=== PATIENT | male | born 1950 | race Caucasian/White ===

== ENCOUNTER 2016-04-26 08:17 | Inpatient (IN) | payer OTHER, MEDICARE ==
[~2016-04-26] VITALS: Ht 177.8 cm; Wt 61.5 kg
[~2016-04-26 08:17] MED LIST: AMOXIL500 MG PO; BACTRIM DS 8001 TAB PO; BYSTOLIC5 M1 PO; COUMADIN 2 MG TA2 MG PO; COUMADIN 3 MG TA3 MG PO; OXYCODONE HCL15 M1 PO; OXYCONTIN20 MG PO; TIZANIDINE4 MG PO
--- NOTE | 2016-04-26 08:23 | NUR ---
PT STATES HE HAS MESH IN HIS ABD THAT WAS PUT IN 2004 AND HE THINKS IT POPPED IN HIS LLQ. PT CALLED HIS PCP AND HE COULDN'T GET IN. PT STATES HE HAS BEEN ON PAIN MANAGEMENT FOR YEARS PT PALE AT TRIAGE.
--- NOTE | 2016-04-26 08:30 | NUR ---
PT BROUGHT TO ROOM UNABLE TO OBTAIN 02 SAT IN TRIAGE
--- NOTE | 2016-04-26 08:47 | NUR ---
PT WHEELED TO ROOM 7, TRANSFERRED TO [facility]. PLACED ON 2L 02 VIA OR, STATES HE FEELS A LITTLE SOB, SAT 100% AT THIS TIME. PT REPORT FEELING A POP TO HIS LOWER ABDOMEN. STATES THAT HE HAS A MESH IN PLACE FROM A SURGERY YEARS AGO. ALSO C/O LT LEG PAIN. DR MITCHELL IN ROOM TO [facility].
[2016-04-26 09:23] LABS: WHITE BLOOD CELL COUNT 7.6 /CUMM (4.8-10.8)
--- NOTE | 2016-04-26 09:29 | NUR ---
IV EST. NS INFUSING, MEDICATED WITH MORPHINE (SEE MAR)
--- NOTE | 2016-04-26 09:45 | NUR ---
CRITICAL TEST RESULTS [id number] Blanca ROSENBERG 65 M TESTS AND RESULTS: HEMATOCRIT 12.7 / HEMOGLOBIN 3.9 Results received and read back by: SOSA SMITH Results received date and time: 04/26/16 0946 The following provider was notified of the results, and read the results back: DR MITCHELL Notified date and time: 04/26/16 at 0946
[2016-04-26 09:47] LABS: RED BLOOD CELL CT 1.98 /CUMM (4.70-6.10)
[2016-04-26 09:48] LABS: HEMATOCRIT 12.7 % (42-52); MEAN CORPUSCULAR HGB 19.8 PG (27.0-31.0); MEAN CORPUSCULAR HGB CONC 30.8 G/DL (33.0-37.0); MEAN CORPUSCULAR VOLUME 64.2 FL (80.0-94.0)
[2016-04-26 09:49] LABS: ABSOLUTE BASOPHIL COUNT 0 /CUMM (0.0-0.2); ABSOLUTE EOSINOPHIL COUNT 0 /CUMM (0.0-0.7); ABSOLUTE GRANULOCYTE CT 6.6 /CUMM (1.4-6.5); ABSOLUTE LYMPH COUNT 0.5 /CUMM (1.2-3.4); ABSOLUTE MONOCYTE COUNT 0.6 /CUMM (0.10-0.60); BASOPHIL % 0 % (0.0-2.0); EOSINOPHIL % 0.1 % (0-5); GRANULOCYTE % 85.9 % (42.2-75.2); MEAN PLATELET VOLUME 10.6 FL (7.4-10.4); PLATELET COUNT 222 /CUMM (130-400); RBC DISTRIBUTION WIDTH 22.9 % (11.5-14.5)
--- NOTE | 2016-04-26 10:15 | NUR ---
PT TO AND FROM CAT.
--- NOTE | 2016-04-26 10:40 | CT SCAN REPORT ---
EXAMINATION: CT ABDOMEN AND PELVIS WITHOUT CONTRAST CLINICAL INFORMATION: Incarcerated hernia. Abdominal pain. COMPARISON: None. TECHNIQUE: Contiguous axial thin section helical images of the abdomen and pelvis were performed without oral or IV contrast. The data set was reformatted in the coronal and sagittal planes and reviewed on an independent workstation. DLP: 262 mGy-cm. FINDINGS: There is patchy opacification within the posterior basal segments of both lower lobes. The visualized portions of the heart are unremarkable. The liver is of normal size and attenuation without focal lesions nor intrahepatic biliary ductal dilation. A normal gallbladder is identified. There is no wall thickening or discernible pericholecystic fluid. The spleen, pancreas, adrenal glands are unremarkable. Both kidneys are of normal size and attenuation without hydronephrosis or nephrolithiasis. There is free fluid overlying the liver which is of low attenuation. There is also free fluid overlying the spleen which is of moderate attenuation. There is neither mesenteric nor retroperitoneal lymphadenopathy. There is a fat-containing anterior abdominal wall hernia. There is sigmoid diverticulosis without adjacent fat stranding or colonic wall thickening. Otherwise, unremarkable unopacified loops of small and large bowel are identified. There is a moderate amount of pelvic free fluid which is of intermediate attenuation. The urinary bladder is unremarkable. There is neither pelvic nor inguinal lymphadenopathy. Bone windows: There is destruction of the proximal right femur with a few flecks of residual bone identified. IMPRESSION: Moderate amount of abdominal and pelvic free fluid. Some of the fluid is of intermediate attenuation. This is nonspecific, but could be indicative of old degrading blood, debris or infection. Patchy bibasilar airspace disease. Diverticulosis without discrete evidence of diverticulitis. 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
--- NOTE | 2016-04-26 11:10 | ED GI/GU/ABDOMINAL COMPLAINT ---
History of Present Illness General Chief Complaint: Abdominal Pain/Flank Pain Stated Complaint: ABD PAIN Source: patient, old records, Epic Exam Limitations: no limitations Vital Signs & Intake/Output Vital Signs & Intake/Output Vital Signs Date Time Temp Pulse Resp B/P Pulse O2 O2 Flow FiO2 Ox Delivery Rate 04/26 1158 98.2 80 18 104/52 99 Room Air 04/26 0824 98.4 102 18 98/61 Allergies Coded Allergies: MDX - Gentamicin (GENTAMICIN) (SYSTEMIC RX 09/12/14) Reconcile Medications Amoxicillin (Amoxil) 500 MG CAP 1 TAB PO TID INFECTION Nebivolol (Bystolic) 5 MG TABLET 1 TAB PO DAILY BP (Reported) Oxycodone Cr (OxyContin) 20 MG TAB.ER.12H 1 TAB PO TID PAIN (Reported) OXYCODONE HCL (Oxycodone HCl) 15 MG TABLET 1 TAB PO TID PRN PAIN (Reported) Sulfamethoxazole/Trimethopri (Bactrim Ds 800 MG-160 MG) 1 TAB TAB 1 TAB PO BID INFECTION Sulfamethoxazole/Trimethopri (Bactrim Ds 800 MG-160 MG) 1 TAB TAB 1 TAB PO BID INFECTION TIZANIDINE HCL (Tizanidine) 4 MG TABLET 1 TAB PO QPM MUSCLE RELAXER (Reported ) Warfarin Sodium (Coumadin) 3 MG TABLET 1 TAB PO DAILY BLOOD (Reported) Warfarin Sodium (Coumadin) 2 MG TABLET 1 TAB PO DAILY HEART (Reported) Triage Note: PT STATES HE HAS MESH IN HIS ABD THAT WAS PUT IN 2004 AND HE THINKS IT POPPED IN HIS LLQ. PT CALLED HIS PCP AND HE COULDN'T GET IN. Triage Nurses Notes Reviewed? yes Onset: 2 weeks Duration: week(s):, constant, continues in ED, getting worse Timing: recent history Quality/Severity: sharpness, severe Location: periumbilical Radiation: no radiation Activities at Onset: physical activity Prior Abdominal Problems: none Past Sexual History: Unobtainable at this time Modifying Factors: Worsens With: movement, palpation. Associated Symptoms: abdominal pain, weakness HPI: Several months prior to admission patient complains of progressive weakness mid abdominal pain described as aching constant nonradiating mild in severity. 2 weeks prior to admission while getting out from commode he felt a tearing sensation in the side of his abdomen is become severe sharp constant nonradiating. He denies fever chills nausea vomiting diarrhea chest pain cough shortness of breath headache dysuria rash bleeding. Refuses rectal exam. Past History Travel History Traveled to [place] past 21 day No Medical History Any Pertinent Medical History? see below for history Cardiovascular: hypertension, AORTIC VALVUE REPLACMENT Surgical History Surgical History: appendectomy, hernia repair-incisional, right leg amputation Psychosocial History What is your primary language Grenadian Tobacco Use: Current Daily Use Daily Tobacco Use Amount/Type: => 5 Cigarettes daily ETOH Use: denies use Illicit Drug Use: marijuana Family History Hx Contributory? No Review of Systems Review of Systems Constitutional: Reports: see HPI, weakness. EENTM: Reports: no symptoms. Respiratory: Reports: no symptoms. Cardiovascular: Reports: no symptoms. GI: Reports: see HPI, abdominal pain. Genitourinary: Reports: no symptoms. Musculoskeletal: Reports: no symptoms. Skin: Reports: no symptoms. Neurological/Psychological: Reports: no symptoms. Hematologic/Endocrine: Reports: no symptoms. Immunologic/Allergic: Reports: no symptoms. All Other Systems: Reviewed and Negative Physical Exam Physical Exam General Appearance: well developed/nourished, alert, awake, anxious, moderate distress, thin Head: atraumatic, normal appearance Eyes: Bilateral: PERRL, EOMI, other (pale conjunctiva). Ears, Nose, Throat, Mouth: hearing grossly normal, moist mucous membrane Neck: normal inspection, supple, full range of motion, normal alignment Respiratory: normal breath sounds, chest non-tender, no respiratory distress, quiet respiration, lungs clear Cardiovascular: regular rate/rhythm, murmur, normal peripheral pulses, norml femoral pulses equa Peripheral Pulses: 4+ carotid (R), 4+ carotid (L) Gastrointestinal: normal bowel sounds, soft, guarding, tenderness (midline scar) Male Genitals: normal genitalia Back: normal inspection, normal range of motion Extremities: normal range of motion, no ligament instability Neurologic/Psych: no motor/sensory deficits, awake, alert, oriented x 3, normal mood/affect, 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 No Severe Sepsis Present: No Septic Shock Present: No Progress Differential Diagnosis: biliary colic, cholecystitis, gastritis, ischemic bowel, pancreatitis, PUD/GERD Plan of Care: Orders Procedure Date/time Status Regular Diet 04/27 D Active Patient Data 04/26 1228 Active OXYGEN SETUP (GEN) 04/26 1127 Active Saline Lock 04/26 1127 Active Admit to inpatient 04/26 1127 Active Vital Signs 04/26 1127 Active Activity/Ambulation 04/26 1127 Active Code Status 04/26 1127 Active PROTHROMBIN TIME 04/26 1105 Complete BLOOD CULTURE 04/26 1055 Active CBC WITHOUT DIFFERENTIAL 04/26 1055 Complete TYPE & SCREEN (NOT X-MATCH) 04/26 1055 Complete LIPASE 04/26 0857 Complete COMPREHENSIVE METABOLIC PANEL 04/26 0857 Complete CBC WITHOUT DIFFERENTIAL 04/26 0857 Complete Laboratory Tests 04/26/16 1136: PT > 103.0 *H, INR > 10.0 *H, CBC w Diff NO MAN DIFF REQ, RBC 1.67 L, MCV 64.2 L, MCH 19.5 L, RDW 23.1 H, MPV 9.3, Gran % 80.3 H, Lymphocytes % 13.5 L, Monocytes % 6.1, Eosinophils % 0.1, Basophils % 0 L, Absolute Granulocytes 5.2, Absolute Lymphocytes 0.9 L, Absolute Monocytes 0.4, Absolute Eosinophils 0, Absolute Basophils 0, PUBS MCHC 30.4 L 04/26/16 0903: Anion Gap 14, Estimated GFR 30 L, BUN/Creatinine Ratio 9.1, Glucose 149 H, Calcium 8.3 L, Total Bilirubin 0.4, AST 33, ALT 21, Alkaline Phosphatase 97, Total Protein 6.4, Albumin 3.3 L, Globulin 3.1, Albumin/Globulin Ratio 1.1, Lipase 17 L, CBC w Diff MAN DIFF ORDERED, RBC 1.98 L, MCV 64.2 L, MCH 19.8 L , RDW 22.9 H, MPV 10.6 H, Gran % 85.9 H, Lymphocytes % 6.5 L, Monocytes % 7.5, Eosinophils % 0.1, Basophils % 0 L, Absolute Granulocytes 6.6 H, Absolute Lymphocytes 0.5 L, Absolute Monocytes 0.6, Absolute Eosinophils 0, Absolute Basophils 0, Hypochromic-Microcytic 4+, Poikilocytosis 2+, Anisocytosis 3+, Microcytic Cells 4+, Ovalocytes 1+, PUBS MCHC 30.8 L Microbiology 04/26 1149 BLOOD: Blood Culture - RECD 04/26 1136 BLOOD: Blood Culture - RECD Diagnostic Imaging: Viewed by Me: CT Scan. Discussed w/RAD: CT Scan. Radiology Impression: Moderate amount of abdominal and pelvic free fluid. Some of the fluid is of intermediate attenuation. This is nonspecific, but could be indicative of old degrading blood, debris or infection. Patchy bibasilar airspace disease. Diverticulosis without discrete evidence of diverticulitis. 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 Initial ED EKG: none Comments: 12/28 hgb/hct 8/24. bun/cr 7/0.[address] Victoria, no surgical intervention at this time. Will follow. Departure Departure Disposition: STILL A PATIENT Condition: Fair Clinical Impression Primary Impression: Symptomatic anemia Secondary Impressions: Acute renal failure Qualifiers: Acute renal failure type: unspecified Qualified Code: N17.9 - Acute kidney failure, unspecified Intra abdominal hemorrhage Pneumonia Warfarin-induced coagulopathy Referrals: CONSTANTINO BANERJEE,JESSICA Gordon (PCP/Family) Departure Forms: Customer Survey General Discharge Information Admission Note Spoke With: SILVIA BANERJEE,ANTONINO Nathan Documentation of Exam: Documentation of any treatments & extenuating circumstances including Concerns Regarding Discharge (functional status, medication knowledge or non-compliance, living conditions, etc.) that warrant an admission rather than observation: ICU monitoring serial lab exam vitamin K transfusion packed red blood cells surgical evaluation IR consultation medication adjustment continuing care discharge planning Critical Care Note Critical Care Note Critical Care Time: 30-74 min (40)
--- NOTE | 2016-04-26 11:58 | NUR ---
REPORT RECIEVED FROM SOHAIL SWAN. DR MITCHELL AT BEDSIDE TO DISCUSS PLAN OF CARE. LABS SENT BY [facility]. ABX INFUSING NOW.
--- NOTE | 2016-04-26 11:59 | NUR ---
LAB AT BEDSIDE FOR ABO CONFIRMATION
[2016-04-26 12:01] LABS: ABSOLUTE BASOPHIL COUNT 0 /CUMM (0.0-0.2); ABSOLUTE EOSINOPHIL COUNT 0 /CUMM (0.0-0.7); ABSOLUTE GRANULOCYTE CT 5.2 /CUMM (1.4-6.5); ABSOLUTE LYMPH COUNT 0.9 /CUMM (1.2-3.4); ABSOLUTE MONOCYTE COUNT 0.4 /CUMM (0.10-0.60); BASOPHIL % 0 % (0.0-2.0); EOSINOPHIL % 0.1 % (0-5); GRANULOCYTE % 80.3 % (42.2-75.2); MEAN CORPUSCULAR HGB 19.5 PG (27.0-31.0); MEAN CORPUSCULAR HGB CONC 30.4 G/DL (33.0-37.0); MEAN CORPUSCULAR VOLUME 64.2 FL (80.0-94.0); MEAN PLATELET VOLUME 9.3 FL (7.4-10.4); PLATELET COUNT 138 /CUMM (130-400); RBC DISTRIBUTION WIDTH 23.1 % (11.5-14.5); RED BLOOD CELL CT 1.67 /CUMM (4.70-6.10); WHITE BLOOD CELL COUNT 6.5 /CUMM (4.8-10.8)
[2016-04-26 12:07] LABS: HEMATOCRIT 10.7 % (42-52)
--- NOTE | 2016-04-26 12:07 | NUR ---
CRITICAL TEST RESULTS [id number] Blanca ROSENBERG 65 M TESTS AND RESULTS: HGB 3.3 HCT 10.7 Results received and read back by: KRISTIAN SUAZO Results received date and time: 04/26/16 1208 The following provider was notified of the results, and read the results back: DR. MITCHELL Notified date and time: 04/26/16 at 1208
[2016-04-26 12:17] LABS: PT > 103.0 SEC (9.4-12.5)
--- NOTE | 2016-04-26 12:21 | NUR ---
CRITICAL TEST RESULTS [id number] Blanca ROSENBERG 65 M TESTS AND RESULTS: INR >10 Results received and read back by: AMNA BELLE Results received date and time: 04/26/16 1221 The following provider was notified of the results, and read the results back: DR MITCHELL Notified date and time: 04/26/16 at 1221
[2016-04-26] MEDS ORDERED: LEXAPRO10 M1 PO (12:53)
--- NOTE | 2016-04-26 12:53 | History & Physical ---
See Addendum General Information and HPI MD Statement: I have seen and personally examined Blanca ROSENBERG and documented this H&P. The patient is a 65 year old M who presented with a patient stated chief complaint of [Weakness/ abdominal pain]. Source of Information: patient, old records Exam Limitations: no limitations History of Present Illness: is a 65 yo man with PMHx. of HTN, CABG at [address] aortic valve on coumadin, multiple right LE surgeries ends up with AKA at 2015 2/2 osteomyelitis, HCV never been medicated, hx. of MRSA, abdominal hernia repair with MESH presented to ED with a c/o of generalized body weakness and abdominal pain. Since he has abdominal pain, with alternating diarrhea and constipation his stool sometimes black and sometimes brown, no BRBPR. Over the last 2.5 weeks his symptoms becomes more sever, he dosen't have energy to do any thing, he feels weak, with decrease PO intake He had an appointment last week with his pcp but he couldn't make it because of inclement weather, over the last 3 days his abdominal pain becomes sever generalized, mostely in the LLQ, associated with alot of gas, alot of cold and hot sweat, heart racing and SOB. While he attempts to move out of the commode he felt tears sensation in the left lower quadrant. His INR checked 2 days ago was 5.1, so, he stopped his coumadin. No antibiotic recently, he stopped taking antibiotic in early march (Bactrim). no change in medication, but he didn't eat that much. Patient denies nausea/ vomiting, LOC, and there is no change in urinary habits. He is on chronic pain medication 2/2 degenarative spine and generalized body pain. Patient stopped drinking alcohol 1 and a half year ago, before that he was heavy drinker, drink>3 drink a day, he denies hospitalization for alcohol detox before. He denies NSAIDs used. 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 Allergies/Medications Allergies: Coded Allergies: gentamicin (SYSTEMIC REACTION 04/26/16) Home Med list Escitalopram Oxalate (Lexapro) 10 MG TABLET 1 TAB PO DAILY MENTAL HEALTH ( Reported) Nebivolol (Bystolic) 5 MG TABLET 1 TAB PO DAILY BP (Reported) Oxycodone HCl 15 MG TABLET 1 TAB PO Q4-6HP PRN PAIN (Reported) Oxycodone HCl (Oxycontin) 30 MG TAB.ER.12H 1 TAB PO TID CHRONIC PAIN ( Reported) TIZANIDINE HCL (Tizanidine) 4 MG TABLET 1 TAB PO QPM MUSCLE RELAXER (Reported ) Tizanidine HCl 4 MG TABLET 1 TAB PO TID PAIN (Reported) Warfarin Sodium (Coumadin) 2 MG TABLET 1 TAB PO DAILY HEART (Reported) Warfarin Sodium (Coumadin) 2 MG TABLET 1 TAB PO AD HEART VALVE (Reported) Past History Travel History Traveled to [place] past 21 day No Medical History Cardiovascular: hypertension, AORTIC VALVUE REPLACMENT, CABG Respiratory: NONE Hepatic: hepatitis C Renal: NONE Psychiatric: anxiety Endocrine: NONE History of MRSA: Yes Active MRSA Infection: No Surgical History Surgical History: appendectomy, hernia repair-incisional, right leg amputation Past Family/Social History Family History Relations & Conditions if any MOTHER Relation not specified for: *No pertinent family history Psychosocial History Smoking Status: Current Everyday Smoker ETOH Use: denies use Illicit Drug Use: marijuana Sexual History Past Sexual History Unobtainable at this time Review of Systems Review of Systems Constitutional: Reports: weakness. EENTM: Reports: no symptoms. Cardiovascular: Reports: palpitations. Respiratory: Reports: short of breath. GI: Reports: abdominal pain, constipation, diarrhea, melena. Genitourinary: Reports: no symptoms. Musculoskeletal: Reports: no symptoms. Skin: Reports: see HPI (Pale). Neurological/Psychological: Reports: anxiety. Hematologic/Endocrine: Reports: see HPI. Exam & Diagnostic Data Last 24 Hrs of Vital Signs/I&O Vital Signs Date Time Temp Pulse Resp B/P Pulse O2 O2 Flow FiO2 Ox Delivery Rate 04/26 1414 99.8 84 18 94/51 95 Room Air 04/26 1256 86 18 97/46 100 Nasal 2.0L Cannula 04/26 1158 98.2 80 18 104/52 99 Room Air 04/26 0824 98.4 102 18 98/61 Intake & Output 04/26 1600 04/26 0800 04/26 0000 Intake Total Output Total Balance Patient 150 lb Weight Physical Exam General Appearance Alert, Oriented X3, Cooperative, Moderate Distress Skin Pallor HEENT Atraumatic, PERRLA, EOMI, Dry moucous membrane Neck Supple, No JVD, +2 Carotid Pulse wo Bruit Cardiovascular Normal S1, Normal S2, Tachycardic Lungs Clear to Auscultation, Normal Air Movement Abdomen Normal Bowel Sounds, Tens, generalized tenderness Extremities No Edema, Normal Pulses Vascular Normal Pulses Last 24 Hrs of Labs/Ronan: Laboratory Tests 04/26/16 1136: PT > 103.0 *H, INR > 10.0 *H, CBC w Diff NO MAN DIFF REQ, RBC 1.67 L, MCV 64.2 L, MCH 19.5 L, RDW 23.1 H, MPV 9.3, Gran % 80.3 H, Lymphocytes % 13.5 L, Monocytes % 6.1, Eosinophils % 0.1, Basophils % 0 L, Absolute Granulocytes 5.2, Absolute Lymphocytes 0.9 L, Absolute Monocytes 0.4, Absolute Eosinophils 0, Absolute Basophils 0, PUBS MCHC 30.4 L 04/26/16 0903: Anion Gap 14, Estimated GFR 30 L, BUN/Creatinine Ratio 9.1, Glucose 149 H, Calcium 8.3 L, Total Bilirubin 0.4, AST 33, ALT 21, Alkaline Phosphatase 97, Troponin I Pending, Total Protein 6.4, Albumin 3.3 L, Globulin 3.1, Albumin/ Globulin Ratio 1.1, Lipase 17 L, CBC w Diff MAN DIFF ORDERED, RBC 1.98 L, MCV 64.2 L, MCH 19.8 L, RDW 22.9 H, MPV 10.6 H, Gran % 85.9 H, Lymphocytes % 6.5 L, Monocytes % 7.5, Eosinophils % 0.1, Basophils % 0 L, Absolute Granulocytes 6.6 H, Absolute Lymphocytes 0.5 L, Absolute Monocytes 0.6, Absolute Eosinophils 0, Absolute Basophils 0, Hypochromic-Microcytic 4+, Poikilocytosis 2+, Anisocytosis 3+, Microcytic Cells 4+, Ovalocytes 1+, PUBS MCHC 30.8 L Microbiology 04/26 1452 UPPER RESP: Surveillance Culture - ORD 04/26 1452 GI: Surveillance Culture - ORD 04/26 1149 BLOOD: Blood Culture - RECD 04/26 1136 BLOOD: Blood Culture - RECD Diagnostic Data Other Results Abdomen/ pelvis CT: Moderate amount of abdominal and pelvic free fluid. Some of the fluid is of intermediate attenuation. This is nonspecific, but could be indicative of old degrading blood, debris or infection. Patchy bibasilar airspace disease. Diverticulosis without discrete evidence of diverticulitis. 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 Assessment/Plan Assessment: 65-year-old man with past medical history of hypertension, CABG status post [facility] [place] aortic valve on Coumadin presented to emergency department with abdominal pain and generalized weakness, who found to have high INR more than 10 and very low H&H 3.9/12.7. Admitted to ICU for acute blood loss anemia. At ED patient received 1 bolus of normal saline, 10 mg subcutaneous vitamin K, 1 dose of IV Flagyl and ceftriaxone, and 1 dose of 6 mg IV morphine. Assessment: 1# supratherapeutic INR: Patient is s/p [facility] [place] aortic valve, now with supratherapeutic INR which could be secondary to decrease oral intake and history of antibiotic use (Bactrim) which was last administer at early March, he is also using SSRI which is known to cause elevation in INR. Patient also has Hx. of HCV never treated he was a heavy drinker before he quit, hemoglopinopathies 2/2 chronic liver disease is unlikely as his liver on CT-Abdomen is of normal size, not cirrhotic. 2# acute blood loss anemia Wide differential diagnosis it could be related to upper GI bleed, mesentric vessels rupture. He reports on and off black stool, it also could be related to ulcer, liver cirrhosis, esophageal varices but liver appears normal on CT-scan. Case discussed in depth with Dr. Nix (GI specialist), who recommend at least 4 units of blood, the goal of hemoglobin is 8 given that the patient has a history of CABG currently he has positive troponin, he may not be a candidate for endoscopy at the moment, unless he has active bleeding, for now we need to rule out hemoperitoneum, paracentesis if has enough fluid to be taped. 3# LEONA: Which most likely related to acute blood loss, decrease perfusion and dehydration, his baseline is 0.7 4#Positive Troponin: Patient with acute blood loss, sever anemia, positive troponin most likely secondary to demand ischemia 5# history of MRSA Plan: * ICU admission * CBC and INR every 6 hour * Vitals Q2 hour * 2 units FFP for now, will assess the need throughout the day * 4 units of packed RBCs for now and we will assess the need for more with the frequent lab * Aim Hgb at 8 * IV protonix * Serial EKG, troponin * GI consult * Cardiology consult * Surgical consult * Gauiac all stool * Iron study, folate, B12 added to the lab * Consider diagnostic paracentesis * Nothing by mouth for possible endoscopy at a.m. * Will continue pain management with his home regimen * Will hold Lexapro, Bystolic, Tizanidine and Coumadin Full code. DVT ppx: ALPS As Ranked By This Provider Problem List: 1. Warfarin-induced coagulopathy 2. Symptomatic anemia 3. Acute renal failure Qualifiers Acute renal failure type: unspecified Qualified Code: N17.9 - Acute kidney failure, unspecified Core Measures/Miscellaneous Acute Coronary Syndrome ACS Diagnosis: No Cerebrovascular Accident CVA/TIA Diagnosis: No Congestive Heart Failure CHF Diagnosis: No Venous Thromboembolism VTE Risk Factors: Acute medical illness, Age > 40 VTE Prophylaxis Ordered Inpt: Mechanical (ALPS/TEDS) No Mech VTE prophylaxis d/t: No contraindications No VTE Pharm Prophylaxis d/t: Active bleeding VTE Diagnosis: No VTE Type: NONE VTE Confirmed by (Test): NONE Severe Sepsis Severe Sepsis Present: No Septic Shock Septic Shock Present: No Miscellaneous Documentation Attending Case Discussed With: SILVIA BANERJEE,ANTONINO Nathan Primary Care Physician: JESSICA MEEKS MD Patient sees these Specialists - Level of Patient Care: Critical Care (CRI)
[2016-04-26] MEDS ORDERED: COUMADIN2 M1 PO (12:54)
[2016-04-26] MEDS ORDERED: TIZANIDINE HCL4 M1 PO (12:54)
[2016-04-26] MEDS ORDERED: OXYCONTIN30 M1 PO (12:54)
--- NOTE | 2016-04-26 13:09 | NUR ---
BED ASSIGNMENT 109-01
--- NOTE | 2016-04-26 13:10 | NUR ---
MEDICINE TEAM AND SURGICAL PA AT BEDSIDE. PT MAKING MULTIPLE REQUESTS FOR PAIN MEDS, MEDICAL TEAM AWARE, PT MADE AWARE THAT HOSPITALIST TEAM DOES NOT WANT TO ORDER MEDS PRIOR TO SEEING THE PT.
--- NOTE | 2016-04-26 13:54 | NUR ---
MEDICATED WITH PO OXYCONTIN. PT VERY UPSET THAT OXYCONTIN WAS PROVIDED IN 3X10MG TABS STATING "THOSE THINGS DON'T WORK, I NEED THE 30S.) PT INFORMED 30MG TABS ARE NOT AVAILABLE IN ER. BLOOD BANK CALLED STATING PRBCS ARE READY. NO CONSENT IN CHART, PT STATES HE DID NOT SIGN A CONSENT FOR BLOOD. NO HOUSE STAFF ORDER IN.
--- NOTE | 2016-04-26 14:11 | Admission Certification ---
Admission Certification Certification Statement - As attending physician, I certify that at the time of - admission, based on clinical presentation, severity of - symptoms, need for further diagnostic testing and - therapeutic interventions, and risk of adverse outcomes - without in-hospital treatment, in my clinical assessment, - this patient requires an acute hospital stay for a minimum - of two nights or longer. I have also considered psychsocial - factors such as support system, advanced age, financial - issues, cognitive issues, and failed out-patient treatments, - past re-admission history, safety of patient, and lack of - compliance as applicable. Specific rationale supporting this admission is: LEONA and Acute blood loss anemia with supratherapeutic INR.
--- NOTE | 2016-04-26 14:30 | NUR ---
RECEIVED FROM ER; A&OX3, VERY PALE MAN. BP 100/50, HR 89, 02 SAT 99% ON RA. LUNGS C/DI'D ALL LOBES. RIGHT LEG AMPUTATION NOTED, +PP'S TO LEFT FOOT. NO C/O PAIN, .5CM ROUND SCAB TO BUTTOCKS NOTED; PT. ON ICU BED; WEIGHT 138.2 WITH ALPS MOTOR ON. HAS OWN WHEELCHAIR, CELL PHONE WITH HIM, GLASSES ON FACE, PER PT. LEFT HIS FULL SET OF UPPER AND LOWER DENTURES AT HOME. PER PT. SMOKES 1PPD X MANY YEARS. DOES NOT DRINK ALCOHOL ANYMORE, HASNT FOR A LONG TIME, DOES HAVE A MEDICAL MARIJUANA CARD, SMOKES HIS MEDICAL MARIJUANA "ONCE IN A WHILE". PT. TO RECEIVE 2 U'S FFP, 2 U'S PRBC'S, THEN HAVE LABS DRAWN AND THEN 2 MORE U'S PRBC'S.
[2016-04-26 14:35] VITALS: BP 100/50
--- NOTE | 2016-04-26 16:42 | PN- Att Addend ---
Attending MD Review Statement Attending Statement Attending MD Statement: examined this patient, discuss w/resident/PA/[employer]GAN [employer]SEMBLER, agreed w/resident/PA/ORGAN ASSEMBLER, reviewed EMR data (avail) Attending Assessment/Plan: Laboratory Tests 04/26/16 1136: PT > 103.0 *H, INR > 10.0 *H, CBC w Diff NO MAN DIFF REQ, RBC 1.67 L, MCV 64.2 L, MCH 19.5 L, RDW 23.1 H, MPV 9.3, Gran % 80.3 H, Lymphocytes % 13.5 L, Monocytes % 6.1, Eosinophils % 0.1, Basophils % 0 L, Absolute Granulocytes 5.2, Absolute Lymphocytes 0.9 L, Absolute Monocytes 0.4, Absolute Eosinophils 0, Absolute Basophils 0, PUBS MCHC 30.4 L 04/26/16 0903: Anion Gap 14, Estimated GFR 30 L, BUN/Creatinine Ratio 9.1, Glucose 149 H, Calcium 8.3 L, Iron Pending, TIBC 369, Ferritin Pending, Total Bilirubin 0.4, AST 33, ALT 21, Alkaline Phosphatase 97, Troponin I 0.53 *H, Total Protein 6.4, Albumin 3.3 L, Globulin 3.1, Albumin/Globulin Ratio 1.1, Lipase 17 L, Vitamin B12 Pending, Folate Pending, CBC w Diff MAN DIFF ORDERED, RBC 1.98 L, MCV 64.2 L, MCH 19.8 L, RDW 22.9 H, MPV 10.6 H, Gran % 85.9 H, Lymphocytes % 6.5 L, Monocytes % 7.5, Eosinophils % 0.1, Basophils % 0 L, Absolute Granulocytes 6.6 H, Absolute Lymphocytes 0.5 L, Absolute Monocytes 0.6, Absolute Eosinophils 0, Absolute Basophils 0, Hypochromic-Microcytic 4+, Poikilocytosis 2+, Anisocytosis 3+, Microcytic Cells 4+, Ovalocytes 1+, PUBS MCHC 30.8 L Vital Signs Date Time Temp Pulse Resp B/P Pulse O2 O2 Flow FiO2 Ox Delivery Rate 04/26 1435 97 Nasal 2.0L Cannula 04/26 1435 99.6 89 20 100/50 99 Nasal 2.0L Cannula 04/26 1414 99.8 84 18 94/51 95 Room Air 04/26 1256 86 18 97/46 100 Nasal 2.0L Cannula 04/26 1158 98.2 80 18 104/52 99 Room Air 04/26 0824 98.4 102 18 98/61 Pt admitted with abdominal pain for few weeks. Pt has PMH of AVR on anticoagulation, HCV untreated, Recent Amputation on rt leg at hip joint for osteomyelitis post which he was on abx, last course was in beginning of Mar 2016 according to the patient. Pt on admission found to be severly anemic with pallor on exam and also found to have high INR of >10 A/p- Sub-Acute blood loss anemia requiring blood transfusion with hb of 3.9 at admission, repeat one is 3.3 with high INR, given 10mg sc vit k in er, will give 2 U of FFP and 2 U of PRBC and recheck INR and h/h. will start on protonix drip, Surgery consulted given the abdominal pain and findings of indeterminate fluid on ct abdomen. Will admit to ICU for close monitoring. D/w pt the care plan. Will get GI consult . Coagulopathy with INR>10, - vit K, FFP and recheck INR Iron def anemia- low mcv , will get iron studies.
--- NOTE | 2016-04-26 18:22 | Cons- General Surgery ---
General Information and HPI Consulting Request Date of Consult: 04/26/16 Requested By: SILVIA BANERJEE,ANTONINO Nathan History of Present Illness: CC: Weakness HPI: 65-year-old nondiabetic smoker, with a complicated medical history including a [employer] valve on Coumadin which incidentally he just stopped taking for a few days because the INR was measured to high, multiple abdominal ventral incisional hernia repairs stemming from initially an appendectomy, and multiple right leg and dictations culminating in a disarticulation and involving osteomyelitis and debridements, I reviewed is not been at this institution for a few years as an inpatient but he comes in overall with some generalized weakness and he was planning to see his primary but because of the weather couldn't come in and also he recalls feeling a popping in his left groin and along with his history of hernia but he was having another hernia. He does take chronic pain meds and has had abdominal pain nonspecific on and off in general but no particular constant abdominal pain now. He denies chest pain or shortness of breath or fevers or sweats he has noted that the past few weeks his had a few very dark bowel movements maybe even a few drops of blood. He denies any changes in his bowel habits weight or appetite otherwise no nausea. I've reviewed the [facility]. No history of GERD, PUD, bleeding problems, heart disease or issues with anesthesia. Allergies/Medications Allergies: Coded Allergies: gentamicin (SYSTEMIC REACTION 04/26/16) Home Med List: Escitalopram Oxalate (Lexapro) 10 MG TABLET 1 TAB PO DAILY MENTAL HEALTH ( Reported) Nebivolol (Bystolic) 5 MG TABLET 1 TAB PO DAILY BP (Reported) Oxycodone HCl 15 MG TABLET 1 TAB PO Q4-6HP PRN PAIN (Reported) Oxycodone HCl (Oxycontin) 30 MG TAB.ER.12H 1 TAB PO TID CHRONIC PAIN ( Reported) TIZANIDINE HCL (Tizanidine) 4 MG TABLET 1 TAB PO QPM MUSCLE RELAXER (Reported ) Tizanidine HCl 4 MG TABLET 1 TAB PO TID PAIN (Reported) Warfarin Sodium (Coumadin) 2 MG TABLET 1 TAB PO DAILY HEART (Reported) Warfarin Sodium (Coumadin) 2 MG TABLET 1 TAB PO AD HEART VALVE (Reported) Current Medications: I reviewed Current Medications Sig/Jean Pierre Start time Last Medication Dose Route Stop Time Status Admin Ceftriaxone Sodium 0 .STK-MED ONE 04/26 1140 DC .ROUTE Ceftriaxone Sodium 1,000 MG ONCE ONE 04/26 1115 DC 04/26 IV 04/26 1116 1150 Influenza Virus 0.5 ML ONCE ONE 04/26 1545 DC Vaccine IM 04/26 1546 Metronidazole 500 MG ONCE ONE 04/26 1115 DC 04/26 N/A 1 UNIT IV 04/26 1214 1158 Morphine Sulfate 0 .STK-MED ONE 04/26 0929 DC .ROUTE Morphine Sulfate 6 MG ONCE ONE 04/26 0900 DC 04/26 IV 04/26 0901 0929 Nicotine 21 MG ONCE ONE 04/26 1300 DC 04/26 TOP 04/26 1301 1305 Nicotine 0 .STK-MED ONE 04/26 1259 DC TOP Oxycodone HCl 15 MG Q4P PRN 04/26 1400 AC 04/26 PO 1757 Oxycodone HCl 0 .STK-MED ONE 04/26 1352 DC PO Oxycodone HCl 30 MG Q8 04/26 1345 AC 04/26 PO 1353 Pantoprazole Sodium 40 MG BID 04/26 2200 CAN IV Pantoprazole Sodium 40 MG Q5H 04/26 1745 AC 04/26 Sodium Chloride 100 ML IV 1755 Pantoprazole Sodium 0 .STK-MED ONE 04/26 1415 DC IV Pantoprazole Sodium 40 MG DAILY 04/26 1410 DC 04/26 IV 1421 Patient Medication 1 UNIT ONE NR 04/26 1430 DC Teaching ED 04/26 1500 Phytonadione 10 MG ONCE ONE 04/26 1230 DC 04/26 SC 04/26 1231 1251 Phytonadione 0 .STK-MED ONE 04/26 1224 DC .ROUTE Sodium Chloride 1,000 ML Q13H 04/26 1410 DC IV Sodium Chloride 1,000 ML BOLUS ONE 04/26 0900 DC 04/26 IV 04/26 0959 0925 Past History Medical History Blood Transfusion Hx: No Cardiovascular: hypertension, AORTIC VALVUE REPLACMENT CABG Respiratory: NONE Hepatic: hepatitis C Renal: NONE Musculoskeletal: RIGHT FEMUR OSTEOMYELITIS TOTAL R HIP DISARTICULATI MUSCLE FLAP RECONSTRUCTIO Psychiatric: anxiety Endocrine: NONE Blood Disorders: anemia, BLOOD TRANSFUSIONS Surgical History Pertinent Surgical History: appendectomy, hernia repair-incisional, right leg amputation Family History Relations & Conditions If Any: MOTHER Relation not specified for: *No pertinent family history Psychosocial History Where Do You Live? Home Smoking Status: Current Everyday Smoker ETOH Use: denies use Illicit Drug Use: marijuana Review of Systems Review of Systems: Constitutional: No fever, sweats or weight loss ENMT: No sore throat Cardiovascular: No chest pain, palpitations or swelling Respiratory: No shortness of breath, cough, or sputum or dyspnea on exertion GI: No GERD or bleeding per rectum : No dysuria or hematuria Musculoskeletal: As stated above, bone or joint pain Skin / Breast: No jaundice, rashes or itching Psychiatric: No history of drug abuse no depression or anxiety, there is a history of excess alcohol use Hematologic / lymphatic system: No problems with excessive bleeding, bruising, or blood clots Exam & Diagnostic Data Vital Signs and I&O I reviewed Vital Signs Date Time Temp Pulse Resp B/P Pulse O2 O2 Flow FiO2 Ox Delivery Rate 04/26 1435 97 Nasal 2.0L Cannula 04/26 1435 99.6 89 20 100/50 99 Nasal 2.0L Cannula 04/26 1414 99.8 84 18 94/51 95 Room Air 04/26 1256 86 18 97/46 100 Nasal 2.0L Cannula 04/26 1158 98.2 80 18 104/52 99 Room Air 04/26 0824 98.4 102 18 98/61 I reviewed Intake & Output 04/26 1600 04/26 0800 04/26 0000 04/25 1600 04/25 0800 04/25 0000 Intake Total 30 Output Total Balance 30 Intake, IV 0 Intake, Oral 30 Number 0 Bowel Movements Patient 138 lb Weight Physical Exam: Constitutional: Frustrated, no acute distress, conversant Eyes: sclera anicteric ENMT: ears and nose atraumatic, moist mucous membranes, poor dentition, no lip lesions Neck: Supple, trachea is midline, no cervical or supraclavicular adenopathy and no palpable thyromegaly Cardiovascular: S1, S2, no murmurs, no peripheral edema Respiratory: clear to auscultation with normal respiratory effort and no intercostal retractions GI: abdomen soft, nontender, nondistended, no palpable hepatosplenomegaly No obvious inguinal hernias, examined supine no obvious incarcerated ventral incisional hernia Extremities / lymphatics: symmetrically warm, free range of motion no peripheral edema, no cervical, supraclavicular, axillary, or inguinal adenopathy Musculoskeletal: gait and station not applicable, no digital cyanosis, otherwise upper extremity good muscle strength and tone, mild atrophy, motor grossly 5 out of 5 throughout Skin: no jaundice, no rashes warm, nondiaphoretic, no areas of erythema or induration Psychiatric: mood and affect are appropriate and alert and oriented to person place and time Last 24 Hours of Labs: I reviewed Laboratory Tests 04/26 04/26 1136 0903 Chemistry Sodium (137 - 145 mmol/L) 136 L Potassium (3.5 - 5.1 mmol/L) 4.9 Chloride (98 - 107 mmol/L) 104 Carbon Dioxide (22 - 30 mmol/L) 18 L Anion Gap (5 - 16) 14 BUN (9 - 20 mg/dL) 20 Creatinine (0.7 - 1.2 mg/dL) 2.2 H Estimated GFR (>60 ml/min) 30 L BUN/Creatinine Ratio (7 - 25 %) 9.1 Glucose (65 - 99 mg/dL) 149 H Calcium (8.4 - 10.2 mg/dL) 8.3 L Iron (49 - 181 ug/dL) 14 L TIBC (261 - 462 ug/dL) 369 Ferritin (17.9 - 464 ng/mL) 7.6 L Total Bilirubin (0.2 - 1.3 mg/dL) 0.4 AST (17 - 59 U/L) 33 ALT (21 - 72 U/L) 21 Alkaline Phosphatase (< 127 U/L) 97 Troponin I (<0.11 ng/ml) 0.53 *H Total Protein (6.3 - 8.2 g/dL) 6.4 Albumin (3.5 - 5.0 g/dL) 3.3 L Globulin (1.9 - 4.2 gm/dL) 3.1 Albumin/Globulin Ratio (1.1 - 2.2 %) 1.1 Lipase (23 - 300 U/L) 17 L Vitamin B12 (239 - 931 pg/mL) 562 Folate (2.76 - 20.0 ng/mL) 7.3 Coagulation PT (9.4 - 12.5 SEC) > 103.0 *H INR (0.90 - 1.17) > 10.0 *H Hematology CBC w Diff NO MAN DIFF REQ MAN DIFF ORDERED WBC (4.8 - 10.8 /CUMM) 6.5 7.6 RBC (4.70 - 6.10 /CUMM) 1.67 L 1.98 L Hgb (14.0 - 18.0 G/DL) 3.3 *L 3.9 *L Hct (42 - 52 %) 10.7 *L 12.7 *L MCV (80.0 - 94.0 FL) 64.2 L 64.2 L MCH (27.0 - 31.0 PG) 19.5 L 19.8 L RDW (11.5 - 14.5 %) 23.1 H 22.9 H Plt Count (130 - 400 /CUMM) 138 222 MPV (7.4 - 10.4 FL) 9.3 10.6 H Gran % (42.2 - 75.2 %) 80.3 H 85.9 H Lymphocytes % (20.5 - 51.1 %) 13.5 L 6.5 L Monocytes % (1.7 - 9.3 %) 6.1 7.5 Eosinophils % (0 - 5 %) 0.1 0.1 Basophils % (0.0 - 2.0 %) 0 L 0 L Absolute Granulocytes (1.4 - 6.5 /CUMM) 5.2 6.6 H Absolute Lymphocytes (1.2 - 3.4 /CUMM) 0.9 L 0.5 L Absolute Monocytes (0.10 - 0.60 /CUMM) 0.4 0.6 Absolute Eosinophils (0.0 - 0.7 /CUMM) 0 0 Absolute Basophils (0.0 - 0.2 /CUMM) 0 0 Hypochromic-Microcytic 4+ Poikilocytosis 2+ Anisocytosis 3+ Microcytic Cells 4+ Ovalocytes 1+ PUBS MCHC (33.0 - 37.0 G/DL) 30.4 L 30.8 L Assessment/Plan Assessment/Plan To be completed, the source seems to be GI, no bowel obstruction no acute general surgical indications. I reviewed today's CT scan on PACS myself there is some dependent free fluid no obvious bowel obstruction. Impression is profound anemia but hemodynamically stable he's been bleeding gradually he needs workup, i.e. scope and possible peritoneal fluid analysis, I feel this amount of fluid in his abdomen on imaging is not enough to explain that degree of a drop seen on the CBC, it was 13 last May, and the elevated INR is playing a role too. No acute surgery indicated, I would advance diet. Problem List: 1. Symptomatic anemia 2. Dehydration Consult Acknowledgment - Thank you for your consult request.
[2016-04-26 20:41] LABS: PT 25.9 SEC (9.4-12.5)
[2016-04-26 20:45] LABS: ABSOLUTE BASOPHIL COUNT 0 /CUMM (0.0-0.2); ABSOLUTE EOSINOPHIL COUNT 0 /CUMM (0.0-0.7); ABSOLUTE GRANULOCYTE CT 1.7 /CUMM (1.4-6.5); BASOPHIL % 0 % (0.0-2.0)
[2016-04-26 20:47] LABS: ABSOLUTE LYMPH COUNT 1.8 /CUMM (1.2-3.4); ABSOLUTE MONOCYTE COUNT 0.4 /CUMM (0.10-0.60); EOSINOPHIL % 0.2 % (0-5); GRANULOCYTE % 43.8 % (42.2-75.2); MEAN CORPUSCULAR HGB CONC 31.7 G/DL (33.0-37.0); PLATELET COUNT 103 /CUMM (130-400); RBC DISTRIBUTION WIDTH 26.5 % (11.5-14.5); RED BLOOD CELL CT 1.86 /CUMM (4.70-6.10); WHITE BLOOD CELL COUNT 3.8 /CUMM (4.8-10.8)
[2016-04-26 20:56] LABS: HEMATOCRIT 13.3 % (42-52); MEAN CORPUSCULAR HGB 22.6 PG (27.0-31.0); MEAN CORPUSCULAR VOLUME 71.5 FL (80.0-94.0)
--- NOTE | 2016-04-26 21:06 | Cons- Cardiology ---
General Information and HPI Consulting Request Date of Consult: 04/26/16 Requested By: ANTONINO VEGA MD Reason for Consult: CAD, mechanical aortic valve History of Present Illness: The patient is a 65-year-old male with history of CAD, status post CABG in 1994, mechanical aortic valve replacement, right AKA secondary to osteomyelitis who presented with abdominal discomfort and generalized weakness. The abdominal pain has been occurring for the past month with alternating diarrhea and constipation. His stools are sometimes black, and at times he notes pink blood in his stools. He is on warfarin for his mechanical aortic valve, and he monitors his INR at home. 2 days prior to admission his INR was 5.0 at home, and he stopped taking warfarin at that time. He has had poor PO intake. He complains of recent weakness. He notes shortness of breath which is increased with activity. He also notes that for the past few months he has been having intermittent chest tightness. No syncope. No orthopnea. Allergies/Medications Allergies: Coded Allergies: gentamicin (SYSTEMIC REACTION 04/26/16) Home Med List: Escitalopram Oxalate (Lexapro) 10 MG TABLET 1 TAB PO DAILY MENTAL HEALTH ( Reported) Nebivolol (Bystolic) 5 MG TABLET 1 TAB PO DAILY BP (Reported) Oxycodone HCl 15 MG TABLET 1 TAB PO Q4-6HP PRN PAIN (Reported) Oxycodone HCl (Oxycontin) 30 MG TAB.ER.12H 1 TAB PO TID CHRONIC PAIN ( Reported) TIZANIDINE HCL (Tizanidine) 4 MG TABLET 1 TAB PO QPM MUSCLE RELAXER (Reported ) Tizanidine HCl 4 MG TABLET 1 TAB PO TID PAIN (Reported) Warfarin Sodium (Coumadin) 2 MG TABLET 1 TAB PO DAILY HEART (Reported) Warfarin Sodium (Coumadin) 2 MG TABLET 1 TAB PO AD HEART VALVE (Reported) Current Medications: Current Medications Sig/Jean Pierre Start time Last Medication Dose Route Stop Time Status Admin Ceftriaxone Sodium 0 .STK-MED ONE 04/26 1140 DC .ROUTE Ceftriaxone Sodium 1,000 MG ONCE ONE 04/26 1115 DC 04/26 IV 04/26 1116 1150 Influenza Virus 0.5 ML ONCE ONE 04/26 1545 DC Vaccine IM 04/26 1546 Metronidazole 500 MG ONCE ONE 04/26 1115 DC 04/26 N/A 1 UNIT IV 04/26 1214 1158 Morphine Sulfate 0 .STK-MED ONE 04/26 0929 DC .ROUTE Morphine Sulfate 6 MG ONCE ONE 04/26 0900 DC 04/26 IV 04/26 0901 0929 Nicotine 21 MG ONCE ONE 04/26 1300 DC 04/26 TOP 04/26 1301 1305 Nicotine 0 .STK-MED ONE 04/26 1259 DC TOP Oxycodone HCl 15 MG Q4P PRN 04/26 1400 AC 04/26 PO 1757 Oxycodone HCl 0 .STK-MED ONE 04/26 1352 DC PO Oxycodone HCl 30 MG Q8 04/26 1345 AC 04/26 PO 1353 Pantoprazole Sodium 40 MG BID 04/26 2200 CAN IV Pantoprazole Sodium 40 MG Q5H 04/26 1745 AC 04/26 Sodium Chloride 100 ML IV 1755 Pantoprazole Sodium 0 .STK-MED ONE 04/26 1415 DC IV Pantoprazole Sodium 40 MG DAILY 04/26 1410 DC 04/26 IV 1421 Patient Medication 1 UNIT ONE NR 04/26 1430 DC Teaching ED 04/26 1500 Phytonadione 10 MG ONCE ONE 04/26 1230 DC 04/26 SC 04/26 1231 1251 Phytonadione 0 .STK-MED ONE 04/26 1224 DC .ROUTE Sodium Chloride 1,000 ML Q13H 04/26 1410 DC IV Sodium Chloride 1,000 ML BOLUS ONE 04/26 0900 DC 04/26 IV 04/26 0959 0925 Review of Systems Review of Systems: No rash. No tremor. No orthopnea. No syncope. No hemoptysis. No hematemesis. All other systems were reviewed, and were noted to be negative. Past History Travel History Traveled to [place] past 21 day No Medical History Blood Transfusion Hx: No Cardiovascular: hypertension, AORTIC VALVUE REPLACMENT CABG Respiratory: NONE Hepatic: hepatitis C Renal: NONE Musculoskeletal: RIGHT FEMUR OSTEOMYELITIS TOTAL R HIP DISARTICULATI MUSCLE FLAP RECONSTRUCTIO Psychiatric: anxiety Endocrine: NONE Blood Disorders: anemia, BLOOD TRANSFUSIONS Surgical History Surgical History: appendectomy, hernia repair-incisional, right leg amputation Family History Relations & Conditions If Any: MOTHER Relation not specified for: *No pertinent family history Psychosocial History Where Do You Live? Home Smoking Status: Current Everyday Smoker ETOH Use: denies use Illicit Drug Use: marijuana Exam & Diagnostic Data Vital Signs and I&O Vital Signs Date Time Temp Pulse Resp B/P Pulse O2 O2 Flow FiO2 Ox Delivery Rate 04/26 1435 97 Nasal 2.0L Cannula 04/26 1435 99.6 89 20 100/50 99 Nasal 2.0L Cannula 04/26 1414 99.8 84 18 94/51 95 Room Air 04/26 1256 86 18 97/46 100 Nasal 2.0L Cannula 04/26 1158 98.2 80 18 104/52 99 Room Air 04/26 0824 98.4 102 18 98/61 Intake & Output 04/26 1600 04/26 0800 04/26 0000 04/25 1600 04/25 0000 Intake Total 30 Output Total Balance 30 Intake, IV 0 Intake, Oral 30 Number 0 Bowel Movements Patient 138 lb Weight Physical Exam: Gen: The patient is in no acute distress HEENT: Normal nose, ears, and oropharynx. Pupils equal bilaterally. Conjunctiva normal. Neck: Supple with no JVD, no masses, and no thyromegaly Lungs: Clear to auscultation with normal respiratory effort Heart: RRR, S1, S2, mechanical heart valve sounds. No peripheral edema, 2+ pulses in the lower extremities bilaterally Abdomen: Soft, nontender, no masses. No hepatomegaly. No splenomegaly Extremities: Right AKA. No clubbing or cyanosis. Normal muscle strength. Skin: Normal skin turgor with no skin ulcers or lesions noted. Neuro: Cranial nerves intact. Sensation intact Psych: Alert and oriented 3 with appropriate affect Labs/Ronan Results: Laboratory Tests 04/26 1600 Chemistry Troponin I Pending Coagulation PT (9.4 - 12.5 SEC) 25.9 H Cancelled INR (0.90 - 1.17) 2.49 H Cancelled Hematology CBC w Diff MAN DIFF ORDERED Cancelled WBC (4.8 - 10.8 /CUMM) Pending Cancelled RBC (4.70 - 6.10 /CUMM) Pending Cancelled Hgb (14.0 - 18.0 G/DL) Pending Cancelled Hct (42 - 52 %) Pending Cancelled MCV (80.0 - 94.0 FL) Pending Cancelled MCH (27.0 - 31.0 PG) Pending Cancelled RDW (11.5 - 14.5 %) Pending Cancelled Plt Count (130 - 400 /CUMM) Pending Cancelled MPV (7.4 - 10.4 FL) Pending Cancelled Gran % (42.2 - 75.2 %) Pending Lymphocytes % (20.5 - 51.1 %) Pending Monocytes % (1.7 - 9.3 %) Pending Eosinophils % (0 - 5 %) Pending Basophils % (0.0 - 2.0 %) Pending Absolute Granulocytes (1.4 - 6.5 /CUMM) Pending Segmented Neutrophils (42.2 - 75.2 %) Pending Absolute Lymphocytes (1.2 - 3.4 /CUMM) Pending Absolute Monocytes (0.10 - 0.60 /CUMM) Pending Absolute Eosinophils (0.0 - 0.7 /CUMM) Pending Absolute Basophils (0.0 - 0.2 /CUMM) Pending PUBS MCHC (33.0 - 37.0 G/DL) Pending Cancelled 04/26 04/26 1535 1136 Chemistry Troponin I Cancelled Coagulation PT (9.4 - 12.5 SEC) > 103.0 *H INR (0.90 - 1.17) > 10.0 *H Hematology CBC w Diff NO MAN DIFF REQ WBC (4.8 - 10.8 /CUMM) 6.5 RBC (4.70 - 6.10 /CUMM) 1.67 L Hgb (14.0 - 18.0 G/DL) 3.3 *L Hct (42 - 52 %) 10.7 *L MCV (80.0 - 94.0 FL) 64.2 L MCH (27.0 - 31.0 PG) 19.5 L RDW (11.5 - 14.5 %) 23.1 H Plt Count (130 - 400 /CUMM) 138 MPV (7.4 - 10.4 FL) 9.3 Gran % (42.2 - 75.2 %) 80.3 H Lymphocytes % (20.5 - 51.1 %) 13.5 L Monocytes % (1.7 - 9.3 %) 6.1 Eosinophils % (0 - 5 %) 0.1 Basophils % (0.0 - 2.0 %) 0 L Absolute Granulocytes (1.4 - 6.5 /CUMM) 5.2 Absolute Lymphocytes (1.2 - 3.4 /CUMM) 0.9 L Absolute Monocytes (0.10 - 0.60 /CUMM) 0.4 Absolute Eosinophils (0.0 - 0.7 /CUMM) 0 Absolute Basophils (0.0 - 0.2 /CUMM) 0 PUBS MCHC (33.0 - 37.0 G/DL) 30.4 L 04/26 0903 Chemistry Sodium (137 - 145 mmol/L) 136 L Potassium (3.5 - 5.1 mmol/L) 4.9 Chloride (98 - 107 mmol/L) 104 Carbon Dioxide (22 - 30 mmol/L) 18 L Anion Gap (5 - 16) 14 BUN (9 - 20 mg/dL) 20 Creatinine (0.7 - 1.2 mg/dL) 2.2 H Estimated GFR (>60 ml/min) 30 L BUN/Creatinine Ratio (7 - 25 %) 9.1 Glucose (65 - 99 mg/dL) 149 H Calcium (8.4 - 10.2 mg/dL) 8.3 L Iron (49 - 181 ug/dL) 14 L TIBC (261 - 462 ug/dL) 369 Ferritin (17.9 - 464 ng/mL) 7.6 L Total Bilirubin (0.2 - 1.3 mg/dL) 0.4 AST (17 - 59 U/L) 33 ALT (21 - 72 U/L) 21 Alkaline Phosphatase (< 127 U/L) 97 Troponin I (<0.11 ng/ml) 0.53 *H Total Protein (6.3 - 8.2 g/dL) 6.4 Albumin (3.5 - 5.0 g/dL) 3.3 L Globulin (1.9 - 4.2 gm/dL) 3.1 Albumin/Globulin Ratio (1.1 - 2.2 %) 1.1 Lipase (23 - 300 U/L) 17 L Vitamin B12 (239 - 931 pg/mL) 562 Folate (2.76 - 20.0 ng/mL) 7.3 Hematology CBC w Diff MAN DIFF ORDERED WBC (4.8 - 10.8 /CUMM) 7.6 RBC (4.70 - 6.10 /CUMM) 1.98 L Hgb (14.0 - 18.0 G/DL) 3.9 *L Hct (42 - 52 %) 12.7 *L MCV (80.0 - 94.0 FL) 64.2 L MCH (27.0 - 31.0 PG) 19.8 L RDW (11.5 - 14.5 %) 22.9 H Plt Count (130 - 400 /CUMM) 222 MPV (7.4 - 10.4 FL) 10.6 H Gran % (42.2 - 75.2 %) 85.9 H Lymphocytes % (20.5 - 51.1 %) 6.5 L Monocytes % (1.7 - 9.3 %) 7.5 Eosinophils % (0 - 5 %) 0.1 Basophils % (0.0 - 2.0 %) 0 L Absolute Granulocytes (1.4 - 6.5 /CUMM) 6.6 H Absolute Lymphocytes (1.2 - 3.4 /CUMM) 0.5 L Absolute Monocytes (0.10 - 0.60 /CUMM) 0.6 Absolute Eosinophils (0.0 - 0.7 /CUMM) 0 Absolute Basophils (0.0 - 0.2 /CUMM) 0 Hypochromic-Microcytic 4+ Poikilocytosis 2+ Anisocytosis 3+ Microcytic Cells 4+ Ovalocytes 1+ PUBS MCHC (33.0 - 37.0 G/DL) 30.8 L Diagnostic Data EKG Results EKG not in chart Other Results CT scan of the abdomen and pelvis: Moderate amount of abdominal and pelvic free fluid. Some of the fluid is of intermediate attenuation. This is nonspecific, but could be indicative of old degrading blood, debris or infection. Patchy bibasilar airspace disease. Diverticulosis without discrete evidence of diverticulitis. 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 Assessment/Plan Assessment/Plan Assessment: 1. CAD, status post CABG 2. Mechanical aortic valve 3. Anticoagulated on warfarin with INR greater than 10 4. Acute kidney injury 5. Severe anemia, likely secondary to occult blood loss 6. Mild troponin elevation, likely secondary to demand ischemia precipitated by severe anemia. No evidence of acute coronary syndrome at this time. Plan: * Hold Coumadin for elevated INR * Vitamin K and FFP already been given for reversal of elevated INR * Once INR decreases to less than 2.5, IV heparin should be started per protocol * EKG. This does not appear to have been done in ER Consult Acknowledgment - Thank you for your consult request.
[2016-04-26 21:20] LABS: MEAN PLATELET VOLUME 10.4 FL (7.4-10.4)
[2016-04-27] VITALS: BP 106/68
--- NOTE | 2016-04-27 00:43 | NUR ---
PT AWAKE AND ORIENTED. RECEIVING 4TH UNIT OF PC; COMPLETED WITH NO ADVERSE REACTION. NSR 70'S, MANUAL BP 106/68. O2 OSS, SATURATION 97%, LUNGS SOUND CLEAR. NPO AFTER MN, PT REMINDED THAT HE IS FOR ENDOSCOPY TOMORROW. ABDOMEN SOFT, NORMOACTIVE BS. PROTONIX GTT INFUSING AT 20ML/H=8MG.
[2016-04-27 01:53] LABS: MEAN CORPUSCULAR HGB 24.5 PG (27.0-31.0); MEAN CORPUSCULAR HGB CONC 32.5 G/DL (33.0-37.0); MEAN PLATELET VOLUME 9.9 FL (7.4-10.4); PLATELET COUNT 108 /CUMM (130-400); RBC DISTRIBUTION WIDTH 24.9 % (11.5-14.5); WHITE BLOOD CELL COUNT 4.6 /CUMM (4.8-10.8)
[2016-04-27 01:59] LABS: PT 19.9 SEC (9.4-12.5)
[2016-04-27 02:01] LABS: RED BLOOD CELL CT 2.53 /CUMM (4.70-6.10)
[2016-04-27 02:02] LABS: MEAN CORPUSCULAR VOLUME 75.3 FL (80.0-94.0)
--- NOTE | 2016-04-27 02:34 | NUR ---
HGB/HCT 6.2/19. UNIT OF PC STARTED ORDERED. MONITORED FOR ADVERSE REACTION. NO BM NOR VOMITTING NOTED.
--- NOTE | 2016-04-27 07:51 | Cons- Gastroenterology ---
General Information and HPI Consulting Request Date of Consult: 04/27/16 (MD Federico/GASTROENTEROLOGY) Requested By: SILVIA BANERJEE,ANTONINO Nathan Reason for Consult: Anemia Abdominal pain Ascites Hepatitis C Source of Information: patient Exam Limitations: poor historian History of Present Illness: 65-year-old male with history of hepatitis C diagnosed in the , never treated. He was undergoing evaluation at [facility] for this recently. He is not known to be cirrhotic; he does not recall having had a liver biopsy or fibrosis scan. He has a long-standing alcohol abuse history, but stopped 2 years ago. He does not usually have heartburn, indigestion, nausea, or diarrhea /constipation; there is no history of GI bleed including prior blood per rectum and melena; he is anticoagulated because of a prosthetic aortic valve. He does not use aspirin or NSAIDs. He had a colonoscopy more than 10 years ago and states that it was normal. He has never had an EGD. He has chronic pain, in many parts of his body including back and joints, as well as abdomen, for which he takes narcotics. He is status post multiple abdominal surgeries, for, among other entities,, complicated appendicitis, and hernias/mesh insertions. The patient has lost weight recently because of decreased oral intake which he attributed to depression. 3 weeks ago the patient felt and heard a pop in his lower abdomen, and developed severe abdominal pain, which became diffuse. This has persisted. He has noticed since yesterday that his abdomen is also more distended. He presented to the emergency room with this pain, was found to be markedly anemic. He has not noted any swelling in his leg or elsewhere. He denies nausea, vomiting/ hematemesis. He had the passage of several pink tinged bowel movements recently. He also had one day of black stool a few weeks ago; it has been a normal brown since. There has been no fever, chills, sweats, dysuria, hematuria, syncope, chest pain ; there has been some shortness of breath on exertion, and weakness. Allergies/Medications Allergies: Coded Allergies: gentamicin (SYSTEMIC REACTION 04/26/16) Home Med List: Escitalopram Oxalate (Lexapro) 10 MG TABLET 1 TAB PO DAILY MENTAL HEALTH ( Reported) Nebivolol (Bystolic) 5 MG TABLET 1 TAB PO DAILY BP (Reported) Oxycodone HCl 15 MG TABLET 1 TAB PO Q4-6HP PRN PAIN (Reported) Oxycodone HCl (Oxycontin) 30 MG TAB.ER.12H 1 TAB PO TID CHRONIC PAIN ( Reported) TIZANIDINE HCL (Tizanidine) 4 MG TABLET 1 TAB PO QPM MUSCLE RELAXER (Reported ) Tizanidine HCl 4 MG TABLET 1 TAB PO TID PAIN (Reported) Warfarin Sodium (Coumadin) 2 MG TABLET 1 TAB PO DAILY HEART (Reported) Warfarin Sodium (Coumadin) 2 MG TABLET 1 TAB PO AD HEART VALVE (Reported) Current Medications: Current Medications Sig/Jean Pierre Start time Last Medication Dose Route Stop Time Status Admin Ceftriaxone Sodium 0 .STK-MED ONE 04/26 1140 DC .ROUTE Ceftriaxone Sodium 1,000 MG ONCE ONE 04/26 1115 DC 04/26 IV 04/26 1116 1150 Heparin Sodium 25,000 UNIT Q24H 04/26 2145 DC (Porcine) IV Sodium Chloride 500 ML Influenza Virus 0.5 ML ONCE ONE 04/26 1545 DC Vaccine IM 04/26 1546 Metronidazole 500 MG ONCE ONE 04/26 1115 DC 04/26 N/A 1 UNIT IV 04/26 1214 1158 Morphine Sulfate 0 .STK-MED ONE 04/26 0929 DC .ROUTE Morphine Sulfate 6 MG ONCE ONE 04/26 0900 DC 04/26 IV 04/26 0901 0929 Nicotine 21 MG ONCE ONE 04/26 1300 DC 04/26 TOP 04/26 1301 1305 Nicotine 0 .STK-MED ONE 04/26 1259 DC TOP Oxycodone HCl 15 MG Q4P PRN 04/26 1400 04/27 PO 0159 Oxycodone HCl 0 .STK-MED ONE 04/26 1352 DC PO Oxycodone HCl 30 MG Q8 04/26 1345 AC 04/27 PO 0610 Pantoprazole Sodium 40 MG BID 04/26 2200 CAN IV Pantoprazole Sodium 40 MG Q5H 04/26 1745 AC 04/27 Sodium Chloride 100 ML IV 0339 Pantoprazole Sodium 0 .STK-MED ONE 04/26 1415 DC IV Pantoprazole Sodium 40 MG DAILY 04/26 1410 DC 04/26 IV 1421 Patient Medication 1 UNIT ONE NR 04/26 1430 DC Teaching ED 04/26 1500 Phytonadione 10 MG ONCE ONE 04/26 1230 DC 04/26 VA 04/26 1231 1251 Phytonadione 0 .STK-MED ONE 04/26 1224 DC .ROUTE Sodium Chloride 1,000 ML Q13H 04/26 1410 DC IV Sodium Chloride 1,000 ML BOLUS ONE 04/26 0900 DC 04/26 IV 04/26 0913 0937 Past History Travel History Traveled to [place] past 21 day No Medical History Blood Transfusion Hx: No Cardiovascular: hypertension, AORTIC VALVUE REPLACMENT CABG Respiratory: NONE Hepatic: hepatitis C Renal: NONE Musculoskeletal: RIGHT FEMUR OSTEOMYELITIS TOTAL R HIP DISARTICULATI MUSCLE FLAP RECONSTRUCTIO Psychiatric: anxiety Endocrine: NONE Blood Disorders: anemia, BLOOD TRANSFUSIONS Surgical History Surgical History: appendectomy, hernia repair-incisional, right leg amputation Family History Relations & Conditions If Any: MOTHER Relation not specified for: *No pertinent family history Psychosocial History Where Do You Live? Home Smoking Status: Current Everyday Smoker ETOH Use: denies use Illicit Drug Use: marijuana Review of Systems Review of Systems Constitutional: Reports: malaise, weakness (weight loss). Denies: chills, fever. EENTM: Reports: blurred vision. Denies: icterus, epistaxis. Cardiovascular: Denies: chest pain, edema, palpitations, syncope. Respiratory: Reports: short of breath. Denies: cough. GI: Reports: see HPI. Genitourinary: Denies: dysuria, hematuria. Musculoskeletal: Reports: back pain, joint pain, muscle pain. Denies: neck pain. Skin: Denies: jaundice, lesions, rash. Neurological/Psychological: Reports: depressed, emotional problems. Denies: confusion, dementia, headache, numbness, tremors, tonic-clonic seizures. Hematologic/Endocrine: Denies: bruising, bleeding. Immunologic/Allergic: Denies: splenectomy. Exam & Diagnostic Data Vital Signs and I&O Vital Signs Date Time Temp Pulse Resp B/P Pulse O2 O2 Flow FiO2 Ox Delivery Rate 04/27 0400 95 Room Air 04/27 0000 97 Room Air 04/27 0000 98.7 77 22 106/68 97 Room Air 04/26 2000 94 Nasal 2.0L Cannula 04/26 1435 97 Nasal 2.0L Cannula 04/26 1435 99.6 89 20 100/50 99 Nasal 2.0L Cannula 04/26 1414 99.8 84 18 94/51 95 Room Air 04/26 1256 86 18 97/46 100 Nasal 2.0L Cannula 04/26 1158 98.2 80 18 104/52 99 Room Air 04/26 0824 98.4 102 18 98/61 Intake & Output 04/27 040 Intake Total 1651 30 Output Total 200 Balance 1451 30 Intake, Blood 1547 Product Intake, IV 104 0 Intake, Oral 30 Number 0 Bowel Movements Output, Urine 200 Patient 138 lb Weight Physical Exam: Malnourished white male, no apparent distress. Alert and oriented with normal cognition. No asterixis. Skin warm and dry with multiple tattoos, no rash/ lesion, no jaundice, normal turgor. No spider telangiectasias, palmar erythema or gynecomastia. Bitemporal wasting. Sclerae are anicteric. Oropharynx dry without lesion, normal-sized tongue; neck supple, no thyromegaly or neck mass, no adenopathy. Heart regular rhythm with 1/6 systolic murmur. Lungs clear bilaterally. Abdomen is distended but not tense, with normal bowel sounds; midline scar, large central/ventral hernia, diffuse tenderness to mild palpation , no apparent hepatosplenomegaly. Status post resection right leg; left lower extremity without cyanosis or edema, and with good pulses. Results Pertinent Lab Results: Laboratory Tests 04/27 04/26 04/26 0129 2300 2220 Chemistry Troponin I (<0.11 ng/ml) 0.63 *H Coagulation PT (9.4 - 12.5 SEC) 19.9 H INR (0.90 - 1.17) 1.91 H Hematology CBC w Diff MAN DIFF ORDERED Cancelled WBC (4.8 - 10.8 /CUMM) 4.6 L Cancelled RBC (4.70 - 6.10 /CUMM) 2.53 L Cancelled Hgb (14.0 - 18.0 G/DL) 6.2 *L Cancelled Hct (42 - 52 %) 19.0 *L Cancelled MCV (80.0 - 94.0 FL) 75.3 L Cancelled MCH (27.0 - 31.0 PG) 24.5 L Cancelled RDW (11.5 - 14.5 %) 24.9 H Cancelled Plt Count (130 - 400 /CUMM) 108 L Cancelled MPV (7.4 - 10.4 FL) 9.9 Cancelled Segmented Neutrophils (42.2 - 75.2 %) 79 H Lymphocytes (20.5 - 51.1 %) 14 L Monocytes (1.7 - 9.3 %) 6 Basophils (0.0 - 2.0 %) 1 Platelet Estimate (ADEQUATE) ADEQUATE Polychromasia 1+ Hypochromic-Microcytic 2+ Poikilocytosis 2+ Anisocytosis 1+ Microcytic Cells 1+ Target Cells FEW Ovalocytes 1+ Elliptocytes FEW PUBS MCHC (33.0 - 37.0 G/DL) 32.5 L Cancelled Other Body Source Fld Total RBCs Counted (%) 100 Urines Ur Random Creatinine (mg/dL) 249.0 Ur Random Sodium (30 - 90 mmol/L) 43 Ur Random Potassium (mmol/L) 48.4 Fraction Sodium Excret (<1% %) 0.3 04/26 1831 Chemistry Troponin I (<0.11 ng/ml) 0.81 *H Coagulation PT (9.4 - 12.5 SEC) 25.9 H INR (0.90 - 1.17) 2.49 H Hematology CBC w Diff MAN DIFF ORDERED WBC (4.8 - 10.8 /CUMM) 3.8 L RBC (4.70 - 6.10 /CUMM) 1.86 L Hgb (14.0 - 18.0 G/DL) 4.2 *L Hct (42 - 52 %) 13.3 *L MCV (80.0 - 94.0 FL) 71.5 L MCH (27.0 - 31.0 PG) 22.6 L RDW (11.5 - 14.5 %) 26.5 H Plt Count (130 - 400 /CUMM) 103 L MPV (7.4 - 10.4 FL) 10.4 Gran % (42.2 - 75.2 %) 43.8 Lymphocytes % (20.5 - 51.1 %) 46.7 Monocytes % (1.7 - 9.3 %) 9.3 Eosinophils % (0 - 5 %) 0.2 Basophils % (0.0 - 2.0 %) 0 L Absolute Granulocytes (1.4 - 6.5 /CUMM) 1.7 Segmented Neutrophils (42.2 - 75.2 %) 74 Absolute Lymphocytes (1.2 - 3.4 /CUMM) 1.8 Lymphocytes (20.5 - 51.1 %) 25 Monocytes (1.7 - 9.3 %) 1 L Absolute Monocytes (0.10 - 0.60 /CUMM) 0.4 Absolute Eosinophils (0.0 - 0.7 /CUMM) 0 Absolute Basophils (0.0 - 0.2 /CUMM) 0 Nucleated RBCs (0.0 - 0.0 /100WBC) 2 H Platelet Estimate (ADEQUATE) DECREASED Hypochromic-Microcytic 3+ Poikilocytosis 1+ Target Cells 1+ Stomatocytes 1+ Elliptocytes RARE Schistocytes RARE PUBS MCHC (33.0 - 37.0 G/DL) 31.7 L Urines Ur Random Creatinine Cancelled 04/26 04/26 04/26 1600 1535 1136 Chemistry Troponin I Cancelled Coagulation PT (9.4 - 12.5 SEC) Cancelled > 103.0 *H INR (0.90 - 1.17) Cancelled > 10.0 *H Hematology CBC w Diff Cancelled NO MAN DIFF REQ WBC (4.8 - 10.8 /CUMM) Cancelled 6.5 RBC (4.70 - 6.10 /CUMM) Cancelled 1.67 L Hgb (14.0 - 18.0 G/DL) Cancelled 3.3 *L Hct (42 - 52 %) Cancelled 10.7 *L MCV (80.0 - 94.0 FL) Cancelled 64.2 L MCH (27.0 - 31.0 PG) Cancelled 19.5 L RDW (11.5 - 14.5 %) Cancelled 23.1 H Plt Count (130 - 400 /CUMM) Cancelled 138 MPV (7.4 - 10.4 FL) Cancelled 9.3 Gran % (42.2 - 75.2 %) 80.3 H Lymphocytes % (20.5 - 51.1 %) 13.5 L Monocytes % (1.7 - 9.3 %) 6.1 Eosinophils % (0 - 5 %) 0.1 Basophils % (0.0 - 2.0 %) 0 L Absolute Granulocytes (1.4 - 6.5 /CUMM) 5.2 Absolute Lymphocytes (1.2 - 3.4 /CUMM) 0.9 L Absolute Monocytes (0.10 - 0.60 /CUMM) 0.4 Absolute Eosinophils (0.0 - 0.7 /CUMM) 0 Absolute Basophils (0.0 - 0.2 /CUMM) 0 PUBS MCHC (33.0 - 37.0 G/DL) Cancelled 30.4 L 04/26 0903 Chemistry Sodium (137 - 145 mmol/L) 136 L Potassium (3.5 - 5.1 mmol/L) 4.9 Chloride (98 - 107 mmol/L) 104 Carbon Dioxide (22 - 30 mmol/L) 18 L Anion Gap (5 - 16) 14 BUN (9 - 20 mg/dL) 20 Creatinine (0.7 - 1.2 mg/dL) 2.2 H Estimated GFR (>60 ml/min) 30 L BUN/Creatinine Ratio (7 - 25 %) 9.1 Glucose (65 - 99 mg/dL) 149 H Calcium (8.4 - 10.2 mg/dL) 8.3 L Iron (49 - 181 ug/dL) 14 L TIBC (261 - 462 ug/dL) 369 Ferritin (17.9 - 464 ng/mL) 7.6 L Total Bilirubin (0.2 - 1.3 mg/dL) 0.4 AST (17 - 59 U/L) 33 ALT (21 - 72 U/L) 21 Alkaline Phosphatase (< 127 U/L) 97 Troponin I (<0.11 ng/ml) 0.53 *H Total Protein (6.3 - 8.2 g/dL) 6.4 Albumin (3.5 - 5.0 g/dL) 3.3 L Globulin (1.9 - 4.2 gm/dL) 3.1 Albumin/Globulin Ratio (1.1 - 2.2 %) 1.1 Lipase (23 - 300 U/L) 17 L Vitamin B12 (239 - 931 pg/mL) 562 Folate (2.76 - 20.0 ng/mL) 7.3 Hematology CBC w Diff MAN DIFF ORDERED WBC (4.8 - 10.8 /CUMM) 7.6 RBC (4.70 - 6.10 /CUMM) 1.98 L Hgb (14.0 - 18.0 G/DL) 3.9 *L Hct (42 - 52 %) 12.7 *L MCV (80.0 - 94.0 FL) 64.2 L MCH (27.0 - 31.0 PG) 19.8 L RDW (11.5 - 14.5 %) 22.9 H Plt Count (130 - 400 /CUMM) 222 MPV (7.4 - 10.4 FL) 10.6 H Gran % (42.2 - 75.2 %) 85.9 H Lymphocytes % (20.5 - 51.1 %) 6.5 L Monocytes % (1.7 - 9.3 %) 7.5 Eosinophils % (0 - 5 %) 0.1 Basophils % (0.0 - 2.0 %) 0 L Absolute Granulocytes (1.4 - 6.5 /CUMM) 6.6 H Absolute Lymphocytes (1.2 - 3.4 /CUMM) 0.5 L Absolute Monocytes (0.10 - 0.60 /CUMM) 0.6 Absolute Eosinophils (0.0 - 0.7 /CUMM) 0 Absolute Basophils (0.0 - 0.2 /CUMM) 0 Hypochromic-Microcytic 4+ Poikilocytosis 2+ Anisocytosis 3+ Microcytic Cells 4+ Ovalocytes 1+ PUBS MCHC (33.0 - 37.0 G/DL) 30.8 L Imaging/Other Studies: CT scan of the abdomen and pelvis, without IV/oral contrast: * The liver is of normal size and attenuation without focal lesions nor intrahepatic biliary ductal dilation. A normal gallbladder is identified. There is no wall thickening or discernible pericholecystic fluid. * The spleen, pancreas, adrenal glands are unremarkable. * There is free fluid overlying the liver which is of low attenuation. There is also free fluid overlying the spleen which is of moderate attenuation. There is neither mesenteric nor retroperitoneal lymphadenopathy. There is a fat-containing anterior abdominal wall hernia. * There is sigmoid diverticulosis without adjacent fat stranding or colonic wall thickening. Otherwise, unremarkable unopacified loops of small and large bowel are identified. There is a moderate amount of pelvic free fluid which is of intermediate attenuation. The urinary bladder is unremarkable. There is neither pelvic nor inguinal lymphadenopathy. IMPRESSION: * Moderate amount of abdominal and pelvic free fluid. Some of the fluid is of intermediate attenuation. This is nonspecific, but could be indicative of old degrading blood, debris or infection. * Patchy bibasilar airspace disease. * Diverticulosis without discrete evidence of diverticulitis. 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 Assessment/Plan Assessment/Recommendations: 1. Marked anemia. Given stability of vital signs, and relative lack of symptoms on admission, this is likely acute on chronic. There is no overt GI bleeding, although there may have been melena and mild hematochezia recently. This is the setting of over anticoagulation; this is being reversed with FFP and vitamin K. He is receiving his sixth unit of PRBCs. Given the description of ascites on CT, should rule out hemoperitoneum. 2. Hepatitis C. Although there is no established diagnosis of cirrhosis, the patient is a long-standing alcohol abuser as well, has thrombocytopenia, and now ascites. There is no evident encephalopathy; azotemia has corrected with colloid, making hepatorenal syndrome unlikely. 3. Abdominal pain. The patient some degree of chronic pain secondary to abdominal wall/hernias. The recent exacerbation may indeed be muscular/hernia, but must rule out spontaneous bacterial peritonitis, hemoperitoneum. Appreciate surgery evaluation. Recommendations * Nothing by mouth, gentle/maintenance IV fluids * Complete 6th unit packed red blood cells, and check hematocrit. Maintain hemoglobin/hematocrit at greater than 7/21. Check CBC twice daily. * No further FFP. Hold on intravenous heparin for now, pending procedures. Afterwards, IV heparin as per cardiology. * Monitor INR * IV PPI * Diagnostic paracentesis needs to be performed this morning. Sent for cell count, culture, protein, albumin. Discussed with Dr. Tom of interventional radiology. * Probable EGD later today, pending above. * Obtain records from [facility] infectious disease specialist who was evaluating the patient for hepatitis C. Copies To: CONSTANTINO BANERJEE,JESSICA Lieberman. Consult Acknowledgment - Thank you for your consult request.
[2016-04-27 08:00] VITALS: BP 128/72
--- NOTE | 2016-04-27 09:25 | Cons- CRCU ---
General Information and HPI Consulting Request Date of Consult: 04/27/16 Reason for Consult: low H/H Source of Information: patient, old records Exam Limitations: no limitations History of Present Illness: This is a 65-year-old male with past medical history of hypertension, CABG in [address] 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 Since February 2016 the endorses abdominal pain, alternating with diarrhea and constipation. He states his stool has been either tarry black, or brown, but denies any bright red blood per rectum. Over the past 2 weeks he states he has felt more lethargic than usual, he endorses weakness and decreased by mouth intake. Three days prior to admission his abdominal pain was mostly in the left lower quadrant and had increased in severity. He also noticed hot sweats, palpitations, shortness of breath, and increased gas. His INR 2 days ago was 5.1 so he stopped Coumadin. Denies any sick contacts, nausea, vomiting, LOC, dysuria, or any other change in routine. Of note, patient has history of alcoholism, he stopped drinking a year and a half ago. Denies NSAID use. Allergies/Medications Allergies: Coded Allergies: gentamicin (SYSTEMIC REACTION 04/26/16) Home Med List: Escitalopram Oxalate (Lexapro) 10 MG TABLET 1 TAB PO DAILY MENTAL HEALTH ( Reported) Nebivolol (Bystolic) 5 MG TABLET 1 TAB PO DAILY BP (Reported) Oxycodone HCl 15 MG TABLET 1 TAB PO Q4-6HP PRN PAIN (Reported) Oxycodone HCl (Oxycontin) 30 MG TAB.ER.12H 1 TAB PO TID CHRONIC PAIN ( Reported) TIZANIDINE HCL (Tizanidine) 4 MG TABLET 1 TAB PO QPM MUSCLE RELAXER (Reported ) Tizanidine HCl 4 MG TABLET 1 TAB PO TID PAIN (Reported) Warfarin Sodium (Coumadin) 2 MG TABLET 1 TAB PO DAILY HEART (Reported) Warfarin Sodium (Coumadin) 2 MG TABLET 1 TAB PO AD HEART VALVE (Reported) Current Medications: Current Medications Sig/Jean Pierre Start time Last Medication Dose Route Stop Time Status Admin Ceftriaxone Sodium 0 .STK-MED ONE 04/26 1140 DC .ROUTE Ceftriaxone Sodium 1,000 MG ONCE ONE 04/26 1115 DC 04/26 IV 04/26 1116 1150 Heparin Sodium 25,000 UNIT Q24H 04/26 2145 DC (Porcine) IV Sodium Chloride 500 ML Influenza Virus 0.5 ML ONCE ONE 04/26 1545 DC Vaccine IM 04/26 1546 Metronidazole 500 MG ONCE ONE 04/26 1115 DC 04/26 N/A 1 UNIT IV 04/26 1214 1158 Morphine Sulfate 0 .STK-MED ONE 04/26 0929 DC .ROUTE Morphine Sulfate 6 MG ONCE ONE 04/26 0900 DC 04/26 IV 04/26 0901 0929 Nicotine 0 .STK-MED ONE 04/27 0845 UNVr TOP 04/27 0846 Nicotine 21 MG ONCE ONE 04/26 1300 DC 04/26 TOP 04/26 1301 1305 Nicotine 0 .STK-MED ONE 04/26 1259 DC TOP Oxycodone HCl 15 MG Q4P PRN 04/26 1400 AC 04/27 PO 0756 Oxycodone HCl 0 .STK-MED ONE 04/26 1352 DC PO Oxycodone HCl 30 MG Q8 04/26 1345 AC 04/27 PO 0610 Pantoprazole Sodium 40 MG BID 04/26 2200 CAN IV Pantoprazole Sodium 40 MG Q5H 04/26 1745 AC 04/27 Sodium Chloride 100 ML IV 0339 Pantoprazole Sodium 0 .STK-MED ONE 04/26 1415 DC IV Pantoprazole Sodium 40 MG DAILY 04/26 1410 DC 04/26 IV 1421 Patient Medication 1 UNIT ONE NR 04/26 1430 DC Teaching ED 04/26 1500 Phytonadione 10 MG ONCE ONE 04/26 1230 DC 04/26 SC 04/26 1231 1251 Phytonadione 0 .STK-MED ONE 04/26 1224 DC .ROUTE Sodium Chloride 1,000 ML Q13H 04/26 1410 DC IV Sodium Chloride 1,000 ML BOLUS ONE 04/26 0900 DC 04/26 IV 04/26 0959 0925 Review of Systems Review of Systems Constitutional: Reports: malaise, weakness, unexplained weight loss. Denies: chills, diaphoresis, fever. EENTM: Reports: no symptoms. Cardiovascular: Denies: chest pain, palpitations. Respiratory: Denies: cough, short of breath. GI: Reports: abdominal pain, bloating, constipation, diarrhea, distention, melena, nausea, changes in stool. Denies: bowel incontinence, bloody stool, vomiting. Genitourinary: Reports: no symptoms. Musculoskeletal: Reports: joint swelling, muscle pain, muscle stiffness. Skin: Reports: no symptoms. Past History Travel History Traveled to [place] past 21 day No Medical History Blood Transfusion Hx: No Cardiovascular: hypertension, AORTIC VALVUE REPLACMENT CABG Respiratory: NONE Hepatic: hepatitis C Renal: NONE Musculoskeletal: RIGHT FEMUR OSTEOMYELITIS TOTAL R HIP DISARTICULATI MUSCLE FLAP RECONSTRUCTIO Psychiatric: anxiety Endocrine: NONE Blood Disorders: anemia, BLOOD TRANSFUSIONS Surgical History Surgical History: appendectomy, hernia repair-incisional, right leg amputation Family History Relations & Conditions If Any: MOTHER Relation not specified for: *No pertinent family history Psychosocial History Where Do You Live? Home Smoking Status: Current Everyday Smoker ETOH Use: denies use Illicit Drug Use: marijuana Exam & Diagnostic Data Last 24 Hrs of Vital Signs/I&O Vital Signs Date Time Temp Pulse Resp B/P Pulse O2 O2 Flow FiO2 Ox Delivery Rate 04/27 0400 95 Room Air 04/27 0000 97 Room Air 04/27 0000 98.7 77 22 106/68 97 Room Air 04/26 2000 94 Nasal 2.0L Cannula 04/26 1435 97 Nasal 2.0L Cannula 04/26 1435 99.6 89 20 100/50 99 Nasal 2.0L Cannula 04/26 1414 99.8 84 18 94/51 95 Room Air 04/26 1256 86 18 97/46 100 Nasal 2.0L Cannula 04/26 1158 98.2 80 18 104/52 99 Room Air Intake & Output 04/27 1600 04/27 0800 04/27 0000 Intake Total 1651 Output Total 200 Balance 1451 Intake, Blood 1547 Product Intake, IV 104 Output, Urine 200 Physical Exam General Appearance: no apparent distress, alert, awake, anxious, thin Head: atraumatic, normal appearance Eyes: Bilateral: normal appearance, PERRL, EOMI. Ears, Nose, Throat: normal ENT inspection Neck: supple Respiratory: normal breath sounds, chest non-tender, no respiratory distress Cardiovascular: regular rate/rhythm, murmur Gastrointestinal: normal bowel sounds, distention, tenderness Last 48 Hrs of Labs/Ronan: Laboratory Tests 04/27/16 0129: Lactate Dehydrogenase 479, Troponin I 0.63 *H, Albumin 2.8 L, PT 19.9 H, INR 1.91 H, CBC w Diff MAN DIFF ORDERED, RBC 2.53 L, MCV 75.3 L, MCH 24.5 L, RDW 24.9 H, MPV 9.9, Segmented Neutrophils 79 H, Lymphocytes 14 L, Monocytes 6, Basophils 1, Platelet Estimate ADEQUATE, Polychromasia 1+, Hypochromic- Microcytic 2+, Poikilocytosis 2+, Anisocytosis 1+, Microcytic Cells 1+, Target Cells FEW, Ovalocytes 1+, Elliptocytes FEW, PUBS MCHC 32.5 L, Fld Total RBCs Counted 100 04/26/16 2300: CBC w Diff Cancelled, WBC Cancelled, RBC Cancelled, Hgb Cancelled, Hct Cancelled , MCV Cancelled, MCH Cancelled, RDW Cancelled, Plt Count Cancelled, MPV Cancelled, PUBS MCHC Cancelled 04/26/16 2220: Ur Random Creatinine 249.0, Ur Random Sodium 43, Ur Random Potassium 48.4, Fraction Sodium Excret 0.3 04/26/16 2000: Troponin I 0.81 *H, PT 25.9 H, INR 2.49 H, CBC w Diff MAN DIFF ORDERED, RBC 1.86 L, MCV 71.5 L, MCH 22.6 L, RDW 26.5 H, MPV 10.4, Gran % 43.8, Lymphocytes % 46.7, Monocytes % 9.3, Eosinophils % 0.2, Basophils % 0 L, Absolute Granulocytes 1.7, Segmented Neutrophils 74, Absolute Lymphocytes 1.8, Lymphocytes 25, Monocytes 1 L, Absolute Monocytes 0.4, Absolute Eosinophils 0, Absolute Basophils 0, Nucleated RBCs 2 H, Platelet Estimate DECREASED, Hypochromic-Microcytic 3+, Poikilocytosis 1+, Target Cells 1+, Stomatocytes 1+, Elliptocytes RARE, Schistocytes RARE, PUBS MCHC 31.7 L 04/26/16 1831: Ur Random Creatinine Cancelled 04/26/16 1600: PT Cancelled, INR Cancelled, CBC w Diff Cancelled, WBC Cancelled, RBC Cancelled, Hgb Cancelled, Hct Cancelled, MCV Cancelled, MCH Cancelled, RDW Cancelled, Plt Count Cancelled, MPV Cancelled, PUBS MCHC Cancelled 04/26/16 1535: Troponin I Cancelled 04/26/16 1136: PT > 103.0 *H, INR > 10.0 *H, CBC w Diff NO MAN DIFF REQ, RBC 1.67 L, MCV 64.2 L, MCH 19.5 L, RDW 23.1 H, MPV 9.3, Gran % 80.3 H, Lymphocytes % 13.5 L, Monocytes % 6.1, Eosinophils % 0.1, Basophils % 0 L, Absolute Granulocytes 5.2, Absolute Lymphocytes 0.9 L, Absolute Monocytes 0.4, Absolute Eosinophils 0, Absolute Basophils 0, PUBS MCHC 30.4 L 04/26/16 0903: Anion Gap 14, Estimated GFR 30 L, BUN/Creatinine Ratio 9.1, Glucose 149 H, Calcium 8.3 L, Iron 14 L, TIBC 369, Ferritin 7.6 L, Total Bilirubin 0.4, AST 33, ALT 21, Alkaline Phosphatase 97, Troponin I 0.53 *H, Total Protein 6.4, Albumin 3.3 L, Globulin 3.1, Albumin/Globulin Ratio 1.1, Lipase 17 L, Vitamin B12 562, Folate 7.3, CBC w Diff MAN DIFF ORDERED, RBC 1.98 L, MCV 64.2 L, MCH 19.8 L, RDW 22.9 H, MPV 10.6 H, Gran % 85.9 H, Lymphocytes % 6.5 L, Monocytes % 7.5, Eosinophils % 0.1, Basophils % 0 L, Absolute Granulocytes 6.6 H, Absolute Lymphocytes 0.5 L, Absolute Monocytes 0.6, Absolute Eosinophils 0, Absolute Basophils 0, Hypochromic-Microcytic 4+, Poikilocytosis 2+, Anisocytosis 3+, Microcytic Cells 4+, Ovalocytes 1+, PUBS MCHC 30.8 L Assessment/Plan Consult Acknowledgment - Thank you for your consult request.
[2016-04-27 09:27] LABS: ABSOLUTE BASOPHIL COUNT 0 /CUMM (0.0-0.2); ABSOLUTE EOSINOPHIL COUNT 0 /CUMM (0.0-0.7); BASOPHIL % 0 % (0.0-2.0); MEAN CORPUSCULAR HGB 25.2 PG (27.0-31.0)
[2016-04-27 09:31] LABS: ABSOLUTE GRANULOCYTE CT 4.5 /CUMM (1.4-6.5); ABSOLUTE LYMPH COUNT 0.6 /CUMM (1.2-3.4); ABSOLUTE MONOCYTE COUNT 0.4 /CUMM (0.10-0.60); EOSINOPHIL % 0.1 % (0-5); GRANULOCYTE % 80.6 % (42.2-75.2); MEAN CORPUSCULAR HGB CONC 31.9 G/DL (33.0-37.0); MEAN PLATELET VOLUME 9.8 FL (7.4-10.4); PLATELET COUNT 92 /CUMM (130-400); RBC DISTRIBUTION WIDTH 23.8 % (11.5-14.5)
[2016-04-27 09:32] LABS: HEMATOCRIT 25.5 % (42-52); RED BLOOD CELL CT 3.23 /CUMM (4.70-6.10)
[2016-04-27 09:33] LABS: PT 15.5 SEC (9.4-12.5)
--- NOTE | 2016-04-27 10:00 | ULTRASOUND REPORT ---
EXAMINATION: US ABDOMEN LIMITED CLINICAL INFORMATION: Evaluate fluid seen on the CT scan.. COMPARISON: CT abdomen and pelvis dated 04/26/2016 TECHNIQUE: Real-time imaging of the right upper quadrant abdominal viscera. FINDINGS: Evaluation of the 4 quadrants demonstrates small amount of ascites. Slightly complex fluid suspected in the perisplenic region. It is however less well visualized compared to the CT scan. Small left pleural effusion.. IMPRESSION: Small amount of free fluid noted in all 4 quadrants. Subtle complex hypoechoic fluid noted in the perisplenic region. It was however better visualized on the prior CT scan. Trace left pleural effusion.
[2016-04-27 10:04] LABS: WHITE BLOOD CELL COUNT 5.5 /CUMM (4.8-10.8)
--- NOTE | 2016-04-27 10:21 | PN- Resident CRCU ---
Subjective HPI/CRCU Issues: Patient in ICU for: Acute blood loss anemia, elevated troponins, acute renal failure. Saw patient at bedside this a.m. He denied any chest pain, shortness of breath, or abdominal pain. He stated he was passing gas since about 3 AM this morning. He also started having increased urine output around that time. This a.m. he states he feels less fatigued. Initially he was resistant to Dr. Nix this plan of paracentesis and EGD. But after considering the alternative he says he is now on board. Blood pressure has gradually increased since admission in the 90s systolic he is now at 103/90s, Satting well on room air, no respiratory difficulty, heart rate in 70s to 80s. This a.m. when I was in room, patient had his final unit of blood running. Is currently nothing by mouth, and pending abdominal ultrasound and paracentesis later this afternoon. Objective Vital Signs & I&O Last 8 Hrs of Vitals and I&O: Intake & Output 04/27 1600 Intake Total Output Total Balance Patient 61.462 kg Weight Exam General Appearance: well developed/nourished, no apparent distress, alert, awake , anxious Head: atraumatic, conjunctival pallor Ears, Nose, Throat: pale and dry mucous membranes Neck: normal inspection, supple Respiratory: normal breath sounds, chest non-tender Cardiovascular: regular rate/rhythm, murmur Gastrointestinal: soft, some distension noted. Extremities: normal inspection, right AKA. IV Drips IV Drips: pRBC Nutrition Nutrition: NPO Current Medications: Current Medications Sig/Jean Pierre Start time Last Medication Dose Route Stop Time Status Admin Escitalopram Oxalate 10 MG DAILY 04/27 1247 AC PO Heparin Sodium 25,000 UNIT Q24H 04/26 2145 DC (Porcine) IV Sodium Chloride 500 ML Heparin Sodium/ 25,000 UNIT Q24H 04/27 1015 AC Dextrose IV Dextrose/Water 500 ML Influenza Virus 0.5 ML ONCE ONE 04/26 1545 DC Vaccine IM 04/26 1546 Nicotine 21 MG ONCE ONE 04/27 0845 DC 04/27 TOP 04/27 0846 1019 Oxycodone HCl 15 MG Q4P PRN 04/26 1400 AC 04/27 PO 1211 Oxycodone HCl 0 .STK-MED ONE 04/26 1352 DC PO Oxycodone HCl 30 MG Q8 04/26 1345 AC 04/27 PO 0610 Pantoprazole Sodium 40 MG BID 04/26 2200 CAN IV Pantoprazole Sodium 40 MG Q5H 04/26 1745 AC 04/27 Sodium Chloride 100 ML IV 0845 Pantoprazole Sodium 0 .STK-MED ONE 04/26 1415 DC IV Pantoprazole Sodium 40 MG DAILY 04/26 1410 DC 04/26 IV 1421 Patient Medication 1 UNIT ONE NR 04/26 1430 DC Teaching ED 04/26 1500 Sodium Chloride 1,000 ML Q13H 04/26 1410 DC IV Impression/Plan Impression/Problem List Impression: This is a 65-year-old male with past medical history of hypertension, CABG with [facility] [place] Ao valve on Coumadin, who presented to the ED with CC abdominal pain, generalized weakness. He was subsequently found to have supratherapeutic INR and profound anemia. Patient was admitted to ICU for further management and treatment. IMPRESSION: Moderate amount of abdominal and pelvic free fluid. Some of the fluid is of intermediate attenuation. This is nonspecific, but could be indicative of old degrading blood, debris or infection. Patchy bibasilar airspace disease. Diverticulosis without discrete evidence of diverticulitis. 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 PLAN: 1. Acute blood loss anemia: Patient came in with hemoglobin 3.9, hematocrit 12.7. He states that he has had episodes of black tarry stools at home; no bright red blood per rectum noted, no hematemesis and no other overt signs of bleeding. However, he has received over 6 units of PRBC in the hospital, and his subsequent hemoglobin came up to 6.[address] scan of the abdomen showed normal liver, pancreas, spleen, however, there is free fluid overlying the liver and free fluid of the spleen. In addition, there is a moderate amount of pelvic free fluid noted. Primary workup now includes evaluating source of bleed for patient as his hemoglobin has not responded adequately to PRBC transfusion. There is question whether he is having intra-abdominal bleeding. Anemia workup shows: Iron 14, TIBC 369, ferritin 7.6 * Nothing by mouth * Continue IV fluids * Complete 6 unit PRBC * Hold heparin for now * No FFP * Protonix drip * Complete ultrasound of the abdomen * Possible diagnostic paracentesis with workup. * Possible EGD tomorrow * We'll obtain records from [facility] 2. 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 Three days ago INR was at 5.0 and he had stopped taking Coumadin at that time. Vitamin K and FFP given on admission. Initially, plan was to start patient on IV heparin once INR drops below 2.5. However, despite INR at 2.49 this a.m. heparin has not been started as patient continues to bleed. There is concern for intra-abdominal bleed. Will resume heparin if the stat US does not show evidence of abdominal bleed. * Continue to hold Coumadin * IV heparin per protocol per cardiology 3. Positive troponin: Patient given troponin 0.53, subsequent therapeutic 0.81 and then back to 0.63 this AM. Likely represent demand picture. Patient does have known CAD and is status post CABG. We will continue to monitor him on telemetry. * Patient currently not any of his cardiac medication; HOLD Bystolic 5 mg. 4. Acute renal failure: Patient came in with creatinine of 2.2---> 1.2. His baseline seems to be .7. Urine work up shows FeNa .3, possibly suggesting intrinsic renal pathology in addition to pre-renal etiology given low H/H and poor PO intake. Possible superimposed ATN with pre-renal etiology. * Hydrate and monitor 5. Smoking: Patient has prolonged history of cigarette use. * Nicotine patch 6. Chronic pain: Patient has chronic pain secondary to back and his right lower extremity amputation. * OxyContin 30 mg by mouth every 8 * Roxicodone 15 mg every 4 when necessary 7. Depression: Con't SSRI FULL CODE Mechanical DVT ppx NPO Problem List: 1. Acute renal failure 2. Pneumonia 3. Intra abdominal hemorrhage 4. Warfarin-induced coagulopathy 5. Symptomatic anemia Pain Ratin Tomorrow's Labs & Rationales: icu cbc Plan DVT/Prophylaxis: mechanical
--- NOTE | 2016-04-27 11:08 | PN- Cardiology ---
Subjective Subjective: Still with some abdominal discomfort. Denies any bowel movements. Denies chest pain or palpitations. No dyspnea at rest. Objective Vital Signs and I&Os Vital Signs Date Time Temp Pulse Resp B/P Pulse O2 O2 Flow FiO2 Ox Delivery Rate 04/27 0400 95 Room Air 04/27 0000 97 Room Air 04/27 0000 98.7 77 22 106/68 97 Room Air 04/26 2000 94 Nasal 2.0L Cannula 04/26 1435 97 Nasal 2.0L Cannula 04/26 1435 99.6 89 20 100/50 99 Nasal 2.0L Cannula 04/26 1414 99.8 84 18 94/51 95 Room Air 04/26 1256 86 18 97/46 100 Nasal 2.0L Cannula 04/26 1158 98.2 80 18 104/52 99 Room Air Intake & Output 04/27 1600 04/27 0800 04/27 0000 04/26 1600 04/26 0800 04/26 0000 Intake Total 1651 30 Output Total 200 Balance 1451 30 Intake, Blood 1547 Product Intake, IV 104 0 Intake, Oral 30 Number 0 Bowel Movements Output, Urine 200 Patient 136 lb 138 lb Weight Physical Exam: General: no apparent distress. Alert. Eyes: No obvious scleral icterus. HEENT: No jugular venous distention or abnormal jugular venous pulsations. Cardiovascular: Normal intensity S1/S2. Regular. Mechanical valve sounds noted. Respiratory: Mildly decreased air entry at the left base Abdomen: Mildly distended without guarding, abdominal scar noted Musculoskeletal: No cyanosis noted, amputation noted Skin: Warm Neurologic: No gross focal deficits noted. Current Medications: Current Medications Sig/Jean Pierre Start time Last Medication Dose Route Stop Time Status Admin Ceftriaxone Sodium 0 .STK-MED ONE 04/26 1140 DC .ROUTE Ceftriaxone Sodium 1,000 MG ONCE ONE 04/26 1115 DC 04/26 IV 04/26 1116 1150 Heparin Sodium 25,000 UNIT Q24H 04/26 2145 DC (Porcine) IV Sodium Chloride 500 ML Heparin Sodium/ 25,000 UNIT Q24H 04/27 1015 AC Dextrose IV Dextrose/Water 500 ML Influenza Virus 0.5 ML ONCE ONE 04/26 1545 DC Vaccine IM 04/26 1546 Metronidazole 500 MG ONCE ONE 04/26 1115 DC 04/26 N/A 1 UNIT IV 04/26 1214 1158 Nicotine 21 MG ONCE ONE 04/27 0845 DC 04/27 TOP 04/27 0846 1019 Nicotine 21 MG ONCE ONE 04/26 1300 DC 04/26 TOP 04/26 1301 1305 Nicotine 0 .STK-MED ONE 04/26 1259 DC TOP Oxycodone HCl 15 MG Q4P PRN 04/26 1400 AC 04/27 PO 0756 Oxycodone HCl 0 .STK-MED ONE 04/26 1352 DC PO Oxycodone HCl 30 MG Q8 04/26 1345 AC 04/27 PO 0610 Pantoprazole Sodium 40 MG BID 04/26 2200 CAN IV Pantoprazole Sodium 40 MG Q5H 04/26 1745 AC 04/27 Sodium Chloride 100 ML IV 0845 Pantoprazole Sodium 0 .STK-MED ONE 04/26 1415 DC IV Pantoprazole Sodium 40 MG DAILY 04/26 1410 DC 04/26 IV 1421 Patient Medication 1 UNIT ONE NR 04/26 1430 DC Teaching ED 04/26 1500 Phytonadione 10 MG ONCE ONE 04/26 1230 DC 04/26 SC 04/26 1231 1251 Phytonadione 0 .STK-MED ONE 04/26 1224 DC .ROUTE Sodium Chloride 1,000 ML Q13H 04/26 1410 DC IV Results Last 48 Hrs of Labs/Mics: Laboratory Tests 04/27/16 0905: Anion Gap 6, Estimated GFR > 60, Glucose 95, Calcium 8.0 L, Phosphorus 2.9, Magnesium 1.7, Total Bilirubin 1.0, AST 23, ALT 28, Albumin 2.9 L, PT 15.5 H, INR 1.48 H, CBC w Diff NO MAN DIFF REQ, RBC 3.23 L, MCV 79.0 L, MCH 25.2 L, RDW 23.8 H, MPV 9.8, Gran % 80.6 H, Lymphocytes % 11.3 L, Monocytes % 8.0, Eosinophils % 0.1, Basophils % 0 L, Absolute Granulocytes 4.5, Absolute Lymphocytes 0.6 L, Absolute Monocytes 0.4, Absolute Eosinophils 0, Absolute Basophils 0, PUBS MCHC 31.9 L 04/27/16 0129: Lactate Dehydrogenase 479, Troponin I 0.63 *H, Albumin 2.8 L, PT 19.9 H, INR 1.91 H, CBC w Diff MAN DIFF ORDERED, RBC 2.53 L, MCV 75.3 L, MCH 24.5 L, RDW 24.9 H, MPV 9.9, Segmented Neutrophils 79 H, Lymphocytes 14 L, Monocytes 6, Basophils 1, Platelet Estimate ADEQUATE, Polychromasia 1+, Hypochromic- Microcytic 2+, Poikilocytosis 2+, Anisocytosis 1+, Microcytic Cells 1+, Target Cells FEW, Ovalocytes 1+, Elliptocytes FEW, PUBS MCHC 32.5 L, Fld Total RBCs Counted 100 04/26/16 2300: CBC w Diff Cancelled, WBC Cancelled, RBC Cancelled, Hgb Cancelled, Hct Cancelled , MCV Cancelled, MCH Cancelled, RDW Cancelled, Plt Count Cancelled, MPV Cancelled, PUBS MCHC Cancelled 04/26/16 2220: Ur Random Creatinine 249.0, Ur Random Sodium 43, Ur Random Potassium 48.4, Fraction Sodium Excret 0.3 04/26/16 2000: Troponin I 0.81 *H, PT 25.9 H, INR 2.49 H, CBC w Diff MAN DIFF ORDERED, RBC 1.86 L, MCV 71.5 L, MCH 22.6 L, RDW 26.5 H, MPV 10.4, Gran % 43.8, Lymphocytes % 46.7, Monocytes % 9.3, Eosinophils % 0.2, Basophils % 0 L, Absolute Granulocytes 1.7, Segmented Neutrophils 74, Absolute Lymphocytes 1.8, Lymphocytes 25, Monocytes 1 L, Absolute Monocytes 0.4, Absolute Eosinophils 0, Absolute Basophils 0, Nucleated RBCs 2 H, Platelet Estimate DECREASED, Hypochromic-Microcytic 3+, Poikilocytosis 1+, Target Cells 1+, Stomatocytes 1+, Elliptocytes RARE, Schistocytes RARE, PUBS MCHC 31.7 L 04/26/16 1831: Ur Random Creatinine Cancelled 04/26/16 1600: PT Cancelled, INR Cancelled, CBC w Diff Cancelled, WBC Cancelled, RBC Cancelled, Hgb Cancelled, Hct Cancelled, MCV Cancelled, MCH Cancelled, RDW Cancelled, Plt Count Cancelled, MPV Cancelled, PUBS MCHC Cancelled 04/26/16 1535: Troponin I Cancelled 04/26/16 1136: PT > 103.0 *H, INR > 10.0 *H, CBC w Diff NO MAN DIFF REQ, RBC 1.67 L, MCV 64.2 L, MCH 19.5 L, RDW 23.1 H, MPV 9.3, Gran % 80.3 H, Lymphocytes % 13.5 L, Monocytes % 6.1, Eosinophils % 0.1, Basophils % 0 L, Absolute Granulocytes 5.2, Absolute Lymphocytes 0.9 L, Absolute Monocytes 0.4, Absolute Eosinophils 0, Absolute Basophils 0, PUBS MCHC 30.4 L 04/26/16 0903: Anion Gap 14, Estimated GFR 30 L, BUN/Creatinine Ratio 9.1, Glucose 149 H, Calcium 8.3 L, Iron 14 L, TIBC 369, Ferritin 7.6 L, Total Bilirubin 0.4, AST 33, ALT 21, Alkaline Phosphatase 97, Troponin I 0.53 *H, Total Protein 6.4, Albumin 3.3 L, Globulin 3.1, Albumin/Globulin Ratio 1.1, Lipase 17 L, Vitamin B12 562, Folate 7.3, CBC w Diff MAN DIFF ORDERED, RBC 1.98 L, MCV 64.2 L, MCH 19.8 L, RDW 22.9 H, MPV 10.6 H, Gran % 85.9 H, Lymphocytes % 6.5 L, Monocytes % 7.5, Eosinophils % 0.1, Basophils % 0 L, Absolute Granulocytes 6.6 H, Absolute Lymphocytes 0.5 L, Absolute Monocytes 0.6, Absolute Eosinophils 0, Absolute Basophils 0, Hypochromic-Microcytic 4+, Poikilocytosis 2+, Anisocytosis 3+, Microcytic Cells 4+, Ovalocytes 1+, PUBS MCHC 30.8 L Recent Imaging Studies: Telemetry tracings were personally reviewed show sinus rhythm with a [address] scan Moderate amount of abdominal and pelvic free fluid. Some of the fluid is of intermediate attenuation. This is nonspecific, but could be indicative of old degrading blood, debris or infection. Patchy bibasilar airspace disease. Diverticulosis without discrete evidence of diverticulitis. 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 Abd US Small amount of free fluid noted in all 4 quadrants. Subtle complex hypoechoic fluid noted in the perisplenic region. It was however better visualized on the prior CT scan. Trace left pleural effusion. ECG tracing was personally reviewed and shows sinus rhythm with intraventricular conduction delay Assessment/Plan Assessment/Plan 1. Acute kidney injury, improving 2. Mechanical aortic valve (1994) 3. Anticoagulated on warfarin with INR greater than 10, improving 4. Ascites, Hx of Hep C 5. Severe anemia, likely secondary to occult blood loss, requiring transfusion 6. Mild troponin elevation, likely secondary to demand ischemia precipitated by severe anemia. 7. History of ascending aortic aneurysm INR now down to 1.4 and would recommend starting on intravenous heparin drip without a bolus history of mechanical aortic valve. Heparin drip can be held intermittently for procedures as needed. Hold off on restarting outpatient beta nelida. Continue on telemetry. The elevated troponins likely due to demand ischemia would recommend obtaining a transthoracic echocardiogram to exclude any new regional wall motion abnormalities. Will likely be a candidate for outpatient ischemic testing in the future. No evidence of CHF at this time. Agree with gentle hydration. Dick Lemons MD FAC Continue telemetry? Yes
[2016-04-27 12:00] VITALS: BP 100/50
--- NOTE | 2016-04-27 12:31 | NUR ---
0800: RECEIVED PT IN BED. A+OX3. ON RA. PRODUCTIVE COUGH. PT IS AN EVERY DAY SMOKER, REQUESTING NICOTINE PATCH. LUNGS CLEAR BUT DIMINISHED AT BASES. VSS, LOW GRADE TEMP. NSR ON MONITOR. ABDOMEN DISTENDED BUT SOFT, +BS. DENIES NAUSEA. ABDOMEN TENDER. PT HAS ABDOMINAL HERNIA. VOIDS IN URINAL WITH SOME DIFFICULTY, URINE DARK, VOIDS 100-175 AT A TIME. R AKA. LEFT LEG HEALED SKIN GRAFT SITES. +CMS. PROTONIX GTT RUNNING AT 8MG/HR OR 20ML/HR. PT RECEIVED PRBC OVER NIGHT. LABS STABLE. WILL MONITOR. PT TO HAVE PARACENTESIS TODAY, EGD TOMORROW, AND ECHO TODAY. PT ON PAIN REGIMEN.
[2016-04-27 16:00] VITALS: BP 118/60
--- NOTE | 2016-04-27 16:13 | ULTRASOUND REPORT ---
EXAMINATION: PARACENTESIS CLINICAL INFORMATION: Ascites. Rule out pooling of blood. Low H\T\H. COMPARISON: Same day abdominal ultrasound and CT abdomen pelvis 04/26/2016 TECHNIQUE: Direct ultrasound guidance using a 20-gauge spinal needle. FINDINGS: Informed consent was obtained from the patient prior to the procedure. During this process, the procedure alternatives were explained, along with the intended outcome and benefits. The risks of the procedure, as well as the risk of not doing the procedure, was discussed. The patient was given the opportunity to ask questions regarding the procedure and appeared competent to make medical decisions. A signed consent form which documents this discussion was placed in the medical record. Ultrasound evaluation of the abdomen for ascites was performed. Only a tiny amount of ascites was visualized within the abdomen, the most accessible site was within the right lower quadrant. The site was marked. A timeout procedure was performed. The area was prepped and draped in usual sterile fashion. Using standard interventional and sterile techniques, lidocaine was used to anesthetize the region. A 20-gauge spinal needle was introduced into the right lower quadrant under direct ultrasound guidance using standard safety needle technique. Only approximately 5 mL of thin serosanguineous, nonclotting fluid could be aspirated. The needle was then removed. Good hemostasis was achieved using manual pressure. A sterile dressing was placed. The patient tolerated the procedure well. The patient was discharged from the department in stable condition. Specimen sent for requested analysis. COMPLICATIONS: None. IMPRESSION: Successful diagnostic paracentesis as detailed above.
--- NOTE | 2016-04-27 17:08 | PN- Att Addend ---
Attending MD Review Statement Attending Statement Attending MD Statement: examined this patient, discuss w/resident/PA/PREVENTATIVE MAINTENANCE TECHNICIAN, agreed w/resident/PA/PREVENTATIVE MAINTENANCE TECHNICIAN, reviewed EMR data (avail) Attending Assessment/Plan: Laboratory Tests 04/27/16 1330: Fluid WBC ND, Fld Mesothelial Cells 26, Fld Total RBCs Counted ND 04/27/16 1330: Lymphocytes 16, % Normal PMNs 57, Misc Hematology Test 1, Fluid Glucose 84, Fluid Total Protein 3.9, Fluid Albumin 1.8, Fluid LDH 1141, Fluid Amylase < 30 04/27/16 0905: Anion Gap 6, Estimated GFR > 60, Glucose 95, Calcium 8.0 L, Phosphorus 2.9, Magnesium 1.7, Total Bilirubin 1.0, AST 23, ALT 28, Albumin 2.9 L, PT 15.5 H, INR 1.48 H, CBC w Diff NO MAN DIFF REQ, RBC 3.23 L, MCV 79.0 L, MCH 25.2 L, RDW 23.8 H, MPV 9.8, Gran % 80.6 H, Lymphocytes % 11.3 L, Monocytes % 8.0, Eosinophils % 0.1, Basophils % 0 L, Absolute Granulocytes 4.5, Absolute Lymphocytes 0.6 L, Absolute Monocytes 0.4, Absolute Eosinophils 0, Absolute Basophils 0, PUBS MCHC 31.9 L 04/27/16 0129: Lactate Dehydrogenase 479, Troponin I 0.63 *H, Albumin 2.8 L, PT 19.9 H, INR 1.91 H, CBC w Diff MAN DIFF ORDERED, RBC 2.53 L, MCV 75.3 L, MCH 24.5 L, RDW 24.9 H, MPV 9.9, Segmented Neutrophils 79 H, Lymphocytes 14 L, Monocytes 6, Basophils 1, Platelet Estimate ADEQUATE, Polychromasia 1+, Hypochromic- Microcytic 2+, Poikilocytosis 2+, Anisocytosis 1+, Microcytic Cells 1+, Target Cells FEW, Ovalocytes 1+, Elliptocytes FEW, PUBS MCHC 32.5 L, Fld Total RBCs Counted 100 04/26/16 2300: CBC w Diff Cancelled, WBC Cancelled, RBC Cancelled, Hgb Cancelled, Hct Cancelled , MCV Cancelled, MCH Cancelled, RDW Cancelled, Plt Count Cancelled, MPV Cancelled, PUBS MCHC Cancelled 04/26/16 2220: Ur Random Creatinine 249.0, Ur Random Sodium 43, Ur Random Potassium 48.4, Fraction Sodium Excret 0.3 04/26/161999: Troponin I 0.81 *H, PT 25.9 H, INR 2.49 H, CBC w Diff MAN DIFF ORDERED, RBC 1.86 L, MCV 71.5 L, MCH 22.6 L, RDW 26.5 H, MPV 10.4, Gran % 43.8, Lymphocytes % 46.7, Monocytes % 9.3, Eosinophils % 0.2, Basophils % 0 L, Absolute Granulocytes 1.7, Segmented Neutrophils 74, Absolute Lymphocytes 1.8, Lymphocytes 25, Monocytes 1 L, Absolute Monocytes 0.4, Absolute Eosinophils 0, Absolute Basophils 0, Nucleated RBCs 2 H, Platelet Estimate DECREASED, Hypochromic-Microcytic 3+, Poikilocytosis 1+, Target Cells 1+, Stomatocytes 1+, Elliptocytes RARE, Schistocytes RARE, PUBS MCHC 31.7 L 04/26/16 1831: Ur Random Creatinine Cancelled Vital Signs Date Time Temp Pulse Resp B/P Pulse O2 O2 Flow FiO2 Ox Delivery Rate 04/27 1200 Room Air 04/27 1200 99.0 74 24 100/50 93 Room Air 04/27 0800 Room Air 04/27 0800 99.6 78 20 128/72 94 Room Air 04/27 0400 95 Room Air 04/27 0000 97 Room Air 04/27 0000 98.7 77 22 106/68 97 Room Air 04/26 1999 94 Nasal 2.0L Cannula Sub-Acute blood loss anemia requiring blood transfusion with hb of 3.9 at admission, with high INR of >10, given 10mg sc vit k in er, given 2 U of FFP and 6 U of PRBC and repeat INR is 1.48 and repeat Hb is 8.1 . will cont on protonix drip, Surgery consulted given the abdominal pain and findings of indeterminate fluid on ct abdomen. GI consult appreciated. Paracentesis - 5cc of serosanguionous fluid removed . EGD planned for tomorrow. Type 2 Myocardial infarction - cardiology following. demand ischemia. AVR in past on coumadin. started on heparin drip. LEONA- resolving. cr today is 1.2 Coagulopathy - resolved now. Iron def anemia- low mcv and iron studies consistent with it. d/w pt the care plan.
--- NOTE | 2016-04-27 18:06 | NUR ---
LATE ENTRY:1300 PT TO AND FROM ULTRASOUND FOR GUIDED PARACENTESIS. 5 ML OF BLOODY FLUID DRAINED. BAND AID PLACED. PT TOLERATED WELL.
[2016-04-27 21:59] LABS: ABSOLUTE BASOPHIL COUNT 0 /CUMM (0.0-0.2); ABSOLUTE EOSINOPHIL COUNT 0 /CUMM (0.0-0.7); ABSOLUTE GRANULOCYTE CT 3.1 /CUMM (1.4-6.5); ABSOLUTE LYMPH COUNT 0.9 /CUMM (1.2-3.4); ABSOLUTE MONOCYTE COUNT 0.4 /CUMM (0.10-0.60); BASOPHIL % 0 % (0.0-2.0); EOSINOPHIL % 0.4 % (0-5); GRANULOCYTE % 70.5 % (42.2-75.2); HEMATOCRIT 24.1 % (42-52); MEAN CORPUSCULAR HGB 25.5 PG (27.0-31.0); MEAN CORPUSCULAR HGB CONC 32.7 G/DL (33.0-37.0); MEAN CORPUSCULAR VOLUME 77.8 FL (80.0-94.0); MEAN PLATELET VOLUME 10.4 FL (7.4-10.4); PLATELET COUNT 100 /CUMM (130-400); RBC DISTRIBUTION WIDTH 23.6 % (11.5-14.5)
[2016-04-27 22:04] LABS: WHITE BLOOD CELL COUNT 4.4 /CUMM (4.8-10.8)
[2016-04-27 22:08] LABS: PT 13.9 SEC (9.4-12.5); PTT 43 SEC (25-37)
--- NOTE | 2016-04-27 22:26 | ECHOCARDIOGRAM REPORT ---
Blanca ROSENBERG Age: 65 : 1950 Gender: M Exam Date: 04/27/2016 16:17 Exam Location: [facility] Ht (in): 70 Wt (lb): 138 BSA: 1.75 BP: 100 / 50 Ordering Physician: SHAYE GONZALEZ MD Referring Physician: Alexandru Lemons M.D. Technologist: Dara Smith [facility] Room Number: 109 Indications: MYOCARDIAL ISCHEMIA/PR Rhythm: Technical Quality: Technically difficult study FINDINGS Left Ventricle Left ventricular cavity size normal. Left ventricular wall thickness at upper limits of normal. No obvious regional wall motion abnormalities. Hyperdynamic left ventricular systolic function. LVEF > 65 %. Right Ventricle Normal right ventricular size and function. Right Atrium Normal right atrial size. Left Atrium Mild left atrial dilatation. Mitral Valve Moderate mitral annular calcification. Mild mitral stenosis. Mild mitral regurgitation. Aortic Valve Mechanical prosthetic aortic valve not well visualized. Mean gradient elevated at 37 mmHg (peak velocity 402 cm/sec) which is above expected mechanical aortic valve gradient. Clinical correlation is advised. Tricuspid Valve Tricuspid valve not well visualized, grossly normal. Mild tricuspid regurgitation. Right ventricular systolic pressure estimated at > 50 mmHg. Pulmonic Valve Pulmonic valve not well visualized. Pericardium No pericardial effusion. Great Vessels Normal size aortic root. CONCLUSIONS Technically difficult study. Left ventricular cavity size normal. Left ventricular wall thickness at upper limits of normal. No obvious regional wall motion abnormalities. Hyperdynamic left ventricular systolic function. LVEF > 65 %. Mild left atrial dilatation. Mild mitral stenosis. Mechanical prosthetic aortic valve not well visualized. Mean gradient elevated at 37 mmHg (peak velocity 402 cm/sec) which is above expected mechanical aortic valve gradient. Clinical correlation is advised. Right ventricular systolic pressure estimated at > 50 mmHg. Alexandru Lemons M.D. (Electronically Signed) Final Date: 27 April 2016 22:25 MEASUREMENTS (Male / Female) Normal Values 2D ECHO LV Diastolic Diameter PLAX 4.2 cm 4.2 - 5.9 / 3.9 - 5.3 cm LV Systolic Diameter PLAX 1.9 cm 2.1 - 4.0 cm LV Fractional Shortening PLAX 54.8 % 25 - 46 % LV Ejection Fraction 2D Teich 85.8 % IVS Diastolic Thickness 0.9 cm LVPW Diastolic Thickness 1.0 cm LV Relative Wall Thickness 0.5 RV Internal Dim ED PLAX 2.6 cm 1.9 - 3.8 cm Aortic Root Diameter 3.3 cm LA Systolic Diameter LX 4.0 cm 3.0 - 4.0 / 2.7 - 3.8 cm LA Volume 55.0 cm 18 - 58 / 22 - 52 cm Ascending Aorta Diameter 3.8 cm DOPPLER AV Peak Velocity 402.0 cm/s AV Peak Gradient 64.6 mmHg AV Mean Velocity 302.0 cm/s AV Mean Gradient 40.0 mmHg AV Velocity Time Integral 79.8 cm LVOT Peak Velocity 141.0 cm/s LVOT Peak Gradient 8.0 mmHg LVOT Mean Velocity 96.1 cm/s LVOT Mean Gradient 4.0 mmHg LVOT Velocity Time Integral 26.4 cm MV Peak Velocity 186.0 cm/s MV Peak Gradient 13.8 mmHg MV Mean Velocity 119.5 cm/s MV Mean Gradient 6.5 mmHg Mitral E Point Velocity 151.0 cm/s Mitral A Point Velocity 157.0 cm/s Mitral E to A Ratio 1.0 MV PHT Velocity 191.5 cm/s MV Deceleration Cherry 630.5 cm/s MV Pressure Half Time 91.1 ms MV Area PHT 2.4 cm MV Deceleration Time 293.0 ms TR Peak Velocity 343.0 cm/s TR Peak Gradient 47.1 mmHg Right Atrial Pressure 5.0 mmHg Pulmonary Artery Systolic Pressu 52.1 mmHg Right Ventricular Systolic Press 52.1 mmHg PV Peak Velocity 114.0 cm/s PV Peak Gradient 5.2 mmHg PV Mean Velocity 81.7 cm/s PV Mean Gradient 3.0 mmHg PV Velocity Time Integral 20.4 cm LV E' Lateral Velocity 12.7 cm/s Mitral E to LV E' Lateral Ratio 11.9 LV E' Septal Velocity 7.3 cm/s Mitral E to LV E' Septal Ratio 20.7
[2016-04-28] VITALS: BP 118/60
[2016-04-28 04:00] VITALS: BP 128/70
--- NOTE | 2016-04-28 04:37 | NUR ---
PT A/OX3. CLEAR SPEECH. ON RA SAT 91-93%. LUNGS CLEAR DIMINISHED AT BASES. AROUND 0330, PT REFUSING TO WEAR CONTINUOUS PULSE OX PROBE STATING THAT ITS TOO LOUD AND HE CANNOT SLEEP. PT EDUCATED ON IMPORTANCE OF PULSE OX PROBE AND THAT IT IS NECESSARY TO WEAR WHILE IN ICU. HE PROMPTLY TOOK IT OFF HIS FINGER AND LAID IT IN HIS BED. MD ESTEBAN MADE AWARE. WILL CHECK O2 SAT Q1H WITH VITALS CHECKS. PT AGREES WITH PLAN. ABD SOFT/DISTENDED. PT C/O BLOATING. +FLATUS. - BM. NSR 70-90S. BP SYSTOLIC 110-120S. DENIES CP. HEPARIN GTT @ 24/1 ML/HR IN #20 RF. PTT TO BE DRAWN AT 0500. PT REMAINS AFEBRILE. C/O 8/10 BACK PAIN. VOIDING DAVID URINE IN URINAL. REMAINS NPO FOR EGD TODAY.
[2016-04-28 06:02] LABS: ABSOLUTE BASOPHIL COUNT 0 /CUMM (0.0-0.2); ABSOLUTE EOSINOPHIL COUNT 0.1 /CUMM (0.0-0.7); ABSOLUTE GRANULOCYTE CT 2.3 /CUMM (1.4-6.5); ABSOLUTE LYMPH COUNT 0.9 /CUMM (1.2-3.4); ABSOLUTE MONOCYTE COUNT 0.3 /CUMM (0.10-0.60); BASOPHIL % 0 % (0.0-2.0); EOSINOPHIL % 1.8 % (0-5); GRANULOCYTE % 64.8 % (42.2-75.2); HEMATOCRIT 23.9 % (42-52); MEAN CORPUSCULAR HGB CONC 31.8 G/DL (33.0-37.0); MEAN CORPUSCULAR VOLUME 78.6 FL (80.0-94.0); MEAN PLATELET VOLUME 10.5 FL (7.4-10.4); PLATELET COUNT 94 /CUMM (130-400); RBC DISTRIBUTION WIDTH 23.7 % (11.5-14.5); RED BLOOD CELL CT 3.04 /CUMM (4.70-6.10); WHITE BLOOD CELL COUNT 3.5 /CUMM (4.8-10.8)
[2016-04-28 06:12] LABS: PTT 54 SEC (25-37)
--- NOTE | 2016-04-28 06:56 | PN- Resident CRCU ---
See Addendum Subjective HPI/CRCU Issues: Patient in ICU for acute blood loss anemia, elevated troponins, acute renal failure. I followed up and examined the patient this morning. I'm comfortably in the bed , in acute distress, does not have any active issues. He is waiting for a GI scope to be done later this morning. He denies fatigue, chest pain, palpitations, dizziness. He doesn't have any bloody stool. Vitals have been stable, no issues overnight. Objective Vital Signs & I&O Last 8 Hrs of Vitals and I&O: ... Exam General Appearance: no apparent distress, alert, awake, anxious, thin Head: atraumatic, normal appearance Ears, Nose, Throat: normal pharynx, hearing grossly normal, dry mucosal membrane Neck: normal inspection, supple Respiratory: normal breath sounds, chest non-tender Cardiovascular: regular rate/rhythm, murmur Gastrointestinal: normal bowel sounds, soft, non-tender Extremities: right AKA, left thigh has old skin graft scar anteriorly, grossly normal Skin: intact, normal color, warm/dry IV Drips IV Drips: Heparin drip in D5W Nutrition Nutrition: NPO (awaiting GI scope today) Current Medications: Current Medications Sig/Jean Pierre Start time Last Medication Dose Route Stop Time Status Admin Chlorhexidine 1 GM .STK-MED ONE 04/28 1308 DC Gluconate TOP 04/28 1309 Dextrose/Sodium 1,000 ML Q13H 04/27 2300 CAN Chloride IV Escitalopram Oxalate 10 MG DAILY 04/27 1247 AC 04/28 PO 1243 Heparin Sodium 2,500 UNIT ONCE ONE 04/28 0645 DC 04/28 (Porcine) IV 04/28 0646 0744 Heparin Sodium 5,000 UNIT .STK-MED ONE 04/28 0627 DC (Porcine) IV 04/28 0628 Heparin Sodium 5,000 UNIT .STK-MED ONE 04/27 2245 DC (Porcine) IV 04/27 2246 Heparin Sodium 4,600 UNIT ONCE ONE 04/27 2240 DC (Porcine) IV 04/27 2241 Heparin Sodium/ 25,000 UNIT Q24H 04/27 1015 AC 04/28 Dextrose IV 1244 Dextrose/Water 500 ML Loratadine 10 MG DAILY 04/27 1708 AC 04/28 PO 1242 Nicotine 21 MG DAILY 04/28 1415 TOP Oxycodone HCl 15 MG Q4P PRN 04/26 1400 AC 04/28 PO 1210 Oxycodone HCl 30 MG Q8 04/26 1345 AC 04/28 PO 1410 Pantoprazole Sodium 40 MG Q5H 04/26 1745 AC 04/28 Sodium Chloride 100 ML IV 1243 Polyethylene Glycol 1 GAL ONCE ONE 04/28 1800 AC PO 04/28 1801 Potassium Chloride 40 MEQ ONCE ONE 04/27 2230 DC 04/28 PO 04/27 2231 0002 US Findings: Successful diagnostic paracentesis as detailed above. DICTATED BY: LIS PAIGE MD DATE/TIME DICTATED:04/27/161603 [employer] COMMISSIONER:LAURYN DATE/TIME TRANSCRIBED:04/27/161603 Impression/Plan Impression/Problem List Impression: This is a 65-year-old male with past medical history of hypertension, CABG with [place] Ao valve on Coumadin, who presented to the ED with CC abdominal pain, generalized weakness. He was subsequently found to have supratherapeutic INR and profound anemia. Patient was admitted to ICU for further management and treatment. Impression of upper GI endoscopy done today: 1. 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 2. Mild erosive gastritis status post antral biopsies. 3. Nonerosive duodenitis. 4. Nonobstructing Schatzki's ring. 5. Grossly normal small bowel folds status post random biopsies. Heparin drip on hold since 8:30am for GI scope at 11am. PLAN: 1. Acute blood loss anemia: Patient came in with hemoglobin 3.9, hematocrit 12.7. He states that he has had episodes of black tarry stools at home; no bright red blood per rectum noted, no hematemesis and no other overt signs of bleeding. However, he has received over 6 units of PRBC in the hospital, and his subsequent hemoglobin came up to 6.[address] scan of the abdomen showed normal liver, pancreas, spleen, however, there is free fluid overlying the liver and free fluid of the spleen. In addition, there is a moderate amount of pelvic free fluid noted. Primary workup now includes evaluating source of bleed for patient as his hemoglobin has not responded adequately to PRBC transfusion. There is question whether he is having intra-abdominal bleeding. Anemia workup shows: Iron 14, TIBC 369, ferritin 7.6 * Patient was nothing by mouth after midnight and underwent an upper GI endoscopy earlier today, has been placed on clear liquid diet since then. * Since the GI endoscopy was not able to find any actively bleeding sites, plan to keep him nothing by mouth after midnight tonight and go for colonoscopy tomorrow morning. * Patient is undergoing CT scan of abdomen to find out whether he has splenic vein thrombosis, and if so, he is to be evaluated by surgical team for possible splenectomy in future. * Continue IV fluids * Complete 6 unit PRBC * Heparin was held before the endoscopy procedure only for 2 hours and then restarted right after patient came back to the unit * No FFP * Protonix drip * We'll obtain records from [facility] 2. 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 Three days ago INR was at 5.0 and he had stopped taking Coumadin at that time. Vitamin K and FFP given on admission. Initially, plan was to start patient on IV heparin once INR drops below 2.5. However, despite INR at 2.49 this a.m. heparin has not been started as patient continues to bleed. There is concern for intra-abdominal bleed. Will resume heparin if the stat US does not show evidence of abdominal bleed. * Continue to hold Coumadin * IV heparin per protocol per cardiology 3. Positive troponin: Patient given troponin 0.53, subsequent therapeutic 0.81 and then back to 0.63 this AM. Likely represent demand picture. Patient does have known CAD and is status post CABG. We will continue to monitor him on telemetry. * Patient currently not any of his cardiac medication; HOLD Bystolic 5 mg. 4. Acute renal failure: Patient came in with creatinine of 2.2---> 1.2. His baseline seems to be .7. Urine work up shows FeNa .3, possibly suggesting intrinsic renal pathology in addition to pre-renal etiology given low H/H and poor PO intake. Possible superimposed ATN with pre-renal etiology. * Hydrate and monitor 5. Smoking: Patient has prolonged history of cigarette use. * Nicotine patch 6. Chronic pain: Patient has chronic pain secondary to back and his right lower extremity amputation. * OxyContin 30 mg by mouth every 8 * Roxicodone 15 mg every 4 when necessary 7. Depression: Con't SSRI FULL CODE Mechanical DVT ppx NPO Problem List: 1. Symptomatic anemia 2. Acute renal failure 3. Warfarin-induced coagulopathy Pain Ratin Tomorrow's Labs & Rationales: CBC, ICU bundle Plan DVT/Prophylaxis: mechanical
[2016-04-28 08:00] VITALS: BP 120/60
--- NOTE | 2016-04-28 08:09 | NUR ---
HEP GTT ON HOLD FOR EGD AT 1030 AM
--- NOTE | 2016-04-28 11:08 | Proc Note Endoscopy ---
Endoscopy Procedure Medical History: unchanged (see [facility] consult 04/27/16) Mental Status: alert/oriented Heart/Lung Eval Prior to Sedation: within normal limits Candidate for Sedation? Yes Procedure Date: 04/28/16 Procedure Type: EGD w/biopsy Taxonomist: Oscar Parrish MD ASA Classification: III Indications: Unexplained anemia, reports of melena. Instrument: diagnostic gastroscope Meds Received: MAC Patient's Tolerance: good Complications: none Extent Reached: second part of duodenum Procedure: After getting written informed consent the patient was placed in the left lateral decubitus position with pulse oximetry, cardiac monitoring, and supplemental oxygen given. A bite block was inserted and IV sedation was given until the desired effect was achieved. A high definition upper Olympus endoscope was then inserted into the mouth and advanced to the second portion of the duodenum with little difficulty. Retroflexed views and photodocumentation was obtained. Findings: Esophagus: The esophageal mucosa was grossly normal in appearance and there was a nonobstructing Schatzki's ring at 44 cm from the incisors. There were no esophageal masses, erosions, ulcers, or varices appreciated. Stomach: There were mild erythematous changes with a few scattered erosions in the antrum, but there were no ulcers or masses appreciated. Distention and peristalsis of the stomach appeared normal. Retroflexed views of the cardia revealed nonbleeding gastric varices with 'red whale' marking. There was no hiatal hernia appreciated. Random biopsies were obtained from the antrum with cold biopsy forceps and were sent to pathology for further evaluation. Duodenum: The duodenal bulb was minimally erythematous, but there were no ulcers or masses appreciated. The duodenal sweep and folds were grossly normal in appearance and there were no AVMs appreciated. Random biopsies were obtained from the second portion of the duodenum and were sent to pathology for further evaluation. Impression: 1. Isolated nonbleeding gastric varices with 'red whale' markings. 2. Mild erosive gastritis status post antral biopsies. 3. Nonerosive duodenitis. 4. Nonobstructing Schatzki's ring. 5. Grossly normal small bowel folds status post random biopsies. Recommendations: 1. Check a repeat CAT scan with IV contrast to rule out splenic vein thrombosis. 2. If a repeat CAT scan does show splenic vein thrombosis a surgical consultation should be called for evaluation for a splenectomy. 3. There are no absolute GI contraindication to resuming his anticoagulation if medically indicated for his mechanical aortic valve. 5. GI should be notified for signs of overt GI bleeding. 6. Would keep on a full liquid diet and after the CAT scan would prep with 1 gallon of Colyte and keep nothing by mouth after the bowel prep in anticipation of a colonoscopy tomorrow for further evaluation of his anemia. CC: CONSTANTINO BANERJEE,JESSICA Gordon
[2016-04-28 12:00] VITALS: BP 124/68
--- NOTE | 2016-04-28 13:16 | NUR ---
HEP GTT RESTARTED AT 1245, PER MD SHARIF DO NOT DRAW PTT FOR THIS TIME, DRAW PTT IN 6 HOURS FROM RESTART SINCE HEP GTT HAS BEEN OFF SINCE 8 AM. NEW PTT ORDER PLACED.
[2016-04-28 16:00] VITALS: BP 118/60
--- NOTE | 2016-04-28 18:09 | CT SCAN REPORT ---
EXAMINATION: CT ABDOMEN AND PELVIS WITH CONTRAST CLINICAL INFORMATION: Esophageal varices. Looking for splenic vein thrombosis. COMPARISON: CT dated 04/26/2016 TECHNIQUE: Multidetector volumetric imaging was performed of the abdomen and pelvis before and after the IV administration of 95 mL of Optiray 320 intravenous contrast. Sagittal and coronal reformatted images were obtained on the technologist's workstation. DLP: 337 mGy-cm FINDINGS: LUNG BASES: There is atelectasis vs. dense consolidation in the left lower lobe posteriorly and laterally. Additional atelectasis is present in the right lower lobe posteriorly. Small bilateral pleural effusions are present. Aortic valve prosthesis is present. Calcific atherosclerosis is present in the coronary arteries. LIVER, GALLBLADDER, AND BILIARY TREE: The liver is normal in size, shape, and attenuation. No focal hepatic lesion or biliary ductal dilatation is present. The gallbladder is decompressed with no evidence of radiopaque gallstones, gallbladder wall thickening, or obvious pericholecystic inflammatory changes. PANCREAS: Unremarkable. SPLEEN: Within the left splenic hilum at the pancreatic tail, there is a 3.4 x 2.6 x 3.2 cm low-density region, potentially edematous fat or a infiltrative lesion within the retroperitoneal fat in this region. This is seen retrospectively on the prior study and is unchanged. Spleen measures 18.5 cm in greatest diameter, consistent with splenomegaly. As seen on image 41/96 of series 602 and image 32/134 of series 6 and 1, there is a wedge-shaped area of hyperenhancement of the spleen anteroinferiorly, consistent with infarction. Remainder of the spleen appears to enhance appropriately. Small volume of perisplenic fluid is again noted. ADRENAL GLANDS: Unremarkable. KIDNEYS AND URETERS: Kidneys are normal in size and contour. The kidneys enhance symmetrically and are present in the corticomedullary phase of enhancement as seen on these images. There is a 1.9 cm exophytic cyst in the left interpolar region which, when compared to the prior study, is nonenhancing and likely simple. Multiple additional hypoattenuating foci in both kidneys are most compatible with cysts. No nephrolithiasis or hydronephrosis. BLADDER: Unremarkable. GASTROINTESTINAL TRACT: Stomach, small bowel, and colon are normal in caliber. No bowel wall thickening is identified. Diverticulosis is present within the sigmoid colon. No acute diverticulitis. Appendix is not identified, and there are no findings of appendicitis are identified around the cecum. There is a moderate amount of intraperitoneal free fluid in the pelvis, significantly changed in volume. The perisplenic free fluid is also significantly changed. Trace perihepatic free fluid. ABDOMINAL WALL: Postsurgical changes of prior ventral abdominal surgeries are evident. A broad area of fat-containing ventral abdominal hernias measures approximately 12 x 6 cm in area with multiple small foci of omental fat and a few protruding segments of small bowel. These hernias are relatively shallow. No evidence of strangulation. LYMPH NODES: No mesenteric or retroperitoneal adenopathy. VASCULAR: Calcific atherosclerosis is present in the abdominal aorta and its branch vessels. The splenic artery remains patent. The splenic vein is patent with the exception of at the splenic hilum. As seen on image 46/96 of series 602, the splenic vein is markedly narrowed and potentially occluded immediately adjacent to the spleen. The masslike focus of intermediate density fat is present in this region. Prominence of the portal vein suggests mild portal hypertension. There are short gastric varices. No ascending paraesophageal varices identified on these images. Small varices are also present in the ventral abdominal soft tissues. PELVIC VISCERA: The prostate and seminal vesicles are unremarkable. OSSEOUS STRUCTURES: Right proximal femur is absent. Is osseous fusion of L5 and S1. Mild multilevel degenerative disc disease and facet arthropathy are noted. IMPRESSION: 1. 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 Acute traumatic splenic injury is also possible, though less likely in the absence of history of recent injury. 2. Marked narrowing vs. occlusion of the splenic vein at the splenic hilum in the region of a 3.4 cm spiculated of low density masslike focus. Possible etiologies include a peripancreatic collection from prior pancreatitis, a hematoma, a desmoplastic reaction, or a fat-containing mass. Consider further evaluation with MRI of the abdomen with and without without contrast 3. Moderate volume intraperitoneal free fluid with intermediate density, potentially blood products arising from the spleen. 4. Small bilateral effusions with adjacent atelectasis. Consolidation in the left lower lobe is also possible.
--- NOTE | 2016-04-28 18:51 | NUR ---
PT IRRITATED AND REFUSING TO DRINK GOLYTELY AT THIS TIME. LEFT AT BEDSIDE. CBC AND PTT DRAWN VIA PIVO TO RIGHT ARM.
[2016-04-28 19:17] LABS: ABSOLUTE BASOPHIL COUNT 0 /CUMM (0.0-0.2); ABSOLUTE EOSINOPHIL COUNT 0 /CUMM (0.0-0.7); ABSOLUTE GRANULOCYTE CT 2.1 /CUMM (1.4-6.5); ABSOLUTE MONOCYTE COUNT 0.3 /CUMM (0.10-0.60); BASOPHIL % 0 % (0.0-2.0); EOSINOPHIL % 0.3 % (0-5); GRANULOCYTE % 63.4 % (42.2-75.2); HEMATOCRIT 23.8 % (42-52); MEAN CORPUSCULAR HGB 25.4 PG (27.0-31.0); MEAN CORPUSCULAR HGB CONC 32.4 G/DL (33.0-37.0); MEAN CORPUSCULAR VOLUME 78.5 FL (80.0-94.0); MEAN PLATELET VOLUME 9.8 FL (7.4-10.4); RED BLOOD CELL CT 3.03 /CUMM (4.70-6.10)
[2016-04-28 19:23] LABS: PTT 44 SEC (25-37)
[2016-04-28 19:47] LABS: WHITE BLOOD CELL COUNT 3.8 /CUMM (4.8-10.8)
[2016-04-28 19:48] LABS: PLATELET COUNT 103 /CUMM (130-400)
--- NOTE | 2016-04-28 22:06 | NUR ---
AVSS.A/OX3.FOLLOW COMMANDS. VILLA WITH NO ISSUES. C'O GEN DISCOMFORT AND PAIN MGT CONT ATC. HEPARIN GTT CONT PER PROTOCOL AND NO S/S BLEEDING NOTED. PROTONIX CONT. NEXT PTT DUE IN AM. MARIA ISABEL PO WELL AND TOOK IN GOLYTELY. COLONOSCOPY DUE IN AM.VOIDING GOOD UO.
[2016-04-29] VITALS: BP 120/63
[2016-04-29 04:00] VITALS: BP 130/70
[2016-04-29 04:38] LABS: ABSOLUTE BASOPHIL COUNT 0 /CUMM (0.0-0.2); ABSOLUTE EOSINOPHIL COUNT 0.2 /CUMM (0.0-0.7); ABSOLUTE LYMPH COUNT 1.5 /CUMM (1.2-3.4); ABSOLUTE MONOCYTE COUNT 0.3 /CUMM (0.10-0.60); BASOPHIL % 0 % (0.0-2.0); EOSINOPHIL % 4.2 % (0-5); HEMATOCRIT 24.3 % (42-52); MEAN CORPUSCULAR HGB 25.4 PG (27.0-31.0); MEAN CORPUSCULAR HGB CONC 32.3 G/DL (33.0-37.0); MEAN CORPUSCULAR VOLUME 78.7 FL (80.0-94.0); MEAN PLATELET VOLUME 9.3 FL (7.4-10.4); PLATELET COUNT 86 /CUMM (130-400); RBC DISTRIBUTION WIDTH 24.8 % (11.5-14.5); RED BLOOD CELL CT 3.08 /CUMM (4.70-6.10)
[2016-04-29 04:47] LABS: PT 13.7 SEC (9.4-12.5); PTT 62 SEC (25-37)
[2016-04-29 06:00] VITALS: BP 121/60
--- NOTE | 2016-04-29 07:52 | PN- Resident CRCU ---
REKHA BANERJEE,OBDULIA 04/29/16 0752: Subjective HPI/CRCU Issues: Patient in ICU for acute blood loss anemia, elevated troponins, acute renal failure. I followed up and examined the patient this morning. The patient is lying comfortably in the bed, not in acute distress, does not have any active issues. His bowel was prepped last night for colonscopy to be done later this morning, but had SVT last night, spontaneously reverted. He did not have any symptoms then, and does not have any complaints now either. No dark stool anymore. No chest pain, shortness of breath. Vitals have been stable otherwise overnight. 24 Hour Events: Patient underwent upper GI endoscopy, CAT scan of abdomen later in the afternoon , and was bowel prepped for colonoscopy this morning. Had SVT with a spontaneous resolution, overnight. Objective Vital Signs & I&O Last 8 Hrs of Vitals and I&O: Vital Signs Date Time Temp Pulse Resp B/P Pulse O2 O2 Flow FiO2 Ox Delivery Rate 04/29 0600 76 16 121/60 94 Nasal 2.0L Cannula 04/29 0400 96 Nasal 2.0L Cannula 04/29 0400 97.5 88 19 130/70 96 Nasal 2.0L Cannula Exam General Appearance: no apparent distress, alert, awake, anxious, thin Head: atraumatic, normal appearance Ears, Nose, Throat: normal pharynx, hearing grossly normal, moist mucus membranes Neck: normal inspection, supple, full range of motion Respiratory: normal breath sounds, chest non-tender, no respiratory distress Cardiovascular: regular rate/rhythm, murmur Gastrointestinal: normal bowel sounds, soft, non-tender Extremities: RIGHT aka, left eye has old skin graft scar anteriorly, grossly normal, no change from yesterday Skin: intact, normal color, warm/dry IV Drips IV Drips: Heparin drip with D5W D5W NS as IVF Nutrition Nutrition: NPO (Awaiting colonscopy) Current Medications: Current Medications Sig/Jean Pierre Start time Last Medication Dose Route Stop Time Status Admin Chlorhexidine 1 GM .STK-MED ONE 04/28 1308 DC Gluconate TOP 04/28 1309 Dextrose/Sodium 1,000 ML Q13H 04/29 0000 AC 04/29 Chloride IV 0027 Escitalopram Oxalate 10 MG DAILY 04/27 1247 AC 04/28 PO 1243 Heparin Sodium/ 25,000 UNIT Q24H 04/27 1015 AC 04/29 Dextrose IV 0642 Dextrose/Water 500 ML Loratadine 10 MG DAILY 04/27 1708 AC 04/28 PO 1242 Magnesium Sulfate 1 GM ONCE ONE 04/29 0815 AC Dextrose/Water 100 ML IV 04/29 1214 Nicotine 21 MG DAILY 04/28 1415 AC 04/28 TOP 1614 Oxycodone HCl 15 MG Q4P PRN 04/26 1400 AC 04/29 PO 0217 Oxycodone HCl 30 MG Q8 04/26 1345 AC 04/29 PO 0518 Pantoprazole Sodium 40 MG Q5H 04/26 1745 AC 04/29 Sodium Chloride 100 ML IV 0510 Polyethylene Glycol 1 GAL ONCE ONE 04/28 1800 DC 04/28 PO 04/[address] Scan Findings: IMPRESSION: 1. 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 Acute traumatic splenic injury is also possible, though less likely in the absence of history of recent injury. 2. Marked narrowing vs. occlusion of the splenic vein at the splenic hilum in the region of a 3.4 cm spiculated of low density masslike focus. Possible etiologies include a peripancreatic collection from prior pancreatitis, a hematoma, a desmoplastic reaction, or a fat-containing mass. Consider further evaluation with MRI of the abdomen with and without without contrast 3. Moderate volume intraperitoneal free fluid with intermediate density, potentially blood products arising from the spleen. 4. Small bilateral effusions with adjacent atelectasis. Consolidation in the left lower lobe is also possible. DICTATED BY: LOS FRANCO MD DATE/TIME DICTATED:04/28/161729 DECK ENGINEER:LAURYN DATE/TIME TRANSCRIBED:04/28/161729 Impression/Plan Impression/Problem List Impression: This is a 65-year-old male with past medical history of hypertension, CABG with [facility] Ao valve on Coumadin, who presented to the ED with CC abdominal pain, generalized weakness. He was subsequently found to have supratherapeutic INR and profound anemia. Patient was admitted to ICU for further management and treatment. Impression of upper GI endoscopy done yesterday. Awaiting colonscopy today. 1. 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 2. Mild erosive gastritis status post antral biopsies. 3. Nonerosive duodenitis. 4. Nonobstructing Schatzki's ring. 5. Grossly normal small bowel folds status post random biopsies. Patient had several runs of tachycardia last night. Had SVT which spontaneously reverted. PLAN: 1. Acute blood loss anemia: Patient came in with hemoglobin 3.9, hematocrit 12.7. He states that he has had episodes of black tarry stools at home; no bright red blood per rectum noted, no hematemesis and no other overt signs of bleeding. However, he has received over 6 units of PRBC in the hospital, and his subsequent hemoglobin came up to 6.[address] scan of the abdomen showed normal liver, pancreas, spleen, however, there is free fluid overlying the liver and free fluid of the spleen. In addition, there is a moderate amount of pelvic free fluid noted. Primary workup now includes evaluating source of bleed for patient as his hemoglobin has not responded adequately to PRBC transfusion. There is question whether he is having intra-abdominal bleeding. Anemia workup shows: Iron 14, TIBC 369, ferritin 7.6 * Patient was nothing by mouth after midnight and underwent an upper GI endoscopy yesterday, is awaiting colonoscopy today. * CT scan of abdomen found splenic infraction and if so, he is to be evaluated by surgical team for possible splenectomy in future. Update: Dr Victoria does not think that a colonoscopy would risk splenic rupture because the infarction is not over the side of splenic flexure. My residnet spoke to Dr Victoria over phone. * Also spoke to the Cardiology regarding fitness for colonoscopy because he had several rounds of ventricular tachycardia and supraventricular tachycardia overnight. Cardiology reviewed the case, and did mention that he is good to go for colonoscopy, as long as he is continuously monitored during the whole procedure and he has received a beta nelida before the procedure. The suggestions were carried out. * Patient does not seem to be adequately bowel prepped (still has brown stool), thus requiring a clear bowel movement before the procedure. So he is encouraged to drink more and was given a meds to cause loose stool. Colonoscopy has been thus postponed till tomorrow. * Continue IV fluids * Heparin was also held before the endoscopy procedure only for 2 hours and then restarted right after patient came back to the unit the day before. * No FFP * Protonix drip * We'll obtain records from [facility] 2. 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 Three days ago INR was at 5.0 and he had stopped taking Coumadin at that time. Vitamin K and FFP given on admission. Initially, plan was to start patient on IV heparin once INR drops below 2.5. However, despite INR at 2.49 this a.m. heparin has not been started as patient continues to bleed. There is concern for intra-abdominal bleed. Will resume heparin if the stat US does not show evidence of abdominal bleed. * Continue to hold Coumadin * IV heparin per protocol per cardiology 3. Positive troponin: Patient given troponin 0.53, subsequent therapeutic 0.81 and then back to 0.63 this AM. Likely represent demand picture. Patient does have known CAD and is status post CABG. We will continue to monitor him on telemetry. * Patient currently not any of his cardiac medication; HOLD Bystolic 5 mg. 4. Acute renal failure: Patient came in with creatinine of 2.2---> 1.2. His baseline seems to be .7. Urine work up shows FeNa .3, possibly suggesting intrinsic renal pathology in addition to pre-renal etiology given low H/H and poor PO intake. Possible superimposed ATN with pre-renal etiology. * Hydrate and monitor 5. Smoking: Patient has prolonged history of cigarette use. * Nicotine patch 6. Chronic pain: Patient has chronic pain secondary to back and his right lower extremity amputation. * OxyContin 30 mg by mouth every 8 * Roxicodone 15 mg every 4 when necessary 7. Depression: Con't SSRI FULL CODE Mechanical DVT ppx NPO Problem List: 1. Symptomatic anemia 2. Acute renal failure 3. Warfarin-induced coagulopathy Pain Ratin Pain Goal: Remain pain free Pain Plan: prn Tomorrow's Labs & Rationales: ICU bundle, CBC for his dropping plt, symptomatic anemia state correction, low Mg, dyselectrolytemia Plan DVT/Prophylaxis: pharmacological CATALINA LOPEZ MD 04/29/16 1508: Attending MD Review Statement Attending Sign Off Attending Cosign Statement: I have: examined this patient, reviewed aval EMR data, discussd w/resident/PA/ SEWER PIPE SORTER, agreed w/resident/PA/SEWER PIPE SORTER. Other Findings: 65M PMH aortic valve replacement on Coumadin, HTN, PVD, abdominal hernia s/p repair admitted for severe anemia with Hgb 3.7 and supratherapeutic INR s/p multiple blood and FFP transfusions. Patient underwent EGD yesterday which showed varices without bleed. CT abdomen shows splenic infarction. Demand ischemia on admission has resolved. Scheduled for colonoscopy today. Plan - NPO until after colonoscopy - Follow GI recommendations - Continue PPI - Monitor Hgb - Follow surgery recommendations - Continue heparin drip for now - Continue b-nelida - DVT PPx
--- NOTE | 2016-04-29 09:04 | PN- General Surgery ---
See Addendum Subjective Subjective: Follow-up of severe anemia free fluid in the abdomen quite positive stools. Asked to reevaluate because of splenic infarction seen on today's CT scan. Patient feels much better than on admission, he's received several units of blood products, he sitting up in bed tolerating liquid diet and he is drinking a bowel prep for tomorrow's colonoscopy. He's been placed on a heparin drip. He denies any left mid to upper abdominal or left flank pain either now or in the past several weeks during this time of weakness.. Abdominal discomfort he recalls is this popping sensation he had in his left groin he thought it was related to mesh or another hernia. Objective Vital Signs and I&Os I reviewed Vital Signs Date Time Temp Pulse Resp B/P Pulse O2 O2 Flow FiO2 Ox Delivery Rate Cannula 04/28 1600 98.7 86 22 118/60 94 Room Air 04/28 1200 Room Air 04/28 1200 98.1 77 20 124/68 92 Room Air I reviewed Intake & Output 04/29 1600 04/29 0800 04/29 0000 04/28 1600 04/28 0800 04/28 0000 Intake Total 957 376.8 1418.8 Output Total 425 525 375 Balance 532 -148.2 1043.8 Intake, IV 207 276.8 338.8 Intake, Oral 201 660 7768 Number 0 0 Bowel Movements Output, Urine 425 525 375 Patient 136 lb 139 lb Weight Current Medications: I reviewed Current Medications Sig/Jean Pierre Start time Last Medication Dose Route Stop Time Status Admin Chlorhexidine 1 GM .STK-MED ONE 04/28 1308 DC Gluconate [facility] 04/28 1309 Dextrose/Sodium 1,000 ML Q13H 04/29 0000 AC 04/29 Chloride IV 0027 Escitalopram Oxalate 10 MG DAILY 04/27 1247 AC 04/28 PO 1243 Heparin Sodium/ 25,000 UNIT Q24H 04/27 1015 04/29 Dextrose IV 0642 Dextrose/Water 500 ML Loratadine 10 MG DAILY 04/27 1708 AC 04/28 PO 1242 Magnesium Sulfate 1 GM ONCE ONE 04/29 0815 Dextrose/Water 100 ML IV 04/29 1214 Nicotine 21 MG DAILY 04/28 1415 04/28 TOP 1614 Oxycodone HCl 15 MG Q4P PRN 04/26 1400 AC 04/29 PO 0217 Oxycodone HCl 30 MG Q8 04/26 1345 AC 04/29 PO 0518 Pantoprazole Sodium 40 MG Q5H 04/26 1745 AC 04/29 Sodium Chloride 100 ML IV 0510 Polyethylene Glycol 1 GAL ONCE ONE 04/28 1800 DC 04/28 PO 04/28 1801 2204 Results Last 48 Hours of Labs: Laboratory Tests Chemistry Sodium (137 - 145 mmol/L) Potassium (3.5 - 5.1 mmol/L) Chloride (98 - 107 mmol/L) Carbon Dioxide (22 - 30 mmol/L) Anion Gap (5 - 16) BUN (9 - 20 mg/dL) Creatinine (0.7 - 1.2 mg/dL) Estimated GFR (>60 ml/min) Glucose (65 - 99 mg/dL) Calcium (8.4 - 10.2 mg/dL) Phosphorus (2.5 - 4.5 mg/dL) Magnesium (1.6 - 2.3 mg/dL) Total Bilirubin (0.2 - 1.3 mg/dL) AST (17 - 59 U/L) ALT (21 - 72 U/L) Albumin (3.5 - 5.0 g/dL) Coagulation PT (9.4 - 12.5 SEC) Cancelled INR (0.90 - 1.17) Cancelled APTT (25 - 37 SEC) Hematology CBC w Diff MAN DIFF ORDERED WBC (4.8 - 10.8 /CUMM) RBC (4.70 - 6.10 /CUMM) Hgb (14.0 - 18.0 G/DL) Hct (42 - 52 %) MCV (80.0 - 94.0 FL) MCH (27.0 - 31.0 PG) RDW (11.5 - 14.5 %) Plt Count (130 - 400 /CUMM) MPV (7.4 - 10.4 FL) Gran % (42.2 - 75.2 %) Lymphocytes % (20.5 - 51.1 %) Monocytes % (1.7 - 9.3 %) Eosinophils % (0 - 5 %) Basophils % (0.0 - 2.0 %) Absolute Granulocytes (1.4 - 6.5 /CUMM) Segmented Neutrophils (42.2 - 75.2 %) Absolute Lymphocytes (1.2 - 3.4 /CUMM) Lymphocytes (20.5 - 51.1 %) Monocytes (1.7 - 9.3 %) Absolute Monocytes (0.10 - 0.60 /CUMM) Absolute Eosinophils (0.0 - 0.7 /CUMM) Absolute Basophils (0.0 - 0.2 /CUMM) Platelet Estimate (ADEQUATE) Polychromasia Hypochromic-Microcytic Poikilocytosis Microcytic Cells Ovalocytes Elliptocytes PUBS MCHC (33.0 - 37.0 G/DL) Other Body Source 04/28 1848 Coagulation APTT (25 - 37 SEC) 44 H Hematology CBC w Diff MAN DIFF ORDERED WBC (4.8 - 10.8 /CUMM) 3.8 L RBC (4.70 - 6.10 /CUMM) 3.03 L Hgb (14.0 - 18.0 G/DL) 7.7 L Hct (42 - 52 %) 23.8 L MCV (80.0 - 94.0 FL) 78.5 L MCH (27.0 - 31.0 PG) 25.4 L RDW (11.5 - 14.5 %) 24.0 H Plt Count (130 - 400 /CUMM) 103 L MPV (7.4 - 10.4 FL) 9.8 Gran % (42.2 - 75.2 %) 63.4 Lymphocytes % (20.5 - 51.1 %) 28.5 Monocytes % (1.7 - 9.3 %) 7.8 Eosinophils % (0 - 5 %) 0.3 Basophils % (0.0 - 2.0 %) 0 L Absolute Granulocytes (1.4 - 6.5 /CUMM) 2.1 Segmented Neutrophils (42.2 - 75.2 %) 66 Band Neutrophils (0.0 - 5.0 %) 1 Absolute Lymphocytes (1.2 - 3.4 /CUMM) 1.0 L Lymphocytes (20.5 - 51.1 %) 25 Monocytes (1.7 - 9.3 %) 7 Absolute Monocytes (0.10 - 0.60 /CUMM) 0.3 Absolute Eosinophils (0.0 - 0.7 /CUMM) 0 Basophils (0.0 - 2.0 %) 1 Absolute Basophils (0.0 - 0.2 /CUMM) 0 Nucleated RBCs (0.0 - 0.0 /100WBC) 1 H Platelet Estimate (ADEQUATE) DECREASED Polychromasia 1+ Hypochromic-Microcytic 2+ Anisocytosis 3+ Microcytic Cells 2+ PUBS MCHC (33.0 - 37.0 G/DL) 32.4 L 04/28 04/28 1245 0500 Coagulation PT Cancelled INR Cancelled APTT Cancelled 04/28 04/27 0500 2100 Chemistry Sodium (137 - 145 mmol/L) 135 L 134 L Potassium (3.5 - 5.1 mmol/L) 3.9 3.8 Chloride (98 - 107 mmol/L) 105 103 Carbon Dioxide (22 - 30 mmol/L) 25 25 Anion Gap (5 - 16) 5 6 BUN (9 - 20 mg/dL) 13 19 Creatinine (0.7 - 1.2 mg/dL) 0.8 0.9 Estimated GFR (>60 ml/min) > 60 > 60 Glucose (65 - 99 mg/dL) 95 102 H Calcium (8.4 - 10.2 mg/dL) 7.5 L 7.5 L Phosphorus (2.5 - 4.5 mg/dL) 2.5 2.7 Magnesium (1.6 - 2.3 mg/dL) 1.7 1.7 Total Bilirubin (0.2 - 1.3 mg/dL) 0.7 0.6 AST (17 - 59 U/L) 18 20 ALT (21 - 72 U/L) 32 33 Albumin (3.5 - 5.0 g/dL) 2.6 L 2.8 L Coagulation PT (9.4 - 12.5 SEC) 14.0 H 13.9 H INR (0.90 - 1.17) 1.34 H 1.33 H APTT (25 - 37 SEC) 54 H 43 H Hematology CBC w Diff MAN DIFF ORDERED MAN DIFF ORDERED WBC (4.8 - 10.8 /CUMM) 3.5 L 4.4 L RBC (4.70 - 6.10 /CUMM) 3.04 L 3.10 L Hgb (14.0 - 18.0 G/DL) 7.6 L 7.9 L Hct (42 - 52 %) 23.9 L 24.1 L MCV (80.0 - 94.0 FL) 78.6 L 77.8 L MCH (27.0 - 31.0 PG) 25.0 L 25.5 L RDW (11.5 - 14.5 %) 23.7 H 23.6 H Plt Count (130 - 400 /CUMM) 94 L 100 L MPV (7.4 - 10.4 FL) 10.5 H 10.4 Gran % (42.2 - 75.2 %) 64.8 70.5 Lymphocytes % (20.5 - 51.1 %) 25.3 19.6 L Monocytes % (1.7 - 9.3 %) 8.1 9.5 H Eosinophils % (0 - 5 %) 1.8 0.4 Basophils % (0.0 - 2.0 %) 0 L 0 L Absolute Granulocytes (1.4 - 6.5 /CUMM) 2.3 3.1 Segmented Neutrophils (42.2 - 75.2 %) 71 71 Band Neutrophils (0.0 - 5.0 %) 1 Absolute Lymphocytes (1.2 - 3.4 /CUMM) 0.9 L 0.9 L Lymphocytes (20.5 - 51.1 %) 18 L 22 Monocytes (1.7 - 9.3 %) 8 6 Absolute Monocytes (0.10 - 0.60 /CUMM) 0.3 0.4 Eosinophils (0 - 5.0 %) 3 Absolute Eosinophils (0.0 - 0.7 /CUMM) 0.1 0 Absolute Basophils (0.0 - 0.2 /CUMM) 0 0 Platelet Estimate (ADEQUATE) DECREASED ADEQUATE Polychromasia 1+ Hypochromic-Microcytic 2+ 2+ Poikilocytosis 1+ 1+ Anisocytosis 1+ 2+ Microcytic Cells 1+ Target Cells FEW Ovalocytes 1+ PUBS MCHC (33.0 - 37.0 G/DL) 31.8 L 32.7 L 04/27 04/27 04/27 1330 1330 0905 Chemistry Sodium (137 - 145 mmol/L) 136 L Potassium (3.5 - 5.1 mmol/L) 4.2 Chloride (98 - 107 mmol/L) 105 Carbon Dioxide (22 - 30 mmol/L) 25 Anion Gap (5 - 16) 6 BUN (9 - 20 mg/dL) 24 H Creatinine (0.7 - 1.2 mg/dL) 1.2 Estimated GFR (>60 ml/min) > 60 Glucose (65 - 99 mg/dL) 95 Calcium (8.4 - 10.2 mg/dL) 8.0 L Phosphorus (2.5 - 4.5 mg/dL) 2.9 Magnesium (1.6 - 2.3 mg/dL) 1.7 Total Bilirubin (0.2 - 1.3 mg/dL) 1.0 AST (17 - 59 U/L) 23 ALT (21 - 72 U/L) 28 Albumin (3.5 - 5.0 g/dL) 2.9 L Coagulation PT (9.4 - 12.5 SEC) 15.5 H INR (0.90 - 1.17) 1.48 H Hematology CBC w Diff NO MAN DIFF REQ WBC (4.8 - 10.8 /CUMM) 5.5 RBC (4.70 - 6.10 /CUMM) 3.23 L Hgb (14.0 - 18.0 G/DL) 8.1 L Hct (42 - 52 %) 25.5 L MCV (80.0 - 94.0 FL) 79.0 L MCH (27.0 - 31.0 PG) 25.2 L RDW (11.5 - 14.5 %) 23.8 H Plt Count (130 - 400 /CUMM) 92 L MPV (7.4 - 10.4 FL) 9.8 Gran % (42.2 - 75.2 %) 80.6 H Lymphocytes % (20.5 - 51.1 %) 11.3 L Monocytes % (1.7 - 9.3 %) 8.0 Eosinophils % (0 - 5 %) 0.1 Basophils % (0.0 - 2.0 %) 0 L Absolute Granulocytes (1.4 - 6.5 /CUMM) 4.5 Absolute Lymphocytes (1.2 - 3.4 /CUMM) 0.6 L Lymphocytes (%) 16 Absolute Monocytes (0.10 - 0.60 /CUMM) 0.4 Absolute Eosinophils (0.0 - 0.7 /CUMM) 0 Absolute Basophils (0.0 - 0.2 /CUMM) 0 % Normal PMNs (%) 57 PUBS MCHC (33.0 - 37.0 G/DL) 31.9 L Misc Hematology Test (%) 1 Other Body Source Fluid WBC (0 - 5 /CUMM) ND Fld Mesothelial Cells (%) 26 Fld Total RBCs Counted (0 /CUMM) ND Fluid Glucose (mg/dL) 84 Fluid Total Protein (g/dL) 3.9 Fluid Albumin (g/dL) 1.8 Fluid LDH (U/L) 1141 Fluid Amylase (U/L) < 30 Assessment/Plan Assessment/Plan Studies I reviewed the two CT scans from this admission on PACS myself, in the interval the free fluid is about the same may be a tiny bit less, the splenic infarct noted today, may have already been there, it's difficult to tell, the contrast phase is different, need to go over with the radiologist. INR 1.34, PTT 54 Impression is patient improved with transfusions, the free fluid was sampled that's pending, upper endoscopy revealed varices, lower endoscopy for tomorrow, I don't feel he is actively bleeding in his peritoneum, if anything is less fluid now. The splenic infarct may be old he is not tender in the area has no pain there. Splenectomy is not indicated.
--- NOTE | 2016-04-29 11:13 | PN- Cardiology ---
Subjective Subjective: Denies any chest pain, dyspnea, or palpitations. Objective Vital Signs and I&Os Vital Signs Date Time Temp Pulse Resp B/P Pulse O2 O2 Flow FiO2 Ox Delivery Rate 04/29 0600 76 16 121/60 94 Nasal 2.0L Cannula 04/29 0400 96 Nasal 2.0L Cannula 04/29 0400 97.5 88 19 130/70 96 Nasal 2.0L Cannula 04/29 0000 97 Nasal 2.0L Cannula 04/29 0000 97.4 104 27 120/63 95 Nasal 2.0L Cannula 04/28 1600 98.7 86 22 118/60 94 Room Air 04/28 1200 Room Air 04/28 1200 98.1 77 20 124/68 92 Room Air Intake & Output 04/29 1600 04/29 0800 04/29 0000 04/28 1600 04/28 0800 04/28 0000 Intake Total 1747 1276 957 376.8 1418.8 Output Total 1200 700 425 525 375 Balance 547 576 532 -148.2 1043.8 Intake, IV 847 376 207 276.8 338.8 Intake, Oral 900 900 431 040 3170 Number 4 0 0 Bowel Movements Output, Urine 1200 700 425 525 375 Patient 136 lb 139 lb Weight Physical Exam: General: no apparent distress. Alert. Eyes: No obvious scleral icterus. HEENT: No jugular venous distention or abnormal jugular venous pulsations. Cardiovascular: Normal intensity S1/S2. Regular. 1/6 SM. Mechanical valve sounds noted. Respiratory: No rales or rhonchi Abdomen: Mildly distended without guarding, abdominal scar noted Musculoskeletal: No cyanosis noted, amputation noted, no edema Skin: Warm Neurologic: No gross focal deficits noted. Current Medications: Current Medications Sig/Jean Pierre Start time Last Medication Dose Route Stop Time Status Admin Chlorhexidine 1 GM .STK-MED ONE 04/28 1308 DC Gluconate TOP 04/28 1309 Dextrose/Sodium 1,000 ML Q13H 04/29 0000 AC 04/29 Chloride IV 0027 Escitalopram Oxalate 10 MG DAILY 04/27 1247 AC 04/29 PO 0902 Heparin Sodium/ 25,000 UNIT Q24H 04/27 1015 AC 04/29 Dextrose IV 0642 Dextrose/Water 500 ML Loratadine 10 MG DAILY 04/27 1708 AC 04/29 PO 0902 Magnesium Citrate 300 ML ONE ONE 04/29 1100 DC PO 04/29 1101 Magnesium Sulfate 1 GM ONCE ONE 04/29 0815 AC 04/29 Dextrose/Water 100 ML IV 04/29 1214 0904 Nebivolol 5 MG DAILY 04/29 1000 AC PO Nicotine 21 MG DAILY 04/28 1415 AC 04/29 TOP 0902 Oxycodone HCl 15 MG Q4P PRN 04/26 1400 AC 04/29 PO 0902 Oxycodone HCl 30 MG Q8 04/26 1345 AC 04/29 PO 0518 Pantoprazole Sodium 40 MG Q5H 04/26 1745 AC 04/29 Sodium Chloride 100 ML IV 0902 Polyethylene Glycol 1 GAL ONCE ONE 04/28 1800 DC 04/28 PO 04/28 1801 2204 Results Last 48 Hrs of Labs/Mics: Laboratory Tests 04/29/16 0600: PT Cancelled, INR Cancelled 04/29/16 0410: Anion Gap 11, Estimated GFR > 60, Glucose 107 H, Calcium 7.7 L, Phosphorus 2.8 , Magnesium 1.5 L, Total Bilirubin 0.7, AST 18, ALT 27, Troponin I 0.12 *H, Albumin 2.7 L, PT 13.7 H, INR 1.31 H, APTT 62 H, CBC w Diff MAN DIFF ORDERED , RBC 3.08 L, MCV 78.7 L, MCH 25.4 L, RDW 24.8 H, MPV 9.3, Gran % 51.0, Lymphocytes % 37.2, Monocytes % 7.6, Eosinophils % 4.2, Basophils % 0 L, Absolute Granulocytes 2.0, Segmented Neutrophils 54, Absolute Lymphocytes 1.5, Lymphocytes 39, Monocytes 7, Absolute Monocytes 0.3, Absolute Eosinophils 0.2, Absolute Basophils 0, Platelet Estimate DECREASED, Polychromasia 1+, Hypochromic -Microcytic 2+, Poikilocytosis 1+, Anisocytosis 1+, Microcytic Cells 1+, Ovalocytes 1+, Elliptocytes FEW, PUBS MCHC 32.3 L, Fld Total RBCs Counted 100 04/29/16 0400: APTT Cancelled 04/28/16 1848: APTT 44 H, CBC w Diff MAN DIFF ORDERED, RBC 3.03 L, MCV 78.5 L, MCH 25.4 L, RDW 24.0 H, MPV 9.8, Gran % 63.4, Lymphocytes % 28.5, Monocytes % 7.8, Eosinophils % 0.3, Basophils % 0 L, Absolute Granulocytes 2.1, Segmented Neutrophils 66, Band Neutrophils 1, Absolute Lymphocytes 1.0 L, Lymphocytes 25, Monocytes 7, Absolute Monocytes 0.3, Absolute Eosinophils 0, Basophils 1, Absolute Basophils 0, Nucleated RBCs 1 H, Platelet Estimate DECREASED, Polychromasia 1+, Hypochromic-Microcytic 2+, Anisocytosis 3+, Microcytic Cells 2 +, PUBS MCHC 32.4 L 04/28/16 1245: APTT Cancelled 04/28/16 0500: PT Cancelled, INR Cancelled 04/28/16 0500: Anion Gap 5, Estimated GFR > 60, Glucose 95, Calcium 7.5 L, Phosphorus 2.5, Magnesium 1.7, Total Bilirubin 0.7, AST 18, ALT 32, Albumin 2.6 L, PT 14.0 H, INR 1.34 H, APTT 54 H, CBC w Diff MAN DIFF ORDERED, RBC 3.04 L, MCV 78.6 L, MCH 25.0 L, RDW 23.7 H, MPV 10.5 H, Gran % 64.8, Lymphocytes % 25.3, Monocytes % 8.1, Eosinophils % 1.8, Basophils % 0 L, Absolute Granulocytes 2.3, Segmented Neutrophils 71, Absolute Lymphocytes 0.9 L, Lymphocytes 18 L, Monocytes 8, Absolute Monocytes 0.3, Eosinophils 3, Absolute Eosinophils 0.1, Absolute Basophils 0, Platelet Estimate DECREASED, Hypochromic-Microcytic 2+, Poikilocytosis 1+, Anisocytosis 1+, Ovalocytes 1+, PUBS MCHC 31.8 L 04/27/16 2100: Anion Gap 6, Estimated GFR > 60, Glucose 102 H, Calcium 7.5 L, Phosphorus 2.7, Magnesium 1.7, Total Bilirubin 0.6, AST 20, ALT 33, Albumin 2.8 L, PT 13.9 H, INR 1.33 H, APTT 43 H, CBC w Diff MAN DIFF ORDERED, RBC 3.10 L, MCV 77.8 L, MCH 25.5 L, RDW 23.6 H, MPV 10.4, Gran % 70.5, Lymphocytes % 19.6 L, Monocytes % 9.5 H, Eosinophils % 0.4, Basophils % 0 L, Absolute Granulocytes 3.1, Segmented Neutrophils 71, Band Neutrophils 1, Absolute Lymphocytes 0.9 L, Lymphocytes 22, Monocytes 6, Absolute Monocytes 0.4, Absolute Eosinophils 0, Absolute Basophils 0, Platelet Estimate ADEQUATE, Polychromasia 1+, Hypochromic- Microcytic 2+, Poikilocytosis 1+, Anisocytosis 2+, Microcytic Cells 1+, Target Cells FEW, PUBS MCHC 32.7 L 04/27/16 1330: Fluid WBC ND, Fld Mesothelial Cells 26, Fld Total RBCs Counted ND 04/27/16 1330: Lymphocytes 16, % Normal PMNs 57, Misc Hematology Test 1, Fluid Glucose 84, Fluid Total Protein 3.9, Fluid Albumin 1.8, Fluid LDH 1141, Fluid Amylase < 30 Recent Imaging Studies: Telemetry tracings were personally reviewed and shows sinus rhythm with short SVT bursts with some short periods of aberrant conduction but no obvious ventricular arrhythmias Endoscopy 1. 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 2. Mild erosive gastritis status post antral biopsies. 3. Nonerosive duodenitis. 4. Nonobstructing Schatzki's ring. 5. Grossly normal small bowel folds status post random biopsies. Echo Technically difficult study. Left ventricular cavity size normal. Left ventricular wall thickness at upper limits of normal. No obvious regional wall motion abnormalities. Hyperdynamic left ventricular systolic function. LVEF > 65 %. Mild left atrial dilatation. Mild mitral stenosis. Mechanical prosthetic aortic valve not well visualized. Mean gradient elevated at 37 mmHg (peak velocity 402 cm/sec) which is above expected mechanical aortic valve gradient. Clinical correlation is advised. Right ventricular systolic pressure estimated at > 50 mmHg. ECG tracing was reviewed and confirmed sinus rhythm with intraventricular conduction delay Assessment/Plan Assessment/Plan 1. Acute kidney injury, improving 2. Mechanical aortic valve (1994) with elevated mean gradient of 37 mmHg by Echo 3. Anticoagulated on warfarin with INR greater than 10, improving 4. Ascites, Hx of Hep C, status post paracentesis 5. Severe anemia, likely secondary to occult GI blood loss, requiring transfusion 6. Mild troponin elevation, likely secondary to demand ischemia precipitated by severe anemia. 7. History of ascending aortic aneurysm Patient had some asymptomatic SVT bursts with some aberrancy overnight. As he remains hemodynamically stable we are reinitiating his outpatient beta nelida. He remains on intravenous heparin and is scheduled for colonoscopy today. Heparin drip can be temporarily held as needed for procedures. Surgery input reviewed and not planned for splenectomy this time. Echocardiogram showed no obvious wall motion abnormalities. Replete electrolytes as needed. When no further procedures are planned to be restarted on daily Coumadin with bridging therapy until INR is therapeutic. Dick Lemons MD [facility] Continue telemetry? Yes
[2016-04-29 16:56] LABS: PTT 93 SEC (25-37)
--- NOTE | 2016-04-29 21:35 | PN- General Surgery ---
Subjective Subjective: Follow-up of blood loss anemia, dehydration. Patient's colonoscopy has been postponed until tomorrow due to insufficient bowel prep, patient feels well otherwise no shortness of breath or chest pain tolerating liquid diet denies any abdominal or back pain. Objective Vital Signs and I&Os I reviewed Vital Signs Date Time Temp Pulse Resp B/P Pulse O2 O2 Flow FiO2 Ox Delivery Rate 04/29 1999 Room Air 04/29 0600 76 16 121/60 94 Nasal 2.0L Cannula 04/29 0400 96 Nasal 2.0L Cannula 04/29 0400 97.5 88 19 130/70 96 Nasal 2.0L Cannula 04/29 0000 97 Nasal 2.0L Cannula 04/29 0000 97.4 104 27 120/63 95 Nasal 2.0L Cannula I reviewed Intake & Output 04/29 1600 04/29 0800 04/29 0000 04/28 1600 04/28 0800 04/28 0000 Intake Total 2640 1747 1276 957 376.8 1418.8 Output Total 1000 1200 700 425 525 375 Balance 1640 547 576 532 -148.2 1043.8 Intake, IV 1040 847 376 207 276.8 338.8 Intake, Oral 1600 900 900 465 607 4495 Number 8 4 0 0 Bowel Movements Output, Urine 1000 1200 700 425 525 375 Patient 136 lb 139 lb Weight Physical Exam: Constitutional: no acute distress no pain Eyes: sclera anicteric ENMT: moist mucous membranes Cardiovascular: S1-S2 no murmurs no peripheral edema Respiratory: clear to auscultation with normal respiratory effort and no intercostal retractions GI: abdomen soft nontender nondistended Extremities / lymphatics: Upper extremities and left leg free range of motion no peripheral edema Skin: no jaundice no rashes warm, nondiaphoretic Psychiatric: mood and affect are appropriate and alert and oriented to person place and time Current Medications: I reviewed Current Medications Sig/Jean Pierre Start time Last Medication Dose Route Stop Time Status Admin Dextrose/Sodium 1,000 ML Q13H 04/29 0000 AC 04/29 Chloride IV 1602 Escitalopram Oxalate 10 MG DAILY 04/27 1247 AC 04/29 PO 0902 Heparin Sodium/ 25,000 UNIT Q24H 04/27 1015 AC 04/29 Dextrose IV 0642 Dextrose/Water 500 ML Loratadine 10 MG DAILY 04/27 1708 AC 04/29 PO 0902 Magnesium Citrate 300 ML ONE ONE 04/29 1100 DC 04/29 PO 04/29 1101 1119 Magnesium Sulfate 1 GM ONCE ONE 04/29 0815 DC 04/29 Dextrose/Water 100 ML IV 04/29 1214 0904 Nebivolol 5 MG DAILY 04/29 1000 AC 04/29 PO 1119 Nicotine 21 MG DAILY 04/28 1415 AC 04/29 TOP 0902 Oxycodone HCl 15 MG Q4P PRN 04/26 1400 AC 04/29 PO 1602 Oxycodone HCl 30 MG Q8 04/26 1345 AC 04/29 PO 1410 Pantoprazole Sodium 40 MG Q5H 04/26 1745 AC 04/29 Sodium Chloride 100 ML IV 2020 Results Last 48 Hours of Labs: I reviewed Laboratory Tests 04/29 04/29 04/29 04/29 2108 1600 1125 0600 Chemistry Troponin I (<0.11 ng/ml) 0.08 Coagulation PT Cancelled INR Cancelled APTT (25 - 37 SEC) Pending 93 H 04/29 04/29 0410 0400 Chemistry Sodium (137 - 145 mmol/L) 138 Potassium (3.5 - 5.1 mmol/L) 3.5 Chloride (98 - 107 mmol/L) 102 Carbon Dioxide (22 - 30 mmol/L) 25 Anion Gap (5 - 16) 11 BUN (9 - 20 mg/dL) 5 L Creatinine (0.7 - 1.2 mg/dL) 0.6 L Estimated GFR (>60 ml/min) > 60 Glucose (65 - 99 mg/dL) 107 H Calcium (8.4 - 10.2 mg/dL) 7.7 L Phosphorus (2.5 - 4.5 mg/dL) 2.8 Magnesium (1.6 - 2.3 mg/dL) 1.5 L Total Bilirubin (0.2 - 1.3 mg/dL) 0.7 AST (17 - 59 U/L) 18 ALT (21 - 72 U/L) 27 Troponin I (<0.11 ng/ml) 0.12 *H Albumin (3.5 - 5.0 g/dL) 2.7 L Coagulation PT (9.4 - 12.5 SEC) 13.7 H INR (0.90 - 1.17) 1.31 H APTT (25 - 37 SEC) 62 H Cancelled Hematology CBC w Diff MAN DIFF ORDERED WBC (4.8 - 10.8 /CUMM) 4.0 L RBC (4.70 - 6.10 /CUMM) 3.08 L Hgb (14.0 - 18.0 G/DL) 7.8 L Hct (42 - 52 %) 24.3 L MCV (80.0 - 94.0 FL) 78.7 L MCH (27.0 - 31.0 PG) 25.4 L RDW (11.5 - 14.5 %) 24.8 H Plt Count (130 - 400 /CUMM) 86 L MPV (7.4 - 10.4 FL) 9.3 Gran % (42.2 - 75.2 %) 51.0 Lymphocytes % (20.5 - 51.1 %) 37.2 Monocytes % (1.7 - 9.3 %) 7.6 Eosinophils % (0 - 5 %) 4.2 Basophils % (0.0 - 2.0 %) 0 L Absolute Granulocytes (1.4 - 6.5 /CUMM) 2.0 Segmented Neutrophils (42.2 - 75.2 %) 54 Absolute Lymphocytes (1.2 - 3.4 /CUMM) 1.5 Lymphocytes (20.5 - 51.1 %) 39 Monocytes (1.7 - 9.3 %) 7 Absolute Monocytes (0.10 - 0.60 /CUMM) 0.3 Absolute Eosinophils (0.0 - 0.7 /CUMM) 0.2 Absolute Basophils (0.0 - 0.2 /CUMM) 0 Platelet Estimate (ADEQUATE) DECREASED Polychromasia 1+ Hypochromic-Microcytic 2+ Poikilocytosis 1+ Anisocytosis 1+ Microcytic Cells 1+ Ovalocytes 1+ Elliptocytes FEW PUBS MCHC (33.0 - 37.0 G/DL) 32.3 L Other Body Source Fld Total RBCs Counted (%) 100 04/28 04/28 0618 1245 Coagulation APTT (25 - 37 SEC) 44 H Cancelled Hematology CBC w Diff MAN DIFF ORDERED WBC (4.8 - 10.8 /CUMM) 3.8 L RBC (4.70 - 6.10 /CUMM) 3.03 L Hgb (14.0 - 18.0 G/DL) 7.7 L Hct (42 - 52 %) 23.8 L MCV (80.0 - 94.0 FL) 78.5 L MCH (27.0 - 31.0 PG) 25.4 L RDW (11.5 - 14.5 %) 24.0 H Plt Count (130 - 400 /CUMM) 103 L MPV (7.4 - 10.4 FL) 9.8 Gran % (42.2 - 75.2 %) 63.4 Lymphocytes % (20.5 - 51.1 %) 28.5 Monocytes % (1.7 - 9.3 %) 7.8 Eosinophils % (0 - 5 %) 0.3 Basophils % (0.0 - 2.0 %) 0 L Absolute Granulocytes (1.4 - 6.5 /CUMM) 2.1 Segmented Neutrophils (42.2 - 75.2 %) 66 Band Neutrophils (0.0 - 5.0 %) 1 Absolute Lymphocytes (1.2 - 3.4 /CUMM) 1.0 L Lymphocytes (20.5 - 51.1 %) 25 Monocytes (1.7 - 9.3 %) 7 Absolute Monocytes (0.10 - 0.60 /CUMM) 0.3 Absolute Eosinophils (0.0 - 0.7 /CUMM) 0 Basophils (0.0 - 2.0 %) 1 Absolute Basophils (0.0 - 0.2 /CUMM) 0 Nucleated RBCs (0.0 - 0.0 /100WBC) 1 H Platelet Estimate (ADEQUATE) DECREASED Polychromasia 1+ Hypochromic-Microcytic 2+ Anisocytosis 3+ Microcytic Cells 2+ PUBS MCHC (33.0 - 37.0 G/DL) 32.4 L 04/28 04/28 0500 0500 Chemistry Sodium (137 - 145 mmol/L) 135 L Potassium (3.5 - 5.1 mmol/L) 3.9 Chloride (98 - 107 mmol/L) 105 Carbon Dioxide (22 - 30 mmol/L) 25 Anion Gap (5 - 16) 5 BUN (9 - 20 mg/dL) 13 Creatinine (0.7 - 1.2 mg/dL) 0.8 Estimated GFR (>60 ml/min) > 60 Glucose (65 - 99 mg/dL) 95 Calcium (8.4 - 10.2 mg/dL) 7.5 L Phosphorus (2.5 - 4.5 mg/dL) 2.5 Magnesium (1.6 - 2.3 mg/dL) 1.7 Total Bilirubin (0.2 - 1.3 mg/dL) 0.7 AST (17 - 59 U/L) 18 ALT (21 - 72 U/L) 32 Albumin (3.5 - 5.0 g/dL) 2.6 L Coagulation PT (9.4 - 12.5 SEC) Cancelled 14.0 H INR (0.90 - 1.17) Cancelled 1.34 H APTT (25 - 37 SEC) 54 H Hematology CBC w Diff MAN DIFF ORDERED WBC (4.8 - 10.8 /CUMM) 3.5 L RBC (4.70 - 6.10 /CUMM) 3.04 L Hgb (14.0 - 18.0 G/DL) 7.6 L Hct (42 - 52 %) 23.9 L MCV (80.0 - 94.0 FL) 78.6 L MCH (27.0 - 31.0 PG) 25.0 L RDW (11.5 - 14.5 %) 23.7 H Plt Count (130 - 400 /CUMM) 94 L MPV (7.4 - 10.4 FL) 10.5 H Gran % (42.2 - 75.2 %) 64.8 Lymphocytes % (20.5 - 51.1 %) 25.3 Monocytes % (1.7 - 9.3 %) 8.1 Eosinophils % (0 - 5 %) 1.8 Basophils % (0.0 - 2.0 %) 0 L Absolute Granulocytes (1.4 - 6.5 /CUMM) 2.3 Segmented Neutrophils (42.2 - 75.2 %) 71 Absolute Lymphocytes (1.2 - 3.4 /CUMM) 0.9 L Lymphocytes (20.5 - 51.1 %) 18 L Monocytes (1.7 - 9.3 %) 8 Absolute Monocytes (0.10 - 0.60 /CUMM) 0.3 Eosinophils (0 - 5.0 %) 3 Absolute Eosinophils (0.0 - 0.7 /CUMM) 0.1 Absolute Basophils (0.0 - 0.2 /CUMM) 0 Platelet Estimate (ADEQUATE) DECREASED Hypochromic-Microcytic 2+ Poikilocytosis 1+ Anisocytosis 1+ Ovalocytes 1+ PUBS MCHC (33.0 - 37.0 G/DL) 31.8 L Assessment/Plan Assessment/Plan Impression is hemodynamically stable after transfusion and rehydration undergoing workup for source of bleeding which after re-review of the films on PACS myself as well as with interventional radiologist, and discussion with gastroenterology, it's possible that the bleeding could be related to 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 I discussed this possibility with the patient, he states he no longer drinks alcohol heavily, and does not recall any blunt trauma to his left flank recently. Await colonoscopy tomorrow. In the meantime and discussion with radiology weren't order an ultrasound of the spleen and also the portal and splenic veins to check direction of flow, perhaps get a better look at the process at the splenic hilum / tail of the pancreas, and also get a better sense of the splenic parenchyma because the infarct seen on CAT scan is not typically wedge-shaped either. If this is unrevealing would then proceed with a 3-phase pancreatic protocol CT scan. Overall would prefer to embolize the spleen by IR rather than bring him to the operating room for splenectomy, which given the amount of collaterals and inflammation might be quite morbid and complicated instead. I explained to the patient that we are concerned and need to control the source of bleeding and him even though he says he feels much better now and just wants to have a colonoscopy. Core Measures/Miscellaneous Venous Thromboembolism VTE Risk Factors: Acute medical illness VTE Contraindications: No Contraindications VTE Prophylaxis Ordered Inpt Mechanical (ALPS/TEDS) VTE Diagnosis: No VTE Type: NONE VTE Confirmed by (Test): NONE Beta Sarahi Is Beta Sarahi a Home Med? No Antibiotics Is Patient on Antibiotics? No
[2016-04-29 21:38] LABS: PTT 48 SEC (25-37)
[2016-04-30 04:00] VITALS: BP 120/60
[2016-04-30 05:01] LABS: HEMATOCRIT 26.4 % (42-52); MEAN CORPUSCULAR HGB 25.1 PG (27.0-31.0); MEAN CORPUSCULAR HGB CONC 31.8 G/DL (33.0-37.0); MEAN CORPUSCULAR VOLUME 78.8 FL (80.0-94.0); MEAN PLATELET VOLUME 10.1 FL (7.4-10.4); PLATELET COUNT 102 /CUMM (130-400); RBC DISTRIBUTION WIDTH 24.8 % (11.5-14.5); RED BLOOD CELL CT 3.35 /CUMM (4.70-6.10); WHITE BLOOD CELL COUNT 3.4 /CUMM (4.8-10.8)
[2016-04-30 05:02] LABS: PT 13.6 SEC (9.4-12.5)
[2016-04-30 06:46] LABS: PTT 60 SEC (25-37)
--- NOTE | 2016-04-30 07:37 | PN- Resident CRCU ---
REKHA BANERJEE,OBDULIA 04/30/16 0736: Subjective HPI/CRCU Issues: Patient in ICU for acute blood loss anemia, elevated troponins, acute renal failure. I followed up and examined the patient this morning. The patient is lying comfortably in the bed, not in acute distress, does not have any active issues. His bowel was prepped last night for colonscopy to be done later this morning. He does not have any complaints. No dark stool anymore. No chest pain, shortness of breath. Vitals have been stable otherwise overnight. 24 Hour Events: Not significant. No changes in cardiac rhythm. Objective Vital Signs & I&O Last 8 Hrs of Vitals and I&O: Vital Signs Date Time Temp Pulse Resp B/P Pulse O2 O2 Flow FiO2 Ox Delivery Rate 04/30 1200 95 Nasal 2.0L Cannula 04/30 1100 64 04/30 0800 95 Nasal 2.0L Cannula 04/30 0800 96.8 70 18 120/60 95 Nasal 2.0L Cannula Exam General Appearance: no apparent distress, alert, awake, anxious, thin Head: atraumatic, normal appearance Ears, Nose, Throat: normal pharynx, normal ENT inspection Neck: normal inspection, supple, full range of motion Respiratory: normal breath sounds, chest non-tender, no respiratory distress Cardiovascular: regular rate/rhythm, murmur Gastrointestinal: normal bowel sounds, soft, non-tender Extremities: right aka, left leg normal Cranial Nerves: grossly intact Skin: intact, normal color, warm/dry Nutrition Nutrition: NPO (awaiting colonoscopy) Current Medications: Current Medications Sig/Jean Pierre Start time Last Medication Dose Route Stop Time Status Admin Dextrose/Sodium 1,000 ML Q13H 04/29 0000 AC 04/30 Chloride IV 0210 Escitalopram Oxalate 10 MG DAILY 04/27 1247 AC 04/30 PO 1100 Heparin Sodium 2,500 UNIT ONCE ONE 04/30 0715 DC 04/30 (Porcine) IV 04/30 0716 0706 Heparin Sodium 5,000 UNIT .STK-MED ONE 04/29 2359 DC (Porcine) IV 04/30 0000 Heparin Sodium 100 UNIT .STK-MED ONE 04/29 2357 DC (Porcine) IV 04/29 2358 Heparin Sodium 2,456 UNIT ONCE ONE 04/29 2330 DC 04/30 (Porcine) IV 04/29 2331 0057 Heparin Sodium/ 25,000 UNIT Q24H 04/27 1015 AC 04/29 Dextrose IV 0642 Dextrose/Water 500 ML Loratadine 10 MG DAILY 04/27 1708 AC 04/30 PO 1100 Nebivolol 5 MG DAILY 04/29 1000 AC 04/30 PO 1100 Nicotine 21 MG DAILY 04/28 1415 AC 04/30 TOP 1100 Oxycodone HCl 15 MG Q4P PRN 04/26 1400 AC 04/30 PO 1101 Oxycodone HCl 30 MG Q8 04/26 1345 AC 04/30 PO 0559 Pantoprazole Sodium 40 MG Q5H 04/26 1745 AC 04/30 Sodium Chloride 100 ML IV 1116 Impression/Plan Impression/Problem List Impression: This is a 65-year-old male with past medical history of hypertension, CABG with [place] Ao valve on Coumadin, who presented to the ED with CC abdominal pain, generalized weakness. He was subsequently found to have supratherapeutic INR and profound anemia. Patient was admitted to ICU for further management and treatment. No overnight events. PLAN: 1. Acute blood loss anemia: Patient came in with hemoglobin 3.9, hematocrit 12.7. He states that he has had episodes of black tarry stools at home; no bright red blood per rectum noted, no hematemesis and no other overt signs of bleeding. However, he has received over 6 units of PRBC in the hospital, and his subsequent hemoglobin came up to 6.[address] scan of the abdomen showed normal liver, pancreas, spleen, however, there is free fluid overlying the liver and free fluid of the spleen. In addition, there is a moderate amount of pelvic free fluid noted. Primary workup now includes evaluating source of bleed for patient as his hemoglobin has not responded adequately to PRBC transfusion. There is question whether he is having intra-abdominal bleeding. Anemia workup shows: Iron 14, TIBC 369, ferritin 7.6 * Patient was nothing by mouth after midnight and underwent an upper GI endoscopy yesterday, is awaiting colonoscopy today. * CT scan of abdomen found splenic infraction and if so, he is to be evaluated by surgical team for possible splenectomy in future. Update: Dr Victoria does not think that a colonoscopy would risk splenic rupture because the infarction is not over the side of splenic flexure. My residnet spoke to Dr Victoria over phone yesterday. * Also spoke to the Cardiology yesterday regarding fitness for colonoscopy because he had several rounds of ventricular tachycardia and supraventricular tachycardia overnight. Cardiology reviewed the case, and did mention that he is good to go for colonoscopy, as long as he is continuously monitored during the whole procedure and he has received a beta nelida before the procedure. The suggestions were carried out. * Patient was inadequately prepared for colonoscopy so it was postponed and for this morning yesterday. Awaiting colonoscopy results today. * Continue IV fluids * Heparin was also held before the colonscopy procedure only for 1 hour and then restarted right after patient came back to the unit the day before. * No FFP * Protonix drip * We'll obtain records from [facility] 2. 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 Three days ago INR was at 5.0 and he had stopped taking Coumadin at that time. Vitamin K and FFP given on admission. Initially, plan was to start patient on IV heparin once INR drops below 2.5. However, despite INR at 2.49 this a.m. heparin has not been started as patient continues to bleed. There is concern for intra-abdominal bleed. Will resume heparin if the stat US does not show evidence of abdominal bleed. * Continue to hold Coumadin * IV heparin per protocol per cardiology 3. Positive troponin; h/o CAD: Patient given troponin 0.53, subsequent therapeutic 0.81 and then back to 0.63. Likely represent demand picture. Patient does have known CAD and is status post CABG. We will continue to monitor him on telemetry. 4. HTN: Tab Bystolic 5 mg PO daily was restarted after cardio consultation, also to prevent further SVT. 5. Acute renal failure: Patient came in with creatinine of 2.2---> 1.2. His baseline seems to be .7. Urine work up shows FeNa .3, possibly suggesting intrinsic renal pathology in addition to pre-renal etiology given low H/H and poor PO intake. Possible superimposed ATN with pre-renal etiology. Better now. BUN/Creatinine today is 3/0.6. * Continue hydration with IV fluids as he is NPO currently. 6. Smoking: Patient has prolonged history of cigarette use. * Nicotine patch 7. Chronic pain: Patient has chronic pain secondary to back and his right lower extremity amputation. * OxyContin 30 mg by mouth every 8 * Roxicodone 15 mg every 4 when necessary 8. Depression: Con't SSRI FULL CODE Mechanical DVT ppx NPO Problem List: 1. Symptomatic anemia 2. Warfarin-induced coagulopathy 3. Acute renal failure Pain Ratin Pain Location: leg Pain Goal: Pain 4 or less Pain Plan: pain pathway meds in place and prn Tomorrow's Labs & Rationales: ICU bundle, CBC, INR for anemia, heart valve, ARF Plan DVT/Prophylaxis: pharmacological CATALINA LOPEZ MD 04/30/16 1025: Attending MD Review Statement Attending Sign Off Attending Cosign Statement: I have: examined this patient, reviewed [facility] EMR data, discussd w/resident/PA/ MARINE DRAFTER, agreed w/resident/PA/MARINE DRAFTER. Other Findings: 65M PMH aortic valve replacement on Coumadin, HTN, PVD, abdominal hernia s/p repair admitted for severe anemia with Hgb 3.7 and supratherapeutic INR s/p multiple blood and FFP transfusions. Patient underwent EGD yesterday which showed varices without bleed. CT abdomen shows splenic infarction. Demand ischemia on admission has resolved. Scheduled for colonoscopy today. Plan - NPO until after colonoscopy - Obtain abdominal doppler for splenic flow - Follow GI recommendations - Continue PPI - Monitor Hgb - Follow surgery recommendations - Continue heparin drip for now - Continue b-nelida - DVT PPx - Following colonoscopy, will have discussion with patient regarding plan of care for splenic infarction. Poor candidate for surgery, will consider IR consult. - Follow GI recommendations - Continue PPI - Monitor Hgb - Follow surgery recommendations - Continue heparin drip for now - Continue b-nelida - DVT PPx - Following colonoscopy, will have discussion with patient regarding plan of care for splenic infarction. Poor candidate for surgery, will consider IR consult.
[2016-04-30 08:00] VITALS: BP 120/60
--- NOTE | 2016-04-30 08:48 | Cons- CRCU ---
General Information and HPI Allergies/Medications Allergies: Coded Allergies: gentamicin (SYSTEMIC REACTION 04/26/16) Home Med List: Escitalopram Oxalate (Lexapro) 10 MG TABLET 1 TAB PO DAILY MENTAL HEALTH ( Reported) Nebivolol (Bystolic) 5 MG TABLET 1 TAB PO DAILY BP (Reported) Oxycodone HCl 15 MG TABLET 1 TAB PO Q4-6HP PRN PAIN (Reported) Oxycodone HCl (Oxycontin) 30 MG TAB.ER.12H 1 TAB PO TID CHRONIC PAIN ( Reported) TIZANIDINE HCL (Tizanidine) 4 MG TABLET 1 TAB PO QPM MUSCLE RELAXER (Reported ) Tizanidine HCl 4 MG TABLET 1 TAB PO TID PAIN (Reported) Warfarin Sodium (Coumadin) 2 MG TABLET 1 TAB PO DAILY HEART (Reported) Warfarin Sodium (Coumadin) 2 MG TABLET 1 TAB PO AD HEART VALVE (Reported) Past History Travel History Traveled to [place] past 21 day No Medical History Blood Transfusion Hx: No Cardiovascular: hypertension, AORTIC VALVUE REPLACMENT CABG Respiratory: NONE Hepatic: hepatitis C Renal: NONE Musculoskeletal: RIGHT FEMUR OSTEOMYELITIS TOTAL R HIP DISARTICULATI MUSCLE FLAP RECONSTRUCTIO Psychiatric: anxiety Endocrine: NONE Blood Disorders: anemia, BLOOD TRANSFUSIONS Surgical History Surgical History: appendectomy, hernia repair-incisional, right leg amputation Family History Relations & Conditions If Any: MOTHER Relation not specified for: *No pertinent family history Psychosocial History Where Do You Live? Home Smoking Status: Current Everyday Smoker ETOH Use: denies use Illicit Drug Use: marijuana Assessment/Plan Consult Acknowledgment - Thank you for your consult request.
--- NOTE | 2016-04-30 11:16 | PN- Cardiology ---
Subjective Subjective: Awaiting colonoscopy. Minimal abdominal discomfort. No chest pain or palpitations. Objective Vital Signs and I&Os Vital Signs Date Time Temp Pulse Resp B/P Pulse O2 O2 Flow FiO2 Ox Delivery Rate 04/30 1100 64 04/30 0800 95 Nasal 2.0L Cannula 04/30 0800 96.8 70 18 120/60 95 Nasal 2.0L Cannula 04/30 0400 96 Nasal 2.0L Cannula 04/30 0400 97.3 74 26 120/60 96 Nasal 2.0L Cannula 04/30 0000 Room Air 04/29 2000 Room Air Intake & Output 04/30 1600 04/30 0800 04/30 0000 04/29 1600 04/29 0800 04/29 0000 Intake Total 1814 3271 2640 1747 1276 Output Total 1260 1120 1000 1200 700 Balance 554 2151 1640 547 576 Intake, IV 794 1821 1040 847 376 Intake, Oral 1020 1450 1600 900 900 Number 3 4 8 4 Bowel Movements Output, Urine 1260 1120 1000 1200 700 Physical Exam: General: no apparent distress. Alert. Eyes: No obvious scleral icterus. HEENT: No jugular venous distention or abnormal jugular venous pulsations. Cardiovascular: Normal intensity S1/S2. Regular. 1/6 SM. Mechanical valve sounds noted. Respiratory: No rales or rhonchi Abdomen: Mildly distended without guarding, abdominal scar noted Musculoskeletal: No cyanosis noted, amputation noted, no edema Skin: Warm Neurologic: No gross focal deficits noted. Current Medications: Current Medications Sig/Jean Pierre Start time Last Medication Dose Route Stop Time Status Admin Dextrose/Sodium 1,000 ML Q13H 04/29 0000 AC 04/30 Ch[place]ide IV 0210 Escitalopram Oxalate 10 MG DAILY 04/27 1247 AC 04/30 PO 1100 Heparin Sodium 2,500 UNIT ONCE ONE 04/30 0715 DC 04/30 (Porcine) IV 04/30 0716 0706 Heparin Sodium 5,000 UNIT .STK-MED ONE 04/29 2359 DC (Porcine) IV 04/30 0000 Heparin Sodium 100 UNIT .STK-MED ONE 04/29 2357 DC (Porcine) IV 04/29 2358 Heparin Sodium 2,456 UNIT ONCE ONE 04/29 2330 DC 04/30 (Porcine) IV 04/29 2331 0057 Heparin Sodium/ 25,000 UNIT Q24H 04/27 1015 AC 04/29 Dextrose IV 0642 Dextrose/Water 500 ML Loratadine 10 MG DAILY 04/27 1708 AC 04/30 PO 1100 Magnesium Sulfate 1 GM ONCE ONE 04/29 0815 DC 04/29 Dextrose/Water 100 ML IV 04/29 1214 0904 Nebivolol 5 MG DAILY 04/29 1000 AC 04/30 PO 1100 Nicotine 21 MG DAILY 04/28 1415 AC 04/30 TOP 1100 Oxycodone HCl 15 MG Q4P PRN 04/26 1400 AC 04/30 PO 1101 Oxycodone HCl 30 MG Q8 04/26 1345 AC 04/30 PO 0559 Pantoprazole Sodium 40 MG Q5H 04/26 1745 AC 04/30 Sodium Chloride 100 ML IV 0559 Results Last 48 Hrs of Labs/Mics: Laboratory Tests 04/30/165: Anion Gap 8, Estimated GFR > 60, Glucose 104 H, Calcium 7.6 L, Phosphorus 3.5, Magnesium 1.6, Total Bilirubin 0.6, AST 17, ALT 28, Albumin 2.7 L, PT 13.6 H, INR 1.30 H, APTT 60 H, CBC w Diff MAN DIFF ORDERED, RBC 3.35 L, MCV 78.8 L, MCH 25.1 L, RDW 24.8 H, MPV 10.1, Segmented Neutrophils 74, Lymphocytes 16 L, Monocytes 4, Eosinophils 5, Basophils 1, Platelet Estimate ADEQUATE, Polychromasia 1+, Hypochromic-Microcytic 2+, Poikilocytosis 2+, Basophilic Stippling SLIGHT, Anisocytosis 1+, Microcytic Cells 1+, Target Cells FEW, Ovalocytes 1+, Elliptocytes FEW, PUBS MCHC 31.8 L, Fld Total RBCs Counted 100 04/29/16 2108: APTT 48 H 04/29/16 1600: APTT 93 H 04/29/16 1125: Troponin I 0.08 04/29/16 0600: PT Cancelled, INR Cancelled 04/29/16 0410: Anion Gap 11, Estimated GFR > 60, Glucose 107 H, Calcium 7.7 L, Phosphorus 2.8 , Magnesium 1.5 L, Total Bilirubin 0.7, AST 18, ALT 27, Troponin I 0.12 *H, Albumin 2.7 L, PT 13.7 H, INR 1.31 H, APTT 62 H, CBC w Diff MAN DIFF ORDERED , RBC 3.08 L, MCV 78.7 L, MCH 25.4 L, RDW 24.8 H, MPV 9.3, Gran % 51.0, Lymphocytes % 37.2, Monocytes % 7.6, Eosinophils % 4.2, Basophils % 0 L, Absolute Granulocytes 2.0, Segmented Neutrophils 54, Absolute Lymphocytes 1.5, Lymphocytes 39, Monocytes 7, Absolute Monocytes 0.3, Absolute Eosinophils 0.2, Absolute Basophils 0, Platelet Estimate DECREASED, Polychromasia 1+, Hypochromic -Microcytic 2+, Poikilocytosis 1+, Anisocytosis 1+, Microcytic Cells 1+, Ovalocytes 1+, Elliptocytes FEW, PUBS MCHC 32.3 L, Fld Total RBCs Counted 100 04/29/16 0400: APTT Cancelled 04/28/16 1848: APTT 44 H, CBC w Diff MAN DIFF ORDERED, RBC 3.03 L, MCV 78.5 L, MCH 25.4 L, RDW 24.0 H, MPV 9.8, Gran % 63.4, Lymphocytes % 28.5, Monocytes % 7.8, Eosinophils % 0.3, Basophils % 0 L, Absolute Granulocytes 2.1, Segmented Neutrophils 66, Band Neutrophils 1, Absolute Lymphocytes 1.0 L, Lymphocytes 25, Monocytes 7, Absolute Monocytes 0.3, Absolute Eosinophils 0, Basophils 1, Absolute Basophils 0, Nucleated RBCs 1 H, Platelet Estimate DECREASED, Polychromasia 1+, Hypochromic-Microcytic 2+, Anisocytosis 3+, Microcytic Cells 2 +, PUBS MCHC 32.4 L 04/28/16 1245: APTT Cancelled Recent Imaging Studies: Telemetry tracings were personally reviewed and shows sinus rhythm Assessment/Plan Assessment/Plan 1. Acute kidney injury, improving 2. Mechanical aortic valve (1994) with elevated mean gradient of 37 mmHg by Echo 3. Anticoagulated on warfarin with INR greater than 10, improving 4. Ascites, Hx of Hep C, status post paracentesis 5. Severe anemia, likely secondary to occult GI blood loss, requiring transfusion 6. Mild troponin elevation, likely secondary to demand ischemia precipitated by severe anemia. 7. History of ascending aortic aneurysm 8. 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 Blood pressure is stable. Hemoglobin is stable on IV heparin infusion. Colonoscopy pending Heparin drip can be temporarily held as needed for procedures. Surgery input reviewed and not planned for splenectomy at this time. When no further procedures are planned to be restarted on daily Coumadin with bridging therapy until INR is therapeutic. Dick Lemons MD [facility] Continue telemetry? Yes
--- NOTE | 2016-04-30 12:29 | NUR ---
AT 1205: patient had 7 beat run of vtach. patient asymtomatic, blood pressure 132/60, carin zabala notified.
--- NOTE | 2016-04-30 14:03 | NUR ---
1355: patient off unit with this nurse to gi suite, report given to gi nurse.
--- NOTE | 2016-04-30 15:01 | ULTRASOUND REPORT ---
EXAMINATION: 1. ULTRASOUND SPLEEN 2. ULTRASOUND ABDOMEN/PELVIS ORGAN DOPPLER CLINICAL INFORMATION: 65-year-old male with questionable splenic infarct and/or splenic vein thrombosis. Evaluation of the spleen and splenic vasculature requested. COMPARISON: CT abdomen pelvis 04/28/2015 TECHNIQUE: Grayscale, color and spectral Doppler imaging was obtained of the spleen and splenic vasculature. FINDINGS: The spleen is enlarged measuring 17.3 cm in maximum dimension. The spleen demonstrates relatively homogeneous echotexture with the exception of a segmental, ill-defined, approximately 2.7 x 2.8 cm hypoechoic region along the anterolateral aspect of the inferior spleen. There is no color Doppler flow associated with this region. There is a small approximately 5.0 x 1.5 cm hypoechoic fluid collection slightly lateral and inferior to the spleen. The splenic vein is patent within the splenic hilum. The splenic vein is tortuous. The middle and proximal splenic vein are not clearly visualized secondary to overlying bowel gas. The splenic artery is patent within the splenic hilum. The middle and proximal splenic artery is not clearly visualized secondary to overlying bowel gas. Evaluation of the pancreas/tail of the pancreas region is suboptimal secondary to overlying bowel gas. Incidentally noted is a small left-sided pleural effusion. IMPRESSION: 1. Splenomegaly. Ill-defined hypoechoic region within the anterolateral aspect of the inferior spleen which demonstrates no color Doppler flow, nonspecific. This may represent an area of infarction or traumatic injury. No active extravasation is noted. There is a small amount of fluid inferior and lateral to the spleen which appears stable to cross-sectional imaging from 06/26/2016. 2. The splenic artery and splenic vein are patent in the region of the splenic hilum. The proximal and middle portions of both the splenic artery and splenic vein are not clearly visualized secondary to overlying bowel gas. 3. Evaluation of the pancreas/tail of the pancreas region is suboptimal secondary to overlying bowel gas. 4. Small left-sided pleural effusion.
--- NOTE | 2016-04-30 15:01 | Proc Note Colonoscopy ---
Colonoscopy Procedure Medical History: unchanged ([facility]16) Mental Status: alert/oriented Heart/Lung Eval Prior to Sedation: within normal limits Candidate for Sedation? Yes Date of Last Colonoscopy: Approximately 12 years ago. Procedure Date: 04/30/16 Procedure Type: colonoscopy polyp/biopsy [employer] Aid: Oscar Parrish MD ASA Classification: IV Indications: Profound anemia the patient his last colonoscopy was over 10 years ago. Instrument (Colonoscope): single channel Meds Received: MAC Patient's Tolerance: good Complications: none Extent Reached: cecum Prep: good Procedure: After getting written informed consent the patient was placed in the left lateral decubitus position with pulse oximetry, cardiac monitoring, and supplemental oxygen was given. IV sedation was given until the desired effect was achieved. A rectal exam was performed which was normal. A high definition variable stiffness Olympus colonoscope was then inserted into the anus and advanced to the cecum with little difficulty. Retroflexed views were obtained and photodocumentation was obtained. Close inspection of the colonic mucosa was performed on insertion and withdrawal of the colonoscope with a withdrawal time that was adequate in length to closely inspect all folds and jain of the colon. Findings: There were two 1 cm pedunculated polyps in the sigmoid colon which were removed with snare polypectomy and monopolar cautery and was retrieved through the anus and was sent to pathology for further evaluation. There was an 8 mm sessile polyp in the descendnig colon, an 8mm sessile polyp in the transverse colon, and an 8 mm sessile polyp in the ascending colon. All of those polyps removed with snare polypectomy and monopolar cautery and retrieved for colonoscope and were sent pathology further evaluation. There was also a 3 mm sessile polyp in the transverse colon which was removed with cold biopsy forceps and were sent to pathology for further evaluation. All of the polyps which were removed with snare polypectomy and had a prophylactic Hemoclip placed over the polypectomy site without any significant bleeding ensuing. There were several scattered diverticula appreciated in the sigmoid colon. The remainder the visualized colonic mucosa was grossly unremarkable. There were no masses or AVMs appreciated. Retroflexed views in the rectum revealed small internal hemorrhoids. Impression: 1. 6 polyps status post removal via a combination of snare polypectomy and cold biopsy forceps with prophylactic hemoclips placed over all of the polyps that were removed by snare. 2. Sigmoid diverticulosis. 3. Small internal hemorrhoids. Recommendations: 1. His diet should be advanced as tolerated. 2. He should follow up the pathology results with me as an outpatient. 3. If no objections from cardiology would hold his IV heparin until tomorrow considering all the polypectomies that were performed. 4. Notify GI for any signs of overt GI bleeding. 5. Follow hemoglobin and transfuse as needed to keep his hemoglobin greater than 8 or as per cardiology recommendations. 6. He should follow up the pathology results with me as an outpatient. 7. Based on the results of the pathology consideration should be given to repeat his colonoscopy in 3 years it is clinically appropriate at that time. Followup Colonscopy Screen In: pending biopsy result(s) CC: CONSTANTINO BANERJEE,JESSICA Gordon
[2016-04-30 16:00] VITALS: BP 132/60
--- NOTE | 2016-04-30 19:32 | NUR ---
[id number]: PT BACK FROM GI SUITE WITH THIS RN. A+OX3 ON 2L NC. LUNGS CLEAR BUT DIMINISHED AT BASES, PT IS CURRENT EVERYDAY SMOKER. NSR ON MONITOR. AFEBRILE. PT OOB TO BSC WITH MINIMAL ASSIST. PT HAS R AKA. PT HAD SMALL LIQUID BM. VOIDING ADEQUATE AMOUNTS. SKIN INTACT. ABDOMEN SOFT, DISTENDED. +BS. - NAUSEA. TOLERATING FULL LIQUID DIET. HEP GTT D/C'D, ALP PLACED TO LLE. #20 LW INTACT, DRESSING CHANGED, PROTONIX GTT AND D5-NS RUNNING VIA SITE. WILL MONITOR.
[2016-04-30 20:00] VITALS: BP 122/60
--- NOTE | 2016-04-30 20:57 | Event Note ---
Event Note Event Note: After discussion with the chauffeur motorbus Alexandru Lemons MD regarding the gastroenterology recommendation of stopping the heparin drip status post the colonoscopy that was done today, he states that to discuss and assessment of the the risk and benefit with the attending in recorded. After discussion with the patient and explanation to him the risk of getting stroke or clot and benefit of holding the heparin drip to prevent any massive bleeding as the patient did not had any previous stroke or clot in the past, he agreed to hold the heparin drip until tomorrow morning. attending at night Dr. Monreal was at the side of bed during this discussion. will do q8hrs CBC to monitor his H&H, the goal would be above 8. Deena Monreal: I went to see patient to take informed decision about heparin. Patient does not have any hx of strove, afib, DVT/PE. His EF is 65% on recent 2 D echo. He was on bridging heparin for Mechanical Aortic valve. During colonoscopy 6 polyps were removed. GI suggested to hold heparin if no objection with cardiology. Given polypectomy is major risk for bleeding, we discussed the risks versus benefits of stroke and bleeding, and suggested to hold heparin for 12 hours after the procedure, patient understands this risks and agrees with current plan. Continue to monitor hemoglobin and hematocrit, hemodynamic stability. Resume heparin as soon as possible. .
--- NOTE | 2016-04-30 21:33 | Event Note ---
Event Note Event Note: Discussed with the covering housestaff this evening. Given mechanical valve with increased gradients and concern for splenic infarct of unclear etiology the patient should be on full AC without prolonged interruption from a cardiac perspective. Continue to evaluate risk versus benefits of full AC but from a cardiac standpoint the patient meets indication for AC without interruption. From a cardiac standpoint full AC should be resumed when cleared by the medical and GI teams. Dick Lemons MD [facility]
[2016-04-30 22:04] LABS: ABSOLUTE BASOPHIL COUNT 0 /CUMM (0.0-0.2); ABSOLUTE EOSINOPHIL COUNT 0.1 /CUMM (0.0-0.7); ABSOLUTE GRANULOCYTE CT 1.9 /CUMM (1.4-6.5); BASOPHIL % 0 % (0.0-2.0); PLATELET COUNT 107 /CUMM (130-400)
[2016-04-30 22:07] LABS: ABSOLUTE LYMPH COUNT 0.9 /CUMM (1.2-3.4); ABSOLUTE MONOCYTE COUNT 0.4 /CUMM (0.10-0.60); EOSINOPHIL % 3.8 % (0-5); GRANULOCYTE % 57.5 % (42.2-75.2); MEAN CORPUSCULAR HGB 25.4 PG (27.0-31.0); MEAN CORPUSCULAR HGB CONC 32.2 G/DL (33.0-37.0); MEAN CORPUSCULAR VOLUME 78.8 FL (80.0-94.0); MEAN PLATELET VOLUME 10.8 FL (7.4-10.4); RBC DISTRIBUTION WIDTH 25.9 % (11.5-14.5); RED BLOOD CELL CT 3.18 /CUMM (4.70-6.10)
[2016-04-30 22:36] LABS: WHITE BLOOD CELL COUNT 3.7 /CUMM (4.8-10.8)
--- NOTE | 2016-05-01 03:15 | NUR ---
PT NOTED TO HAVE O2 SATS RANGING 87-91% ON 2L. O2 SATS HAVE BEEN >94% ALL DAY. PT DENIES ANY SOB AT THIS TIME, EXP WHEEZES NOTED IN UPPER LOBES. OTHER VITALS STABLE. DR SERNA NOTIFIED AND WILL SEE PT. PT NOW ON 3L NC SATTING 90-93%.
[2016-05-01 05:29] LABS: PT 14.5 SEC (9.4-12.5); PTT 30 SEC (25-37)
[2016-05-01 05:36] LABS: HEMATOCRIT 25.5 % (42-52); MEAN CORPUSCULAR HGB 25.3 PG (27.0-31.0); MEAN CORPUSCULAR HGB CONC 32.2 G/DL (33.0-37.0); MEAN CORPUSCULAR VOLUME 78.5 FL (80.0-94.0); MEAN PLATELET VOLUME 10.7 FL (7.4-10.4); PLATELET COUNT 112 /CUMM (130-400); RBC DISTRIBUTION WIDTH 25.8 % (11.5-14.5); RED BLOOD CELL CT 3.26 /CUMM (4.70-6.10); WHITE BLOOD CELL COUNT 3.8 /CUMM (4.8-10.8)
--- NOTE | 2016-05-01 07:08 | PN- Resident CRCU ---
REKHA BANERJEE,OBDULIA 05/01/16 0707: Subjective HPI/CRCU Issues: Patient in ICU for acute blood loss anemia (severe). I followed up and examined the patient this morning. The patient is lying comfortably in the bed, not in acute distress, does not have any active issues. He underwent colonoscopy yesterday. He does not have any complaints. No dark stool anymore. No chest pain, shortness of breath. Vitals have been stable otherwise overnight. 24 Hour Events: Patient underwent colonoscopy and polypectomy at 6 sites. Heparin was stopped overnight due to recent polypectomy and high risk of bleeding. Now restarted. Objective Vital Signs & I&O Last 8 Hrs of Vitals and I&O: Vital Signs Date Time Temp Pulse Resp B/P Pulse O2 O2 Flow FiO2 Ox Delivery Rate 05/01 828 97.3 65 20 144/70 05/01 08 93 Nasal 3.0L Cannula 05/01 799 98.7 60 20 138/67 93 Nasal 3.0L Cannula 05/01 0400 94 Nasal 3.0L Cannula Exam General Appearance: no apparent distress, alert, awake, thin Other Physical Findings: Head: atraumatic, normal appearance Ears, Nose, Throat: normal pharynx, normal ENT inspection Neck: normal inspection, supple, full range of motion Respiratory: normal breath sounds, chest non-tender, no respiratory distress Cardiovascular: regular rate/rhythm, murmur Gastrointestinal: normal bowel sounds, soft, non-tender Extremities: right aka, left leg normal Cranial Nerves: grossly intact Skin: intact, normal color, warm/dry IV (Peripheral) Site: LECT ACV Still Needed? Yes IV Drips IV Drips: IVF HEPARIN DRIP Nutrition Nutrition: P.O. diet Current Medications: Current Medications Sig/Jean Pierre Start time Last Medication Dose Route Stop Time Status Admin Chlorhexidine 1 GM .STK-MED ONE 04/30 1508 DC Gluconate TOP 04/30 1509 Dextrose/Sodium 1,000 ML Q13H 04/29 0000 AC 05/01 Chloride IV 0527 Escitalopram Oxalate 10 MG DAILY 04/27 1247 AC 05/01 PO 0829 Heparin Sodium/ 25,000 UNIT Q24H 05/01 0745 AC 05/01 Dextrose IV 0830 Dextrose/Water 500 ML Heparin Sodium/ 25,000 UNIT Q24H 04/27 1015 DC 04/29 Dextrose IV 0642 Dextrose/Water 500 ML Loratadine 10 MG DAILY 04/27 1708 AC 05/01 PO 0830 Nebivolol 5 MG DAILY 04/29 1000 AC 05/01 PO 0829 Nicotine 21 MG DAILY 04/28 1415 AC 05/01 TOP 0829 Oxycodone HCl 15 MG Q4P PRN 04/26 1400 AC 05/01 PO 0848 Oxycodone HCl 30 MG Q8 04/26 1345 AC 05/01 PO 0527 Pantoprazole Sodium 40 MG DAILY 05/01 1000 AC 05/01 IV 0836 Pantoprazole Sodium 40 MG Q5H 04/26 1745 DC 05/01 Sodium Chloride 100 ML IV 0246 Results Results: US-SPLEEN AND DOPPLER: IMPRESSION: 1. Splenomegaly. Ill-defined hypoechoic region within the anterolateral aspect of the inferior spleen which demonstrates no color Doppler flow, nonspecific. This may represent an area of infarction or traumatic injury. No active extravasation is noted. There is a small amount of fluid inferior and lateral to the spleen which appears stable to cross-sectional imaging from 06/26/2016. 2. The splenic artery and splenic vein are patent in the region of the splenic hilum. The proximal and middle portions of both the splenic artery and splenic vein are not clearly visualized secondary to overlying bowel gas. 3. Evaluation of the pancreas/tail of the pancreas region is suboptimal secondary to overlying bowel gas. 4. Small left-sided pleural effusion. DICTATED BY: LIS PAIGE MD DATE/TIME DICTATED:04/30/161441 DIRECTOR EMERGENCY DEPARTMENT:LAURYN DATE/TIME TRANSCRIBED:04/30/161441 Impression/Plan Impression/Problem List Impression: This is a 65-year-old male with past medical history of hypertension, CABG with [employer] Ao valve on Coumadin, who presented to the ED with CC abdominal pain, generalized weakness. He was subsequently found to have supratherapeutic INR and profound anemia. Patient was admitted to ICU for further management and treatment. No overnight events. PLAN: 1. Acute blood loss anemia: Patient came in with hemoglobin 3.9, hematocrit 12.7. He states that he has had episodes of black tarry stools at home; no bright red blood per rectum noted, no hematemesis and no other overt signs of bleeding. However, he has received over 6 units of PRBC in the hospital, and his subsequent hemoglobin came up to 6.[address] scan of the abdomen showed normal liver, pancreas, spleen, however, there is free fluid overlying the liver and free fluid of the spleen. In addition, there is a moderate amount of pelvic free fluid noted. Primary workup includes evaluating source of bleed for patient as his hemoglobin has not responded adequately to PRBC transfusion. There is question whether he is having intra-abdominal bleeding. Anemia workup shows: Iron 14, TIBC 369, ferritin 7.6 * Patient underwent colonoscopy yesterday and had 6 polyps removed. Heparin was stopped overnight her attending nightstaff risk of bleeding from the polypectomy sites. Heparin was restarted in the morning as continous infusion. 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 Needed to rule out splenic vein thrombosis. 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 As he is a poor candidate for surgery given his medical conditions, splenic artery embolization via interventional radiology could be one option. Patient explained about the condition, however he does not want to talk about it right now. He does know that splenectomy would be a better choice given his current condition. * Continue IV fluids * Protonix IV BID 2. 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 Three days ago INR was at 5.0 and he had stopped taking Coumadin at that time. Vitamin K and FFP given on admission. IInitially, plan was to start patient on IV heparin once INR drops below 2.5. patient is on Heparin drip, which has been on hold only for endoscopy and colonoscopy. * Continue to hold Coumadin * IV heparin per protocol per cardiology 3. Positive troponin; h/o CAD: Patient given troponin 0.53, subsequent therapeutic 0.81 and then back to 0.63. Likely represent demand picture. Patient does have known CAD and is status post CABG. We will continue to monitor him on telemetry. 4. HTN: Tab Bystolic 5 mg PO daily was restarted after cardio consultation, also to prevent further SVT. 5. Acute renal failure: Patient came in with creatinine of 2.2---> 1.2. His baseline seems to be .7. Urine work up shows FeNa .3, possibly suggesting intrinsic renal pathology in addition to pre-renal etiology given low H/H and poor PO intake. Possible superimposed ATN with pre-renal etiology. Better now. BUN/Creatinine today is 3/0.6. * Continue hydration with IV fluids. he has a poor oral intake. 6. Smoking: Patient has prolonged history of cigarette use. * Nicotine patch 7. Chronic pain: Patient has chronic pain secondary to back and his right lower extremity amputation. * OxyContin 30 mg by mouth every 8 hours * Roxicodone 15 mg every 4 hours when necessary 8. Depression: Con't SSRI FULL CODE Mechanical DVT ppx HEART HEALTHY DIET Problem List: 1. Symptomatic anemia 2. Warfarin-induced coagulopathy 3. HTN (hypertension) 4. Depression Pain Ratin Pain Location: LEG Pain Plan: LONG AND SHORT ACTING OPIATES IN PLACE Tomorrow's Labs & Rationales: ICU BUNDLE, CBC TO CHECK ON ANEMIA AND RENAL STATUS Plan DVT/Prophylaxis: pharmacological [facility] 1539: Attending MD Review Statement Attending Sign Off Attending Cosign Statement: I have: examined this patient, reviewed al EMR data, discussed mgmt plan w/ abraham, agreed w/resident/PA/VENEER STAPLER. Other Findings: 65M PMH aortic valve replacement on Coumadin, HTN, PVD, abdominal hernia s/p repair admitted for severe anemia with Hgb 3.7 and supratherapeutic INR s/p multiple blood and FFP transfusions. Patient underwent EGD yesterday which showed varices without bleed. CT abdomen shows splenic infarction. Demand ischemia on admission has resolved. Colonoscopy done 04/30 with removal of 6 polyps. Patient tolerated procedure well, hemodynamically stable, Hgb stable, no complaints. Plan - Follow GI and surgery recommendations - Continue PPI - Monitor Hgb - Continue heparin drip - May restart Coumadin - Continue b-nelida - DVT PPx - Will monitor Hgb and vitals over weekend - DVT PPx - Will monitor Hgb and vitals over weekend
[2016-05-01 08:00] VITALS: BP 138/67
[2016-05-01 14:15] VITALS: BP 142/70
--- NOTE | 2016-05-01 14:22 | Transfer of Care Summary ---
Hospital Course Course Hospital Course: Mr Ferreira is a 65-year-old male with past medical history of hypertension, CABG with [employer] AO valve on Coumadin, who presented to the ED with CC abdominal pain, generalized weakness. He was subsequently found to have supratherapeutic INR and profound anemia. Patient was admitted to ICU for further management and treatment as follows: 1. Acute blood loss anemia: Patient came in with hemoglobin 3.9, hematocrit 12.7. He states that he has had episodes of black tarry stools at home; no bright red blood per rectum noted, no hematemesis and no other overt signs of bleeding. However, he has received over 6 units of PRBC in the hospital, and his subsequent hemoglobin came up to 6.[address] scan of the abdomen showed normal liver, pancreas, spleen, however, there is free fluid overlying the liver and free fluid of the spleen. In addition, there is a moderate amount of pelvic free fluid noted, fluid study was not much helpful. Anemia workup shows: Iron 14, TIBC 369, ferritin 7.6 * Primary workup was to evaluate source of bleed for patient, which was not overt, so an upper GI endoscope was done. It revealed isolated nonbleeding gastric varices with red wall markings. Needed to rule out splenic vein thrombosis. 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 As he is a poor candidate for surgery given his medical conditions, splenic artery embolization via interventional radiology could be one option. Patient explained about the condition, however he does not want to talk about it right now. He does know that splenectomy would be a better choice given his current condition. * Patient underwent colonoscopy yesterday and had 6 polyps removed. Heparin was stopped overnight her attending nightstaff risk of bleeding from the polypectomy sites. Heparin was restarted in the morning as continous infusion. * Continue IV fluids * Protonix IV BID 2. 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 Three days ago INR was at 5.0 and he had stopped taking Coumadin at that time. Vitamin K and FFP given on admission. Initially, plan was to start patient on IV heparin once INR drops below 2.5. patient is on Heparin drip, which has been on hold only for endoscopy and colonoscopy. * Continue to hold Coumadin * IV heparin per protocol per cardiology 3. Positive troponin; h/o CAD: Patient given troponin 0.53, subsequent therapeutic 0.81 and then back to 0.63. Likely represent demand picture. Patient does have known CAD and is status post CABG. We will continue to monitor him on telemetry. 4. HTN: Tab Bystolic 5 mg PO daily was restarted after cardio consultation, also to prevent further SVT. 5. Acute renal failure: Patient came in with creatinine of 2.2---> 1.2. His baseline seems to be .7. Urine work up shows FeNa .3, possibly suggesting intrinsic renal pathology in addition to pre-renal etiology given low H/H and poor PO intake. Possible superimposed ATN with pre-renal etiology. Better now. BUN/Creatinine today is 3/0.6. * Continue hydration with IV fluids. he has a poor oral intake. 6. Smoking: Patient has prolonged history of cigarette use. * Nicotine patch 7. Chronic pain: Patient has chronic pain secondary to back and his right lower extremity amputation. * OxyContin 30 mg by mouth every 8 hours * Roxicodone 15 mg every 4 hours when necessary 8. Depression: Con't SSRI DVT PPX: HEPARIN FULL CODE DIET: REGULAR, HEART HEALTHY Complications: SEVERAL RUNS OF SVT ON 04/29/16, REVERTED BY ITSELF. BETABLOCKER RESTARTED AFTER THAT. Assessment/Plan: NOTED ABOVE
[2016-05-01 15:08] LABS: PTT 36 SEC (25-37)
--- NOTE | 2016-05-01 15:21 | PN- General Surgery ---
Subjective Subjective: stable hemodynamics with no change in blood count. Objective Vital Signs and I&Os Vital Signs Date Time Temp Pulse Resp B/P Pulse O2 O2 Flow FiO2 Ox Delivery Rate 05/01 0829 97.3 65 20 144/70 05/01 0800 93 Nasal 3.0L Cannula 05/01 0800 98.7 60 20 138/67 93 Nasal 3.0L Cannula 05/01 0400 94 Nasal 3.0L Cannula 05/01 0000 Nasal 2.0L Cannula 04/30 1999 Nasal 2.0L Cannula 04/30 1999 97.3 65 20 122/60 96 Nasal 2.0L Cannula 04/30 1600 Nasal 2.0L Cannula 04/30 1600 98.5 70 18 132/60 96 Nasal 2.0L Cannula Intake & Output 05/01 1600 05/01 0800 05/01 0000 04/30 1600 04/30 0800 04/30 0000 Intake Total 1780 1140 2233 223.2 1814 3271 Output Total 300 475 560 538 2375 1120 Balance 1351 109 3348 -176.8 554 2151 Intake, IV 229 046 0995 223.2 794 1821 Intake, Oral 800 342 889 3512 1450 Number 1 1 1 1 3 4 Bowel Movements Output, Urine 300 475 888 742 7229 1120 Current Medications: Current Medications Sig/Jean Pierre Start time Last Medication Dose Route Stop Time Status Admin Dextrose/Sodium 1,000 ML Q13H 04/29 0000 AC 05/01 Chloride IV 0527 Escitalopram Oxalate 10 MG DAILY 04/27 1247 AC 05/01 PO 0829 Heparin Sodium/ 25,000 UNIT Q24H 05/01 0745 AC 05/01 Dextrose IV 0830 Dextrose/Water 500 ML Heparin Sodium/ 25,000 UNIT Q24H 04/27 1015 DC 04/29 Dextrose IV 0642 Dextrose/Water 500 ML Loratadine 10 MG DAILY 04/27 1708 AC 05/01 PO 0830 Nebivolol 5 MG DAILY 04/29 1000 AC 05/01 PO 0829 Nicotine 21 MG DAILY 04/28 1415 AC 05/01 TOP 0829 Oxycodone HCl 15 MG Q4P PRN 04/26 1400 AC 05/01 PO 0848 Oxycodone HCl 30 MG Q8 04/26 1345 AC 05/01 PO 1305 Pantoprazole Sodium 40 MG BID 05/01 2200 AC IV Pantoprazole Sodium 40 MG DAILY 05/01 1000 DC 05/01 IV 0836 Pantoprazole Sodium 40 MG Q5H 04/26 1745 DC 05/01 Sodium Chloride 100 ML IV 0246 Results Last 48 Hours of Labs: Laboratory Tests 05/01 05/01 1434 0449 Chemistry Sodium (137 - 145 mmol/L) 140 Potassium (3.5 - 5.1 mmol/L) 4.0 Chloride (98 - 107 mmol/L) 106 Carbon Dioxide (22 - 30 mmol/L) 30 Anion Gap (5 - 16) 3 L BUN (9 - 20 mg/dL) 9 Creatinine (0.7 - 1.2 mg/dL) 0.7 Estimated GFR (>60 ml/min) > 60 Glucose (65 - 99 mg/dL) 107 H Calcium (8.4 - 10.2 mg/dL) 7.7 L Phosphorus (2.5 - 4.5 mg/dL) 3.1 Magnesium (1.6 - 2.3 mg/dL) 1.6 Total Bilirubin (0.2 - 1.3 mg/dL) 0.6 AST (17 - 59 U/L) 22 ALT (21 - 72 U/L) 32 Albumin (3.5 - 5.0 g/dL) 2.5 L Coagulation PT (9.4 - 12.5 SEC) 14.5 H INR (0.90 - 1.17) 1.39 H APTT (25 - 37 SEC) 36 30 Hematology CBC w Diff MAN DIFF ORDERED WBC (4.8 - 10.8 /CUMM) 3.8 L RBC (4.70 - 6.10 /CUMM) 3.26 L Hgb (14.0 - 18.0 G/DL) 8.2 L Hct (42 - 52 %) 25.5 L MCV (80.0 - 94.0 FL) 78.5 L MCH (27.0 - 31.0 PG) 25.3 L RDW (11.5 - 14.5 %) 25.8 H Plt Count (130 - 400 /CUMM) 112 L MPV (7.4 - 10.4 FL) 10.7 H Segmented Neutrophils (42.2 - 75.2 %) 78 H Lymphocytes (20.5 - 51.1 %) 11 L Monocytes (1.7 - 9.3 %) 10 H Eosinophils (0 - 5.0 %) 1 Nucleated RBCs (0.0 - 0.0 /100WBC) 1 H Platelet Estimate (ADEQUATE) ADEQUATE Polychromasia 1+ Hypochromic-Microcytic 2+ Poikilocytosis 1+ Anisocytosis 1+ Microcytic Cells 1+ Ovalocytes 1+ Stomatocytes FEW Elliptocytes FEW PUBS MCHC (33.0 - 37.0 G/DL) 32.2 L Other Body Source Fld Total RBCs Counted (%) 100 04/30 04/30 2128 1255 Coagulation APTT Cancelled Hematology CBC w Diff MAN DIFF ORDERED WBC (4.8 - 10.8 /CUMM) 3.7 L RBC (4.70 - 6.10 /CUMM) 3.18 L Hgb (14.0 - 18.0 G/DL) 8.1 L Hct (42 - 52 %) 25.0 L MCV (80.0 - 94.0 FL) 78.8 L MCH (27.0 - 31.0 PG) 25.4 L RDW (11.5 - 14.5 %) 25.9 H Plt Count (130 - 400 /CUMM) 107 L MPV (7.4 - 10.4 FL) 10.8 H Gran % (42.2 - 75.2 %) 57.5 Lymphocytes % (20.5 - 51.1 %) 28.1 Monocytes % (1.7 - 9.3 %) 10.6 H Eosinophils % (0 - 5 %) 3.8 Basophils % (0.0 - 2.0 %) 0 L Absolute Granulocytes (1.4 - 6.5 /CUMM) 1.9 Segmented Neutrophils (42.2 - 75.2 %) 72 Absolute Lymphocytes (1.2 - 3.4 /CUMM) 0.9 L Lymphocytes (20.5 - 51.1 %) 17 L Monocytes (1.7 - 9.3 %) 6 Absolute Monocytes (0.10 - 0.60 /CUMM) 0.4 Eosinophils (0 - 5.0 %) 5 Absolute Eosinophils (0.0 - 0.7 /CUMM) 0.1 Absolute Basophils (0.0 - 0.2 /CUMM) 0 Platelet Estimate (ADEQUATE) DECREASED Hypochromic-Microcytic 3+ Poikilocytosis 2+ Target Cells 2+ Stomatocytes 1+ PUBS MCHC (33.0 - 37.0 G/DL) 32.2 L 04/30 04/29 04/29 8085 2108 1600 Chemistry Sodium (137 - 145 mmol/L) 136 L Potassium (3.5 - 5.1 mmol/L) 3.8 Chloride (98 - 107 mmol/L) 103 Carbon Dioxide (22 - 30 mmol/L) 25 Anion Gap (5 - 16) 8 BUN (9 - 20 mg/dL) 3 L Creatinine (0.7 - 1.2 mg/dL) 0.6 L Estimated GFR (>60 ml/min) > 60 Glucose (65 - 99 mg/dL) 104 H Calcium (8.4 - 10.2 mg/dL) 7.6 L Phosphorus (2.5 - 4.5 mg/dL) 3.5 Magnesium (1.6 - 2.3 mg/dL) 1.6 Total Bilirubin (0.2 - 1.3 mg/dL) 0.6 AST (17 - 59 U/L) 17 ALT (21 - 72 U/L) 28 Albumin (3.5 - 5.0 g/dL) 2.7 L Coagulation PT (9.4 - 12.5 SEC) 13.6 H INR (0.90 - 1.17) 1.30 H APTT (25 - 37 SEC) 60 H 48 H 93 H Hematology CBC w Diff MAN DIFF ORDERED WBC (4.8 - 10.8 /CUMM) 3.4 L RBC (4.70 - 6.10 /CUMM) 3.35 L Hgb (14.0 - 18.0 G/DL) 8.4 L Hct (42 - 52 %) 26.4 L MCV (80.0 - 94.0 FL) 78.8 L MCH (27.0 - 31.0 PG) 25.1 L RDW (11.5 - 14.5 %) 24.8 H Plt Count (130 - 400 /CUMM) 102 L MPV (7.4 - 10.4 FL) 10.1 Segmented Neutrophils (42.2 - 75.2 %) 74 Lymphocytes (20.5 - 51.1 %) 16 L Monocytes (1.7 - 9.3 %) 4 Eosinophils (0 - 5.0 %) 5 Basophils (0.0 - 2.0 %) 1 Platelet Estimate (ADEQUATE) ADEQUATE Polychromasia 1+ Hypochromic-Microcytic 2+ Poikilocytosis 2+ Basophilic Stippling SLIGHT Anisocytosis 1+ Microcytic Cells 1+ Target Cells FEW Ovalocytes 1+ Elliptocytes FEW PUBS MCHC (33.0 - 37.0 G/DL) 31.8 L Other Body Source Fld Total RBCs Counted (%) 100 Recent Imaging Studies: Doppler ultrasound of spleen was technically difficult but does not show thrombosis of splenic vein. CT reviewed. Splenic vein appears patent. Assessment/Plan Assessment/Plan No definitive evidence for splenic vein thrombosis as to the etiology of gastric varices. At this point I feel that the source of blood loss is still unknown. I do no recommend any intervention regarding his spleen. Since his supratherapeutic INR was associated with bleeding it may not recur. Recommend observation. Repeat CT with IV contrast(CT angio) STAT if he rebleeds. Also consider repeat upper endoscopy if rebleeds to evaluate bleeding varices as definitive source.
--- NOTE | 2016-05-01 15:41 | PN- Cardiology ---
Subjective Subjective: Is s/p colonoscopy. Denies chest pain, palpitations, or dyspnea. Objective Vital Signs and I&Os Vital Signs Date Time Temp Pulse Resp B/P Pulse O2 O2 Flow FiO2 Ox Delivery Rate 05/01 0829 97.3 65 20 144/70 05/01 0800 93 Nasal 3.0L Cannula 05/01 08 98.7 60 20 138/67 93 Nasal 3.0L Cannula 05/01 0400 94 Nasal 3.0L Cannula 05/01 0000 Nasal 2.0L Cannula 04/30 1999 Nasal 2.0L Cannula 04/30 1999 97.3 65 20 122/60 96 Nasal 2.0L Cannula 04/30 1600 Nasal 2.0L Cannula 04/30 1599 98.5 70 18 132/60 96 Nasal 2.0L Cannula Intake & Output 05/01 1600 05/01 0800 05/01 0000 04/30 1600 04/30 0800 04/30 0000 Intake Total 1780 1140 2233 223.2 1814 3271 Output Total 300 475 885 764 2703 1120 Balance 9826 760 4761 -176.8 554 2151 Intake, IV 585 145 6597 223.2 794 1821 Intake, Oral 800 674 456 6552 1450 Number 1 1 1 1 3 4 Bowel Movements Output, Urine 300 475 625 034 2684 1120 Physical Exam: General: no apparent distress. Alert. Eyes: No obvious scleral icterus. HEENT: No jugular venous distention or abnormal jugular venous pulsations. Cardiovascular: Normal intensity S1/S2. Regular. 1/6 SM. Mechanical valve sounds noted. Respiratory: No rales or rhonchi Abdomen: Mildly distended without guarding, abdominal scar noted Musculoskeletal: No cyanosis noted, amputation noted, no edema Skin: Warm Neurologic: No gross focal deficits noted. Current Medications: Current Medications Sig/Jean Pierre Start time Last Medication Dose Route Stop Time Status Admin Dextrose/Sodium 1,000 ML Q13H 04/29 0000 AC 05/01 Chloride IV 0527 Escitalopram Oxalate 10 MG DAILY 04/27 1247 AC 05/01 PO 0829 Heparin Sodium/ 25,000 UNIT Q24H 05/01 0745 AC 05/01 Dextrose IV 0830 Dextrose/Water 500 ML Heparin Sodium/ 25,000 UNIT Q24H 04/27 1015 DC 04/29 Dextrose IV 0642 Dextrose/Water 500 ML Loratadine 10 MG DAILY 04/27 1708 AC 05/01 PO 0830 Nebivolol 5 MG DAILY 04/29 1000 AC 05/01 PO 0829 Nicotine 21 MG DAILY 04/28 1415 AC 05/01 TOP 0829 Oxycodone HCl 15 MG Q4P PRN 04/26 1400 AC 05/01 PO 0848 Oxycodone HCl 30 MG Q8 04/26 1345 AC 05/01 PO 1305 Pantoprazole Sodium 40 MG BID 05/01 2200 AC IV Pantoprazole Sodium 40 MG DAILY 05/01 1000 DC 05/01 IV 0836 Pantoprazole Sodium 40 MG Q5H 04/26 1745 DC 05/01 Sodium Chloride 100 ML IV 0246 Results Last 48 Hrs of Labs/Mics: Laboratory Tests 05/01/16 1434: APTT 36 05/01/16 0449: Anion Gap 3 L, Estimated GFR > 60, Glucose 107 H, Calcium 7.7 L, Phosphorus 3.1, Magnesium 1.6, Total Bilirubin 0.6, AST 22, ALT 32, Albumin 2.5 L, PT 14.5 H, INR 1.39 H, APTT 30, CBC w Diff MAN DIFF ORDERED, RBC 3.26 L, MCV 78.5 L, MCH 25.3 L, RDW 25.8 H, MPV 10.7 H, Segmented Neutrophils 78 H, Lymphocytes 11 L, Monocytes 10 H, Eosinophils 1, Nucleated RBCs 1 H, Platelet Estimate ADEQUATE, Polychromasia 1+, Hypochromic-Microcytic 2+, Poikilocytosis 1+, Anisocytosis 1+, Microcytic Cells 1+, Ovalocytes 1+, Stomatocytes FEW, Elliptocytes FEW, PUBS MCHC 32.2 L, Fld Total RBCs Counted 100 04/30/162127: CBC w Diff MAN DIFF ORDERED, RBC 3.18 L, MCV 78.8 L, MCH 25.4 L, RDW 25.9 H, MPV 10.8 H, Gran % 57.5, Lymphocytes % 28.1, Monocytes % 10.6 H, Eosinophils % 3.8, Basophils % 0 L, Absolute Granulocytes 1.9, Segmented Neutrophils 72, Absolute Lymphocytes 0.9 L, Lymphocytes 17 L, Monocytes 6, Absolute Monocytes 0.4, Eosinophils 5, Absolute Eosinophils 0.1, Absolute Basophils 0, Platelet Estimate DECREASED, Hypochromic-Microcytic 3+, Poikilocytosis 2+, Target Cells 2 +, Stomatocytes 1+, PUBS MCHC 32.2 L 04/30/16 1255: APTT Cancelled 04/30/16 0415: Anion Gap 8, Estimated GFR > 60, Glucose 104 H, Calcium 7.6 L, Phosphorus 3.5, Magnesium 1.6, Total Bilirubin 0.6, AST 17, ALT 28, Albumin 2.7 L, PT 13.6 H, INR 1.30 H, APTT 60 H, CBC w Diff MAN DIFF ORDERED, RBC 3.35 L, MCV 78.8 L, MCH 25.1 L, RDW 24.8 H, MPV 10.1, Segmented Neutrophils 74, Lymphocytes 16 L, Monocytes 4, Eosinophils 5, Basophils 1, Platelet Estimate ADEQUATE, Polychromasia 1+, Hypochromic-Microcytic 2+, Poikilocytosis 2+, Basophilic Stippling SLIGHT, Anisocytosis 1+, Microcytic Cells 1+, Target Cells FEW, Ovalocytes 1+, Elliptocytes FEW, PUBS MCHC 31.8 L, Fld Total RBCs Counted 100 04/29/16 2108: APTT 48 H 04/29/16 1600: APTT 93 H Recent Imaging Studies: Telemetry tracings personally reviewed, shows SR, had a 7 beat wide complex run yesterday Colonoscopy 1. 6 polyps status post removal via accommodation and popliteal biopsy forceps with prophylactic hemoclips placed over all of the polyps that were removed by snare. 2. Sigmoid diverticulosis. 3. Small internal hemorrhoids. Assessment/Plan Assessment/Plan 1. Acute kidney injury, improving 2. Mechanical aortic valve (1994) with elevated mean gradient of 37 mmHg by Echo 3. Anticoagulated on warfarin with INR greater than 10, improving 4. Ascites, Hx of Hep C, status post paracentesis 5. Severe anemia, likely secondary to occult GI blood loss, requiring transfusion 6. Mild troponin elevation, likely secondary to demand ischemia precipitated by severe anemia. 7. History of ascending aortic aneurysm 8. 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 Had a short wide complex run yesterday but no events since then. Continue the daily B-nelida. If no evidence of recurrent bleeding and no additional procedures are planned Coumadin should be resumed, stop IV Heparin when INR > 2.0. Surgery input reviewed and not planned for splenectomy at this time. Dick Lemons MD [facility] Continue telemetry? Yes
--- NOTE | 2016-05-01 15:47 | PN- Gastroenterology ---
Assessment/Plan Assessment/Recommendations: 1. Anemia; GI bleed. The patient presented with supratherapeutic anticoagulation. EGD demonstrated isolated gastric varices without active bleeding. Colonoscopy revealed 6 polyps (pathology pending), diverticulosis and enlarged hemorrhoids. The patient has had no recurrent bleeding in the hospital. Hematocrit has been stable over several days, status post transfusion. 2. Hepatitis C. Although there is no established diagnosis of cirrhosis, the patient is a long-standing alcohol abuser as well, and has thrombocytopenia, and ascites. The patient was due to receive antiviral therapy in [place], by an infectious disease specialist. He does not recall seeing a records technician/ substance abuse nurse. Details of evaluation unknown. Gastric varices without splenic vein thrombosis may be seen in portal hypertension. Recommendations * Continue regular diet * Daily CBC until discharge * Oral anticoagulation until therapeutic, as per cardiology * Would benefit from a nonselective beta nelida. Would discuss the transition from a selective beta nelida with cardiology * Await pathology from colonoscopy * Outpatient follow-up, to include repeat imaging of peripancreatic/perisplenic area, and possible repeat paracentesis. * Obtain records from [facility] infectious disease specialist who was evaluating the patient for hepatitis C. Please call GI service over the weekend as needed, especially with evidence of active bleeding. If discharged over the weekend, follow-up with me has been offered, and I would see the patient within 2 weeks. Subjective Subjective: The patient is short of breath. He has no nausea, vomiting, change in/worsening of chronic mild abdominal pain. No red blood per rectum or melena. Tolerating heart healthy diet. Objective Vital Signs and I&Os Vital Signs Date Time Temp Pulse Resp B/P Pulse O2 O2 Flow FiO2 Ox Delivery Rate 05/01 08 97.3 65 20 144/70 05/01 0800 93 Nasal 3.0L Cannula 05/01 08 98.7 60 20 138/67 93 Nasal 3.0L Cannula 05/01 0400 94 Nasal 3.0L Cannula 05/01 0000 Nasal 2.0L Cannula 04/30 1999 Nasal 2.0L Cannula 04/30 1999 97.3 65 20 122/60 96 Nasal 2.0L Cannula 04/30 1600 Nasal 2.0L Cannula 04/30 1599 98.5 70 18 132/60 96 Nasal 2.0L Cannula Intake & Output 05/01 1600 05/01 0400 04/30 1600 04/30 0400 04/29 1600 04/29 0400 Intake Total 2920 2233 2037.2 3271 4387 1276 Output Total 974 387 2322 1120 2200 700 Balance 2145 1833 377.2 2151 2187 576 Intake, IV 1740 1393 1017.2 1821 1887 376 Intake, Oral 6461 296 9885 1450 2500 900 Number 2 1 4 4 12 Bowel Movements Output, Urine 167 582 0605 1120 2200 700 Physical Exam: Alert and oriented with normal cognition. Vital signs stable. No scleral icterus. Head and neck normal. Abdomen mildly distended, with diffuse mild tenderness. Right leg status post amputation; no edema left leg. Current Medications: Current Medications Sig/Jean Pierre Start time Last Medication Dose Route Stop Time Status Admin Dextrose/Sodium 1,000 ML Q13H 04/29 0000 05/01 Chloride IV 0527 Escitalopram Oxalate 10 MG DAILY 04/27 1247 05/01 PO 0829 Heparin Sodium/ 25,000 UNIT Q24H 05/01 0745 05/01 Dextrose IV 0830 Dextrose/Water 500 ML Heparin Sodium/ 25,000 UNIT Q24H 04/27 1015 [place] 04/29 Dextrose IV 0642 Dextrose/Water 500 ML Loratadine 10 MG DAILY 04/27 1708 05/01 PO 0830 Nebivolol 5 MG DAILY 04/29 1000 05/01 PO 0829 Nicotine 21 MG DAILY 04/28 1415 05/01 TOP 0829 Oxycodone HCl 15 MG Q4P PRN 04/26 1400 05/01 PO 0848 Oxycodone HCl 30 MG Q8 04/26 1345 05/01 PO 1305 Pantoprazole Sodium 40 MG BID 05/01 2200 AC IV Pantoprazole Sodium 40 MG DAILY 05/01 1000 KS 05/01 IV 0836 Pantoprazole Sodium 40 MG Q5H 04/26 1745 [place] 05/01 Sodium Chloride 100 ML IV 0246 Results Pertinent Lab Results: Laboratory Tests 05/01 05/01 1434 0449 Chemistry Sodium (137 - 145 mmol/L) 140 Potassium (3.5 - 5.1 mmol/L) 4.0 Chloride (98 - 107 mmol/L) 106 Carbon Dioxide (22 - 30 mmol/L) 30 Anion Gap (5 - 16) 3 L BUN (9 - 20 mg/dL) 9 Creatinine (0.7 - 1.2 mg/dL) 0.7 Estimated GFR (>60 ml/min) > 60 Glucose (65 - 99 mg/dL) 107 H Calcium (8.4 - 10.2 mg/dL) 7.7 L Phosphorus (2.5 - 4.5 mg/dL) 3.1 Magnesium (1.6 - 2.3 mg/dL) 1.6 Total Bilirubin (0.2 - 1.3 mg/dL) 0.6 AST (17 - 59 U/L) 22 ALT (21 - 72 U/L) 32 Albumin (3.5 - 5.0 g/dL) 2.5 L Coagulation PT (9.4 - 12.5 SEC) 14.5 H INR (0.90 - 1.17) 1.39 H APTT (25 - 37 SEC) 36 30 Hematology CBC w Diff MAN DIFF ORDERED WBC (4.8 - 10.8 /CUMM) 3.8 L RBC (4.70 - 6.10 /CUMM) 3.26 L Hgb (14.0 - 18.0 G/DL) 8.2 L Hct (42 - 52 %) 25.5 L MCV (80.0 - 94.0 FL) 78.5 L MCH (27.0 - 31.0 PG) 25.3 L RDW (11.5 - 14.5 %) 25.8 H Plt Count (130 - 400 /CUMM) 112 L MPV (7.4 - 10.4 FL) 10.7 H Segmented Neutrophils (42.2 - 75.2 %) 78 H Lymphocytes (20.5 - 51.1 %) 11 L Monocytes (1.7 - 9.3 %) 10 H Eosinophils (0 - 5.0 %) 1 Nucleated RBCs (0.0 - 0.0 /100WBC) 1 H Platelet Estimate (ADEQUATE) ADEQUATE Polychromasia 1+ Hypochromic-Microcytic 2+ Poikilocytosis 1+ Anisocytosis 1+ Microcytic Cells 1+ Ovalocytes 1+ Stomatocytes FEW Elliptocytes FEW PUBS MCHC (33.0 - 37.0 G/DL) 32.2 L Other Body Source Fld Total RBCs Counted (%) 100 04/30 04/30 9853 9515 Coagulation APTT Cancelled Hematology CBC w Diff MAN DIFF ORDERED WBC (4.8 - 10.8 /CUMM) 3.7 L RBC (4.70 - 6.10 /CUMM) 3.18 L Hgb (14.0 - 18.0 G/DL) 8.1 L Hct (42 - 52 %) 25.0 L MCV (80.0 - 94.0 FL) 78.8 L MCH (27.0 - 31.0 PG) 25.4 L RDW (11.5 - 14.5 %) 25.9 H Plt Count (130 - 400 /CUMM) 107 L MPV (7.4 - 10.4 FL) 10.8 H Gran % (42.2 - 75.2 %) 57.5 Lymphocytes % (20.5 - 51.1 %) 28.1 Monocytes % (1.7 - 9.3 %) 10.6 H Eosinophils % (0 - 5 %) 3.8 Basophils % (0.0 - 2.0 %) 0 L Absolute Granulocytes (1.4 - 6.5 /CUMM) 1.9 Segmented Neutrophils (42.2 - 75.2 %) 72 Absolute Lymphocytes (1.2 - 3.4 /CUMM) 0.9 L Lymphocytes (20.5 - 51.1 %) 17 L Monocytes (1.7 - 9.3 %) 6 Absolute Monocytes (0.10 - 0.60 /CUMM) 0.4 Eosinophils (0 - 5.0 %) 5 Absolute Eosinophils (0.0 - 0.7 /CUMM) 0.1 Absolute Basophils (0.0 - 0.2 /CUMM) 0 Platelet Estimate (ADEQUATE) DECREASED Hypochromic-Microcytic 3+ Poikilocytosis 2+ Target Cells 2+ Stomatocytes 1+ PUBS MCHC (33.0 - 37.0 G/DL) 32.2 L 04/30 04/29 04/29 04/29 0415 2108 1600 1125 Chemistry Sodium (137 - 145 mmol/L) 136 L Potassium (3.5 - 5.1 mmol/L) 3.8 Chloride (98 - 107 mmol/L) 103 Carbon Dioxide (22 - 30 mmol/L) 25 Anion Gap (5 - 16) 8 BUN (9 - 20 mg/dL) 3 L Creatinine (0.7 - 1.2 mg/dL) 0.6 L Estimated GFR (>60 ml/min) > 60 Glucose (65 - 99 mg/dL) 104 H Calcium (8.4 - 10.2 mg/dL) 7.6 L Phosphorus (2.5 - 4.5 mg/dL) 3.5 Magnesium (1.6 - 2.3 mg/dL) 1.6 Total Bilirubin (0.2 - 1.3 mg/dL) 0.6 AST (17 - 59 U/L) 17 ALT (21 - 72 U/L) 28 Troponin I (<0.11 ng/ml) 0.08 Albumin (3.5 - 5.0 g/dL) 2.7 L Coagulation PT (9.4 - 12.5 SEC) 13.6 H INR (0.90 - 1.17) 1.30 H APTT (25 - 37 SEC) 60 H 48 H 93 H Hematology CBC w Diff MAN DIFF ORDERED WBC (4.8 - 10.8 /CUMM) 3.4 L RBC (4.70 - 6.10 /CUMM) 3.35 L Hgb (14.0 - 18.0 G/DL) 8.4 L Hct (42 - 52 %) 26.4 L MCV (80.0 - 94.0 FL) 78.8 L MCH (27.0 - 31.0 PG) 25.1 L RDW (11.5 - 14.5 %) 24.8 H Plt Count (130 - 400 /CUMM) 102 L MPV (7.4 - 10.4 FL) 10.1 Segmented Neutrophils (42.2 - 75.2 %) 74 Lymphocytes (20.5 - 51.1 %) 16 L Monocytes (1.7 - 9.3 %) 4 Eosinophils (0 - 5.0 %) 5 Basophils (0.0 - 2.0 %) 1 Platelet Estimate (ADEQUATE) ADEQUATE Polychromasia 1+ Hypochromic-Microcytic 2+ Poikilocytosis 2+ Basophilic Stippling SLIGHT Anisocytosis 1+ Microcytic Cells 1+ Target Cells FEW Ovalocytes 1+ Elliptocytes FEW PUBS MCHC (33.0 - 37.0 G/DL) 31.8 L Other Body Source Fld Total RBCs Counted (%) 100 15 04/29 0600 0410 Chemistry Sodium (137 - 145 mmol/L) 138 Potassium (3.5 - 5.1 mmol/L) 3.5 Chloride (98 - 107 mmol/L) 102 Carbon Dioxide (22 - 30 mmol/L) 25 Anion Gap (5 - 16) 11 BUN (9 - 20 mg/dL) 5 L Creatinine (0.7 - 1.2 mg/dL) 0.6 L Estimated GFR (>60 ml/min) > 60 Glucose (65 - 99 mg/dL) 107 H Calcium (8.4 - 10.2 mg/dL) 7.7 L Phosphorus (2.5 - 4.5 mg/dL) 2.8 Magnesium (1.6 - 2.3 mg/dL) 1.5 L Total Bilirubin (0.2 - 1.3 mg/dL) 0.7 AST (17 - 59 U/L) 18 ALT (21 - 72 U/L) 27 Troponin I (<0.11 ng/ml) 0.12 *H Albumin (3.5 - 5.0 g/dL) 2.7 L Coagulation PT (9.4 - 12.5 SEC) Cancelled 13.7 H INR (0.90 - 1.17) Cancelled 1.31 H APTT (25 - 37 SEC) 62 H Hematology CBC w Diff MAN DIFF ORDERED WBC (4.8 - 10.8 /CUMM) 4.0 L RBC (4.70 - 6.10 /CUMM) 3.08 L Hgb (14.0 - 18.0 G/DL) 7.8 L Hct (42 - 52 %) 24.3 L MCV (80.0 - 94.0 FL) 78.7 L MCH (27.0 - 31.0 PG) 25.4 L RDW (11.5 - 14.5 %) 24.8 H Plt Count (130 - 400 /CUMM) 86 L MPV (7.4 - 10.4 FL) 9.3 Gran % (42.2 - 75.2 %) 51.0 Lymphocytes % (20.5 - 51.1 %) 37.2 Monocytes % (1.7 - 9.3 %) 7.6 Eosinophils % (0 - 5 %) 4.2 Basophils % (0.0 - 2.0 %) 0 L Absolute Granulocytes (1.4 - 6.5 /CUMM) 2.0 Segmented Neutrophils (42.2 - 75.2 %) 54 Absolute Lymphocytes (1.2 - 3.4 /CUMM) 1.5 Lymphocytes (20.5 - 51.1 %) 39 Monocytes (1.7 - 9.3 %) 7 Absolute Monocytes (0.10 - 0.60 /CUMM) 0.3 Absolute Eosinophils (0.0 - 0.7 /CUMM) 0.2 Absolute Basophils (0.0 - 0.2 /CUMM) 0 Platelet Estimate (ADEQUATE) DECREASED Polychromasia 1+ Hypochromic-Microcytic 2+ Poikilocytosis 1+ Anisocytosis 1+ Microcytic Cells 1+ Ovalocytes 1+ Elliptocytes FEW PUBS MCHC (33.0 - 37.0 G/DL) 32.3 L Other Body Source Fld Total RBCs Counted (%) 100 04/29 04/28 0400 1848 Coagulation APTT (25 - 37 SEC) Cancelled 44 H Hematology CBC w Diff MAN DIFF ORDERED WBC (4.8 - 10.8 /CUMM) 3.8 L RBC (4.70 - 6.10 /CUMM) 3.03 L Hgb (14.0 - 18.0 G/DL) 7.7 L Hct (42 - 52 %) 23.8 L MCV (80.0 - 94.0 FL) 78.5 L MCH (27.0 - 31.0 PG) 25.4 L RDW (11.5 - 14.5 %) 24.0 H Plt Count (130 - 400 /CUMM) 103 L MPV (7.4 - 10.4 FL) 9.8 Gran % (42.2 - 75.2 %) 63.4 Lymphocytes % (20.5 - 51.1 %) 28.5 Monocytes % (1.7 - 9.3 %) 7.8 Eosinophils % (0 - 5 %) 0.3 Basophils % (0.0 - 2.0 %) 0 L Absolute Granulocytes (1.4 - 6.5 /CUMM) 2.1 Segmented Neutrophils (42.2 - 75.2 %) 66 Band Neutrophils (0.0 - 5.0 %) 1 Absolute Lymphocytes (1.2 - 3.4 /CUMM) 1.0 L Lymphocytes (20.5 - 51.1 %) 25 Monocytes (1.7 - 9.3 %) 7 Absolute Monocytes (0.10 - 0.60 /CUMM) 0.3 Absolute Eosinophils (0.0 - 0.7 /CUMM) 0 Basophils (0.0 - 2.0 %) 1 Absolute Basophils (0.0 - 0.2 /CUMM) 0 Nucleated RBCs (0.0 - 0.0 /100WBC) 1 H Platelet Estimate (ADEQUATE) DECREASED Polychromasia 1+ Hypochromic-Microcytic 2+ Anisocytosis 3+ Microcytic Cells 2+ PUBS MCHC (33.0 - 37.0 G/DL) 32.4 L Imaging/Other Studies: Ultrasound/Doppler: IMPRESSION: 1. Splenomegaly. Ill-defined hypoechoic region within the anterolateral aspect of the inferior spleen which demonstrates no color Doppler flow, nonspecific. This may represent an area of infarction or traumatic injury. No active extravasation is noted. There is a small amount of fluid inferior and lateral to the spleen which appears stable to cross-sectional imaging from 06/26/2016. 2. The splenic artery and splenic vein are patent in the region of the splenic hilum. The proximal and middle portions of both the splenic artery and splenic vein are not clearly visualized secondary to overlying bowel gas. 3. Evaluation of the pancreas/tail of the pancreas region is suboptimal secondary to overlying bowel gas. 4. Small left-sided pleural effusion.
[2016-05-01 16:09] VITALS: BP 144/64
--- NOTE | 2016-05-01 16:25 | NUR ---
1410 PATIENT ARRIVED TO THE FLOOR, A+O X3, VSS, ON RA, NO S/O DISTRESS, BED LOW, LOCKED, CALL [facility]SON IN REACH.
[2016-05-01 23:03] LABS: PTT 39 SEC (25-37)
[2016-05-02 00:12] VITALS: BP 142/69
--- NOTE | 2016-05-02 00:49 | NUR ---
ALERT AND ORIENTED X 3. VITAL SIGNS STABLE. DENIES CHEST PAIN. + PULSES ON 3L OXYGEN VIA NASAL CANNULA. MEDICATIONS GIVEN FOR PAIN HEPARIN GTT ADJUSTED PER PROTOCOL PATIENT RESTING AT THIS TIME. WILL CONTINUE TO MONITOR
--- NOTE | 2016-05-02 07:54 | PN- Housestaff ---
[place] BANERJEE,[facility] 05/02/16 0753: Subjective Follow-up For: severe acute blood loss anemia Subjective: I saw and examined the patient this am. He is sitting in bed, reports SOB, slightly worsened from yesterday, also reports swelling in the scrotum that he has just noticed. reports abdominal pain on the lower abdomen, almost same as yesterday. Patient also reports loss of appetite. denies N/V, reports passing small amount of stool, nonbloody and not dark. No overnight events were reported. Still on heparin drip. Review of Systems Constitutional: Reports: weakness. Denies: chills, fever. EENTM: Reports: no symptoms. Cardiovascular: Reports: no symptoms. Respiratory: Reports: short of breath. Denies: cough, sputum production. Gastrointestinal: Reports: abdominal pain, constipation, distention. Denies: diarrhea, melena, nausea, changes in stool, vomiting. Genitourinary: Denies: dysuria, frequency, hematuria, pain. Musculoskeletal: Reports: no symptoms. Skin: Reports: no symptoms. Neurological/Psychological: Reports: no symptoms. Objective Last 24 Hrs of Vital Signs/I&O Vital Signs Date Time Temp Pulse Resp B/P Pulse O2 O2 Flow FiO2 Ox Delivery Rate 05/02 1551 98.2 77 20 137/66 92 Nasal 3.0L Cannula 05/02 0949 98.2 70 20 137/64 05/02 0925 Nasal 3.0L Cannula 05/02 0844 98.2 70 20 137/64 92 Nasal 3.0L Cannula 05/02 0800 994 Nasal 3.0L Cannula 05/02 0012 97.8 72 20 142/69 91 Nasal 4.0L Cannula 05/02 0000 91 Nasal 3.0L Cannula Intake & Output 05/02 1600 05/02 0800 05/02 0000 Intake Total 759.7 255.2 200 Output Total 200 150 750 Balance 559.7 105.2 -550 Intake, IV 279.7 255.2 Intake, Oral 480 200 Number 1 2 Bowel Movements Output, Urine 200 150 750 Physical Exam General Appearance: Alert, Oriented X3, Cooperative, Mild Distress Skin: No Rashes, No Breakdown, No Significant Lesion HEENT: Atraumatic, EOMI Neck: Supple Cardiovascular: Regular Rate, Normal S1, Normal S2, No Murmurs Lungs: Clear to Auscultation, decreased breath sounds Abdomen: tenderness on the right and left lower abdomen and suprapubic area Neurological: Normal Speech, Normal Tone, Sensation Intact Extremities: AKA of the right leg, left leg no pitting edema, pulses normal, there is swelling in the penis shaft and sctorum. Current Medications: Current Medications Sig/Jean Pierre Start time Last Medication Dose Route Stop Time Status Admin Escitalopram Oxalate 10 MG DAILY 04/27 1247 AC 05/02 PO 0949 Heparin Sodium 5,000 UNIT .STK-MED ONE 05/02 0026 DC (Porcine) IV 05/02 0027 Heparin Sodium 4,609 UNIT BOLUS ONE 05/01 2300 DC 05/02 (Porcine) IV 05/01 2301 0036 Heparin Sodium/ 25,000 UNIT Q24H 05/01 0745 AC 05/02 Dextrose IV 1001 Dextrose/Water 500 ML Loratadine 10 MG DAILY 04/27 1708 AC 05/02 PO 0949 Nebivolol 5 MG DAILY 04/29 1000 05/02 PO 0949 Nicotine 21 MG DAILY 04/28 1415 05/02 TOP 0950 Oxycodone HCl 15 MG .STK-MED ONE 05/02 0041 DC PO 05/02 0042 Oxycodone HCl 15 MG Q4P PRN 04/26 1400 AC 05/02 PO 1639 Oxycodone HCl 30 MG Q8 04/26 1345 AC 05/02 PO 1310 Pantoprazole Sodium 40 MG BID 05/01 2200 AC 05/02 IV 0951 Warfarin Sodium 2 MG COUMADIN 1700 ONE 05/02 1700 DC 05/02 PO 05/02 1701 1639 Last 24 Hrs of Lab/Ronan Results Last 24 Hrs of Labs/Mics: Laboratory Tests 05/02/16 1615: APTT 70 H 05/02/16 0635: Anion Gap 6, Estimated GFR > 60, Glucose 104 H, Calcium 7.7 L, Phosphorus 2.8, Magnesium 1.5 L, Total Bilirubin 0.5, AST 26, ALT 35, Albumin 2.4 L, PT 13.8 H, INR 1.32 H, APTT 34, CBC w Diff MAN DIFF ORDERED, RBC 3.35 L, MCV 78.4 L, MCH 24.4 L, RDW 26.1 H, MPV 10.7 H, Segmented Neutrophils 74, Band Neutrophils 2, Lymphocytes 15 L, Monocytes 8, Eosinophils 1, Platelet Estimate ADEQUATE, Polychromasia 1+, Hypochromic-Microcytic 3+, Poikilocytosis 2+, Anisocytosis 2+, Microcytic Cells 1+, Schistocytes , PUBS MCHC 31.1 L 05/01/16 2240: APTT 39 H Assessment/Plan Assessment: This is a 65-year-old male with past medical history of hypertension, CABG with [facility] Ao valve on Coumadin, who presented to the ED with CC abdominal pain, generalized weakness. He was subsequently found to have supratherapeutic INR and profound anemia. Patient was admitted to ICU for further management and treatment. No overnight events. PLAN: Shortness of breath, possible volume overload worsened compared to yesterday, however lungs are clear in the exam, decreased breath sounds noted. CXR: Interstitial pulmonary edema has developed. Small right pleural effusion and small to moderate left pleural effusion has developed. Associated patchy right lung opacities and left lower lobe consolidation. * kept off IV fluids * consider a dose of IV lasix, also follow cardio recommendations Acute blood loss anemia: Patient came in with hemoglobin 3.9, hematocrit 12.7. He states that he has had episodes of black tarry stools at home; no bright red blood per rectum noted, no hematemesis and no other overt signs of bleeding. However, he has received over 6 units of PRBC in the hospital, and his subsequent hemoglobin came up to 6.[address] scan of the abdomen showed normal liver, pancreas, spleen, however, there is free fluid overlying the liver and free fluid of the spleen. In addition, there is a moderate amount of pelvic free fluid noted. Primary workup includes evaluating source of bleed for patient as his hemoglobin has not responded adequately to PRBC transfusion. There is question whether he is having intra-abdominal bleeding. Anemia workup shows: Iron 14, TIBC 369, ferritin 7.6 * Patient underwent colonoscopy and had 6 polyps removed. 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 Needed to rule out splenic vein thrombosis. 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 As he is a poor candidate for surgery given his medical conditions, splenic artery embolization via interventional radiology could be one option. Per Sx, with his INR of 10.0 he was most likely bleeding and splenectomy or embolization of the splenic artery would most likely not solve the problem. * continue Protonix IV BID * CBC in am * follow further recs from Sx and GI 2. 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 Three days ago INR was at 5.0 and he had stopped taking Coumadin at that time. Vitamin K and FFP given on admission. initially, plan was to start patient on IV heparin once INR drops below 2.5. patient is on Heparin drip, which has been on hold only for endoscopy and colonoscopy. * Gave Coumadin 2 mg today, repeat INR tomorrow and dose coumadin accordingly * IV heparin per protocol per cardiology, will stop when INR reaches 2 3. Positive troponin; h/o CAD: Patient given troponin 0.53, subsequent therapeutic 0.81 and then back to 0.63. Likely represent demand picture. Patient does have known CAD and is status post CABG. 4. HTN: Tab Bystolic 5 mg PO daily was restarted after cardio consultation, also to prevent further SVT. 5. Acute renal failure: Patient came in with creatinine of 2.2---> 1.2 --->0.6. His baseline seems to be .7. Urine work up shows FeNa .3, possibly suggesting intrinsic renal pathology in addition to pre-renal etiology given low H/H and poor PO intake. Possible superimposed ATN with pre-renal etiology. resolved. * he has a poor oral intake. * will need to be cautious about hydration as patient has developed pulmonary edema and pleural effusion 6. Smoking: Patient has prolonged history of cigarette use. * Nicotine patch 7. Chronic pain: Patient has chronic pain secondary to back and his right lower extremity amputation. * OxyContin 30 mg by mouth every 8 hours * Roxicodone 15 mg every 4 hours when necessary 8. Depression: Con't SSRI FULL CODE Mechanical DVT ppx HEART HEALTHY DIET Problem List: 1. Anemia Pain Ratin Pain Location: lower abdomen Pain Goal: Pain 4 or less Pain Plan: oxycodone Tomorrow's Labs & Rationales: cbc, bep, INR anemia, monitor electrolytes, dose coumadin CATALINA LOPEZ MD 05/02/16 1530: Attending MD Review Statement Attending Statement Attending MD Statement: examined this patient, discuss w/resident/PA/BUHR MILL OPERATOR, agreed w/resident/PA/BUHR MILL OPERATOR, reviewed EMR data (avail) Attending Assessment/Plan: 65M PMH aortic valve replacement on Coumadin, HTN, PVD, abdominal hernia s/p repair admitted for severe anemia with Hgb 3.7 and supratherapeutic INR s/p multiple blood and FFP transfusions. Patient underwent EGD yesterday which showed varices without bleed. CT abdomen shows splenic infarction. Demand ischemia on admission has resolved. Colonoscopy done 04/30 with removal of 6 polyps. Patient tolerated procedure well, hemodynamically stable, Hgb stable, no complaints. Today patient complains of continued abdominal swelling and penile swelling and discomfort. No erythema or tenderness, abdomen soft. Patient reports feeling weak and short of breath with exertion. CBC stable, vitals stable. Plan - Follow GI and surgery recommendations - Continue PPI - Monitor Hgb - Continue heparin drip - May restart Coumadin, daily INR - Daily CBC - Continue b-nelida - DVT PPx - PT and OOBTC - Incentive spirometry
[2016-05-02 08:16] LABS: MEAN CORPUSCULAR HGB CONC 31.1 G/DL (33.0-37.0)
[2016-05-02 08:18] LABS: PT 13.8 SEC (9.4-12.5)
[2016-05-02 08:19] LABS: PTT 34 SEC (25-37)
[2016-05-02 08:42] LABS: HEMATOCRIT 26.2 % (42-52); MEAN CORPUSCULAR HGB 24.4 PG (27.0-31.0); MEAN CORPUSCULAR VOLUME 78.4 FL (80.0-94.0); MEAN PLATELET VOLUME 10.7 FL (7.4-10.4); PLATELET COUNT 116 /CUMM (130-400); RBC DISTRIBUTION WIDTH 26.1 % (11.5-14.5); RED BLOOD CELL CT 3.35 /CUMM (4.70-6.10); WHITE BLOOD CELL COUNT 4.3 /CUMM (4.8-10.8)
[2016-05-02 08:44] VITALS: BP 137/64
--- NOTE | 2016-05-02 10:25 | RADIOLOGY REPORT ---
EXAMINATION: XR PORTABLE CHEST CLINICAL INFORMATION: Increased oxygen demand status post 7 units packed red blood cells with transfusion. COMPARISON: 06/01/2010. TECHNIQUE: Portable AP 85 degrees upright view of the chest was obtained. FINDINGS: Median sternotomy wires are demonstrated. The cardiac silhouette is prominent. Vascular congestion with interstitial pulmonary edema is seen. There is a small right and small to moderate left-sided pleural effusion. Bibasilar opacities are seen most notable in the left retrocardiac region/lower lobe and there is mild patchy opacity in the right midlung with fluid in the minor fissure. IMPRESSION: 1. Interstitial pulmonary edema has developed. Small right pleural effusion and small to moderate left pleural effusion has developed. 2. Associated patchy right lung opacities and left lower lobe consolidation as above. This could be reevaluated post diuresis.
[2016-05-02 15:51] VITALS: BP 137/66
[2016-05-02 16:40] LABS: PTT 70 SEC (25-37)
[2016-05-03 00:03] VITALS: BP 124/60
[2016-05-03 07:57] LABS: HEMATOCRIT 28.1 % (42-52); MEAN CORPUSCULAR HGB 24.5 PG (27.0-31.0); MEAN CORPUSCULAR VOLUME 79.1 FL (80.0-94.0); MEAN PLATELET VOLUME 9.6 FL (7.4-10.4); PLATELET COUNT 128 /CUMM (130-400); RBC DISTRIBUTION WIDTH 26.3 % (11.5-14.5); RED BLOOD CELL CT 3.55 /CUMM (4.70-6.10)
[2016-05-03 08:04] VITALS: BP 110/53
[2016-05-03 08:23] LABS: PT 14.3 SEC (9.4-12.5); PTT 39 SEC (25-37)
--- NOTE | 2016-05-03 09:36 | PN- Housestaff ---
[place] BANERJEE,[facility] 05/03/16 0936: Subjective Follow-up For: Anemia Subjective: Patient is seen and examined bedside. Complains of abdominal and penile swelling. Patient does not endorse any compresses of chest pain, increased shortness of breath, palpitation, fever, chills, abdominal pain, nausea or vomiting. No acute overnight event reported by nursing staff. Review of Systems Constitutional: Reports: no symptoms. Objective Last 24 Hrs of Vital Signs/I&O Vital Signs Date Time Temp Pulse Resp B/P Pulse O2 O2 Flow FiO2 Ox Delivery Rate 05/03 1600 94 Nasal 3.0L Cannula 05/03 1546 97.5 65 20 118/58 94 05/03 0837 66 110/53 05/03 0804 97.5 66 20 110/53 92 Nasal 3.0L Cannula 05/03 0800 Nasal 3.0L Cannula 05/03 0003 98.2 63 18 124/60 91 Nasal 3.0L Cannula 05/03 0000 Nasal 3.0L Cannula Intake & Output 05/03 1600 05/03 0800 05/03 0000 Intake Total 1020 200 400 Output Total 1000 75 Balance 20 200 325 Intake, IV 300 Intake, Oral 720 200 400 Output, Urine 1000 75 Physical Exam General Appearance: Alert, Oriented X3, Cooperative Other Physical Findings: Skin: No Rashes, No Breakdown, No Significant Lesion HEENT: Atraumatic, EOMI Neck: Supple Cardiovascular: Regular Rate, Normal S1, Normal S2, No Murmurs Lungs: Clear to Auscultation, decreased breath sounds Abdomen: tenderness on the right and left lower abdomen and suprapubic area Neurological: Normal Speech, Normal Tone, Sensation Intact Extremities: AKA of the right leg, left leg no pitting edema, pulses normal, there is swelling in the penis shaft and sctorum. Current Medications: Assessment/Plan Assessment: This is a 65-year-old male with past medical history of hypertension, CABG with [employer] Ao valve on Coumadin, who presented to the ED with CC abdominal pain, generalized weakness. He was subsequently found to have supratherapeutic INR and profound anemia. Patient was admitted to ICU for further management and treatment. No overnight events. PLAN: Shortness of breath, possible volume overload worsened compared to yesterday, however lungs are clear in the exam, decreased breath sounds noted. She is also complaining of abdominal swelling and penile/ scrotal swelling CXR: Interstitial pulmonary edema has developed. Small right pleural effusion and small to moderate left pleural effusion has developed. Associated patchy right lung opacities and left lower lobe consolidation. * Administered low-dose Lasix 20 mg * Will follow-up with chest x-ray tomorrow morning for post diuresis assessment Acute blood loss anemia: Patient came in with hemoglobin 3.9, hematocrit 12.7. He states that he has had episodes of black tarry stools at home; no bright red blood per rectum noted, no hematemesis and no other overt signs of bleeding. However, he has received over 6 units of PRBC in the hospital, and his subsequent hemoglobin came up to 6.[address] scan of the abdomen showed normal liver, pancreas, spleen, however, there is free fluid overlying the liver and free fluid of the spleen. In addition, there is a moderate amount of pelvic free fluid noted. Primary workup includes evaluating source of bleed for patient as his hemoglobin has not responded adequately to PRBC transfusion. There is question whether he is having intra-abdominal bleeding. Anemia workup shows: Iron 14, TIBC 369, ferritin 7.6 * Patient underwent colonoscopy and had 6 polyps removed. 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 Needed to rule out splenic vein thrombosis. 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 As he is a poor candidate for surgery given his medical conditions, splenic artery embolization via interventional radiology could be one option. Per Sx, with his INR of 10.0 he was most likely bleeding and splenectomy or embolization of the splenic artery would most likely not solve the problem. * continue Protonix IV BID * CBC in am * follow further recs from Sx and GI 2. 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 Three days ago INR was at 5.0 and he had stopped taking Coumadin at that time. Vitamin K and FFP given on admission. initially, plan was to start patient on IV heparin once INR drops below 2.5. patient is on Heparin drip, which has been on hold only for endoscopy and colonoscopy. * Give 3 mg Coumadin today, repeat INR tomorrow and dose coumadin accordingly * IV heparin per protocol per cardiology, will stop when INR reaches 2 3. Positive troponin; h/o CAD: Patient given troponin 0.53, subsequent therapeutic 0.81 and then back to 0.63. Likely represent demand picture. Patient does have known CAD and is status post CABG. 4. HTN: Tab Bystolic 5 mg PO daily was restarted after cardio consultation, also to prevent further SVT. 5. Acute renal failure: Patient came in with creatinine of 2.2---> 1.2 --->0.6. His baseline seems to be .7. Urine work up shows FeNa .3, possibly suggesting intrinsic renal pathology in addition to pre-renal etiology given low H/H and poor PO intake. Possible superimposed ATN with pre-renal etiology. resolved. * he has a poor oral intake. * will need to be cautious about hydration as patient has developed pulmonary edema and pleural effusion 6. Smoking: Patient has prolonged history of cigarette use. * Nicotine patch 7. Chronic pain: Patient has chronic pain secondary to back and his right lower extremity amputation. * OxyContin 30 mg by mouth every 8 hours * Roxicodone 15 mg every 4 hours when necessary 8. Depression: Con't SSRI FULL CODE Mechanical DVT ppx HEART HEALTHY DIET Problem List: 1. Anemia Pain Ratin Pain Location: diffuse Pain Goal: Remain pain free Pain Plan: Tramadol for moderate pain Tomorrow's Labs & Rationales: CBC-history of anemia BEP-and Lasix use CATALINA LOPEZ MD 05/03/16 1333: Attending Review Statement Attending Statement Attending MD Statement: examined this patient, discuss w/resident/PA/SHOPPER'S AIDE, agreed w/resident/PA/SHOPPER'S AIDE, reviewed EMR data (avail) Attending Assessment/Plan: 65M PMH aortic valve replacement on Coumadin, HTN, PVD, abdominal hernia s/p repair admitted for severe anemia with Hgb 3.7 and supratherapeutic INR s/p multiple blood and FFP transfusions. Patient underwent EGD yesterday which showed varices without bleed. CT abdomen shows splenic infarction. Demand ischemia on admission has resolved. Colonoscopy done 04/30 with removal of 6 polyps. Patient tolerated procedure well, hemodynamically stable, Hgb stable, no complaints. Abdominal swelling still present but mild. Still dyspneic with exertion. Otherwise well with no complaints. Vitals stable, labs reviewed, platelets improving, Hgb stable. Plan - Follow GI and surgery recommendations - Continue PPI - Monitor Hgb - Continue heparin drip until INR therapeutic - Continue Coumadin - Daily CBC - Continue b-nelida - DVT PPx - PT and OOBTC - Incentive spirometry - Will likely require rehab on discharge, can be discharged when INR is therapeutic and if CBC is stable
[2016-05-03 15:46] VITALS: BP 118/58
[2016-05-03 21:59] LABS: PTT 57 SEC (25-37)
[2016-05-03 23:51] VITALS: BP 130/62
[2016-05-04 05:17] LABS: PTT > 120 SEC (25-37)
--- NOTE | 2016-05-04 07:06 | PN- Housestaff ---
See Addendum Subjective Follow-up For: Anemia SOB suptherapeutic INR (previously supratherapeutic) Subjective: Patient is seen and examined this AM, reports no overnight events, reports improvement of the lower abdominal pain as well as SOB. Reports dark stool. Review of Systems Constitutional: Reports: malaise. Denies: chills, fever. EENTM: Reports: no symptoms. Cardiovascular: Denies: chest pain, palpitations. Respiratory: Denies: cough, short of breath. Gastrointestinal: Reports: melena. Denies: abdominal pain, nausea, vomiting. Genitourinary: Reports: no symptoms. Musculoskeletal: Reports: no symptoms. Skin: Reports: no symptoms. Objective Last 24 Hrs of Vital Signs/I&O Vital Signs Date Time Temp Pulse Resp B/P Pulse O2 O2 Flow FiO2 Ox Delivery Rate 05/04 0905 65 122/58 05/04 0817 98.1 58 20 124/68 92 Nasal 3.0L Cannula 05/04 0000 Nasal 3.0L Cannula 05/03 2351 98.0 66 20 130/62 94 Nasal 3.0L Cannula 05/03 1600 94 Nasal 3.0L Cannula 05/03 1546 97.5 65 20 118/58 94 Intake & Output 05/04 1600 05/04 0800 05/04 0000 Intake Total 353.6 937 Output Total 925 Balance 353.6 12 Intake, IV 353.6 337 Intake, Oral 600 Number 1 1 Bowel Movements Output, Urine 925 Physical Exam General Appearance: Alert, Oriented X3, Cooperative, No Acute Distress Skin: No Rashes, No Breakdown HEENT: Atraumatic, EOMI Neck: Supple Cardiovascular: Normal S1, Normal S2, No Murmurs Lungs: Clear to Auscultation, Normal Air Movement Abdomen: Soft, mild tenderness on the lower abdomen Neurological: Normal Speech, Normal Tone Extremities: Normal Pulses, No Tenderness/Swelling, 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 Vascular: Normal Pulses Current Medications: Current Medications Sig/Jean Pierre Start time Last Medication Dose Route Stop Time Status Admin Escitalopram Oxalate 10 MG DAILY 04/27 1247 AC 05/04 PO 0902 Furosemide 20 MG ONCE ONE 05/03 1130 DC 05/03 IV 05/03 1131 1300 Heparin Sodium 5,000 UNIT .STK-MED ONE 05/03 2243 DC (Porcine) IV 02/19 2245 Heparin Sodium 2,456 UNIT BOLUS ONE 05/03 2205 DC 05/03 (Porcine) IV 05/03 220 2247 Heparin Sodium 5,000 UNIT .STK-MED ONE 05/03 1143 DC (Porcine) IV 05/03 1144 Heparin Sodium 4,613 UNIT ONCE ONE 05/03 1120 DC 05/03 (Porcine) IV 05/03 1121 1300 Heparin Sodium/ 25,000 UNIT Q24H 05/04 0645 AC Dextrose IV Dextrose/Water 500 ML Heparin Sodium/ 25,000 UNIT Q24H 05/01 0745 DC 05/04 Dextrose IV 0529 Dextrose/Water 500 ML Loratadine 10 MG DAILY 04/27 1708 AC 05/04 PO 0902 Nebivolol 5 MG DAILY 04/29 1000 AC 05/04 PO 0905 Nicotine 21 MG DAILY 04/28 1415 AC 05/04 TOP 0905 Oxycodone HCl 30 MG Q8 05/03 2200 AC 05/04 PO 0500 Oxycodone HCl 15 MG Q4P PRN 05/03 1415 AC 05/04 PO 0031 Oxycodone HCl 15 MG Q4P PRN 04/26 1400 DC 05/03 PO 0956 Oxycodone HCl 30 MG Q8 04/26 1345 DC 05/03 PO 1303 Pantoprazole Sodium 40 MG BID 05/01 2200 AC 05/04 IV 0905 Patient Medication 1 UNIT ONE NR 05/04 0700 AC Teaching ED 05/04 1300 Warfarin Sodium 3 MG COUMADIN 1700 ONE 05/03 1700 DC 05/03 PO 05/03 1701 1556 Last 24 Hrs of Lab/Ronan Results Last 24 Hrs of Labs/Mics: Laboratory Tests 05/04/16 0615: Anion Gap 6, Estimated GFR > 60, BUN/Creatinine Ratio 16.7, APTT 43 H, CBC w Diff Pending, WBC Pending, RBC Pending, Hgb Pending, Hct Pending, MCV Pending, MCH Pending, RDW Pending, Plt Count Pending, MPV Pending, Gran % Pending, Lymphocytes % Pending, Monocytes % Pending, Eosinophils % Pending, Basophils % Pending, Absolute Granulocytes Pending, Absolute Lymphocytes Pending, Absolute Monocytes Pending, Absolute Eosinophils Pending, Absolute Basophils Pending, PUBS MCHC Pending 05/04/16 0410: APTT > 120 *H 05/03/16 1940: APTT 57 H Assessment/Plan Assessment: This is a 65-year-old male with past medical history of hypertension, CABG with [place] Ao valve on Coumadin, who presented to the ED with CC abdominal pain, generalized weakness. He was subsequently found to have supratherapeutic INR and profound anemia. Patient was admitted to ICU for further management and treatment. No overnight events. PLAN: Shortness of breath, possible volume overload worsened compared to yesterday, however lungs are clear in the exam, decreased breath sounds noted. She is also complaining of abdominal swelling and penile/ scrotal swelling CXR: Interstitial pulmonary edema has developed. Small right pleural effusion and small to moderate left pleural effusion has developed. Associated patchy right lung opacities and left lower lobe consolidation. * Administered low-dose Lasix 20 mg IV in the weekend, will continue the patient on PO lasix 20 mg per cardiology * Follow-up with chest x-ray tomorrow morning for post diuresis assessment Acute blood loss anemia: Patient came in with hemoglobin 3.9, hematocrit 12.7. He states that he has had episodes of black tarry stools at home; no bright red blood per rectum noted, no hematemesis and no other overt signs of bleeding. However, he has received over 6 units of PRBC in the hospital, and his subsequent hemoglobin came up to 6.[address] scan of the abdomen showed normal liver, pancreas, spleen, however, there is free fluid overlying the liver and free fluid of the spleen. In addition, there is a moderate amount of pelvic free fluid noted. Primary workup includes evaluating source of bleed for patient as his hemoglobin has not responded adequately to PRBC transfusion. There is question whether he is having intra-abdominal bleeding. Anemia workup shows: Iron 14, TIBC 369, ferritin 7.6 * Patient underwent colonoscopy and had 6 polyps removed. 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 Needed to rule out splenic vein thrombosis. 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 As he is a poor candidate for surgery given his medical conditions, splenic artery embolization via interventional radiology could be one option. Per Sx, with his INR of 10.0 he was most likely bleeding and splenectomy or embolization of the splenic artery would most likely not solve the problem. * continue Protonix IV BID * CBC in am * follow further recs from Sx and GI 2. 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 Three days ago INR was at 5.0 and he had stopped taking Coumadin at that time. Vitamin K and FFP given on admission. initially, plan was to start patient on IV heparin once INR drops below 2.5. patient is on Heparin drip, which has been on hold only for endoscopy and colonoscopy. * Give 3 mg Coumadin today, repeat INR tomorrow and dose coumadin accordingly * IV heparin per protocol per cardiology, will stop when INR reaches 2 3. Positive troponin; h/o CAD: Patient given troponin 0.53, subsequent therapeutic 0.81 and then back to 0.63. Likely represent demand picture. Patient does have known CAD and is status post CABG. 4. HTN: Tab Bystolic 5 mg PO daily was restarted after cardio consultation, also to prevent further SVT. 5. Acute renal failure: Patient came in with creatinine of 2.2---> 1.2 --->0.6. His baseline seems to be .7. Urine work up shows FeNa .3, possibly suggesting intrinsic renal pathology in addition to pre-renal etiology given low H/H and poor PO intake. Possible superimposed ATN with pre-renal etiology. resolved. * he has a poor oral intake. * will need to be cautious about hydration as patient has developed pulmonary edema and pleural effusion 6. Smoking: Patient has prolonged history of cigarette use. * Nicotine patch 7. Chronic pain: Patient has chronic pain secondary to back and his right lower extremity amputation. * OxyContin 30 mg by mouth every 8 hours * Roxicodone 15 mg every 4 hours when necessary 8. Depression: Con't SSRI FULL CODE Mechanical DVT ppx HEART HEALTHY DIET Problem List: 1. Anemia 2. HTN (hypertension) 3. Warfarin-induced coagulopathy Pain Ratin Pain Location: generalized pain in the body Pain Goal: Pain 4 or less Pain Plan: oxycodone Tomorrow's Labs & Rationales: CBC (anemia) INR (on coumadin)
[2016-05-04 08:17] VITALS: BP 124/68
[2016-05-04 08:23] LABS: ABSOLUTE BASOPHIL COUNT 0 /CUMM (0.0-0.2); ABSOLUTE EOSINOPHIL COUNT 0.1 /CUMM (0.0-0.7); ABSOLUTE GRANULOCYTE CT 1.9 /CUMM (1.4-6.5); ABSOLUTE LYMPH COUNT 1.1 /CUMM (1.2-3.4); ABSOLUTE MONOCYTE COUNT 0.3 /CUMM (0.10-0.60); BASOPHIL % 0 % (0.0-2.0); MEAN PLATELET VOLUME 9.9 FL (7.4-10.4)
[2016-05-04 08:35] LABS: EOSINOPHIL % 2.5 % (0-5); GRANULOCYTE % 55.9 % (42.2-75.2); MEAN CORPUSCULAR HGB 24.2 PG (27.0-31.0); MEAN CORPUSCULAR VOLUME 78.1 FL (80.0-94.0); PLATELET COUNT 123 /CUMM (130-400); RED BLOOD CELL CT 3.33 /CUMM (4.70-6.10); WHITE BLOOD CELL COUNT 3.5 /CUMM (4.8-10.8)
[2016-05-04 08:45] LABS: PTT 43 SEC (25-37)
[2016-05-04 09:29] LABS: PT 16.1 SEC (9.4-12.5)
--- NOTE | 2016-05-04 10:16 | PN- Cardiology ---
Subjective Subjective: Patient offers no complaints this morning. Has a good appetite and would like a hamburger for lunch. Objective Vital Signs and I&Os Vital Signs Date Time Temp Pulse Resp B/P Pulse O2 O2 Flow FiO2 Ox Delivery Rate 05/04 0905 65 122/58 05/04 0817 98.1 58 20 124/68 92 Nasal 3.0L Cannula 05/04 0000 Nasal 3.0L Cannula 05/03 2351 98.0 66 20 130/62 94 Nasal 3.0L Cannula 05/03 1600 94 Nasal 3.0L Cannula 05/03 1546 97.5 65 20 118/58 94 Intake & Output 05/04 1600 05/04 0800 05/04 0000 05/03 1600 05/03 0800 05/03 0000 Intake Total 353.6 937 1020 200 400 Output Total 925 1000 75 Balance 353.6 12 20 200 325 Intake, IV 353.6 337 300 Intake, Oral 600 720 200 400 Number 1 1 Bowel Movements Output, Urine 925 1000 75 Physical Exam: General: no apparent distress. Alert. Eyes: No obvious scleral icterus. HEENT: No jugular venous distention or abnormal jugular venous pulsations. Cardiovascular: Normal intensity S1/S2. Regular. /6 SM. Mechanical valve sounds noted. Respiratory: Mildly decreased air entry at the bases Abdomen: Mildly distended without guarding, abdominal scar noted Musculoskeletal: No cyanosis noted, amputation noted, no edema Skin: Warm Neurologic: No gross focal deficits noted. Current Medications: Current Medications Sig/Jean Pierre Start time Last Medication Dose Route Stop Time Status Admin Escitalopram Oxalate 10 MG DAILY 04/27 1247 AC 05/04 PO 0902 Furosemide 20 MG ONCE ONE 05/03 1130 DC 05/03 IV 05/03 1131 1300 Heparin Sodium 5,000 UNIT .STK-MED ONE 05/03 2244 DC (Porcine) IV 05/03 2245 Heparin Sodium 2,456 UNIT BOLUS ONE 05/03 2205 DC 05/03 (Porcine) IV 05/03 2206 2247 Heparin Sodium 5,000 UNIT .STK-MED ONE 05/03 1143 DC (Porcine) IV 05/03 1144 Heparin Sodium 4,613 UNIT ONCE ONE 05/03 1120 DC 05/03 (Porcine) IV 05/03 1121 1300 Heparin Sodium/ 25,000 UNIT Q24H 05/04 0645 AC Dextrose IV Dextrose/Water 500 ML Heparin Sodium/ 25,000 UNIT Q24H 05/01 0745 DC 05/04 Dextrose IV 0529 Dextrose/Water 500 ML Loratadine 10 MG DAILY 04/27 1708 AC 05/04 PO 0902 Nebivolol 5 MG DAILY 04/29 1000 AC 05/04 PO 0905 Nicotine 21 MG DAILY 04/28 1415 AC 05/04 TOP 0905 Oxycodone HCl 30 MG Q8 05/03 2200 AC 05/04 PO 0500 Oxycodone HCl 15 MG Q4P PRN 05/03 1415 AC 05/04 PO 0031 Oxycodone HCl 15 MG Q4P PRN 04/26 1400 DC 05/03 PO 0956 Oxycodone HCl 30 MG Q8 04/26 1345 DC 05/03 PO 1303 Pantoprazole Sodium 40 MG BID 05/01 2200 AC 05/04 IV 0905 Patient Medication 1 UNIT ONE NR 05/04 0700 Teaching ED 05/04 1300 Warfarin Sodium 3 MG COUMADIN 1700 ONE 05/03 1700 DC 05/03 PO 05/03 1701 1556 Results Last 48 Hrs of Labs/Mics: Laboratory Tests 05/04/16 0615: Anion Gap 6, Estimated GFR > 60, BUN/Creatinine Ratio 16.7, PT 16.1 H, INR 1.54 H, APTT 43 H, CBC w Diff MAN DIFF ORDERED, RBC 3.33 L, MCV 78.1 L, MCH 24.2 L, RDW 27.0 H, MPV 9.9, Gran % 55.9, Lymphocytes % 32.0, Monocytes % 9.6 H, Eosinophils % 2.5, Basophils % 0 L, Absolute Granulocytes 1.9, Absolute Lymphocytes 1.1 L, Absolute Monocytes 0.3, Absolute Eosinophils 0.1, Absolute Basophils 0, Platelet Estimate DECREASED, Polychromasia 1+, Hypochromic- Microcytic 3+, Poikilocytosis 2+, Anisocytosis 1+, Ovalocytes , Elliptocytes , Schistocytes , PUBS MCHC 31.0 L 05/04/16 0410: APTT > 120 *H 05/03/16 1940: APTT 57 H 05/03/16 0728: Anion Gap 6, Estimated GFR > 60, BUN/Creatinine Ratio 16.7, PT 14.3 H, INR 1.37 H, APTT 39 H, CBC w Diff MAN DIFF ORDERED, RBC 3.55 L, MCV 79.1 L, MCH 24.5 L, RDW 26.3 H, MPV 9.6, Segmented Neutrophils 72, Band Neutrophils 2, Lymphocytes 24, Monocytes 2, Platelet Estimate DECREASED, Polychromasia 2+, Hypochromic-Microcytic 3+, Poikilocytosis 2+, Anisocytosis 1+, PUBS MCHC 31.0 L 05/03/16 0600: PT Cancelled, INR Cancelled 05/02/16 1615: APTT 70 H Recent Imaging Studies: CXR 1. Interstitial pulmonary edema has developed. Small right pleural effusion and small to moderate left pleural effusion has developed. 2. Associated patchy right lung opacities and left lower lobe consolidation as above. This could be reevaluated post diuresis. Assessment/Plan Assessment/Plan 1. Acute kidney injury, improving 2. Mechanical aortic valve (1994) with elevated mean gradient of 37 mmHg by Echo 3. Anticoagulated on warfarin with INR greater than 10, improving 4. Ascites, Hx of Hep C, status post paracentesis 5. Severe anemia, likely secondary to occult GI blood loss, requiring transfusion 6. Mild troponin elevation, likely secondary to demand ischemia precipitated by severe anemia. 7. 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 He is hoping to have a hamburger for lunch. He did receive a dose of IV Lasix over the weekend. As he is eating better may be reasonable to keep him on low-dose Lasix 20 mg by mouth daily. Continue IV heparin until INR greater than 2.0. Dick Lemons MD [facility] Continue telemetry? Not applicable
--- NOTE | 2016-05-04 10:21 | RADIOLOGY REPORT ---
EXAMINATION: XR PORTABLE CHEST CLINICAL INFORMATION: Pulmonary edema status post packed red blood cell transfusion. Reevaluate status post diuresis. Shortness of breath. Peripheral edema. COMPARISON: Several prior chest x-rays, most recent of which is dated 05/02/2016. TECHNIQUE: Portable AP semierect view of the chest was obtained. FINDINGS: The patient is status post median sternotomy and CABG surgery. The cardiomediastinal silhouette is mildly enlarged, unchanged. There are persistent bilateral small pleural effusions, left greater than right, perhaps minimally decreased in size compared to the prior exam. Diffuse mild pulmonary edema has not significantly changed compared to the prior exam. No pneumothorax is seen. Bony structures are unremarkable. IMPRESSION: 1. No significant change in pulmonary edema. 2. Perhaps minimal decrease in size of bilateral pleural effusions.
--- NOTE | 2016-05-04 11:21 | NUR ---
PHYSICAL THERAPY- CONSULT RECEIVED, CHART REVIEWED. S/W PT'S RN WHO REPORTS PT IS INDEPENDENT W/ TRANSFERS OOB AND TO COMMODE. THIS IS PT'S BASELINE, PT IS W/C BOUND AND INDEPENDENT W/ W/C TRANSFERS. NO SKILLED ACUTE P.T. NEEDS IDENTIFIED, WILL NOT FOLLOW.
[2016-05-04 13:39] LABS: PTT 90 SEC (25-37)
[2016-05-04 16:00] VITALS: BP 120/74
--- NOTE | 2016-05-04 17:51 | Patient Discharge Instructions ---
Discharge Instructions General Discharge Information You were seen/treated for: Severe anemia. Elevated INR Renal insufficiency Splenic infarct You had these procedures: Colonoscopy with biopsy. Endoscopy Special Instructions: PLEASE TAKE YOUR COUMADIN EVERYDAY, CHECK INR DAILY FOR GOAL OF 2.5. PLEASE FOLLOW UP WITH YOUR PCP ON Wednesday05/11/16 FOR YOUR BLOOD COUNT LEVEL!!!!! Follow up with your electronic imager within 1 week after discharge for colonoscopy biopsy results and further workup on the findings on your spleen. Please follow-up with surgery, Dr. Pineda within 1-2 weeks of discharge -Please follow up with billiard table repairer within 1 week after discharge. -Please take all medications as directed,continue coumadin 2 mg daily -Have blood work (CBC, BEP, INR) done on 05/12/2016. CC results to PCP, cardiology, gasteroenterology. -come back to the ED if you feel short of breath or dizzy. Diet Continue normal diet: Yes Activity Full Activity/No Limits: Yes Acute Coronary Syndrome Inclusion Criteria At DC or during hospital stay patient has or had the following: ACS DIAGNOSIS No Discharge Core Measures Meds if any: Prescribed or Continued at Discharge Meds if any: NOT Prescribed or Continued at Discharge Congestive Heart Failure Inclusion Criteria At DC or during hospital stay patient has or had the following: CHF DIAGNOSIS No Discharge Core Measures Meds if any: Prescribed or Continued at Discharge Meds if any: NOT Prescribed or Continued at Discharge Cerebrovascular accident Inclusion Criteria At DC or during hospital stay patient has or had the following: CVA/TIA Diagnosis No Discharge Core Measures Meds if any: Prescribed or Continued at Discharge Meds if any: NOT Prescribed or Continued at Discharge Venous thromboembolism Inclusion Criteria VTE Diagnosis No VTE Type NONE VTE Confirmed by (Test) NONE Discharge Core Measures - Per Current guidelines, there needs to be overlap - treatment for the first 5 days of Warfarin therapy. - If discharged on Warfarin prior to 5 days of - overlap therapy, the patient will need to be - assessed for post discharge needs including - *Post discharge parental anticoagulation - *Warfarin and/or parental anticoagulation education - *Follow up date to check INR post discharge At least 5 days overlap therapy as Inpatient No Meds if any: Prescribed or Continued at Discharge Note: Overlap Therapy is Warfarin and Anticoagulant Meds if any: NOT Prescribed or Continued at Discharge Meds if any: NOT Prescribed or Continued at Discharge
[2016-05-04] MEDS ORDERED: PROTONIX40 M3 PO (17:53)
[2016-05-04] MEDS ORDERED: FUROSEMIDE20 M1 PO (17:59)
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
[2016-05-05 01:28] LABS: PTT 98 SEC (25-37)
--- NOTE | 2016-05-05 07:18 | PN- Housestaff ---
[place] BANERJEE,[facility] 05/05/16 0717: Subjective Follow-up For: Anemia shortness of breath lower abdominal pain Subjective: I saw and examined the patient this AM, patient is alert and oriented in no distress, reports he slept well last night, has had a few episodes of bowel movement, still has some pain and discomfort on lower abdomen, improved compared to yesterday. Patient denies SOB at rest or ambulation but reports it when he wakes up form sleep and thinks it is panic attack. also reports his heart is racing at the same time. denies coughing, denies chest pain, denies dizziness. Review of Systems Constitutional: Denies: chills, fever, malaise, weakness. EENTM: Reports: no symptoms. Cardiovascular: Reports: palpitations (when waking up). Denies: chest pain, peripheral edema. Respiratory: Reports: short of breath (with panic attacks). Denies: cough, sputum production. Gastrointestinal: Reports: abdominal pain. Denies: bloating, constipation, diarrhea, nausea, bloody stool, vomiting. Genitourinary: Reports: no symptoms. Musculoskeletal: Reports: back pain. Skin: Reports: no symptoms. Objective Last 24 Hrs of Vital Signs/I&O Vital Signs Date Time Temp Pulse Resp B/P Pulse O2 O2 Flow FiO2 Ox Delivery Rate 05/05 0830 62 134/54 05/05 0812 98.2 62 18 134/54 93 Nasal 3.0L Cannula 05/05 0000 Nasal 3.0L Cannula 05/04 1600 Nasal 3.0L Cannula 05/04 1600 97.4 66 18 120/74 94 Nasal 3.0L Cannula 05/04 0905 65 122/58 Intake & Output 05/05 1600 05/05 0800 05/05 0000 Intake Total 333.6 Output Total 1000 600 Balance -1000 -266.4 Intake, IV 333.6 Number 1 Bowel Movements Output, Urine 1000 600 Physical Exam General Appearance: Alert, Oriented X3, Cooperative, No Acute Distress Skin: No Rashes, No Breakdown, No Significant Lesion HEENT: Atraumatic, EOMI, appears cachectic Neck: Supple Cardiovascular: Regular Rate, Normal S1, Normal S2, mechanical valve sound Lungs: Clear to Auscultation, Normal Air Movement, no wheezing or rhonchi heard Abdomen: Normal Bowel Sounds, Soft, tenderness on the right and left lower abdomen and hyopgaster Neurological: Normal Speech, Normal Tone Extremities: No Edema, Normal Pulses, above knee amputaiton of the right leg Vascular: Normal Pulses Current Medications: Current Medications Sig/Jean Pierre Start time Last Medication Dose Route Stop Time Status Admin Escitalopram Oxalate 10 MG DAILY 04/27 1247 AC 05/05 PO 0829 Heparin Sodium/ 25,000 UNIT Q24H 05/04 0645 AC 05/05 Dextrose IV 0052 Dextrose/Water 500 ML Loratadine 10 MG DAILY 04/27 1708 AC 05/05 PO 0829 Nebivolol 5 MG DAILY 04/29 1000 AC 05/05 PO 0830 Nicotine 21 MG DAILY 04/28 1415 AC 05/05 TOP 0830 Omeprazole 40 MG DAILY AC 05/05 0700 AC 05/05 PO 0503 Oxycodone HCl 30 MG Q8 05/03 2200 AC 05/05 PO 0502 Oxycodone HCl 15 MG Q4P PRN 05/03 1415 AC 05/05 PO 0050 Pantoprazole Sodium 40 MG BID 05/01 2200 DC 05/04 IV 0905 Patient Medication 1 UNIT ONE NR 05/04 0700 DC Teaching ED 05/04 1300 Warfarin Sodium 5 MG COUMADIN 1700 ONE 05/04 1700 DC 05/04 PO 05/04 1701 1659 Last 24 Hrs of Lab/Ronan Results Last 24 Hrs of Labs/Mics: Laboratory Tests 05/05/16 0020: APTT 98 H 05/04/16 1215: APTT 90 H Assessment/Plan Assessment: This is a 65-year-old male with past medical history of hypertension, CABG with [employer] Ao valve on Coumadin, who presented to the ED with CC abdominal pain, generalized weakness. He was subsequently found to have supratherapeutic INR and profound anemia. Patient was admitted to ICU for further management and treatment. He was given total 6 pRBCs and 2 ffps as well as vitamin K. Patient was transferred to when H/H stabilized. Problem list and PLAN: Shortness of breath, possible volume overload POST TRANSFUSION patient developed SOB on Wednesday night and worsened on Wednesday and Wednesday, CXR showed pleural effusion and pulmonary edema. he also complained of abdominal swelling and penile/scrotal swelling on Wednesday. He received a dose of lasix which improved symptoms. CXR also showed improved pleural effusion. * will give 20 mg IV BID today and continue the patient on PO lasix 20 mg daily per cardiology Acute blood loss anemia: Patient came in with hemoglobin 3.9, hematocrit 12.7. He states that he has had episodes of black tarry stools at home; no bright red blood per rectum noted, no hematemesis and no other overt signs of bleeding. However, he has received over 6 units of PRBC in the hospital. CT scan of the abdomen showed normal liver, pancreas, spleen, also showed free fluid overlying the liver and free fluid of the spleen and pelvic free fluid noted. * Patient underwent colonoscopy and had 6 polyps removed. 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 Needed to rule out splenic vein thrombosis. 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 As he is a poor candidate for surgery given his medical conditions, splenic artery embolization via interventional radiology could be one option. Per Sx, with his INR of 10.0 he was most likely bleeding and splenectomy or embolization of the splenic artery would most likely not solve the problem. * continue Protonix IV BID * CBC in am 2. 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 Three days ago INR was at 5.0 and he had stopped taking Coumadin at that time. Vitamin K and FFP given on admission. initially, plan was to start patient on IV heparin once INR drops below 2.5. patient is on Heparin drip, which has been on hold only for endoscopy and colonoscopy. * Gave 5 mg Coumadin yesterday, will follow repeat INR toady and dose coumadin accordingly * IV heparin stopped as INR is 2.25 today * will give 2 mg coumadin today 3. Positive troponin; h/o CAD: Patient given troponin 0.53, subsequent therapeutic 0.81 and then back to 0.63. Likely represent demand picture. Patient does have known CAD and is status post CABG. 4. HTN: Tab Bystolic 5 mg PO daily was restarted after cardio consultation, also to prevent further SVT. 5. Acute renal failure: Patient came in with creatinine of 2.2---> 1.2 --->0.6. His baseline seems to be .7. Urine work up shows FeNa .3, possibly suggesting intrinsic renal pathology in addition to pre-renal etiology given low H/H and poor PO intake. Possible superimposed ATN with pre-renal etiology. resolved. * he has a poor oral intake. * will need to be cautious about hydration as patient has developed pulmonary edema and pleural effusion 6. Smoking: Patient has prolonged history of cigarette use. * Nicotine patch 7. Chronic pain: Patient has chronic pain secondary to back and his right lower extremity amputation. * OxyContin 30 mg by mouth every 8 hours * Roxicodone 15 mg every 4 hours when necessary 8. Depression: Con't SSRI FULL CODE Mechanical DVT ppx HEART HEALTHY DIET PATIENT WILL BE DISCHARGED HOME WITH HOME CARE, MOST LIKELY ON 05/06/16 Problem List: 1. Anemia 2. Depression 3. HTN (hypertension) 4. 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 Anemia requiring blood transfusion- hb stable. GI workup non revealing. will need further workup as an outpatient. Likely secondary to supratherapeutic INR. Mechanical valve on anticoagulation- INR therapeutic today , so will cont with coumadin and dc heparin. Hep C untreated. Pt will need to abstain from alcohol and then will need to f/u with GI clinic as an outpatient to discuss treatment options. D/w pt the care plan.
[2016-05-05 08:12] VITALS: BP 134/54
--- NOTE | 2016-05-05 09:46 | PN- Cardiology ---
Subjective Subjective: Patient feels better anxious to go home. Objective Vital Signs and I&Os Vital Signs Date Time Temp Pulse Resp B/P Pulse O2 O2 Flow FiO2 Ox Delivery Rate 05/05 0830 62 134/54 05/05 0812 98.2 62 18 134/54 93 Nasal 3.0L Cannula 05/05 0000 Nasal 3.0L Cannula 05/04 1600 Nasal 3.0L Cannula 05/04 1600 97.4 66 18 120/74 94 Nasal 3.0L Cannula Intake & Output 05/05 1600 05/05 0800 05/05 0000 05/04 1600 05/04 0800 05/04 0000 Intake Total 333.6 353.6 937 Output Total 1000 600 700 925 Balance -1000 -266.4 -700 353.6 12 Intake, IV 333.6 353.6 337 Intake, Oral 600 Number 1 1 1 1 Bowel Movements Output, Urine 1000 600 700 925 Physical Exam: General exam patient appears comfortable on oxygen Head normocephalic atraumatic Eyes sclera anicteric conjunctiva showed pallor extraocular muscles were normal Neck no jugular venous distention no thyroid masses noted Chest lungs were clear bilaterally with scattered crackles Heart regular rhythm with good prosthetic click Abdomen soft no organomegaly Extremities amputee Neurological no gross motor or sensory deficits Current Medications: Current Medications Sig/Jean Pierre Start time Last Medication Dose Route Stop Time Status Admin Escitalopram Oxalate 10 MG DAILY 04/27 1247 AC 05/05 PO 0829 Furosemide 20 MG DAILY 05/06 1000 AC PO Furosemide 20 MG ONCE ONE 05/05 2199 AC IV 05/05 2201 Furosemide 20 MG DAILY 05/05 1000 DC PO Furosemide 20 MG ONCE ONE 05/05 0945 AC IV 05/05 0946 Furosemide 40 MG ONCE ONE 05/05 0930 CAN IV 05/05 0931 Heparin Sodium/ 25,000 UNIT Q24H 05/04 0645 AC 05/05 Dextrose IV 0052 Dextrose/Water 500 ML Loratadine 10 MG DAILY 04/27 1708 AC 05/05 PO 0829 Nebivolol 5 MG DAILY 04/29 1000 AC 05/05 PO 0830 Nicotine 21 MG DAILY 04/28 1415 AC 05/05 TOP 0830 Omeprazole 40 MG DAILY AC 05/05 0700 AC 05/05 PO 0503 Oxycodone HCl 30 MG Q8 05/03 2200 AC 05/05 PO 0502 Oxycodone HCl 15 MG Q4P PRN 05/03 1415 AC 05/05 PO 0050 Pantoprazole Sodium 40 MG BID 05/01 2200 DC 05/04 IV 0905 Patient Medication 1 UNIT ONE NR 05/04 0700 DC Teaching ED 05/04 1300 Warfarin Sodium 5 MG COUMADIN 1700 ONE 05/04 1700 DC 05/04 PO 05/04 1701 1659 Results Last 48 Hrs of Labs/Mics: Laboratory Tests 05/05/16 0830: APTT Cancelled 05/05/16 0830: PT Pending, INR Pending, APTT Pending, CBC w Diff Pending, WBC Pending, RBC Pending, Hgb Pending, Hct Pending, MCV Pending, MCH Pending, RDW Pending, Plt Count Pending, MPV Pending, PUBS MCHC Pending 05/05/16 0020: APTT 98 H 05/04/16 1215: APTT 90 H 05/04/16 0615: Anion Gap 6, Estimated GFR > 60, BUN/Creatinine Ratio 16.7, Phosphorus 4.0, Magnesium 1.6, PT 16.1 H, INR 1.54 H, APTT 43 H, CBC w Diff MAN DIFF ORDERED, RBC 3.33 L, MCV 78.1 L, MCH 24.2 L, RDW 27.0 H, MPV 9.9, Gran % 55.9, Lymphocytes % 32.0, Monocytes % 9.6 H, Eosinophils % 2.5, Basophils % 0 L, Absolute Granulocytes 1.9, Absolute Lymphocytes 1.1 L, Absolute Monocytes 0.3, Absolute Eosinophils 0.1, Absolute Basophils 0, Platelet Estimate DECREASED, Polychromasia 1+, Hypochromic-Microcytic 3+, Poikilocytosis 2+, Anisocytosis 1+, Ovalocytes , Elliptocytes , Schistocytes , PUBS MCHC 31.0 L 05/04/16 0410: APTT > 120 *H 05/03/16 1940: APTT 57 H Assessment/Plan Assessment/Plan In summary this 65-year-old gentleman has the following problems 1. Acute kidney injury, improving 2. Mechanical aortic valve (1994) with elevated mean gradient of 37 mmHg by Echo 3. Anticoagulated on warfarin with INR greater than 10, improving 4. Ascites, Hx of Hep C, status post paracentesis 5. Severe anemia, likely secondary to occult GI blood loss, requiring transfusion 6. Mild troponin elevation, likely secondary to demand ischemia precipitated by severe anemia. 7. History of ascending aortic aneurysm 8. Splenic infarct on CT scan Chest x-ray yesterday showed persistent pulmonary edema with slightly less pleural effusion. I suspect he he got volume overloaded at the time of judicious administration of blood and blood products. His oxygen requirements at 3 L suggests that there is a correlation between pulmonary edema and oxygen requirements. I would give him intravenous Lasix today and begin to see if we can wean him off oxygen. He has successfully been in negative balance for the past day or 2 which is encouraging that we are making progress with adequate with respect to pulmonary edema. If weak in wean him off oxygen he can be maintained on by mouth Lasix 20 mg a day to be continued as an outpatient. He is reluctant to go to short-term rehabilitation. Therefore we can document decreasing oxygen requirements we can assume that his pulmonary edema is improving. Awaiting PT INR to be greater than 2.0 before discontinuing intravenous heparin Continue telemetry? Not applicable
[2016-05-05 09:53] LABS: MEAN CORPUSCULAR HGB CONC 30.6 G/DL (33.0-37.0); MEAN CORPUSCULAR VOLUME 78.6 FL (80.0-94.0); MEAN PLATELET VOLUME 9.9 FL (7.4-10.4); PLATELET COUNT 142 /CUMM (130-400); RBC DISTRIBUTION WIDTH 26.4 % (11.5-14.5); RED BLOOD CELL CT 3.44 /CUMM (4.70-6.10); WHITE BLOOD CELL COUNT 3.6 /CUMM (4.8-10.8)
[2016-05-05 10:03] LABS: PT 23.4 SEC (9.4-12.5); PTT 90 SEC (25-37)
--- NOTE | 2016-05-05 16:05 | NUR ---
requested by nursing staff to evaluate pt for skin alterations - skin intact - no evidence of breakdown noted recommendation: cont preventative skin care please
[2016-05-05 16:36] VITALS: BP 126/66
--- NOTE | 2016-05-05 20:47 | PN- Att Addend ---
Attending MD Review Statement Attending Statement Attending MD Statement: examined this patient, discuss w/resident/PA/CIGAR BANDER HAND, agreed w/resident/PA/CIGAR BANDER HAND, reviewed EMR data (avail), discussed w/nursing, discussed w/ case mgmt Attending Assessment/Plan: Laboratory Tests 05/05/16 0830: APTT Cancelled 05/05/16 0830: PT 23.4 H, INR 2.25 H, APTT 90 H, CBC w Diff MAN DIFF ORDERED, RBC 3.44 L, MCV 78.6 L, MCH 24.0 L, RDW 26.4 H, MPV 9.9, Segmented Neutrophils 56, Band Neutrophils 1, Lymphocytes 29, Monocytes 7, Eosinophils 6 H, Basophils 1, Platelet Estimate DECREASED, Polychromasia 1+, Hypochromic-Microcytic 2+, Poikilocytosis 2+, Anisocytosis 2+, Microcytic Cells 1+, Ovalocytes , Elliptocytes , Schistocytes 1+, PUBS MCHC 30.6 L 05/05/16 0020: APTT 98 H Vital Signs Date Time Temp Pulse Resp B/P Pulse O2 O2 Flow FiO2 Ox Delivery Rate 05/05 0830 62 134/54 05/05 0812 98.2 62 18 134/54 93 Nasal 3.0L Cannula 05/05 0800 93 Nasal 3.0L Cannula 05/05 0000 Nasal 3.0L Cannula 05/04 1600 Nasal 3.0L Cannula 05/04 1600 97.4 66 18 120/74 94 Nasal 3.0L Cannula A/P 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 No surgical intervention. Anemia requiring blood transfusion- hb stable. GI workup non revealing. will need further workup as an outpatient. Mechanical valve on anticoagulation- dc heparin drip and cont coumadin. INR therapeutic today D/w pt the care plan. Possible dc tomorrow to home with home care.
[2016-05-06 00:01] VITALS: BP 100/580
[2016-05-06 00:11] VITALS: BP 100/50
--- NOTE | 2016-05-06 07:07 | PN- Housestaff ---
[facility] 05/06/16 0707: Subjective Follow-up For: lower abdominal pain Anemia, guaiac positive stool Subjective: patient is alert and oriented, reports pain and tenderness in the abdomen most prominent in the lower abdomen, which has not improved. denies SOB, denies palpitation. denies N/V, denies diarrhea. Review of Systems Constitutional: Denies: chills, fever, weakness. EENTM: Reports: no symptoms. Cardiovascular: Denies: chest pain, palpitations. Respiratory: Denies: cough, short of breath. Gastrointestinal: Reports: abdominal pain. Denies: constipation, diarrhea, melena, nausea, bloody stool, vomiting. Genitourinary: Reports: no symptoms. Musculoskeletal: Denies: back pain, joint swelling. Skin: Reports: no symptoms. Objective Last 24 Hrs of Vital Signs/I&O Vital Signs Date Time Temp Pulse Resp B/P Pulse O2 O2 Flow FiO2 Ox Delivery Rate 05/06 1039 58 118/60 05/06 0800 97.8 58 18 118/60 90 Room Air 05/06 0030 93 Nasal 2.0L Cannula 05/06 0011 97.9 67 18 100/50 93 Nasal 2.0L Cannula 05/06 0001 97.9 67 18 100/580 93 Nasal 2.0L Cannula 05/05 1636 97.6 62 18 126/66 92 Intake & Output 05/06 1600 05/06 0800 05/06 0000 Intake Total 1440 120 240 Output Total 450 2000 600 Balance 990 -1880 -360 Intake, Oral 1440 120 240 Number 0 0 Bowel Movements Output, Urine 450 2000 600 Physical Exam General Appearance: Alert, Oriented X3, Cooperative, No Acute Distress Skin: No Rashes, No Significant Lesion HEENT: Atraumatic, EOMI Neck: Supple, No JVD Cardiovascular: Regular Rate, Normal S1, Normal S2, murmur of the mechanical aortic valve Lungs: Clear to Auscultation, Normal Air Movement Abdomen: Normal Bowel Sounds, Soft, generalized tenderness in the abdomen, more prominent in the lower abdomen Neurological: Normal Speech, Normal Tone Extremities: No Edema, Normal Pulses Vascular: Normal Pulses Current Medications: Current Medications Sig/Jean Pierre Start time Last Medication Dose Route Stop Time Status Admin Escitalopram Oxalate 10 MG DAILY 04/27 1247 AC 05/06 PO 1039 Furosemide 20 MG DAILY 05/06 1000 AC 05/06 PO 1038 Furosemide 20 MG ONCE ONE 05/05 2200 DC 05/05 IV 05/05 2201 2123 Loratadine 10 MG DAILY 04/27 1708 AC 05/06 PO 1038 Nebivolol 5 MG DAILY 04/29 1000 AC 05/06 PO 1039 Nicotine 21 MG DAILY 04/28 1415 AC 05/06 TOP 1040 Omeprazole 40 MG DAILY AC 05/05 0700 AC 05/06 PO 0500 Oxycodone HCl 30 MG Q8 05/03 2200 AC 05/06 PO 1314 Oxycodone HCl 15 MG Q4P PRN 05/03 1415 AC 05/06 PO 1041 Patient Medication 1 ED .STK-MED ONE 05/06 1332 DC Teaching ED 05/06 1333 Warfarin Sodium 1 MG COUMADIN 1700 ONE 05/06 1700 AC PO 05/06 1701 Warfarin Sodium 1 MG COUMADIN 1700 ONE 05/05 1700 DC 05/05 PO 05/05 1701 1741 Last 24 Hrs of Lab/Ronan Results Last 24 Hrs of Labs/Mics: Laboratory Tests 05/06/16 0605: Anion Gap 5, Estimated GFR > 60, BUN/Creatinine Ratio 25.7 H, PT 25.3 H, INR 2.43 H, CBC w Diff MAN DIFF ORDERED, RBC 3.10 L, MCV 78.7 L, MCH 24.6 L, RDW 26.9 H, MPV 10.2, Segmented Neutrophils 78 H, Lymphocytes 13 L, Monocytes 4, Eosinophils 3, Basophils 2, Platelet Estimate VERIFIED BY SMEAR, Hypochromic- Microcytic 2+, Poikilocytosis 1+, Anisocytosis 1+, Microcytic Cells 2+, PUBS MCHC 31.2 L 05/05/16 2000: APTT Cancelled Assessment/Plan Assessment: This is a 65-year-old male with past medical history of hypertension, CABG with [place] Ao valve on Coumadin, who presented to the ED with CC abdominal pain, generalized weakness. He was subsequently found to have supratherapeutic INR and profound anemia. Patient was admitted to ICU for further management and treatment. He was given total 6 pRBCs and 2 ffps as well as vitamin K. Patient was transferred to when H/H stabilized. Problem list and PLAN: Shortness of breath, possible volume overload POST TRANSFUSION patient developed SOB on Wednesday night and worsened on Wednesday and Wednesday, CXR showed pleural effusion and pulmonary edema. he also complained of abdominal swelling and penile/scrotal swelling on Wednesday. He received a dose of lasix which improved symptoms. CXR also showed improved pleural effusion. * will give 20 mg IV BID yesterday and continue the patient on PO lasix 20 mg daily per cardiology Acute blood loss anemia: Patient came in with hemoglobin 3.9, hematocrit 12.7. He states that he has had episodes of black tarry stools at home; no bright red blood per rectum noted, no hematemesis and no other overt signs of bleeding. However, he has received over 6 units of PRBC in the hospital. CT scan of the abdomen showed normal liver, pancreas, spleen, also showed free fluid overlying the liver and free fluid of the spleen and pelvic free fluid noted. * Patient underwent colonoscopy and had 6 polyps removed. 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 Needed to rule out splenic vein thrombosis. 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 As he is a poor candidate for surgery given his medical conditions, splenic artery embolization via interventional radiology could be one option. Per Sx, with his INR of 10.0 he was most likely bleeding and splenectomy or embolization of the splenic artery would most likely not solve the problem. * continue Protonix IV BID * CBC in am, HB slightly decreased today, patient refused pRBC infusion. Patient reports that in 2005 he had an inguinal hernia repair and a mesh was placed on the pelvic floor and thinks that the dislocation of the mesh has caused him the lower abdominal pain. Given his elevated INR on admission and evidence of possible intraabdominal bleeding in the CT, it is possible that the mesh may have caused irritations/ ruptures and bleeding. we have asked the radiology to look into the pelvic CT scan again and report to us any changes in the location of the mesh. 2. 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 Three days ago INR was at 5.0 and he had stopped taking Coumadin at that time. Vitamin K and FFP given on admission. initially, plan was to start patient on IV heparin once INR drops below 2.5. patient is on Heparin drip, which has been on hold only for endoscopy and colonoscopy. * Gave 5 mg Coumadin yesterday, will follow repeat INR toady and dose coumadin accordingly * IV heparin stopped as INR is 2.25 today * will give 2 mg coumadin today 3. Positive troponin; h/o CAD- trended down: Patient given troponin 0.53, subsequent therapeutic 0.81 and then back to 0.63. Likely represent demand picture. Patient does have known CAD and is status post CABG. 4. HTN: Tab Bystolic 5 mg PO daily was restarted after cardio consultation, also to prevent further SVT. 5. Acute renal failure: Patient came in with creatinine of 2.2. His baseline seems to be 0.7. Urine work up shows FeNa .3, possibly suggesting intrinsic renal pathology in addition to pre-renal etiology given low H/H and poor PO intake. Possible superimposed ATN with pre-renal etiology. resolved. * has been drinking well, Cr today is 0.7 * will need to be cautious about hydration as patient has developed pulmonary edema and pleural effusion 6. Smoking: Patient has prolonged history of cigarette use. * Nicotine patch 7. Chronic pain: Patient has chronic pain secondary to back and his right lower extremity amputation. * OxyContin 30 mg by mouth every 8 hours * Roxicodone 15 mg every 4 hours when necessary 8. Depression: Con't SSRI FULL CODE Mechanical DVT ppx HEART HEALTHY DIET PATIENT WILL BE DISCHARGED HOME WITH HOME CARE, MOST LIKELY ON 05/07/16 Problem List: 1. Unilateral AKA Pain Ratin Pain Location: abdominal pain Pain Goal: Pain 4 or less Pain Plan: oxycodone Tomorrow's Labs & Rationales: CBC, BEP, INR PATO [facility]ANERJEE,[facility] 05/06/16 1330: Attending MD Review Statement Attending Statement Attending MD Statement: examined this patient, discuss w/resident/PA/EMERGENCY SERVICES DISPATCHER, agreed w/resident/PA/EMERGENCY SERVICES DISPATCHER, reviewed EMR data (avail) Attending Assessment/Plan: Patient complains of abdominal distention and diffuse abdominal pain which is not new. Patient denies any recent fever chills or chest pains. He has been afebrile and has currently stable vital signs. His abdomen has a linear scar from prior surgery as well as multiple indurated areas from prior surgeries. He is mildly tender without any guarding or rebound. Bowel sounds are present. Chest exam is clear. Hematocrit has dropped to 24.4. Chemistry labs are within normal limits. 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 Possibility of embolic phenomena * History of aortic wall replacement mechanical currently on Coumadin Plan * Continue supportive treatment. * Recheck CBC tomorrow * Keep hematocrit above 24 * Note that patient had ascitic tap done in the ICU with only 5 mL of fluid aspirated
[2016-05-06 08:00] VITALS: BP 118/60
[2016-05-06 08:09] LABS: HEMATOCRIT 24.4 % (42-52); MEAN CORPUSCULAR HGB 24.6 PG (27.0-31.0); MEAN CORPUSCULAR HGB CONC 31.2 G/DL (33.0-37.0); MEAN CORPUSCULAR VOLUME 78.7 FL (80.0-94.0); MEAN PLATELET VOLUME 10.2 FL (7.4-10.4); PLATELET COUNT 154 /CUMM (130-400); RBC DISTRIBUTION WIDTH 26.9 % (11.5-14.5); WHITE BLOOD CELL COUNT 4.3 /CUMM (4.8-10.8)
[2016-05-06 08:15] LABS: PT 25.3 SEC (9.4-12.5)
--- NOTE | 2016-05-06 12:37 | PN- Cardiology ---
Subjective Subjective: Patient feels well and denies any dyspnea. He is now off nasal cannula oxygen. Objective Vital Signs and I&Os Vital Signs Date Time Temp Pulse Resp B/P Pulse O2 O2 Flow FiO2 Ox Delivery Rate 05/06 1039 58 118/60 05/06 0800 97.8 58 18 118/60 90 Room Air 05/06 0030 93 Nasal 2.0L Cannula 05/06 0011 97.9 67 18 100/50 93 Nasal 2.0L Cannula 05/06 0001 97.9 67 18 100/580 93 Nasal 2.0L Cannula 05/05 1636 97.6 62 18 126/66 92 Intake & Output 05/06 1600 05/06 0800 05/06 0000 05/05 1600 05/05 0800 05/05 0000 Intake Total 720 120 240 333.6 Output Total 2000 600 1150 1000 600 Balance 720 -1880 -360 -1150 -1000 -266.4 Intake, IV 333.6 Intake, Oral 720 120 240 Number 0 0 1 1 Bowel Movements Output, Urine 1999 600 1150 1000 600 Physical Exam: General: no apparent distress. Alert. Eyes: No obvious scleral icterus. HEENT: No jugular venous distention or abnormal jugular venous pulsations. Cardiovascular: Normal intensity S1/S2. Regular. 1/6 SM. Mechanical valve sounds noted. Respiratory: Mildly decreased air entry at the bases Abdomen: Mildly distended without guarding, abdominal scar noted Musculoskeletal: No cyanosis noted, amputation noted, no edema Skin: Warm Neurologic: No gross focal deficits noted. Current Medications: Current Medications Sig/Jean Pierre Start time Last Medication Dose Route Stop Time Status Admin Escitalopram Oxalate 10 MG DAILY 04/27 1247 AC 05/06 PO 1039 Furosemide 20 MG DAILY 05/06 1000 AC 05/06 PO 1038 Furosemide 20 MG ONCE ONE 05/05 2199 DC 05/05 IV 05/05 2200 2123 Heparin Sodium/ 25,000 UNIT Q24H 05/04 0645 DC 05/05 Dextrose IV 0052 Dextrose/Water 500 ML Loratadine 10 MG DAILY 04/27 1708 AC 05/06 PO 1038 Nebivolol 5 MG DAILY 04/29 1000 AC 05/06 PO 1039 Nicotine 21 MG DAILY 04/28 1415 AC 05/06 TOP 1040 Omeprazole 40 MG DAILY AC 05/05 0700 AC 05/06 PO 0500 Oxycodone HCl 30 MG Q8 05/03 2200 AC 05/06 PO 0459 Oxycodone HCl 15 MG Q4P PRN 05/03 1415 AC 05/06 PO 1041 Warfarin Sodium 1 MG COUMADIN 1700 ONE 05/05 1700 DC 05/05 PO 05/05 1701 1741 Results Last 48 Hrs of Labs/Mics: Laboratory Tests 05/06/16 0605: Anion Gap 5, Estimated GFR > 60, BUN/Creatinine Ratio 25.7 H, PT 25.3 H, INR 2.43 H, CBC w Diff MAN DIFF ORDERED, RBC 3.10 L, MCV 78.7 L, MCH 24.6 L, RDW 26.9 H, MPV 10.2, Segmented Neutrophils 78 H, Lymphocytes 13 L, Monocytes 4, Eosinophils 3, Basophils 2, Platelet Estimate VERIFIED BY SMEAR, Hypochromic- Microcytic 2+, Poikilocytosis 1+, Anisocytosis 1+, Microcytic Cells 2+, PUBS MCHC 31.2 L 05/05/161999: APTT Cancelled 05/05/16 0830: APTT Cancelled 05/05/16 0830: PT 23.4 H, INR 2.25 H, APTT 90 H, CBC w Diff MAN DIFF ORDERED, RBC 3.44 L, MCV 78.6 L, MCH 24.0 L, RDW 26.4 H, MPV 9.9, Segmented Neutrophils 56, Band Neutrophils 1, Lymphocytes 29, Monocytes 7, Eosinophils 6 H, Basophils 1, Platelet Estimate DECREASED, Polychromasia 1+, Hypochromic-Microcytic 2+, Poikilocytosis 2+, Anisocytosis 2+, Microcytic Cells 1+, Ovalocytes , Elliptocytes , Schistocytes 1+, PUBS MCHC 30.6 L 05/05/16 0020: APTT 98 H Recent Imaging Studies: CXR 05/04 1. No significant change in pulmonary edema. 2. Perhaps minimal decrease in size of bilateral pleural effusions. Assessment/Plan Assessment/Plan 1. Acute kidney injury, improving 2. Mechanical aortic valve (1994) with elevated mean gradient of 37 mmHg by Echo 3. Anticoagulated on warfarin with INR greater than 10, improving 4. Ascites, Hx of Hep C, status post paracentesis 5. Severe anemia, likely secondary to occult GI blood loss, requiring transfusion 6. Mild troponin elevation, likely secondary to demand ischemia precipitated by severe anemia. 7. History of ascending aortic aneurysm 8. 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 Would continue Lasix 20 mg by mouth daily. INR is currently therapeutic. Hg 7.6 today. Dick Lemons MD [facility] Continue telemetry? Not applicable
[2016-05-06 17:14] VITALS: BP 106/50
--- NOTE | 2016-05-06 19:49 | NUR ---
NURSING NOTE; LATE ENTRY; AROUND 1545 ORDER PUT IN TO INFUSE PT WITH 1 UNIT OF PRBC. WHEN THIS RN WENT IN TO TELL PT, PT REFUSED TO RECIEVE UNIT STATING, "IM STILL PEEING FROM THE LASIX BECAUSE OF THE OTHER UNITS THEY GAVE ME." THIS RN CALLED DIRECTOR SUPPLY #[id number] TO BEDSIDE. DIRECTOR SUPPLY #[id number] TO BEDSIDE TO TALK TO PT. PT STILL REFUSING TO RECIEVE UNIT OF BLOOD. ORDER CANCELLED. NO FURTHER ORDERS AT THIS TIME. WILL CONTINUE TO MONITOR.
[2016-05-07 00:19] VITALS: BP 118/64
--- NOTE | 2016-05-07 07:12 | PN- Housestaff ---
MONTAAN BANERJEE,[facility] 05/07/16 0712: Subjective Follow-up For: lower abdominal pain Anemia Guaiac positive stool Parital splenic infarct Subjective: Patient is alert and oriented, endorses no new complaints, still has pain in the lower abdomen and complains of distention. has had two bowel movements since yesterday which reports to be dark. denies SOB, headache or dizziness. Patient refused blood transfusion yesterday and also refuses blood transfusion again today. He is aware of the risks and wants to go home and relax before any further work up. He wants to follow up with Dr. Nix (GI) for biopsy results as well as hepatitis C treatment and Dr. Victoria (Sx) for evaluation of the mesh that was used for hernia repair in 2003. He will also follow up with Dr. Kidd. Review of Systems Constitutional: Reports: malaise, weakness. Denies: chills, fever. EENTM: Reports: no symptoms. Cardiovascular: Denies: chest pain, palpitations, peripheral edema. Respiratory: Denies: cough, short of breath. Gastrointestinal: Reports: abdominal pain, bloating, distention. Denies: constipation, diarrhea, melena, nausea, bloody stool, changes in stool, vomiting. Genitourinary: Reports: frequency. Denies: dysuria, pain. Musculoskeletal: Reports: no symptoms. Skin: Reports: no symptoms. Objective Last 24 Hrs of Vital Signs/I&O Vital Signs Date Time Temp Pulse Resp B/P Pulse O2 O2 Flow FiO2 Ox Delivery Rate 05/07 0812 97.8 63 20 102/52 92 Room Air 05/07 0019 98.2 65 18 118/64 95 Room Air 05/06 1714 98.2 61 18 106/50 90 05/06 1039 58 118/60 Intake & Output 05/07 1600 05/07 0800 05/07 0000 Intake Total Output Total 1275 300 Balance -1275 -300 Number 1 1 Bowel Movements Output, Urine 1275 300 Physical Exam General Appearance: Alert, Oriented X3, Cooperative, No Acute Distress Skin: No Rashes, No Breakdown, No Significant Lesion HEENT: Atraumatic, EOMI Neck: Supple Cardiovascular: Regular Rate, mechanical heart sound Lungs: Clear to Auscultation, Normal Air Movement Abdomen: Soft, tenderness on the lower abdomen (right left and midline) Neurological: Normal Speech, Strength at 5/5 X4 Ext, Normal Tone, Sensation Intact Extremities: No Edema, Normal Pulses, AKA right leg Vascular: Normal Pulses Current Medications: Current Medications Sig/Jean Pierre Start time Last Medication Dose Route Stop Time Status Admin Escitalopram Oxalate 10 MG DAILY 04/27 1247 AC 05/06 PO 1039 Furosemide 20 MG DAILY 05/06 1000 AC 05/06 PO 1038 Loratadine 10 MG DAILY 04/27 1708 AC 05/06 PO 1038 Nebivolol 5 MG DAILY 04/29 1000 AC 05/06 PO 1039 Nicotine 21 MG DAILY 04/28 1415 AC 05/06 TOP 1040 Omeprazole 40 MG DAILY AC 05/05 0700 AC 05/06 PO 0500 Oxycodone HCl 30 MG Q8 05/03 2200 AC 05/07 PO 0456 Oxycodone HCl 15 MG Q4P PRN 05/03 1415 AC 05/07 PO 0103 Patient Medication 1 ED .STK-MED ONE 05/06 1332 DC Teaching ED 05/06 1333 Warfarin Sodium 1 MG COUMADIN 1700 ONE 05/06 1700 DC 05/06 PO 05/06 1701 1823 Last 24 Hrs of Lab/Ronan Results Last 24 Hrs of Labs/Mics: Laboratory Tests 05/07/16 0615: PT 20.5 H, INR 1.97 H, CBC w Diff MAN DIFF ORDERED, RBC 2.97 L, MCV 78.3 L, MCH 24.1 L, RDW 26.6 H, MPV 9.4, Gran % 66.5, Lymphocytes % 19.6 L, Monocytes % 11.2 H, Eosinophils % 2.7, Basophils % 0 L, Absolute Granulocytes 3.2, Absolute Lymphocytes 0.9 L, Absolute Monocytes 0.5, Absolute Eosinophils 0.1, Absolute Basophils 0, Platelet Estimate ADEQUATE, Polychromasia , Hypochromic- Microcytic 2+, Poikilocytosis 1+, Anisocytosis 1+, PUBS MCHC 30.8 L Assessment/Plan Assessment: This is a 65-year-old male with past medical history of hypertension, CABG with [place] Ao valve on Coumadin, who presented to the ED with CC abdominal pain, generalized weakness. He was subsequently found to have supratherapeutic INR and profound anemia. Patient was admitted to ICU for further management and treatment. He was given total 6 pRBCs and 2 ffps as well as vitamin K. Patient was transferred to when H/H stabilized. Problem list and PLAN: Shortness of breath, possibly 2/2 volume overload POST TRANSFUSION, resolved. * per cardiology will continue PO lasix 20 mg daily for 1 week, he is advised to follow with caridology within a week Acute blood loss anemia, possibly due to GIB Patient came in with hemoglobin 3.9, hematocrit 12.7. received 6 units of PRBC in the hospital as well as [address] scan of the abdomen showed moderate volume intraperitoneal free fluid with intermediate density, potentially blood products arising from the spleen. Also, splenomegaly with wedge-shaped hypoenhancement at the inferior margin, most compatible with splenic infarction. Patient underwent EGD and colonoscopy, no source of bleeding was found and 6 polyps were removed. Also had isolated nonbleeding gastric varices with red wall markings. *Patient has been consistently reportring pain in the lower abdmen and that the mesh that was used for abdominal hernia repair more than 10 years go has been dispaced and causing the pain. He want to get discharged at this point and follow up outpatient with Sx for that. Given his elevated INR on admission and evidence of possible intraabdominal bleeding in the CT, it is possible that the mesh may have caused irritations/ruptures and bleeding. *Patient has had 2 bowel movements since yesterday and reports they are still dark. Guaiacs have been positive. *H/H has been dropping since yesterday but the patient refuses any further transfusions. Risks of not getting transfuison and symptoms have been explained to the patient and he still wants to go home and follow up out patient with PCP. * He will have a CBC checked on Wednesday05/12/26 next week and copy PCP. * continue PPI orally upon discharge Supratherapeutic INR: Patient has had CABG in 1994 status post mechanical aortic valve, on admission his INR was greater than 10. Patient reported that three days before admission INR was at 5.0 and he had stopped taking Coumadin at that time. Vitamin K and FFP were given on admission. when INR came below 2 patient was started on IV heparin to bridge with coumadin. We have given coumadin since wednesday 2 mg ,3mg ,5 mg ,1 mg. Today INR is below 2 therfore coumadin 2 mg will be given before discharge, he will take 2 mg daily until next week on 05/12/16 and copy PCP and bob adjust dose further based on PCP recommendaitons. Positive troponin; h/o CAD- trended down: Patient given troponin 0.53, subsequent therapeutic 0.81 and then back to 0.63. Likely represent demand picture. Patient does have known CAD and is status post CABG. * patient will follow up with caridology outpatient HTN: Tab Bystolic 5 mg PO daily was restarted after cardio consultation, also to prevent further SVT. Acute renal failure: Patient came in with creatinine of 2.2. His baseline seems to be 0.7. Urine work up shows FeNa .3, possibly suggesting intrinsic renal pathology in addition to pre-renal etiology given low H/H and poor PO intake. Possible superimposed ATN with pre-renal etiology. resolved. * has been drinking well, Cr today is 0.7 * will need to be cautious about hydration as patient has developed pulmonary edema and pleural effusion Smoking: Patient has prolonged history of cigarette use. * Nicotine patch Chronic pain: Patient has chronic pain secondary to back and his right lower extremity amputation. * OxyContin 30 mg by mouth every 8 hours * Roxicodone 15 mg every 4 hours when necessary Depression: Con't SSRI FULL CODE Mechanical DVT ppx HEART HEALTHY DIET PATIENT WILL BE DISCHARGED HOME WITH HOME CARE, today ON 05/07/16 Problem List: 1. Anemia 2. Depression 3. HTN (hypertension) 4. Intra abdominal hemorrhage 5. Warfarin-induced coagulopathy 6. Symptomatic anemia 7. Unilateral AKA 8. Abdominal hernia Pain Ratin Pain Location: abdomen, generalized, knees and back Pain Goal: Pain 4 or less Pain Plan: Oxycontin oxycodone Tomorrow's Labs & Rationales: none PATO BANERJEE,LIA 05/07/16 0938: Attending MD Review Statement Attending Statement Attending Assessment/Plan: Attending MD Statement: examined this patient, discuss w/resident/PA/FIELD SUPPORT SPECIALIST, agreed w/resident/PA/FIELD SUPPORT SPECIALIST, reviewed EMR data (avail) Attending Assessment/Plan: Patient complains of abdominal distention and diffuse abdominal pain which is not new. His pain appears to be better than yesterday. Patient denies any recent fever chills or chest pains. He refused blood transfusion yesterday. He has been afebrile and has currently stable vital signs. His abdomen has a linear scar from prior surgery as well as multiple indurated areas from prior surgeries. He is mildly tender without any guarding or rebound. Bowel sounds are present. Chest exam is clear. Hematocrit has dropped to 23.2. No Chemistry labs are done today. 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 Possibility of embolic phenomena * History of aortic wall replacement mechanical currently on Coumadin Plan * Continue supportive treatment. * Recheck CBC next week * Keep hematocrit above 24 * Start oral iron with food 325 mg 3 times a day for 3 weeks * Increased given her 2 mg * Recheck INR tomorrow * Patient will need to follow with Dr. Loera and Dr. Nix * Patient at this point does not want any blood transfusion. He just wishes to go home. He appears medically stable for discharge. Patient verbalizes understanding that he will return to emergency room if he has increasing abd pain, fainting, dizziness or extreme weakness or acute bleeding.
[2016-05-07 08:07] LABS: HEMATOCRIT 23.2 % (42-52); WHITE BLOOD CELL COUNT 4.8 /CUMM (4.8-10.8)
[2016-05-07 08:12] VITALS: BP 102/52
[2016-05-07 08:13] LABS: ABSOLUTE BASOPHIL COUNT 0 /CUMM (0.0-0.2); ABSOLUTE EOSINOPHIL COUNT 0.1 /CUMM (0.0-0.7); ABSOLUTE GRANULOCYTE CT 3.2 /CUMM (1.4-6.5); ABSOLUTE LYMPH COUNT 0.9 /CUMM (1.2-3.4); ABSOLUTE MONOCYTE COUNT 0.5 /CUMM (0.10-0.60); BASOPHIL % 0 % (0.0-2.0); EOSINOPHIL % 2.7 % (0-5); GRANULOCYTE % 66.5 % (42.2-75.2); MEAN CORPUSCULAR HGB 24.1 PG (27.0-31.0); MEAN CORPUSCULAR HGB CONC 30.8 G/DL (33.0-37.0); MEAN CORPUSCULAR VOLUME 78.3 FL (80.0-94.0); MEAN PLATELET VOLUME 9.4 FL (7.4-10.4); PLATELET COUNT 166 /CUMM (130-400); RBC DISTRIBUTION WIDTH 26.6 % (11.5-14.5); RED BLOOD CELL CT 2.97 /CUMM (4.70-6.10)
[2016-05-07 08:20] LABS: PT 20.5 SEC (9.4-12.5)
[2016-05-07 10:44] VITALS: BP 100/44
[2016-05-07] MEDS ORDERED: NICOTINE PATCH1 EAC3 TOP (13:23)
== END 2016-05-07 13:45 | disposition home health service (06) | DRG 812 ==
LOC: ENRESERVTM → ENRESERVDT → ERH 08:17 → ERHI 11:27 → 2NB 11:27 → CRI 11:27 → ENPENDDIS 11:27 → CRI 14:25 → 2NB 05-01 14:09
PROVIDERS: Emergency Medicine; Internal Medicine; Internal Medicine Cardiovascular Disease; Internal Medicine Hematology & Oncology; Internal Medicine Pulmonary Disease; Ophthalmology; Student in an Organized Health Care Education/Training Program; ADMIT Internal Medicine
PROC: 0W9G3ZZ Drainage of Peritoneal Cavity, Percutaneous Approach (ICD-10-PCS; principal; 2016-04-27)
PROC: 30233N1 Transfusion of Nonautologous Red Blood Cells into Peripheral Vein, Percutaneous Approach (ICD-10-PCS; 2016-04-27)
PROC: 0DB68ZX Excision of Stomach, Via Natural or Artificial Opening Endoscopic, Diagnostic (ICD-10-PCS; 2016-04-28)
PROC: 0DB98ZX Excision of Duodenum, Via Natural or Artificial Opening Endoscopic, Diagnostic (ICD-10-PCS; 2016-04-28)
PROC: 0DBM8ZX Excision of Descending Colon, Via Natural or Artificial Opening Endoscopic, Diagnostic (ICD-10-PCS; 2016-04-30)
PROC: 0DBK8ZX Excision of Ascending Colon, Via Natural or Artificial Opening Endoscopic, Diagnostic (ICD-10-PCS; 2016-04-30)
PROC: 0DBL8ZX Excision of Transverse Colon, Via Natural or Artificial Opening Endoscopic, Diagnostic (ICD-10-PCS; 2016-04-30)
PROC: 0DBN8ZX Excision of Sigmoid Colon, Via Natural or Artificial Opening Endoscopic, Diagnostic (ICD-10-PCS; 2016-04-30)
DX: D62 Acute posthemorrhagic anemia (principal); N17.9 Acute kidney failure, unspecified; E46 Unspecified protein-calorie malnutrition; D68.9 Coagulation defect, unspecified; I24.8 Other forms of acute ischemic heart disease; R18.8 Other ascites; K22.2 Esophageal obstruction; K92.1 Melena; Z68.1 Body mass index [BMI] 19.9 or less, adult; D73.5 Infarction of spleen; R58 Hemorrhage, not elsewhere classified; T45.515A Adverse effect of anticoagulants, initial encounter; D50.9 Iron deficiency anemia, unspecified; K29.60 Other gastritis without bleeding; I86.4 Gastric varices; K29.80 Duodenitis without bleeding; K57.30 Diverticulosis of large intestine without perforation or abscess without bleeding; K64.8 Other hemorrhoids; N50.89 Other specified disorders of the male genital organs; I10 Essential (primary) hypertension; F17.210 Nicotine dependence, cigarettes, uncomplicated; Z95.1 Presence of aortocoronary bypass graft; Z95.4 Presence of other heart-valve replacement; Z89.611 Acquired absence of right leg above knee; B19.20 Unspecified viral hepatitis C without hepatic coma
CPT/HCPCS: 2NBP; 84133; 84300; 87075; CCU; 36415; 74176; 74177; 82436; 82570; 86920; 87040; 88305; 88312; 90662; 93005; 93010; 93306; 96361; 96374; 96375; 99291; J0696; J1642; J1644; J1940; J7042; J7060; P9016; P9017

== ENCOUNTER 2016-05-22 16:11 | Observation (INO) | payer OTHER, MEDICARE ==
[~2016-05-22] VITALS: Ht 177.8 cm; Wt 58.3 kg
[~2016-05-22 16:11] MED LIST changes: +COUMADIN2 M1 PO; +FUROSEMIDE20 M1 PO; +LEXAPRO10 M1 PO; +NICOTINE PATCH1 EAC3 TOP; +OXYCONTIN30 M1 PO; +PROTONIX40 M3 PO; +TIZANIDINE HCL4 M1 PO
--- NOTE | 2016-05-22 16:50 | ED GENERAL ADULT ---
History of Present Illness General Chief Complaint: General Adult Stated Complaint: SENT IN BY MD FOR ?ABNORMAL LABS Source: patient Exam Limitations: no limitations Vital Signs & Intake/Output Vital Signs & Intake/Output Vital Signs Date Time Temp Pulse Resp B/P Pulse O2 O2 Flow FiO2 Ox Delivery Rate 05/22 2038 97.8 62 22 112/55 96 Room Air 05/22 1920 98.3 58 18 104/58 99 Room Air 05/22 1902 98.4 60 18 104/50 98 Room Air 05/22 1702 68 05/22 1614 97.8 72 20 100/62 97 Room Air Allergies Coded Allergies: gentamicin (SYSTEMIC REACTION - "TOOK MY BALANCE" 05/22/16) Reconcile Medications Escitalopram Oxalate (Lexapro) 10 MG TABLET 1 TAB PO DAILY MENTAL HEALTH ( Reported) Nebivolol HCl (Bystolic) 5 MG TABLET 1 TAB PO DAILY BP (Reported) Nicotine (Nicotine Patch) 21 MG/24 HOUR PATCH.TD24 1 PAT TOP DAILY TOBACCO Oxycodone HCl 15 MG TABLET 1 TAB PO Q4-6HP PRN PAIN (Reported) Oxycodone HCl (Oxycontin) 30 MG TAB.ER.12H 1 TAB PO TID CHRONIC PAIN ( Reported) Pantoprazole Sodium (Protonix) 40 MG TABLET.DR 1 TAB PO DAILY GI prophylaxis Tizanidine HCl 4 MG TABLET 1 TAB PO TID PAIN (Reported) Warfarin Sodium (Coumadin) 2 MG TABLET 1 TAB PO AD HEART VALVE (Reported) Warfarin Sodium (Coumadin) 4 MG TABLET 1 TAB PO AD BLOOD THINNER (Reported) Triage Note: PT TO ED FOR BLOODWORK. STATES LOAN ADVISER TOLD HIM TO COME IN. PT CHECKS HIS INR AT HOME, STATES YESTERDAY IT WAS 6. PT WAS DISCHARGED FROM [facility] 1 WEEK AGO. PT WAS UNABLE TO GET TO ED YESTERDAY. Triage Nurses Notes Reviewed? yes Onset: Gradual Duration: week(s): (1) Timing: recent history Injury Environment: home Severity: moderate HPI: Patient is a 65-year-old male with history of valve replacement on Coumadin and has been for the past 25 years, recent hospital admission approximately 2 weeks ago for acute anemia presenting to the emergency department with chief complaint of malaise that's been going on for the past 1-1/2 weeks since being discharged. He reports symptoms have been getting worse over the past couple days. He also is coming in reporting that he checked his INR level at home and it was 5.9, he checked again to make sure was accurate and it went up to 6.3. Patient reports that this morning he had an episode of left-sided upper ab pain and left rib pain that was sharp in nature and nonradiating. It lasted about an hour or 2 and then resolved on its own when he went to sleep. He felt mildly short of breath this morning as well. Chest pain went away all day and returned when he came into the emergency department today. He is getting several sharp pains in the left side of his chest currently. Nothing seems to make it better or worse. According to the patient the patient has been on 2 mg of Coumadin since discharge from the hospital. He usually takes anywhere between 3 and 5 mg. Denies any lower extremity pain. He does have a right lower extremity amputation. He reports that he's been living in his recliner. He saw a surgeon 2 days ago who was taking his sleeping for a preoperative evaluation, call them to report the Coumadin level and was told to come to the emergency department for evaluation. Patient denying any cough. No sputum production. Denies any lightheadedness or dizziness. He does report generalized malaise and weakness. No fevers or chills. He reports that he had 6 units of blood when he was admitted 2 weeks ago. (JASEN JORDAN) Past History Travel History Traveled to [place] past 21 day No Medical History Any Pertinent Medical History? see below for history Cardiovascular: hypertension, AORTIC VALVUE REPLACMENT CABG Respiratory: NONE Hepatic: hepatitis C Renal: NONE Musculoskeletal: RIGHT FEMUR OSTEOMYELITIS TOTAL R HIP DISARTICULATI MUSCLE FLAP RECONSTRUCTIO Psychiatric: anxiety Endocrine: NONE Blood Disorders: anemia, BLOOD TRANSFUSIONS History of MRSA: Yes History of VRE: No History of CDIFF: No Surgical History Surgical History: appendectomy, hernia repair-incisional, right leg amputation Psychosocial History Who do you live with Patient/Self What is your primary language Hebrew Tobacco Use: Quit >30 days ago ETOH Use: denies use Illicit Drug Use: denies illicit drug use Family History Family History, If Any: MOTHER Relation not specified for: *No pertinent family history Hx Contributory? No (JASEN JORDAN) Review of Systems Review of Systems Constitutional: Reports: malaise, weakness. Comments Review of systems: See HPI, All other systems negative. Constitutional, no chills fever or weight loss HEENT: No visual changes no sore throat no congestion Cardiovascular: No palpitation , orthopnea or ankle swelling Skin, no jaundice no rashes Respiratory: No cough sputum or hemoptysis GI: No nausea no vomiting : No dysuria No hematuria Muscle skeletal: no back pain, no neck pain, Neurologic: No numbness no confusion, no headaches Psych: No stress anxiety or depression,. Heme/endocrine: No bruising no bleeding no polyuria or polydipsia Immunology: No splenectomy or history of AIDS (JASEN JORDAN) Physical Exam Physical Exam General Appearance: no apparent distress, alert, awake, comfortable, thin, PALE Comments: Well-developed well-nourished person in no acute distress HEENT:extraocular motion intact, no nystagmus. Pupils equally round and reactive to light and accommodation. Nose is atraumatic. External auditory canal and Tympanic membranes clear. Pharynx normal. No swelling or edema.pallor to palbable conjunctiva. Neck: Normal inspection Back: Nontender, no CVA tenderness. Full range of motion Cardiovascular: Regular rate and rhythms no murmurs rubs or gallops, normal JVP Respiratory: Chest nontender. No respiratory distress.breath sounds clear to auscultation bilaterally Abdomen: Soft, mildly tender to palpation in the left lower and left upper quadrant without guarding or rebound tenderness. Nondistended, no appreciable organomegaly. Normal bowel sounds. No ascites REACTAL: NON-TENDER, BROWN STOOL, TRACE GUIAC POSITIVE Extremity: No edema, right lower extremity amputation. Neuro: Alert oriented x3, motor sensory normal, cranial nerves II through XII grossly intact. Skin: No appreciable rash on exposed skin, skin is warm and dry. Psych: Mood and affect is normal, memory and judgment is normal. Core Measures ACS in differential dx? No CVA/TIA Diagnosis: No Severe Sepsis Present: No Septic Shock Present: No (JASEN JORDAN) Progress Differential Diagnoses I considered the following diagnoses in my evaluation of the patient: Acute on chronic anemia, dehydration, electrolyte abnormality, ACS, PE, hypercoagulable state, hypocoagulable state Plan of Care: Orders Procedure Date/time Status Heart Healthy Diet 05/23 B Active Vital Signs 05/22 2124 Active Teach/Educate 05/22 2124 Active Pain Treatment and Response 05/22 2124 Active Nutritional Intake, Monitor 05/22 2124 Active Isolation 05/22 2124 Active Intake & Output 05/22 2124 Active Patient Care Conference 05/22 2124 Active Activity/Ambulation 05/22 2124 Active BLOOD PRODUCT PICKUP 05/22 2118 Active FRESH FROZEN PLASMA 05/22 2105 Active Pathway - chart 05/22 2025 Active House Staff 05/22 2025 Active Patient Data 05/[address] in observation 05/22 185 Active Vital Signs 05/22 1855 Active Code Status 05/22 185 Active BLOOD PRODUCT PICKUP 05/22 1753 Active LEUKOCYTE POOR (PACKED CELLS) 05/22 1744 Active TROPONIN LEVEL 05/22 165 Complete COMPREHENSIVE METABOLIC PANEL 05/22 165 Complete EKG 05/22 1650 Active TYPE & SCREEN (NOT X-MATCH) 05/22 165 Active Intake & Output 05/22 1641 Active PARTIAL THROMBOPLASTIN TIME 05/22 162 Complete PROTHROMBIN TIME 05/22 162 Complete CBC WITHOUT DIFFERENTIAL 05/22 1626 Complete Hemoccult 05/22 UNK Active Current Medications Sig/Jean Pierre Start time Last Medication Dose Stop Time Status Admin Phytonadione 10 MG ONCE ONE 05/23 0800 AC (Vitamin K) 05/23 0801 Nicotine 21 MG DAILY 05/23 2155 AC (Nicoderm) Laboratory Tests 05/22/165: Anion Gap 11, Estimated GFR > 60, BUN/Creatinine Ratio 32.9 H, Glucose 134 H, Calcium 9.0, Total Bilirubin 0.3, AST 28, ALT 31, Alkaline Phosphatase 106, Troponin I < 0.01, Total Protein 7.2, Albumin 3.5, Globulin 3.7, Albumin/ Globulin Ratio 0.9 L, PT > 103.0 *H, INR > 10.0 *H, APTT 59 H, CBC w Diff MAN DIFF ORDERED, RBC 2.90 L, MCV 76.0 L, MCH 23.5 L, RDW 24.5 H, MPV 8.0, Gran % 69.1, Lymphocytes % 22.0, Monocytes % 6.6, Eosinophils % 2.3, Basophils % 0 L , Absolute Granulocytes 3.6, Segmented Neutrophils 79 H, Absolute Lymphocytes 1.2, Lymphocytes 17 L, Monocytes 3, Absolute Monocytes 0.3, Eosinophils 1, Absolute Eosinophils 0.1, Absolute Basophils 0, Platelet Estimate ADEQUATE, Hypochromic-Microcytic 2+, Poikilocytosis 2+, Target Cells 2+, Stomatocytes 2+, Elliptocytes 1+, PUBS MCHC 30.9 L Diagnostic Imaging: Viewed by Me: Radiology Read. Discussed w/RAD: Radiology Read. Radiology Impression: IMPROVMENT SINCE LAST CXRAY. NO ACUTE ABNORMALITY SEEN. NO ACUTE PNA OR CARDIOMEGALY. Initial ED EKG: NSR Prior EKG: unchanged Comments: On arrival patient is not tachycardic or hypotensive. Reporting malaise appears pale. Recently admitted for acute anemia with no clear source, he reports that he was told that his spleen needs to come out. He actually had a preoperative examination from his surgeon a few days ago for this procedure. He reports decreased by mouth intake as well and intermittent nausea but no vomiting. No urinary symptoms. Patient will have repeat CBC, CMP, type and screen ordered. We will make sure that patient H&H is not dropping and staying similar to previous labs. Patient resting comfortably at this time. Patient informed of all lab work results. Patient will need a transfusion at as his H&H is dropping, his INR is also greater than 10. We will give him vitamin K to reverse Coumadin, blood products will be ordered. Patient will signed consent form. Patient does have trace positive guaiac, brown stool. According to previous consultation notes from previous visit, GI Evaluated the Patient and Had Performed a Colonoscopy and Was Told to Be Contacted Again If There Is Any Overt Bleeding. Patient May Need Consultation While Admitted. No EKG changes. Patient will be admitted to medicine. Patient was seen and evaluated with Dr. Cyr as well. He agrees with plan. There are no acute changes on CT of the abdomen. (KIM BAH,JASEN) Departure Departure Time of Disposition: 1904 Disposition: STILL A PATIENT Condition: Stable Clinical Impression Primary Impression: Symptomatic anemia Secondary Impressions: Elevated INR Referrals: CONSTANTINO BANERJEE,JESSICA Gordon (PCP/Family) Departure Forms: Customer Survey General Discharge Information Observation Note Spoke With: JAS BANERJEE,ELIANA Physician Advisor Notified: KATYA BANERJEE,ARANZA [facility] Patient In: Non-ED OBS Care Area Rationale for Observation: My rational for observation is as follows . Patient is currently anemic more so than baseline from previous discharge, requiring blood transfusion, patient also hypocoagulable with an INR greater than 10. Patient will need reversal with vitamin K, most likely will need FFP. Patient may need GI consultation, medication adjustments, to follow splenomegaly, rechecked H&H and INR to therapeutic levels. (JASEN JORDAN) PA/MODEL MAKER SCALE Co-Sign Statement Statement: ED Attending supervision documentation- [x] I saw and evaluated the patient. I have also reviewed all the pertinent lab results and diagnostic results. I agree with the findings and the plan of care as documented in the PA's/MODEL MAKER SCALE's documentation. [] I have reviewed the ED Record and agree with the PA's/MODEL MAKER SCALE's documentation. [] Additions or exceptions (if any) to the PAs/MODEL MAKER SCALE's note and plan are summarized below: [] (MACI MANSFIELD DO) Critical Care Note Critical Care Note Critical Care Time: 30-74 min (JASEN JORDAN)
[2016-05-22] MEDS ORDERED: COUMADIN4 M1 PO (17:03)
[2016-05-22 17:07] LABS: ABSOLUTE BASOPHIL COUNT 0 /CUMM (0.0-0.2); ABSOLUTE EOSINOPHIL COUNT 0.1 /CUMM (0.0-0.7); BASOPHIL % 0 % (0.0-2.0)
[2016-05-22 17:11] LABS: ABSOLUTE GRANULOCYTE CT 3.6 /CUMM (1.4-6.5); ABSOLUTE LYMPH COUNT 1.2 /CUMM (1.2-3.4); ABSOLUTE MONOCYTE COUNT 0.3 /CUMM (0.10-0.60); EOSINOPHIL % 2.3 % (0-5); GRANULOCYTE % 69.1 % (42.2-75.2); HEMATOCRIT 22.1 % (42-52); MEAN CORPUSCULAR HGB 23.5 PG (27.0-31.0); MEAN CORPUSCULAR HGB CONC 30.9 G/DL (33.0-37.0); PLATELET COUNT 278 /CUMM (130-400); RBC DISTRIBUTION WIDTH 24.5 % (11.5-14.5); WHITE BLOOD CELL COUNT 5.3 /CUMM (4.8-10.8)
--- NOTE | 2016-05-22 17:19 | RADIOLOGY REPORT ---
EXAMINATION: XR PORTABLE CHEST CLINICAL INFORMATION: Shortness of breath. Chest pain. COMPARISON: Chest x-ray 05/04/2016 TECHNIQUE: Portable AP portable view of the chest was obtained. 5:01 PM FINDINGS: There is been improvement since the prior chest x-ray. The previously seen congestive heart failure and bilateral pleural effusions and airspace disease has resolved. The lungs are now clear. No pulmonary vascular congestion and there is no pleural effusion. Status post median sternotomy. Heart size is normal. There are calcifications of thoracic aorta. IMPRESSION: No acute abnormality of chest.
[2016-05-22 17:20] LABS: PTT 59 SEC (25-37)
[2016-05-22 17:26] LABS: PT > 103.0 SEC (9.4-12.5)
--- NOTE | 2016-05-22 19:17 | CT SCAN REPORT ---
EXAMINATION: CT ABDOMEN AND PELVIS WITH CONTRAST CLINICAL INFORMATION: Left upper quadrant abdominal pain and anemia. Evaluate for splenic infarction. COMPARISON: Abdominal ultrasound 04/30/2016. CT abdomen and pelvis with contrast 04/28/2016. TECHNIQUE: Multidetector volumetric imaging was performed of the abdomen and pelvis before and after the IV administration of 94 mL of Optiray 320 intravenous contrast. Sagittal and coronal reformatted images were obtained on the technologist's workstation. DLP: 282 mGy-cm FINDINGS: LUNG BASES: Interval development of bilateral pleural effusions, right greater than left with overlying bibasilar compressive atelectasis. Normal heart size, without significant pericardial effusion. LIVER, GALLBLADDER, AND BILIARY TREE: The liver is normal in size, shape, and attenuation. No focal hepatic lesion or biliary ductal dilatation is present. The gallbladder is decompressed, without evidence of radiopaque gallstones, gallbladder wall thickening, or obvious pericholecystic inflammatory changes. PANCREAS: There is generalized pancreatic atrophy. Redemonstrated is an ill-defined hypoattenuating lesion interposed between the distal pancreatic tail as well as the splenic hilum measuring approximately 3.8 x 3.0 x 3.8 cm in AP, transverse and craniocaudal dimensions respectively (series 2, image 27). This ill-defined region of hypoattenuation measures approximately 9 Hounsfield units and remains indeterminate. It does not appear significantly changed in size relative to the prior examination. SPLEEN: The spleen is enlarged and is again visualized measuring approximately 15.7 cm in length, not significantly changed in size relative to the prior examination in which it measured 15.5 cm in craniocaudal dimension. There is a focal region of geographic hypoattenuation within the lower pole of the spleen, which could represent a geographic infarction. No perisplenic hematoma or fluid collections are identified. ADRENAL GLANDS: Unremarkable. KIDNEYS AND URETERS: Evaluation of the bilateral kidneys is again notable for multiple bilateral simple renal cortical cysts, visualized measuring up to 1.6 cm along the lower pole of the left kidney. No renal or ureteral stones are identified and there is no hydroureteronephrosis of either kidney or renal collecting system. BLADDER: Decompressed. No bladder stones are identified. GASTROINTESTINAL TRACT: Normal anatomic orientation of the stomach relative to the duodenum. Normal caliber of abdominal and pelvic bowel loops, without findings indicative of small bowel obstruction or ileus. Feculent material is identified within loops of small bowel. This finding is nonspecific but can be seen in the setting of delayed intestinal transit. The appendix is not clearly visualized on this examination. There are no acute inflammatory changes within the right lower quadrant of the abdomen. No intraperitoneal or retroperitoneal hematoma is identified. There are no organizing intra-abdominal or pelvic fluid collections. Redemonstrated is scattered colonic diverticulosis, without secondary signs of acute diverticulitis. ABDOMINAL WALL: Findings related to prior ventral abdominal wall repair with recurrent hernia and anterior displacement of several anchors screws into the ventral abdominal wall. There is an unremarkable appearing segment of the transverse colon within the abdominal wall defect. LYMPH NODES: No significant mesenteric, retroperitoneal, deep pelvic or inguinal adenopathy. VASCULAR: Prominent collateral vessels within the abdomen. Notably, there are prominent varices at the splenic hilum. Prominent omental varices also visualized, subjacent to the ventral abdominal wall defect. The main portal vein, the right and left portal veins as well as the superior mesenteric vein are patent and opacified by intravenous contrast. 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 There is scattered atherosclerosis of the abdominal aorta and its branching vessels, without aneurysmal dilatation. These vessels are opacified by intravenous contrast. PELVIC VISCERA: Unremarkable. OSSEOUS STRUCTURES: No acute osseous abnormality. There is partially visualized mechanical hardware within the proximal left femur. The right proximal femur and right hip are surgically absent. Normal alignment of the imaged thoracolumbar spine. No visible acute osseous abnormalities. IMPRESSION: 1. Stable mild splenomegaly, with the spleen visualized measuring up to 15.7 cm in craniocaudal dimension. There is a geographic region of hypoattenuation along the lower pole of the spleen, indicative of evolving splenic infarction. No perisplenic hematomas or fluid collections are identified. No intraperitoneal or retroperitoneal hematoma. 2. Stable ill-defined region of hypoattenuation interposed between the splenic hilum as well as the distal pancreatic tail. This ill-defined region of hypoattenuation measures approximately 3.8 x 3.0 x 3.8 cm in AP, transverse and critical dimensions respectively. This finding is indeterminate and incompletely characterized on this examination. Differential diagnostic considerations include but are not limited to a fat-containing mass, desmoplastic reaction, the distal pancreatic tail lesion versus sequela of prior infection or inflammation within the splenic hilum. Contrast-enhanced MRI of the abdomen may be obtained for further evaluation, barring any contraindications to MRI (pancreatic mass protocol). 3. Interval development of small bilateral pleural effusions.
--- NOTE | 2016-05-22 22:37 | History & Physical ---
ZAIN BANERJEE,[facility] 05/22/16 2236: General Information and HPI MD Statement: I have seen and personally examined Blanca ROSENBERG and documented this H&P. The patient is a 65 year old M who presented with a patient stated chief complaint of abnormal labs. Source of Information: patient Exam Limitations: no limitations History of Present Illness: This is a 65-year-old gentleman with a PMH of HTN, CABG with 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 Patient states that he received a phone call from HIS MD's office requesting him to come to the ER after his lab work that was done 2 days ago was remarkable for elevated INR and low H/H. Of note, patient is following up with Addison Victoria MD for preparation for splenectomy due to recent findings of splenic infarct. Patient denies taking any new medication including an antibiotic, or increasing his Coumadin dose, and reports that he is taking the medication as directed. Of note, during the last admission patient INR was also found to be supratherapeutic (>10). His May 11 outpatient INR was 2.65. Patient is also reporting that since his last discharge, he has been experiencing progressively worsening generalized weakness, malaise and decreased appetite. He also reports an episode of chest pain which he localizes it as substernal. His episode of chest pain was transient and only lasted 1-2 minutes , there was no associated shortness of breath, radiation, diaphoresis, or numbness of upper extremities. Patient denies any palpitation, fevers, chills, sick contacts, recent travel, dizziness, neurological focality, abdominal pain, or dysuria. Allergies/Medications Allergies: Coded Allergies: gentamicin (SYSTEMIC REACTION - "TOOK MY BALANCE" 05/22/16) Home Med list Escitalopram Oxalate (Lexapro) 10 MG TABLET 1 TAB PO DAILY MENTAL HEALTH ( Reported) Nebivolol HCl (Bystolic) 5 MG TABLET 1 TAB PO DAILY BP (Reported) Nicotine (Nicotine Patch) 21 MG/24 HOUR PATCH.TD24 1 PAT TOP DAILY TOBACCO Oxycodone HCl 15 MG TABLET 1 TAB PO Q4-6HP PRN PAIN (Reported) Reason to Stop at ADM: pain pathway Oxycodone HCl (Oxycontin) 30 MG TAB.ER.12H 1 TAB PO TID CHRONIC PAIN ( Reported) Pantoprazole Sodium (Protonix) 40 MG TABLET.DR 1 TAB PO DAILY GI prophylaxis Tizanidine HCl 4 MG TABLET 1 TAB PO TID PAIN (Reported) Warfarin Sodium (Coumadin) 2 MG TABLET 1 TAB PO AD HEART VALVE (Reported) Warfarin Sodium (Coumadin) 4 MG TABLET 1 TAB PO AD BLOOD THINNER (Reported) Past History Travel History Traveled to [place] past 21 day No Medical History Blood Transfusion Hx: Yes Neurological: NONE EENT: NONE Cardiovascular: hypertension, AORTIC VALVUE REPLACMENT CABG Respiratory: NONE Gastrointestinal: ABD HERNIA REP-INCISIONAL Hepatic: hepatitis C Renal: NONE Musculoskeletal: RIGHT FEMUR OSTEOMYELITIS TOTAL R HIP DISARTICULATI MUSCLE FLAP RECONSTRUCTIO Psychiatric: anxiety Endocrine: NONE Blood Disorders: anemia, BLOOD TRANSFUSIONS Cancer(s): NONE 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 EENTM: Denies: blurred vision, double vision, visual changes. Cardiovascular: Reports: chest pain. Respiratory: Denies: no symptoms. GI: Denies: no symptoms. Genitourinary: Reports: no symptoms. Musculoskeletal: Reports: no symptoms. Skin: Reports: no symptoms. Neurological/Psychological: Reports: no symptoms. Hematologic/Endocrine: Reports: no symptoms. Immunologic/Allergic: Reports: no symptoms. Exam & Diagnostic Data Last 24 Hrs of Vital Signs/I&O Vital Signs Date Time Temp Pulse Resp B/P Pulse O2 O2 Flow FiO2 Ox Delivery Rate 05/22 2345 97.6 61 18 118/50 94 Room Air 05/22 2038 97.8 62 22 112/55 96 Room Air 05/22 1920 98.3 58 18 104/58 99 Room Air 05/22 1902 98.4 60 18 104/50 98 Room Air 05/22 1702 68 05/22 1614 97.8 72 20 100/62 97 Room Air Intake & Output 05/23 0800 05/23 0000 05/22 1600 Intake Total 400 Output Total Balance 400 Intake, IV 300 Intake, Oral 100 Patient 63.503 kg Weight Physical Exam General Appearance Alert, Oriented X3, Cooperative Skin No Significant Lesion HEENT Atraumatic, PERRLA Neck Supple, +2 Carotid Pulse wo Bruit Lymphatic Cervical nl Cardiovascular Regular Rate, Normal S1, Normal S2 Lungs Normal Air Movement Abdomen Left quadrant mild tenderness. no guarding Neurological Normal Speech, Sensation Intact Extremities right above the knee amputation Diagnostic Data CXR Results SERVICE DATE: 05/22/16-1699 EXAM TYPE: RAD - XRY-PORTABLE CHEST XRAY EXAMINATION: XR PORTABLE CHEST CLINICAL INFORMATION: Shortness of breath. Chest pain. COMPARISON: Chest x-ray 05/04/2016 TECHNIQUE: Portable AP portable view of the chest was obtained. 5:01 PM FINDINGS: There is been improvement since the prior chest x-ray. The previously seen congestive heart failure and bilateral pleural effusions and airspace disease has resolved. The lungs are now clear. No pulmonary vascular congestion and there is no pleural effusion. Status post median sternotomy. Heart size is normal. There are calcifications of thoracic aorta. IMPRESSION: No acute abnormality of chest. DICTATED BY: AMY BATRES MD Assessment/Plan Assessment: This is a 65-year-old gentleman with a recent discharge about 2 weeks ago after being admitted for symptomatic anemia requiring 6 units of PRBC, status post EGD which is remarkable for isolated nonbleeding gastric varices with red wall markings, status post colonoscopy with polypectomy (6 polyps), finding of splenic infarct, and on Coumadin therapy for [employer] Winston's aortic valve replacement , presents for evaluation of low H&H and a supratherapeutic INR. At the ED patient's hemoglobin was noted to be 6.8 and hematocrit 22.1, his last hemoglobin on discharge on May 11 was 7.8 and hematocrit 24.3. His INR on today's presentation is 10. Assessment and plan #Acute worsening of chronic anemia Plan We'll transfuse 2 units of PRBC Will administer IV furosemide 20 mg in between transfusions (patient had a recent history of fluid overload secondary to 6 units of PRBC) Will trend CBC tomorrow morning Will guaiac all stools Will avoid any gastritis inducing medications #Elevated INR Current INR is 10. Even though there is no obvious acute bleeding noticed, in the contest of acute anemia and INR level of 10, reversal is warranted. Plan We'll administer 2 units of FFP Status post 10 units vitamin K subcutaneous Will hold off Coumadin dose Will trend INR PT in the morning #History of chronic pain Will continue OxyContin scheduled and oxycodone as needed for breakthrough pain #History of splenic infarct Patient is to follow-up with Addison Victoria MD on an outpatient basis for evaluation and preparation of splenectomy. As Ranked By This Provider Problem List: 1. Elevated INR 2. Anemia Core Measures/Miscellaneous Acute Coronary Syndrome ACS Diagnosis: No Cerebrovascular Accident CVA/TIA Diagnosis: No Congestive Heart Failure CHF Diagnosis: No Venous Thromboembolism VTE Risk Factors: Age > 40 No Mech VTE prophylaxis d/t: Amputee No VTE Pharm Prophylaxis d/t: Medical contraindication (INR=10, LOW H/H) VTE Diagnosis: No VTE Type: NONE VTE Confirmed by (Test): NONE Severe Sepsis Severe Sepsis Present: No Septic Shock Septic Shock Present: No Miscellaneous Documentation Attending Case Discussed With: ELIANA MARK MD Primary Care Physician: JESSICA MEEKS MD Patient sees these Specialists [employer] WORKER Level of Patient Care: General Medicine (OBS) DAYLIN MARK MD 05/22/16 5379: Attending MD Review Statement Attending Statement Attending MD Statement: examined this patient, discuss w/resident/PA/SENIOR DATABASE ENGINEER, agreed w/resident/PA/SENIOR DATABASE ENGINEER Attending Assessment/Plan: 65 yo M has had a recent extensive stay at [facility] (04/26 05/07) for evaluation of ABLA and coagulopathy. He reports checking his INR at home and they have been 5.0-6.0 over past 2 days. Since it was uptrending, his sales development consultant asked him to come to ER for bloodwork yesterday, however he did not have a ride. Today, he got a ride to ER and his blood work revealed an elevated INR (>10) and severe anemia. PMH includes: HTN, CAD s/p CABG, [employer] aortic valve replacement on coumadin, COPD, IBS, s/p Rt. above knee amputation (2/2 osteomyelitis), Hep C and chronic pain syndrome. Apr 2016 - EGD- nonbleeding gastric varices, gastritis and duodenitis. Colonoscopy- tubular adenomas, diverticulosis. Patient refused any further blood transfusion at which point he was deemed stable to be discharged with a H/H of 7.2/23. Patient was to follow up with Dr. Vogt (June 28) for evaluation for splenectomy (CT e/o splenic infarct ?etiology) and for ?displaced mesh from previous repair done in 1993 @ [facility] as patient c/o chronic left groin pain. He is yet to follow up with Dr. Nix (GI) for evaluation with repeat imaging of peripancreatic/ perisplenic area, and possible repeat paracentesis, and possible need for Hep C treatment. Currently, he c/o weakness, occasional dark colored stools (note that he has been started on iron supplements by his PCP) and left sided atypical chest discomfort. He does report eating more fruits, but no other new meds. Of note, patient reports a new family h/o hemochromatosis where his brother is a carrier and a few other members. He is concerned if he can be evaluated for the same. VSS. Examination is unremarkable except for pallor. Stool guaiac brown stool, trace guaiac positive. Labs: H/H 6.8/22.1, microcytic anemia, INR > 10, BUN 23, trop neg. EKG: SR, LBBB, more prominent T-waves V3-5. CXR: neg. CT abd/pelvis: stable mild splenomegaly, evolving splenic infarct. Stable hypoattenuation of distal pancreatic tail that needs MRI as outpatient. Small b/l pleural effusion. Prior ventral abdominal wall repair with recurrent hernia and displacement of anchor screws into ventral wall. Echo (2017): EF > 65%. 1. Acute on chronic anemia of unclear etiology with warfarin induced coagulopathy, patient hemodynamically stable without evidence of acute blood loss and clinically asymptomatic. 23 Obs on GM, transfuse PRBC to keep Hb > 8.0, guaiac all stools. Reverse INR with vit K and 2 units FFPs for INR between 2.0 3.0. Recheck labs in AM. Hold coumadin. Continue iron supplements. 2. Chronic pain. Ct. Oxycodone and oxycontin. 3. Patient to follow up with Dr. Vogt on June 28 for eventual plan for splenectomy. Outpatient follow up with GI (Dr. Nix). DVT ppx high INR. Full code. PJ HAMILTON MD 05/23/16 0107: Resident Review Statement Resident Statement: examined this patient, discussed with underwriting intern, agreed with underwriting intern, discussed with family, reviewed EMR data (avail), discussed with nursing , reviewed images, amended to note Other Findings: 65 yo male with pmh of HTN, HLD, s/p CABG, [employer] aortic valve replacement on coumadin, COPD, irritable bowel syndrome, s/p Rt. above knee amputation (04/16 osteomyelitis), Hep C and chronic pain syndrome came to ED due to supratherapeutic INR. INR on 05/11 was 2.65, but following INRs were increased; recent 2 days' INR 5-6.6, and he was sent by cardiology for further evaluation. 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 IR/Surgery were deferred during admission, and he was scheduled to follow up Dr. Victoria for splenectomy. He c/o malaise after discharge from hospital. Also, he has Lt. sided lower abdominal pain with hx of ventral hernia repair. He has dark colored stools. He had transient Lt. substernal chest pain which disappeared after few minutes. Last echo in 05/01 showed EF > 65%, RVSP > 50mmHg. Former smoker now on nicotine patch, denies alcohol use. V/S: 97.8F CA 62 RR 22 BP 112/55 96% on RA, alert, orientd x 3, not in acute distress, PERRLA, EOM intact, no cervical LAD, regular rate, normal S1/S2, no murmurs, clear lung sounds, abdominal surgical scar, well healed, normal bowel sounds, LLQ tenderness, s/p RLE amputation, no edema on LLE, normal pulses Labs: Hb/hct 6.8/22.1 (Discharged on 05/11: 7.8/24.3), MCV 76, plt 278, INR > 10, BUN/Cr 23/0.7 CT abdomen/pelvis:1. Findings related to prior ventral abdominal wall repair with recurrent hernia and anterior displacement of several anchors screws into the ventral abdominal wall, 2. indicative of evolving splenic infarction, 3. Contrast-enhanced MRI of the abdomen may be obtained for further evaluation, barring any contraindications to MRI (pancreatic mass protocol). 4. Interval development of small bilateral pleural effusions. 1. Acute on chronic microcytic anemia with supratherapeutic INR: transfuse 2 prbcs with IV lasix, guiac stool, monitor symptoms of active bleeding, avoid NSADIS, follow CBC in AM. 2. Supratherapeutic INR: pt is on coumadin for [employer] aortic valve, INR > 10. Pt was given SC K 10mg x 1 in ED. give 2 FFPs and monitor INR in am with SC vit K. 3. HTN: hold bystolic 5mg daily for now due to borderline BP 4. chronic pain syndrome : c/w home dose oxycontin & oxycodone 5. Splenic infarction/ventral repair displacement: f/w Dr. Victoria as outpt, consider MRI pancreatic mass protocol regarding hypoattenuation lesion between the splenic hilum as well as the distal pancreatic tail. DVT ppx: medical contraindication with INR > 10, full code
[2016-05-22 23:45] VITALS: BP 118/50
--- NOTE | 2016-05-23 06:31 | PN- Housestaff ---
See Addendum Subjective Follow-up For: Acute on chronic anemia Supratherapeutic INR Complaints: pain scale (0-10) (6-7/10), abdominal pain Subjective: He didn't sleep well last night. No active signs of bleeding. He was instructed to tell nursing staff if he has any bowel movement. He c/o LLQ abdominal pain, 6/10, with previous ventral hernia repair. Review of Systems Constitutional: Reports: malaise. Denies: chills, fever. EENTM: Reports: no symptoms. Cardiovascular: Reports: no symptoms. Respiratory: Reports: no symptoms. Gastrointestinal: Reports: abdominal pain. Denies: diarrhea, nausea, vomiting. Genitourinary: Reports: no symptoms. Musculoskeletal: Reports: no symptoms. Skin: Reports: no symptoms. Neurological/Psychological: Reports: no symptoms. Hematologic/Endocrine: Reports: no symptoms. Immunologic/Allergic: Reports: no symptoms. Objective Last 24 Hrs of Vital Signs/I&O Vital Signs Date Time Temp Pulse Resp B/P Pulse O2 O2 Flow FiO2 Ox Delivery Rate 05/22 2345 97.6 61 18 118/50 94 Room Air 05/22 2039 97.8 62 22 112/55 96 Room Air 05/22 1920 98.3 58 18 104/58 99 Room Air 05/22 1902 98.4 60 18 104/50 98 Room Air 05/22 1702 68 / 1614 97.8 72 20 100/62 97 Room Air Intake & Output 05/23 0800 05/23 0000 05/22 1600 Intake Total 400 Output Total Balance 400 Intake, IV 300 Intake, Oral 100 Patient 140 lb Weight Physical Exam General Appearance: Alert, Oriented X3, Cooperative, Mild Distress Skin: No Significant Lesion HEENT: Atraumatic, PERRLA, EOMI, Mucous Membr. moist/pink Neck: Supple, No JVD, No LAD Lymphatic: Cervical nl Cardiovascular: Regular Rate, Normal S1, Normal S2, No Murmurs Lungs: Clear to Auscultation, decreased air movement Abdomen: Normal Bowel Sounds, Soft, LLQ tenderness+ Neurological: Normal Speech, Normal Tone, Sensation Intact, s/p RLE amputation Extremities: No Edema, Normal Pulses Vascular: Normal Pulses, Pulses Symmetrical Current Medications: Current Medications Sig/[place] Start time Last Medication Dose Route Stop Time Status Admin Acetaminophen 650 MG Q6P PRN 05/22 2245 AC PO Escitalopram Oxalate 10 MG DAILY 05/23 1000 AC PO Furosemide 20 MG ONCE ONE 05/22 2115 DC 05/23 IV 05/23 2115 0145 Hydromorphone HCl 2 MG Q6P PRN 05/22 2300 AC PO Nebivolol 5 MG DAILY 05/23 1000 AC PO Nicotine 21 MG DAILY 05/22 2156 AC 05/23 TOP 0144 Omeprazole 40 MG DAILY AC 05/23 0700 AC PO Oxycodone HCl 15 MG Q6H PRN 05/22 2245 AC 05/22 PO 2343 Oxycodone HCl 30 MG Q8 05/22 2230 AC 05/22 PO 2343 Phytonadione 10 MG ONCE ONE 05/23 0800 AC SC 05/23 0801 Phytonadione 0 .STK-MED ONE 05/22 1758 DC .ROUTE Phytonadione 10 MG ONCE ONE 05/22 1745 DC 05/22 SC 05/22 1746 1806 Tizanidine HCl 4 MG TID PRN 05/22 2245 AC PO Last 24 Hrs of Lab/Ronan Results Last 24 Hrs of Labs/Mics: Laboratory Tests 05/22/16 1655: Anion Gap 11, Estimated GFR > 60, BUN/Creatinine Ratio 32.9 H, Glucose 134 H, Calcium 9.0, Total Bilirubin 0.3, AST 28, ALT 31, Alkaline Phosphatase 106, Troponin I < 0.01, Total Protein 7.2, Albumin 3.5, Globulin 3.7, Albumin/ Globulin Ratio 0.9 L, PT > 103.0 *H, INR > 10.0 *H, APTT 59 H, CBC w Diff MAN DIFF ORDERED, RBC 2.90 L, MCV 76.0 L, MCH 23.5 L, RDW 24.5 H, MPV 8.0, Gran % 69.1, Lymphocytes % 22.0, Monocytes % 6.6, Eosinophils % 2.3, Basophils % 0 L , Absolute Granulocytes 3.6, Segmented Neutrophils 79 H, Absolute Lymphocytes 1.2, Lymphocytes 17 L, Monocytes 3, Absolute Monocytes 0.3, Eosinophils 1, Absolute Eosinophils 0.1, Absolute Basophils 0, Platelet Estimate ADEQUATE, Hypochromic-Microcytic 2+, Poikilocytosis 2+, Target Cells 2+, Stomatocytes 2+, Elliptocytes 1+, PUBS MCHC 30.9 L Lines/Diet/Fluids Lines: peripheral lines Assessment/Plan Assessment: 65 yo male with pmh of HTN, HLD, s/p CABG, [employer] aortic valve replacement on coumadin, COPD, irritable bowel syndrome, s/p Rt. above knee amputation (2/ osteomyelitis), Hep C and chronic pain syndrome came to ED due to supratherapeutic INR. INR on 05/11 was 2.65, but following INRs were increased; recent 2 days' INR 5-6.6, and he was sent by cardiology for further evaluation. 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 IR/Surgery were deferred during admission, and he was scheduled to follow up Dr. Victoria for splenectomy. 1. Acute on chronic microcytic anemia with supratherapeutic INR: s/p 2 prbcs with IV lasix 20mg, guiac stool, monitor symptoms of active bleeding, avoid NSADIS, follow CBC in AM. 2. Supratherapeutic INR: pt is on coumadin for [employer] aortic valve, INR > 10. Pt was given SC K 10mg x 1 in ED. give 2 FFPs with SC vit K -> monitor INR in am 3. HTN: as pt is borderline BP, hold bystolic 5mg daily for now. 4. chronic pain syndrome : c/w home dose oxycontin & oxycodone 5. Splenic infarction: f/w as outpt for splenectomy pt is on observation DVT ppx: medical contraindication with INR > 10, full code Problem List: 1. Elevated INR 2. Anemia Pain Ratin Pain Location: abdomen Pain Goal: Pain 4 or less Pain Plan: oxycontine, oxycodone, hydromorphine Tomorrow's Labs & Rationales: CBC- acute anemia s/p transfusion PT - supratherapeutic INR DVT/Prophylaxis: pharmacological Discharge Plan Stable for Discharge? No
[2016-05-23 06:46] VITALS: BP 112/58
[2016-05-23 08:35] LABS: PT 27.3 SEC (9.4-12.5)
[2016-05-23 09:04] LABS: ABSOLUTE BASOPHIL COUNT 0 /CUMM (0.0-0.2); ABSOLUTE EOSINOPHIL COUNT 0.1 /CUMM (0.0-0.7); ABSOLUTE GRANULOCYTE CT 2.6 /CUMM (1.4-6.5); ABSOLUTE LYMPH COUNT 1.1 /CUMM (1.2-3.4); ABSOLUTE MONOCYTE COUNT 0.3 /CUMM (0.10-0.60); BASOPHIL % 0 % (0.0-2.0); GRANULOCYTE % 62.9 % (42.2-75.2); HEMATOCRIT 23.5 % (42-52); MEAN CORPUSCULAR HGB 25.3 PG (27.0-31.0); MEAN CORPUSCULAR HGB CONC 31.8 G/DL (33.0-37.0); MEAN CORPUSCULAR VOLUME 79.6 FL (80.0-94.0); MEAN PLATELET VOLUME 8.7 FL (7.4-10.4); PLATELET COUNT 183 /CUMM (130-400); RBC DISTRIBUTION WIDTH 21.4 % (11.5-14.5); RED BLOOD CELL CT 2.95 /CUMM (4.70-6.10); WHITE BLOOD CELL COUNT 4.1 /CUMM (4.8-10.8)
[2016-05-23 15:04] VITALS: BP 110/60
[2016-05-23 19:55] LABS: ABSOLUTE BASOPHIL COUNT 0 /CUMM (0.0-0.2); ABSOLUTE EOSINOPHIL COUNT 0.1 /CUMM (0.0-0.7); ABSOLUTE GRANULOCYTE CT 4.3 /CUMM (1.4-6.5); ABSOLUTE LYMPH COUNT 0.9 /CUMM (1.2-3.4); ABSOLUTE MONOCYTE COUNT 0.5 /CUMM (0.10-0.60); BASOPHIL % 0.1 % (0.0-2.0); EOSINOPHIL % 1.6 % (0-5); GRANULOCYTE % 74.3 % (42.2-75.2); HEMATOCRIT 24.6 % (42-52); MEAN CORPUSCULAR HGB 25.4 PG (27.0-31.0); MEAN CORPUSCULAR VOLUME 79.6 FL (80.0-94.0); MEAN PLATELET VOLUME 8.8 FL (7.4-10.4); PLATELET COUNT 193 /CUMM (130-400); RBC DISTRIBUTION WIDTH 21.1 % (11.5-14.5); RED BLOOD CELL CT 3.09 /CUMM (4.70-6.10); WHITE BLOOD CELL COUNT 5.9 /CUMM (4.8-10.8)
[2016-05-23 22:26] VITALS: BP 108/50
[2016-05-24 07:00] VITALS: BP 120/62
--- NOTE | 2016-05-24 08:14 | PN- Housestaff ---
See Addendum Subjective Follow-up For: Acute on chronic anemia Supratherapeutic INR Subjective: Patient was seen and examined this morning, vital signs are stable, no overnight events reported by the nurse of the patient. Patient was complaining of abdominal pain and multiple joints pain, he reported that he used to take his pain medication every 4 hours instead of 6 hours at home and wants his pain medication to be adjusted. He reported that his last bowel movement was on of hard black stool, denied any hank red blood with stool, urine is clear yellow, denied hemoptysis or hematemesis. Patient denied dizziness, shortness of breath, palpitation, chest pain. Review of Systems Constitutional: Reports: see HPI. Objective Last 24 Hrs of Vital Signs/I&O Vital Signs Date Time Temp Pulse Resp B/P Pulse O2 O2 Flow FiO2 Ox Delivery Rate 05/24 0700 98.0 62 16 120/62 95 Room Air 05/23 2226 98.2 63 18 108/50 95 Room Air 05/23 1504 97.6 62 20 110/60 95 Intake & Output 05/24 1600 05/24 0800 05/24 0000 Intake Total 200 100 Output Total 500 50 Balance -300 50 Intake, Oral 200 100 Output, Urine 500 50 Physical Exam General Appearance: Alert, Oriented X3, Cooperative, No Acute Distress Skin: No Rashes, No Breakdown, No Significant Lesion HEENT: Atraumatic, PERRLA, EOMI, Mucous Membr. moist/pink Neck: Supple Cardiovascular: Regular Rate, Normal S1, Normal S2, No Murmurs Lungs: Clear to Auscultation, Normal Air Movement Abdomen: Normal Bowel Sounds, 2 hard nontender masses with palpated per umbilicus region tenderness over left lower quadrant and suprapubic regions Neurological: Normal Gait, Normal Speech, Strength at 5/5 X4 Ext, Normal Tone, Sensation Intact, Cranial Nerves 3-12 NL, Reflexes 2+ Extremities: No Clubbing, No Cyanosis, No Edema, Normal Pulses Assessment/Plan Assessment: 65 yo male with pmh of HTN, HLD, s/p CABG, [employer] aortic valve replacement on coumadin, COPD, irritable bowel syndrome, s/p Rt. above knee amputation (04/16 osteomyelitis), Hep C and chronic pain syndrome came to ED due to supratherapeutic INR. INR on 05/11 was 2.65, but following INRs were increased; recent 2 days' INR 5-6.6, and he was sent by cardiology for further evaluation. 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 IR/Surgery were deferred during admission, and he was scheduled to follow up Dr. Victoria for splenectomy. 1. Acute on chronic microcytic anemia -Hemoglobin of 7/21.7, will transfuse 1 unit of blood -Repeat CELL CLEANER at 1800 tonight and tomorrow morning -Guaiac stool -GI consultation was placed 2. Mechanical heart valve with subtherapeutic INR -Warfarin 5 mg was given today -Start tapering drip -INR target is 2-3 3. HTN -Borderline BP, hold bystolic 5mg daily for now 4. chronic pain syndrome -Continue home dose oxycontin & oxycodone 5. Splenic infarction -GI consultation was placed pt is on observation DVT ppx warfarin and heparin drip Diet heart healthy Code full Problem List: 1. Anemia Pain Ratin Pain Location: Abdominal pain and multiple joint pain Pain Goal: Pain 4 or less Pain Plan: Severe pain pathway Tomorrow's Labs & Rationales: CELL CLEANER CMP
[2016-05-24 08:49] LABS: PT 14.8 SEC (9.4-12.5)
[2016-05-24 09:12] LABS: ABSOLUTE BASOPHIL COUNT 0 /CUMM (0.0-0.2); ABSOLUTE EOSINOPHIL COUNT 0.1 /CUMM (0.0-0.7); ABSOLUTE GRANULOCYTE CT 1.9 /CUMM (1.4-6.5); ABSOLUTE LYMPH COUNT 1.1 /CUMM (1.2-3.4); ABSOLUTE MONOCYTE COUNT 0.4 /CUMM (0.10-0.60); BASOPHIL % 0 % (0.0-2.0); EOSINOPHIL % 3.3 % (0-5); GRANULOCYTE % 54.6 % (42.2-75.2); HEMATOCRIT 21.7 % (42-52); MEAN CORPUSCULAR HGB 25.9 PG (27.0-31.0); MEAN CORPUSCULAR HGB CONC 32.3 G/DL (33.0-37.0); MEAN CORPUSCULAR VOLUME 80.2 FL (80.0-94.0); MEAN PLATELET VOLUME 9.9 FL (7.4-10.4); PLATELET COUNT 160 /CUMM (130-400); RBC DISTRIBUTION WIDTH 22.1 % (11.5-14.5); WHITE BLOOD CELL COUNT 3.5 /CUMM (4.8-10.8)
[2016-05-24 21:15] LABS: ABSOLUTE BASOPHIL COUNT 0 /CUMM (0.0-0.2); ABSOLUTE EOSINOPHIL COUNT 0.2 /CUMM (0.0-0.7); ABSOLUTE GRANULOCYTE CT 2.4 /CUMM (1.4-6.5); ABSOLUTE MONOCYTE COUNT 0.3 /CUMM (0.10-0.60); BASOPHIL % 0 % (0.0-2.0); GRANULOCYTE % 62.1 % (42.2-75.2); MEAN CORPUSCULAR HGB 25.7 PG (27.0-31.0); MEAN CORPUSCULAR HGB CONC 31.5 G/DL (33.0-37.0); MEAN CORPUSCULAR VOLUME 81.7 FL (80.0-94.0); MEAN PLATELET VOLUME 9.3 FL (7.4-10.4); PLATELET COUNT 163 /CUMM (130-400); RBC DISTRIBUTION WIDTH 21.3 % (11.5-14.5); RED BLOOD CELL CT 3.06 /CUMM (4.70-6.10); WHITE BLOOD CELL COUNT 3.9 /CUMM (4.8-10.8)
[2016-05-24 22:46] VITALS: BP 98/50
[2016-05-24 23:25] LABS: PT 13.2 SEC (9.4-12.5); PTT 37 SEC (25-37)
[2016-05-25 06:34] LABS: PT 13.9 SEC (9.4-12.5)
[2016-05-25 07:06] VITALS: BP 102/60
--- NOTE | 2016-05-25 07:31 | PN- Housestaff ---
MANINDER BANERJEE,[facility] 05/25/16 0731: Subjective Follow-up For: Acute on chronic anemia Subtherapeutic INR Subjective: Patient was seen and examined this morning, no overnight events reported by the nurse or the patient, vital signs are stable. Patient continues to complain of abdominal pain and bilateral hip pain 09/21, didn't want pain medication. Patient denied any nausea or vomiting, tolerate oral intake well, no bowel movement since admission, last bowel movement was on of black well formed stool. Patient denied any change the color of urine or hemoptysis, hematemesis. Review of Systems Constitutional: Reports: see HPI. Objective Last 24 Hrs of Vital Signs/I&O Vital Signs Date Time Temp Pulse Resp B/P Pulse O2 O2 Flow FiO2 Ox Delivery Rate 05/25 0706 97.8 62 18 102/60 96 Room Air 05/24 2246 98.1 60 18 98/50 95 Room Air Intake & Output 05/25 1600 05/25 0800 05/25 0000 Intake Total 445.6 408 Output Total 400 Balance 445.6 8 Intake, IV 205.6 168 Intake, Oral 240 240 Output, Urine 400 Patient 58.315 kg 58.315 kg Weight Physical Exam General Appearance: Alert, Oriented X3, Cooperative, No Acute Distress Skin: No Rashes, No Breakdown, No Significant Lesion HEENT: Atraumatic, PERRLA, EOMI, Mucous Membr. moist/pink Neck: Supple Cardiovascular: Regular Rate, Normal S1, Normal S2, No Murmurs Lungs: Clear to Auscultation, Normal Air Movement Abdomen: Normal Bowel Sounds, Soft, tenderness over left upper and lower quadrants Superficial hard mass at the umbilicus lesion 2 x 2, nontender Neurological: Normal Gait, Normal Speech, Strength at 5/5 X4 Ext, Normal Tone, Sensation Intact, Cranial Nerves 3-12 NL, Reflexes 2+ Extremities: No Clubbing, No Cyanosis, No Edema, Normal Pulses, patient had right [id number] amputation Assessment/Plan Assessment: 65 yo male with pmh of HTN, HLD, s/p CABG, [employer] aortic valve replacement on coumadin, COPD, irritable bowel syndrome, s/p Rt. above knee amputation (04/16 osteomyelitis), Hep C and chronic pain syndrome came to ED due to supratherapeutic INR. INR on 05/11 was 2.65, but following INRs were increased; recent 2 days' INR 5-6.6, and he was sent by cardiology for further evaluation. 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 IR/Surgery were deferred during admission, and he was scheduled to follow up Dr. Victoria for splenectomy. Problem list 1. Acute on chronic microcytic anemia -Patient received 1 unit of blood on 05/24, hemoglobin after transfusion 7.12/07 -No signs of active GI bleeding -Guaiac stool -GI consultation was obtained, thanks for recommendation -Avoid NSAIDs -Keep hemoglobin above 7 -Continue iron supplementation -Notify GI for GI bleeding melena or hematemesis -Plan for EUS and liver biopsy as an outpatient -Plan for small bowel PillCam as an outpatient -Future plan for surgical evaluation for possible evaluation of splenectomy 2. Mechanical heart valve with subtherapeutic INR -Patient presented with supratherapeutic INR, received 2 units of fresh frozen plasma and vitamin K -subtherapeutic INR of 1.3 -Continue heparin drip -Will start Lovenox 60 mg twice a day, to administer the first dose now and will stop heparin drip after 1 hour -Warfarin 5 mg today -INR target is 2-3 -Patient will be educated about Lovenox administration, patient will be discharged today to continue on Lovenox and warfarin, will follow with his community service representative Dr. Jolly after discharge and will continue to measure INR with his home machine 3. HTN -We will switch from selective beta nelida to none selective beta nelida propranolol 5 mg twice a day for varices bleeding prophylaxis 4. chronic pain syndrome -Continue home dose oxycontin & oxycodone 5. Splenic infarction -GI consultation was placed -Patient will follow up with surgery after discharge pt is on observation DVT ppx warfarin and heparin drip Diet heart healthy Code full Consultation GI Problem List: 1. Anemia Pain Ratin Pain Location: Abdominal and bilateral hip pain Pain Goal: Pain 4 or less Pain Plan: Severe pain pathway Tomorrow's Labs & Rationales: None patient is for discharge today SÁNCHEZ QUISPE MD 05/25/162048: Attending Review Statement Attending Statement Attending MD Statement: examined this patient, discuss w/resident/PA/BOIL OFF WORKER, agreed w/resident/PA/BOIL OFF WORKER, reviewed EMR data (avail), discussed with nursing, discussed with case mgmt, amended to note Attending Assessment/Plan: The patient was seen and discussed with house staff. Agree with the plan of care as outlined. OK to discharge today with Lovenox bridge until INR therapeutic.
[2016-05-25 08:33] LABS: PTT 56 SEC (25-37)
--- NOTE | 2016-05-25 14:12 | Cons- Gastroenterology ---
General Information and HPI Consulting Request Date of Consult: 05/25/16 Requested By: SÁNCHEZ QUISPE MD Reason for Consult: anemia, gastric varices, splenic infarction/SVT Source of Information: patient, old records Exam Limitations: no limitations History of Present Illness: Mr. Ferreira is a 65-year-old male with multiple medical problems including aortic valve replacement with a [employer] valve for which she is maintained on chronic anticoagulation s/p Right BKA for osteomeylitits, HCV with possible cirrhosis who was sent to the ER on 05/22/16 for a supratherapeutic INR of greater than 10. He was recently in the hospital for anemia at which point he underwent an endoscopic workup which revealed nonbleeding isolated gastric varices and several adenomatous polyps, but no active bleeding was appreciated. 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 Consideration was given for a splenectomy at that time for isolated gastric varices, but this was deferred pending further workup of his underlying liver disease and pending further workup for his anemia such as a small bowel PillCam. He had been doing well since discharge without any GI complatins. He has been without any melena, brpbr , or hematemesis. He has also been without any abdominal pain and he has been hemodynamically stable since admission. He was transfused with several units of FFP and given vitamin K with correction of his INR. He has also been given 3 units of PRBCs. He has since been started on IV heparin and restarted on coumadin. Allergies/Medications Allergies: Coded Allergies: gentamicin (SYSTEMIC REACTION - "TOOK MY BALANCE" 05/22/16) Home Med List: Enoxaparin Sodium (Lovenox) 40 MG/0.4 ML SYRINGE 60 MG SC BID BLOOD THINNER Escitalopram Oxalate (Lexapro) 10 MG TABLET 1 TAB PO DAILY MENTAL HEALTH ( Reported) Nicotine (Nicotine Patch) 21 MG/24 HOUR PATCH.TD24 1 PAT TOP DAILY TOBACCO Oxycodone HCl 15 MG TABLET 1 TAB PO Q4-6HP PRN PAIN (Reported) Reason to Stop at ADM: pain pathway Oxycodone HCl (Oxycontin) 30 MG TAB.ER.12H 1 TAB PO TID CHRONIC PAIN ( Reported) Pantoprazole Sodium (Protonix) 40 MG TABLET. 1 TAB PO DAILY GI prophylaxis Propranolol HCl 10 MG TABLET 5 MG PO BID HEART HEALTH Tizanidine HCl 4 MG TABLET 1 TAB PO TID PAIN (Reported) Warfarin Sodium (Coumadin) 5 MG TABLET 1 TAB PO DAILY BLOOD THINNER Current Medications: Current Medications Sig/[place] Start time Last Medication Dose Route Stop Time Status Admin Acetaminophen 650 MG Q6P PRN 05/22 2245 AC PO Escitalopram Oxalate 10 MG DAILY 05/23 1000 AC 05/25 PO 0848 Heparin Sodium 2,300 UNIT ONCE ONE 05/25 1045 DC 05/25 (Porcine) IV 05/25 1046 1015 Heparin Sodium 4,400 UNIT ONCE ONE 05/24 2350 DC 05/25 (Porcine) IV 05/24 2351 0005 Heparin Sodium 25,000 UNIT Q24H 05/24 1145 AC 05/25 (Porcine) IV 1011 Sodium Chloride 500 ML Hydromorphone HCl 2 MG Q6P PRN 05/22 2300 AC PO Nicotine 21 MG DAILY 05/22 2156 AC 05/25 TOP 0848 Omeprazole 40 MG DAILY AC 05/23 0700 AC 05/25 PO 0541 Oxycodone HCl 15 MG Q4P PRN 05/24 1140 AC 05/25 PO 1225 Oxycodone HCl 30 MG Q8 05/22 2230 AC 05/25 PO 0540 Propranolol HCl 5 MG BID 05/25 1330 AC PO Tizanidine HCl 4 MG TID PRN 05/22 2245 AC 05/25 PO 1016 Warfarin Sodium 5 MG COUMADIN 1700 ONE 05/24 1700 DC 05/24 PO 05/24 1701 1715 Past History Travel History Traveled to [place] past 21 day No Medical History Blood Transfusion Hx: Yes Neurological: NONE EENT: NONE Cardiovascular: hypertension, AORTIC VALVUE REPLACMENT CABG Respiratory: NONE Gastrointestinal: ABD HERNIA REP-INCISIONAL Hepatic: hepatitis C Renal: NONE Musculoskeletal: RIGHT FEMUR OSTEOMYELITIS TOTAL R HIP DISARTICULATI MUSCLE FLAP RECONSTRUCTIO Psychiatric: anxiety Endocrine: NONE Blood Disorders: anemia, BLOOD TRANSFUSIONS Cancer(s): NONE 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 Denies: chills, diaphoresis, fever. EENTM: Denies: no symptoms. Cardiovascular: Denies: no symptoms. Respiratory: Denies: no symptoms. GI: Reports: see HPI. Genitourinary: Denies: no symptoms. Musculoskeletal: Reports: back pain, joint pain. Skin: Denies: no symptoms. Neurological/Psychological: Denies: no symptoms. Hematologic/Endocrine: Reports: bleeding. Immunologic/Allergic: Denies: no symptoms. All Other Systems: Reviewed and Negative Exam & Diagnostic Data Vital Signs and I&O Vital Signs Date Time Temp Pulse Resp B/P Pulse O2 O2 Flow FiO2 Ox Delivery Rate 05/25 0706 97.8 62 18 102/60 96 Room Air 05/24 2246 98.1 60 18 98/50 95 Room Air Intake & Output 05/25 1600 05/25 0400 05/24 1600 05/24 0400 05/23 1600 05/23 0400 Intake Total 445.6 408 949 972 1413 400 Output Total 400 1350 50 1300 Balance 445.6 8 -550 50 80 400 Intake, IV 205.6 168 700 300 Intake, Oral 240 240 800 100 680 100 Number 0 0 Bowel Movements Output, Urine 400 1350 50 1300 Patient 129 lb 129 lb 140 lb Weight Physical Exam General Appearance: no apparent distress, alert, awake, comfortable Head: atraumatic, normal appearance Eyes: Bilateral: normal appearance. Ears, Nose, Throat: normal pharynx, normal ENT inspection Neck: normal inspection, supple, full range of motion Respiratory: normal breath sounds, chest non-tender Cardiovascular: regular rate/rhythm Gastrointestinal: normal bowel sounds, soft, non-tender, no organomegaly Back: normal inspection, normal range of motion Extremities: no edema Neurologic/Psych: no motor/sensory deficits, awake, alert, oriented x 3 Skin: intact, normal color, warm/dry Results Pertinent Lab Results: Laboratory Tests 05/25 05/24 05/24 0545 8093 1935 Chemistry Sodium (137 - 145 mmol/L) 137 Potassium (3.5 - 5.1 mmol/L) 4.2 Chloride (98 - 107 mmol/L) 100 Carbon Dioxide (22 - 30 mmol/L) 31 H Anion Gap (5 - 16) 6 BUN (9 - 20 mg/dL) 14 Creatinine (0.7 - 1.2 mg/dL) 0.7 Estimated GFR (>60 ml/min) > 60 BUN/Creatinine Ratio (7 - 25 %) 20.0 Coagulation PT (9.4 - 12.5 SEC) 13.9 H 13.2 H INR (0.90 - 1.17) 1.33 H 1.26 H APTT (25 - 37 SEC) 56 H 37 Hematology CBC w Diff NO MAN DIFF REQ WBC (4.8 - 10.8 /CUMM) 3.9 L RBC (4.70 - 6.10 /CUMM) 3.06 L Hgb (14.0 - 18.0 G/DL) 7.9 L Hct (42 - 52 %) 25.0 L MCV (80.0 - 94.0 FL) 81.7 MCH (27.0 - 31.0 PG) 25.7 L RDW (11.5 - 14.5 %) 21.3 H Plt Count (130 - 400 /CUMM) 163 MPV (7.4 - 10.4 FL) 9.3 Gran % (42.2 - 75.2 %) 62.1 Lymphocytes % (20.5 - 51.1 %) 25.3 Monocytes % (1.7 - 9.3 %) 8.6 Eosinophils % (0 - 5 %) 4.0 Basophils % (0.0 - 2.0 %) 0 L Absolute Granulocytes (1.4 - 6.5 /CUMM) 2.4 Absolute Lymphocytes (1.2 - 3.4 /CUMM) 1.0 L Absolute Monocytes (0.10 - 0.60 /CUMM) 0.3 Absolute Eosinophils (0.0 - 0.7 /CUMM) 0.2 Absolute Basophils (0.0 - 0.2 /CUMM) 0 PUBS MCHC (33.0 - 37.0 G/DL) 31.5 L 05/24 05/23 0705 1840 Coagulation PT (9.4 - 12.5 SEC) 14.8 H INR (0.90 - 1.17) 1.41 H Hematology CBC w Diff MAN DIFF ORDERED NO MAN DIFF REQ WBC (4.8 - 10.8 /CUMM) 3.5 L 5.9 RBC (4.70 - 6.10 /CUMM) 2.70 L 3.09 L Hgb (14.0 - 18.0 G/DL) 7.0 *L 7.9 L Hct (42 - 52 %) 21.7 L 24.6 L MCV (80.0 - 94.0 FL) 80.2 79.6 L MCH (27.0 - 31.0 PG) 25.9 L 25.4 L RDW (11.5 - 14.5 %) 22.1 H 21.1 H Plt Count (130 - 400 /CUMM) 160 193 MPV (7.4 - 10.4 FL) 9.9 8.8 Gran % (42.2 - 75.2 %) 54.6 74.3 Lymphocytes % (20.5 - 51.1 %) 31.9 14.8 L Monocytes % (1.7 - 9.3 %) 10.2 H 9.2 Eosinophils % (0 - 5 %) 3.3 1.6 Basophils % (0.0 - 2.0 %) 0 L 0.1 Absolute Granulocytes (1.4 - 6.5 /CUMM) 1.9 4.3 Absolute Lymphocytes (1.2 - 3.4 /CUMM) 1.1 L 0.9 L Absolute Monocytes (0.10 - 0.60 /CUMM) 0.4 0.5 Absolute Eosinophils (0.0 - 0.7 /CUMM) 0.1 0.1 Absolute Basophils (0.0 - 0.2 /CUMM) 0 0 Platelet Estimate (ADEQUATE) ADEQUATE Polychromasia Hypochromic-Microcytic 3+ Poikilocytosis 2+ Anisocytosis 2+ Schistocytes PUBS MCHC (33.0 - 37.0 G/DL) 32.3 L 32.0 L 05/23 05/22 0740 1655 Chemistry Sodium (137 - 145 mmol/L) 140 Potassium (3.5 - 5.1 mmol/L) 4.3 Chloride (98 - 107 mmol/L) 101 Carbon Dioxide (22 - 30 mmol/L) 28 Anion Gap (5 - 16) 11 BUN (9 - 20 mg/dL) 23 H Creatinine (0.7 - 1.2 mg/dL) 0.7 Estimated GFR (>60 ml/min) > 60 BUN/Creatinine Ratio (7 - 25 %) 32.9 H Glucose (65 - 99 mg/dL) 134 H Calcium (8.4 - 10.2 mg/dL) 9.0 Total Bilirubin (0.2 - 1.3 mg/dL) 0.3 AST (17 - 59 U/L) 28 ALT (21 - 72 U/L) 31 Alkaline Phosphatase (< 127 U/L) 106 Troponin I (<0.11 ng/ml) < 0.01 Total Protein (6.3 - 8.2 g/dL) 7.2 Albumin (3.5 - 5.0 g/dL) 3.5 Globulin (1.9 - 4.2 gm/dL) 3.7 Albumin/Globulin Ratio (1.1 - 2.2 %) 0.9 L Coagulation PT (9.4 - 12.5 SEC) 27.3 H > 103.0 *H INR (0.90 - 1.17) 2.62 H > 10.0 *H APTT (25 - 37 SEC) 59 H Hematology CBC w Diff MAN DIFF ORDERED MAN DIFF ORDERED WBC (4.8 - 10.8 /CUMM) 4.1 L 5.3 RBC (4.70 - 6.10 /CUMM) 2.95 L 2.90 L Hgb (14.0 - 18.0 G/DL) 7.5 L 6.8 *L Hct (42 - 52 %) 23.5 L 22.1 L MCV (80.0 - 94.0 FL) 79.6 L 76.0 L MCH (27.0 - 31.0 PG) 25.3 L 23.5 L RDW (11.5 - 14.5 %) 21.4 H 24.5 H Plt Count (130 - 400 /CUMM) 183 278 MPV (7.4 - 10.4 FL) 8.7 8.0 Gran % (42.2 - 75.2 %) 62.9 69.1 Lymphocytes % (20.5 - 51.1 %) 26.4 22.0 Monocytes % (1.7 - 9.3 %) 7.7 6.6 Eosinophils % (0 - 5 %) 3.0 2.3 Basophils % (0.0 - 2.0 %) 0 L 0 L Absolute Granulocytes (1.4 - 6.5 /CUMM) 2.6 3.6 Segmented Neutrophils (42.2 - 75.2 %) 79 H Absolute Lymphocytes (1.2 - 3.4 /CUMM) 1.1 L 1.2 Lymphocytes (20.5 - 51.1 %) 17 L Monocytes (1.7 - 9.3 %) 3 Absolute Monocytes (0.10 - 0.60 /CUMM) 0.3 0.3 Eosinophils (0 - 5.0 %) 1 Absolute Eosinophils (0.0 - 0.7 /CUMM) 0.1 0.1 Absolute Basophils (0.0 - 0.2 /CUMM) 0 0 Platelet Estimate (ADEQUATE) ADEQUATE ADEQUATE Polychromasia 1+ Hypochromic-Microcytic 2+ 2+ Poikilocytosis 2+ 2+ Anisocytosis 2+ Microcytic Cells 2+ Target Cells 2+ Stomatocytes 2+ Elliptocytes 1+ PUBS MCHC (33.0 - 37.0 G/DL) 31.8 L 30.9 L Imaging/Other Studies: 05/22/16 ct scan: EXAM TYPE: CAT - CT ABD & PELVIS W IV CONTRAST EXAMINATION: CT ABDOMEN AND PELVIS WITH CONTRAST CLINICAL INFORMATION: Left upper quadrant abdominal pain and anemia. Evaluate for splenic infarction. COMPARISON: Abdominal ultrasound 04/30/2016. CT abdomen and pelvis with contrast 04/28/2016. TECHNIQUE: Multidetector volumetric imaging was performed of the abdomen and pelvis before and after the IV administration of 94 mL of Optiray 320 intravenous contrast. Sagittal and coronal reformatted images were obtained on the technologist's workstation. DLP: 282 mGy-cm FINDINGS: LUNG BASES: Interval development of bilateral pleural effusions, right greater than left with overlying bibasilar compressive atelectasis. Normal heart size, without significant pericardial effusion. LIVER, GALLBLADDER, AND BILIARY TREE: The liver is normal in size, shape, and attenuation. No focal hepatic lesion or biliary ductal dilatation is present. The gallbladder is decompressed, without evidence of radiopaque gallstones, gallbladder wall thickening, or obvious pericholecystic inflammatory changes. PANCREAS: There is generalized pancreatic atrophy. Redemonstrated is an ill-defined hypoattenuating lesion interposed between the distal pancreatic tail as well as the splenic hilum measuring approximately 3.8 x 3.0 x 3.8 cm in AP, transverse and craniocaudal dimensions respectively (series 2, image 27). This ill-defined region of hypoattenuation measures approximately 9 Hounsfield units and remains indeterminate. It does not appear significantly changed in size relative to the prior examination. SPLEEN: The spleen is enlarged and is again visualized measuring approximately 15.7 cm in length, not significantly changed in size relative to the prior examination in which it measured 15.5 cm in craniocaudal dimension. There is a focal region of geographic hypoattenuation within the lower pole of the spleen, which could represent a geographic infarction. No perisplenic hematoma or fluid collections are identified. ADRENAL GLANDS: Unremarkable. KIDNEYS AND URETERS: Evaluation of the bilateral kidneys is again notable for multiple bilateral simple renal cortical cysts, visualized measuring up to 1.6 cm along the lower pole of the left kidney. No renal or ureteral stones are identified and there is no hydroureteronephrosis of either kidney or renal collecting system. BLADDER: Decompressed. No bladder stones are identified. GASTROINTESTINAL TRACT: Normal anatomic orientation of the stomach relative to the duodenum. Normal caliber of abdominal and pelvic bowel loops, without findings indicative of small bowel obstruction or ileus. Feculent material is identified within loops of small bowel. This finding is nonspecific but can be seen in the setting of delayed intestinal transit. The appendix is not clearly visualized on this examination. There are no acute inflammatory changes within the right lower quadrant of the abdomen. No intraperitoneal or retroperitoneal hematoma is identified. There are no organizing intra-abdominal or pelvic fluid collections. Redemonstrated is scattered colonic diverticulosis, without secondary signs of acute diverticulitis. ABDOMINAL WALL: Findings related to prior ventral abdominal wall repair with recurrent hernia and anterior displacement of several anchors screws into the ventral abdominal wall. There is an unremarkable appearing segment of the transverse colon within the abdominal wall defect. LYMPH NODES: No significant mesenteric, retroperitoneal, deep pelvic or inguinal adenopathy. VASCULAR: Prominent collateral vessels within the abdomen. Notably, there are prominent varices at the splenic hilum. Prominent omental varices also visualized, subjacent to the ventral abdominal wall defect. The main portal vein, the right and left portal veins as well as the superior mesenteric vein are patent and opacified by intravenous contrast. 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 There is scattered atherosclerosis of the abdominal aorta and its branching vessels, without aneurysmal dilatation. These vessels are opacified by intravenous contrast. PELVIC VISCERA: Unremarkable. OSSEOUS STRUCTURES: No acute osseous abnormality. There is partially visualized mechanical hardware within the proximal left femur. The right proximal femur and right hip are surgically absent. Normal alignment of the imaged thoracolumbar spine. No visible acute osseous abnormalities. IMPRESSION: 1. Stable mild splenomegaly, with the spleen visualized measuring up to 15.7 cm in craniocaudal dimension. There is a geographic region of hypoattenuation along the lower pole of the spleen, indicative of evolving splenic infarction. No perisplenic hematomas or fluid collections are identified. No intraperitoneal or retroperitoneal hematoma. 2. Stable ill-defined region of hypoattenuation interposed between the splenic hilum as well as the distal pancreatic tail. This ill-defined region of hypoattenuation measures approximately 3.8 x 3.0 x 3.8 cm in AP, transverse and critical dimensions respectively. This finding is indeterminate and incompletely characterized on this examination. Differential diagnostic considerations include but are not limited to a fat-containing mass, desmoplastic reaction, the distal pancreatic tail lesion versus sequela of prior infection or inflammation within the splenic hilum. Contrast-enhanced MRI of the abdomen may be obtained for further evaluation, barring any contraindications to MRI (pancreatic mass protocol). 3. Interval development of small bilateral pleural effusions. Assessment/Plan Assessment/Recommendations: Assessment: Mr. Ferreira is a 65 year old male with multiple medical problems recently admitted for anemia at which point he underwent an endoscopic workup which showed nonbleeding gastric varices and colonic polyps who was readmitted for a supratherapeutic INR and recurrent anemia, but he has been without overt GI bleeding. The etiology of his anemia is likely multifactorial, but I suspect it is primarily related to anemia of chronic disease and occult losses from his gastric varices exacerbated by the anticoagulation. It is also possible he could have occult blood losses from his small bowel from possible AVMs and this should be pursued further with an outpatient small bowel PillCam. 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 This can be worked up further with an EUS which can also be obtained as an outpatient. As he does have hepatitis C it is also possible that he may have underlying cirrhosis, but imaging of his liver does not show a cirrhotic-appearing liver and his platelets are not significantly depressed that one may expect if he had significant underlying portal hypertension. He apparently had an HCV fibrosure test by an ID doctor in [place] which only showed F1 fibrosis which in general isn't really helpful in this situation and it may therefore be reasonable to obtain a liver biopsy to definitively rule in or out cirrhosis which one would want to know prior to removing his spleen if it comes to that. Recommendations: 1. Follow daily CBC and transfuse as needed to maintain hgb > 7 or as per cardiology recommendations. 2. Avoid NSAIDs 3. Notify GI for signs of overt GI bleeding such as melena or hematemesis 4. Surgical consult for possible evaluation for splenectomy which would defer at this point until an EUS and liver biopsy is obtained unless he develops acute bleeding from the gastric varices. 5. Will tentatively plan to pursue an outpatient EUS to evaluate the pancreatic mass as well as an outpatient small bowel pill cam to further evaluate the anemia, but the EUS will take precedents. 6. Continue oral iron supplementation. 7. There are no absolute GI contraindications to continuing anticoagulation if medically indicated, but will ultimately need to weigh the risks of continued anticoagulation in this patient vs the risks of possible valve occlusion/clot which is less likely in the high flow aortic valve. 8. Will consider a liver biopsy on this hospitalization based on his clinical course and need for anticoagulation. I will continue to follow this patient and make further recommendations pending the results of repeat blood work and his clinical course. Consult Acknowledgment - Thank you for your consult request.
[2016-05-25 15:35] VITALS: BP 108/62
[2016-05-25] MEDS ORDERED: PROPRANOLOL HCL10 M1 PO (15:51)
[2016-05-25] MEDS ORDERED: COUMADIN5 M2 PO (16:21)
[2016-05-25] MEDS ORDERED: LOVENOX40 MG/0.1 SC (16:21)
--- NOTE | 2016-05-25 16:28 | Patient Discharge Instructions ---
Discharge Instructions General Discharge Information Special Instructions: -Please follow-up with your primary care physician within 1 week after discharge -Please follow-up with GI specialist Dr. Nix after discharge to arrange for outpatient procedures -Please follow up with your skiver machine operator Dr. Jolly immediately after discharge to monitor INR level -Please measure your INR every day, please stop warfarin when INR is 2.5 -Please continue to administer Lovenox and warfarin and follow Dr. Jolly recommendation regarding anticoagulation -Please obtain an CLAIMS COORDINATOR on Wednesday05/27/16, bilingual case manager will do the necessary arrangements for this -please follow up with surgery after discharge for spleen assessment Acute Coronary Syndrome Inclusion Criteria At DC or during hospital stay patient has or had the following: ACS DIAGNOSIS No Discharge Core Measures Meds if any: Prescribed or Continued at Discharge Meds if any: NOT Prescribed or Continued at Discharge Congestive Heart Failure Inclusion Criteria At DC or during hospital stay patient has or had the following: CHF DIAGNOSIS No Discharge Core Measures Meds if any: Prescribed or Continued at Discharge Meds if any: NOT Prescribed or Continued at Discharge Cerebrovascular accident Inclusion Criteria At DC or during hospital stay patient has or had the following: CVA/TIA Diagnosis No Discharge Core Measures Meds if any: Prescribed or Continued at Discharge Meds if any: NOT Prescribed or Continued at Discharge Venous thromboembolism Inclusion Criteria VTE Diagnosis No VTE Type NONE VTE Confirmed by (Test) NONE Discharge Core Measures - Per Current guidelines, there needs to be overlap - treatment for the first 5 days of Warfarin therapy. - If discharged on Warfarin prior to 5 days of - overlap therapy, the patient will need to be - assessed for post discharge needs including - *Post discharge parental anticoagulation - *Warfarin and/or parental anticoagulation education - *Follow up date to check INR post discharge At least 5 days overlap therapy as Inpatient Yes Meds if any: Prescribed or Continued at Discharge Note: Overlap Therapy is Warfarin and Anticoagulant Meds if any: NOT Prescribed or Continued at Discharge
[2016-05-25 18:17] LABS: PTT 57 SEC (25-37)
== END 2016-05-25 19:21 ==
LOC: ENRESERVDT → ENRESERVTM → ERH 16:11 → 2NA 18:55 → ERHI 18:55 → 2NA 21:04
PROVIDERS: Internal Medicine; Physician Assistant Medical; Student in an Organized Health Care Education/Training Program; ADMIT Student in an Organized Health Care Education/Training Program
DX: D64.9 Anemia, unspecified (principal); I10 Essential (primary) hypertension; Z95.1 Presence of aortocoronary bypass graft; Z95.2 Presence of prosthetic heart valve; G89.29 Other chronic pain; Z86.14 Personal history of Methicillin resistant Staphylococcus aureus infection; F41.9 Anxiety disorder, unspecified; J44.9 Chronic obstructive pulmonary disease, unspecified; J45.909 Unspecified asthma, uncomplicated; K58.9 Irritable bowel syndrome, unspecified; B19.20 Unspecified viral hepatitis C without hepatic coma
CPT/HCPCS: 36415; 74177; 82436; 86920; 93005; 93010; 96372; 96374; 96375; G0378; J1644; J1650; J1940; P9016; P9017

== ENCOUNTER 2016-05-29 16:59 | Emergency (ER) | payer OTHER, MEDICARE ==
[~2016-05-29] VITALS: Ht 177.8 cm; Wt 58.1 kg
[~2016-05-29 16:59] MED LIST changes: +COUMADIN4 M1 PO; +COUMADIN5 M2 PO; +LOVENOX40 MG/0.1 SC; +PROPRANOLOL HCL10 M1 PO
[2016-05-29 17:25] LABS: ABSOLUTE BASOPHIL COUNT 0 /CUMM (0.0-0.2); ABSOLUTE EOSINOPHIL COUNT 0.1 /CUMM (0.0-0.7); ABSOLUTE GRANULOCYTE CT 2.6 /CUMM (1.4-6.5); ABSOLUTE LYMPH COUNT 0.9 /CUMM (1.2-3.4); ABSOLUTE MONOCYTE COUNT 0.3 /CUMM (0.10-0.60); BASOPHIL % 0 % (0.0-2.0); EOSINOPHIL % 2.9 % (0-5); HEMATOCRIT 24.9 % (42-52); MEAN CORPUSCULAR HGB 24.9 PG (27.0-31.0); MEAN CORPUSCULAR HGB CONC 30.9 G/DL (33.0-37.0); MEAN CORPUSCULAR VOLUME 80.7 FL (80.0-94.0); MEAN PLATELET VOLUME 7.9 FL (7.4-10.4); PLATELET COUNT 201 /CUMM (130-400); RED BLOOD CELL CT 3.08 /CUMM (4.70-6.10); WHITE BLOOD CELL COUNT 3.8 /CUMM (4.8-10.8)
[2016-05-29 17:49] LABS: PTT 55 SEC (25-37)
[2016-05-29 18:17] LABS: PT 61.4 SEC (9.4-12.5)
[2016-05-29 18:19] LABS: GRANULOCYTE % 67.8 % (42.2-75.2)
--- NOTE | 2016-05-29 18:19 | ED GENERAL ADULT ---
History of Present Illness General Chief Complaint: General Adult Stated Complaint: "MY PTINR IS HIGH" Source: patient, family, old records Exam Limitations: no limitations Vital Signs & Intake/Output Vital Signs & Intake/Output Vital Signs Date Time Temp Pulse Resp B/P Pulse O2 O2 Flow FiO2 Ox Delivery Rate 05/29 1845 Room Air Allergies Coded Allergies: gentamicin (SYSTEMIC REACTION - "TOOK MY BALANCE" 05/22/16) Reconcile Medications Enoxaparin Sodium (Lovenox) 40 MG/0.4 ML SYRINGE 60 MG SC BID BLOOD THINNER Escitalopram Oxalate (Lexapro) 10 MG TABLET 1 TAB PO DAILY MENTAL HEALTH ( Reported) Nicotine (Nicotine Patch) 21 MG/24 HOUR PATCH.TD24 1 PAT TOP DAILY TOBACCO Oxycodone HCl 15 MG TABLET 1 TAB PO Q4-6HP PRN PAIN (Reported) Reason to Stop at ADM: pain pathway Oxycodone HCl (Oxycontin) 30 MG TAB.ER.12H 1 TAB PO TID CHRONIC PAIN ( Reported) Pantoprazole Sodium (Protonix) 40 MG TABLET.DR 1 TAB PO DAILY GI prophylaxis Propranolol HCl 10 MG TABLET 5 MG PO BID HEART HEALTH Tizanidine HCl 4 MG TABLET 1 TAB PO TID PAIN (Reported) Warfarin Sodium (Coumadin) 5 MG TABLET 1 TAB PO DAILY BLOOD THINNER Triage Note: PT TO ED FOR HIGH INR, SELF CHECK AT HOME 5.3. RECENTLY TREATED AND ADMITTED LAST WEEK WITH BLOOD TRANSFUSIONS. DISCHARGED WEDNESDAY. ENDORSES FATIGUE, LIGHTHEADEDNESS, DIZZINESS. AAOX3 ON ARRIVAL, NEUROS INTACT. PALE, SKIN COOL AND DRY. 99% O2 SAT ROOM AIR. Triage Nurses Notes Reviewed? yes HPI: Patient presents for evaluation of a possible high INR. Patient states he takes Coumadin for valve replacement and checks his INR at home. It was [address] López's group and was asked to come to the emergency department for evaluation. Patient was recently admitted to [facility] for a severely elevated INR and severe anemia requiring transfusions. GI workup was unrevealing. Patient currently denies any signs of bleeding. Past History Travel History Traveled to [place] past 21 day No Medical History Any Pertinent Medical History? 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 No Review of Systems Review of Systems Constitutional: Reports: no symptoms. EENTM: Reports: no symptoms. Respiratory: Reports: no symptoms. Cardiovascular: Reports: no symptoms. GI: Reports: no symptoms. Genitourinary: Reports: no symptoms. Musculoskeletal: Reports: no symptoms. Skin: Reports: no symptoms. Neurological/Psychological: Reports: no symptoms. Hematologic/Endocrine: Reports: no symptoms. Immunologic/Allergic: Reports: no symptoms. All Other Systems: Reviewed and Negative Physical Exam Physical Exam General Appearance: SEE BELOW Comments: Gen.: Well-nourished, well-developed, no acute respiratory distress. Head: Normocephalic, atraumatic. Eyes: Normal inspection bilaterally Ears: Normal inspection bilaterally Nose: Normal inspection Throat/mouth : Moist mucosa Neck: Supple, full range of motion, no goiter Heart: Regular rate and rhythm, no murmurs rubs or gallops Lungs: Clear to auscultation bilaterally with normal air entry Chest: Nontender Back: Normal range of motion Abdomen: Soft, nontender, nondistended, normal bowel sounds Extremities: Right AKA Neurologic: Cranial nerves grossly intact, speech is clear Skin: warm and dry Psychiatric: Calm, cooperative, no apparent delusions or hallucinations Core Measures ACS in differential dx? No CVA/TIA Diagnosis: No Severe Sepsis Present: No Septic Shock Present: No Progress Differential Diagnoses I considered the following diagnoses in my evaluation of the patient: Coumadin induced coagulopathy Plan of Care: Orders Procedure Date/time Status PARTIAL THROMBOPLASTIN TIME 05/29 1710 Complete PROTHROMBIN TIME 05/29 1710 Complete CBC WITHOUT DIFFERENTIAL 05/29 1710 Complete Laboratory Tests 05/29/16 171: PT 61.4 *H, INR 5.95 *H, APTT 55 H, CBC w Diff NO MAN DIFF REQ, RBC 3.08 L, MCV 80.7, MCH 24.9 L, RDW 21.0 H, MPV 7.9, Gran % 67.8, Lymphocytes % 22.6, Monocytes % 6.7, Eosinophils % 2.9, Basophils % 0 L, Absolute Granulocytes 2.6, Absolute Lymphocytes 0.9 L, Absolute Monocytes 0.3, Absolute Eosinophils 0.1, Absolute Basophils 0, PUBS MCHC 30.9 L Initial ED EKG: none Comments: 05/29/2016 6:44:10 PM I have updated ROSHAN on his test results. His H&H seems stable. He will hold off on his Coumadin dose tomorrow and recheck his INR at home on Wednesday. He states he has been on Coumadin for many years and is familiar with how to manage his INR and adjust his Coumadin dose. (I recommended a daily dose of 4 mg once his INR is below 4). Departure Departure Disposition: HOME OR SELF CARE Condition: Stable Clinical Impression Primary Impression: Warfarin-induced coagulopathy Referrals: CONSTANTINO BANERJEE,JESSICA Gordon (PCP/Family) Additional Instructions: Do not take tomorrow's dose of Coumadin. Check your INR on Wednesday and continue to hold her Coumadin if it is greater than 4. If your INR is less than 4, decrease your Coumadin dose to 4 mg daily and follow-up with your picture booker on Wednesday. Otherwise return if any signs of bleeding. Departure Forms: Customer Survey General Discharge Information Critical Care Note Critical Care Note Critical Care Time: non-applicable
== END 2016-05-29 19:01 ==
LOC: ERH 16:59
PROVIDERS: Emergency Medicine
DX: D68.8 Other specified coagulation defects (principal); Z79.01 Long term (current) use of anticoagulants

== ENCOUNTER 2016-09-04 10:34 | Emergency (ER) | payer OTHER, MEDICARE ==
[~2016-09-04] VITALS: Ht 177.8 cm; Wt 56.7 kg
--- NOTE | 2016-09-04 10:42 | ED CARDIAC/CP/PALPITATIONS ---
History of Present Illness General Chief Complaint: General Adult Stated Complaint: BIBA TACHYCARDIA Source: patient, EMS Exam Limitations: no limitations Vital Signs & Intake/Output Vital Signs & Intake/Output Vital Signs Date Time Temp Pulse Resp B/P B/P Pulse O2 O2 Flow FiO2 Mean Ox Delivery Rate 09/04 1757 98.6 95 18 137/67 98 Room Air 09/04 1417 98.6 90 20 126/64 98 Room Air 09/04 1340 98.9 92 20 136/67 96 Room Air 09/04 1114 99.0 106 20 124/57 98 09/04 1055 99.0 175 22 117/60 09/04 1044 99.0 175 22 117/60 98 Room Air Allergies Coded Allergies: gentamicin (SYSTEMIC REACTION - "TOOK MY BALANCE" 05/22/16) Reconcile Medications Enoxaparin Sodium (Lovenox) 40 MG/0.4 ML SYRINGE 60 MG SC BID BLOOD THINNER Escitalopram Oxalate (Lexapro) 10 MG TABLET 1 TAB PO DAILY MENTAL HEALTH ( Reported) Nicotine (Nicotine Patch) 21 MG/24 HOUR PATCH.TD24 1 PAT TOP DAILY TOBACCO Oxycodone HCl 15 MG TABLET 1 TAB PO Q4-6HP PRN PAIN (Reported) Reason to Stop at ADM: pain pathway Oxycodone HCl (Oxycontin) 30 MG TAB.ER.12H 1 TAB PO TID CHRONIC PAIN ( Reported) Pantoprazole Sodium (Protonix) 40 MG TABLET.DR 1 TAB PO DAILY GI prophylaxis Propranolol HCl 10 MG TABLET 5 MG PO BID HEART HEALTH Tizanidine HCl 4 MG TABLET 1 TAB PO TID PAIN (Reported) Warfarin Sodium (Coumadin) 5 MG TABLET 1 TAB PO DAILY BLOOD THINNER Triage Nurses Notes Reviewed? yes Onset: Abrupt Duration: minute(s): (FEW) Timing: single episode today Radiation: no radiation Activities at Onset: none HPI: This is a 65-year-old male with history of pancreatic CVA who presents via EMS from the cancer center after a rapid response. The patient was there for 2 units of RBC transfusion. Prior to having the blood they did a set of vital signs and noticed that his heart rate was in the 180s. Patient denies any chest pain palpitations shortness of breath. He states that he is feeling fine. Patient just has INR checked which was over 3. He stated a history of [facility]' s valve. No history of dysrhythmias that he is aware of. States that he didn't eat or drink anything much this morning other than ensure shake. On patient's medical record which was sent over from the cancer center patient does have a history of SVT. Past History Travel History Traveled to [place] past 21 day No Medical History Any Pertinent Medical History? 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 No Review of Systems Review of Systems Constitutional: Reports: malaise, weakness. Denies: chills, fever. EENTM: Reports: no symptoms. Respiratory: Denies: cough, short of breath, sputum production. Cardiovascular: Reports: palpitations. Denies: chest pain, peripheral edema, syncope. GI: Denies: abdominal pain. Genitourinary: Reports: no symptoms. Musculoskeletal: Reports: no symptoms. Skin: Reports: no symptoms. Neurological/Psychological: Reports: depressed. Denies: anxiety. Hematologic/Endocrine: Denies: bruising, bleeding, polyuria, polydipsia. Immunologic/Allergic: Denies: splenectomy. All Other Systems: Reviewed and Negative Physical Exam Physical Exam General Appearance: alert, awake, mild distress, thin Head: atraumatic, normal appearance Eyes: Bilateral: PERRL, EOMI, pale conjunctivae. Ears, Nose, Throat: normal pharynx, hearing grossly normal Neck: normal inspection, supple, full range of motion Respiratory: normal breath sounds, chest non-tender, no respiratory distress Cardiovascular: tachycardia Peripheral Pulses: 2+ radial (R), 2+ radial (L) Gastrointestinal: soft, non-tender Extremities: RIGHT AKA Neurologic/Psych: no motor/sensory deficits, awake, alert, oriented x 3 Skin: intact, normal color, warm/dry Core Measures ACS in differential dx? Yes ASA ordered for poss ACS? No-ACS ruled out Severe Sepsis Present: No BC x2: No Lactic Acid x2: No Septic Shock Present: No BC x2: No Progress Differential Diagnosis: AMI, unstable angina, SVT, AFIB, ANEMIA, MALIGNANCY, AMI Plan of Care: Orders Procedure Date/time Status Regular Diet 09/04 D Active BLOOD PRODUCT PICKUP 09/04 1456 Active THYROID STIMULATING HORMONE 09/04 1050 Complete BLOOD PRODUCT PICKUP 09/04 1047 Active TROPONIN LEVEL 09/04 1038 Complete PARTIAL THROMBOPLASTIN TIME 09/04 1038 Complete PROTHROMBIN TIME 09/04 1038 Complete MAGNESIUM 09/04 1038 Complete COMPREHENSIVE METABOLIC PANEL 09/04 1038 Complete CBC WITHOUT DIFFERENTIAL 09/04 1038 Complete EKG 09/04 1035 Active Laboratory Tests 09/04/16 1052: TSH Cancelled 09/04/16 1050: Anion Gap 4 L, Estimated GFR > 60, BUN/Creatinine Ratio 19.1, Glucose 111 H, Calcium 8.1 L, Magnesium 1.8, Total Bilirubin 0.5, AST 16 L, ALT 28, Alkaline Phosphatase 96, Troponin I < 0.01, Total Protein 6.3, Albumin 3.0 L, Globulin 3.3, Albumin/Globulin Ratio 0.9 L, TSH 0.877, PT 42.7 *H, INR 4.12 *H, APTT 40 H, CBC w Diff MAN DIFF ORDERED, RBC 3.53 L, MCV 61.5 L, MCH 18.0 L, RDW 22.9 H, MPV 7.8, Segmented Neutrophils 80 H, Lymphocytes 8 L, Monocytes 7, Eosinophils 5, Platelet Estimate ADEQUATE, Hypochromic-Microcytic 3+, Poikilocytosis 1+, Microcytic Cells 3+, Ovalocytes 1+, Elliptocytes FEW, PUBS MCHC 29.2 L 1:02 PM PATIENT SLEEPING. BLOOD INFUSING. (AIYANA BANERJEE,CATINA) Initial ED EKG: SVT Repeat EKG: changed (SINUS TACHYCARDIA) Rhythm Strip: SVT IN 170'S Departure Departure Disposition: HOME OR SELF CARE Condition: Stable Clinical Impression Primary Impression: SVT (supraventricular tachycardia) Secondary Impressions: Anemia Referrals: CONSTANTINO BANERJEE,JESSICA Gordon (PCP/Family) Additional Instructions: PLEASE FOLLOW UP WITH DR LUNDBERG AND YOUR PRIMARY CARE DOCTOR. RETURN FOR ANY CHANGING OR WORSENING SYMPTOMS. Departure Forms: Customer Survey General Discharge Information Critical Care Note Critical Care Note Critical Care Time: 75-104 min
[2016-09-04 11:03] LABS: WHITE BLOOD CELL COUNT 5.4 /CUMM (4.8-10.8)
[2016-09-04 11:06] LABS: HEMATOCRIT 21.7 % (42-52); MEAN CORPUSCULAR HGB CONC 29.2 G/DL (33.0-37.0); MEAN CORPUSCULAR VOLUME 61.5 FL (80.0-94.0); MEAN PLATELET VOLUME 7.8 FL (7.4-10.4); PLATELET COUNT 208 /CUMM (130-400); RBC DISTRIBUTION WIDTH 22.9 % (11.5-14.5); RED BLOOD CELL CT 3.53 /CUMM (4.70-6.10)
[2016-09-04 11:27] LABS: PTT 40 SEC (25-37)
[2016-09-04 11:34] LABS: PT 42.7 SEC (9.4-12.5)
[2016-09-04 17:57] VITALS: BP 137/67
== END 2016-09-04 18:26 ==
LOC: ERH 10:34
PROVIDERS: Emergency Medicine
DX: I47.1 Supraventricular tachycardia (principal); D64.9 Anemia, unspecified
CPT/HCPCS: 93005; 93010; 96374; 99291; J0153